=== PATIENT | female | born 1970 | race African-American/Black ===

== ENCOUNTER → 2017-06-01 08:21 | Outpatient (CLI) | payer MEDICARE, MEDICAID, SELFPAY ==
[2017-06-01 09:46] LABS: Absolute Lymphocyte Count 1.65 X10^3/ul (0.83-4.51); Absolute Neutrophil Count 3.5 X10^3/uL (2.0-7.7); Basophil# 0.02 X10^3/uL; Basophil% 0.3 % (0-1); Eosinophil# 0.15 X10^3/uL; Eosinophils% 2.5 % (0-5); Hematocrit 36.4 % (37-47); Lymphocyte # 1.65 X10^3/ul (4.0); Lymphocyte % 27.7 % (19-41); Mean Corpuscular Hgb 31.6 pg (27.0-32.0); Mean Corpuscular Volume 95.8 fL (81-99); Mean Platelet Vol. 9.7 fl (6.2-12.0); Monocyte# 0.61 X10^3/uL; Monocyte% 10.3 % (0-10); Neutrophil # 3.49 X10^3/uL (2.7-7.7); Neutrophil % 58.7 % (47-70); Platelet Count 315 K/mm3 (150-450); RBC Distribution Width CV 14.8 % (11.6-14.6); RBC Distribution Width SD 49.5 fl (35.1-43.9)
[2017-06-01 09:47] LABS: POSITIVE COUNT NO; POSITIVE DIFFERENTIAL NO; POSITIVE MORPHOLOGY NO
== END ==
PROVIDERS: Family Provider Family Medicine Geriatric Medicine; PCP Family Medicine Geriatric Medicine; Visit Provider Psychiatry & Neurology Psychiatry
DX: Z79.899 Other long term (current) drug therapy (principal)
CPT/HCPCS: 36415; 85025

== ENCOUNTER → 2017-07-01 08:33 | Outpatient (CLI) | payer MEDICARE, MEDICAID, SELFPAY ==
[2017-07-01 09:15] LABS: Absolute Lymphocyte Count 2.05 X10^3/ul (0.83-4.51); Absolute Neutrophil Count 3.2 X10^3/uL (2.0-7.7); Basophil# 0.01 X10^3/uL; Basophil% 0.2 % (0-1); Eosinophils% 3.2 % (0-5); Hematocrit 36.2 % (37-47); Lymphocyte # 2.05 X10^3/ul (4.0); Mean Corp Hgb Conc 33.1 g/gl (32-36); Mean Corpuscular Hgb 31.4 pg (27.0-32.0); Mean Corpuscular Volume 94.8 fL (81-99); Mean Platelet Vol. 9.5 fl (6.2-12.0); Monocyte# 0.73 X10^3/uL; Monocyte% 11.8 % (0-10); Neutrophil # 3.21 X10^3/uL (2.7-7.7); Neutrophil % 51.6 % (47-70); Platelet Count 294 K/mm3 (150-450); RBC Distribution Width CV 14.1 % (11.6-14.6); RBC Distribution Width SD 46.9 fl (35.1-43.9); Red Blood Count 3.82 M/mm3 (4.2-5.4); White Blood Count 6.2 K/mm3 (4.4-11.0)
[2017-07-01 09:20] LABS: POSITIVE COUNT NO; POSITIVE DIFFERENTIAL NO; POSITIVE MORPHOLOGY NO
== END ==
PROVIDERS: Family Provider Family Medicine Geriatric Medicine; PCP Family Medicine Geriatric Medicine; Visit Provider Psychiatry & Neurology Psychiatry
DX: Z79.899 Other long term (current) drug therapy (principal)
CPT/HCPCS: 36415; 85025

== ENCOUNTER → 2017-07-01 10:39 | Outpatient (CLI) | payer MEDICARE, MEDICAID, SELFPAY ==
[2017-07-01 13:10] LABS: Absolute Lymphocyte Count 1.94 X10^3/ul (0.83-4.51); Absolute Neutrophil Count 3.8 X10^3/uL (2.0-7.7); Basophil# 0.01 X10^3/uL; Basophil% 0.1 % (0-1); Eosinophil# 0.26 X10^3/uL; Eosinophils% 3.8 % (0-5); Lymphocyte # 1.94 X10^3/ul (4.0); Lymphocyte % 28.6 % (19-41); Mean Corp Hgb Conc 33.3 g/gl (32-36); Mean Corpuscular Hgb 31.8 pg (27.0-32.0); Mean Corpuscular Volume 95.5 fL (81-99); Mean Platelet Vol. 9.9 fl (6.2-12.0); Monocyte% 11.8 % (0-10); Neutrophil # 3.77 X10^3/uL (2.7-7.7); Neutrophil % 55.6 % (47-70); Platelet Count 294 K/mm3 (150-450); RBC Distribution Width CV 14.3 % (11.6-14.6); RBC Distribution Width SD 48.3 fl (35.1-43.9); Red Blood Count 3.77 M/mm3 (4.2-5.4); White Blood Count 6.8 K/mm3 (4.4-11.0)
[2017-07-01 13:11] LABS: POSITIVE COUNT NO; POSITIVE DIFFERENTIAL NO; POSITIVE MORPHOLOGY NO
[2017-07-01 13:47] LABS: ALB/GLOB Ratio 0.7 RATIO (0.9-2.4); AST(SGOT) 15 U/L (15-37); Alanine Aminotransfer ALT/SGPT 26 U/L (13-56); Albumin, Serum 3.2 g/dL (3.2-5.0); Alkaline Phosphatase 72 U/L (45-117); Anion Gap 8 (5-15); BUN 15 mg/dL (7-18); BUN/Creat Ratio 12.3 RATIO (10-20); Calcium,Total 8.8 mg/dL (8.5-10.1); Chloride 100 mmol/L (98-107); Creatinine, Serum 1.22 mg/dL (0.55-1.02); EST Glomerular Filtration Rate 50 mL/min (>60); Est Glom Filt Rate - Afr Amer 60 mL/min (>60); Globulin 4.5 g/dL (2.2-4.2); Glucose 66 mg/dL (74-106); Potassium 4.4 mmol/L (3.5-5.1); Protein, Total 7.7 g/dL (6.4-8.2); Sodium Level 133 mmol/L (136-145); Thyroid Stim Hormone (TSH) 0.34 uIU/mL (0.358-3.74)
== END ==
PROVIDERS: Family Provider Family Medicine Geriatric Medicine; PCP Family Medicine Geriatric Medicine; Visit Provider Family Medicine Geriatric Medicine
DX: E11.9 Type 2 diabetes mellitus without complications (principal); I10 Essential (primary) hypertension; Z79.899 Other long term (current) drug therapy
CPT/HCPCS: 36415; 80053; 84443; 85025

== ENCOUNTER 2017-07-29 10:46 | Outpatient (RCR) | payer MEDICARE, MEDICAID, SELFPAY ==
[2017-07-29 11:47] LABS: Absolute Lymphocyte Count 3.11 X10^3/ul (0.83-4.51); Absolute Neutrophil Count 3.7 X10^3/uL (2.0-7.7); Basophil# 0.01 X10^3/uL; Basophil% 0.1 % (0-1); Eosinophil# 0.19 X10^3/uL; Eosinophils% 2.5 % (0-5); Hematocrit 35.5 % (37-47); Hemoglobin 11.5 g/dl (12.0-15.0); Lymphocyte # 3.11 X10^3/ul (4.0); Lymphocyte % 40.5 % (19-41); Mean Corp Hgb Conc 32.4 g/gl (32-36); Mean Corpuscular Hgb 30.7 pg (27.0-32.0); Mean Corpuscular Volume 94.7 fL (81-99); Mean Platelet Vol. 9.3 fl (6.2-12.0); Monocyte# 0.67 X10^3/uL; Monocyte% 8.7 % (0-10); Neutrophil # 3.69 X10^3/uL (2.7-7.7); Neutrophil % 48.1 % (47-70); Platelet Count 256 K/mm3 (150-450); RBC Distribution Width CV 14.4 % (11.6-14.6); RBC Distribution Width SD 49.6 fl (35.1-43.9); Red Blood Count 3.75 M/mm3 (4.2-5.4); White Blood Count 7.7 K/mm3 (4.4-11.0)
[2017-07-29 11:50] LABS: POSITIVE COUNT NO; POSITIVE DIFFERENTIAL NO; POSITIVE MORPHOLOGY NO
[2017-07-29 12:15] LABS: Thyroid Stim Hormone (TSH) 0.42 uIU/mL (0.358-3.74)
== END 2017-07-29 11:00 | disposition home or self-care (01) ==
LOC: LAB 10:46
PROVIDERS: Family Provider Family Medicine Geriatric Medicine; PCP Family Medicine Geriatric Medicine; Visit Provider Psychiatry & Neurology Psychiatry
DX: E03.9 Hypothyroidism, unspecified (principal); Z79.899 Other long term (current) drug therapy
CPT/HCPCS: 36415; 84443; 85025

== ENCOUNTER → 2017-08-20 09:50 | Outpatient (CLI) | payer MEDICARE, MEDICAID, SELFPAY ==
[2017-08-20 12:51] LABS: Thyroid Stim Hormone (TSH) 0.91 uIU/mL (0.358-3.74)
== END ==
PROVIDERS: Family Provider Family Medicine Geriatric Medicine; PCP Family Medicine Geriatric Medicine; Visit Provider Family Medicine Geriatric Medicine
DX: E03.9 Hypothyroidism, unspecified (principal)
CPT/HCPCS: 36415; 84443

== ENCOUNTER → 2017-08-26 08:28 | Outpatient (CLI) | payer MEDICARE, MEDICAID, SELFPAY ==
[2017-08-26 09:26] LABS: Absolute Neutrophil Count 3.4 X10^3/uL (2.0-7.7); Basophil# 0.01 X10^3/uL; Basophil% 0.2 % (0-1); Eosinophil# 0.25 X10^3/uL; Hematocrit 33.3 % (37-47); Hemoglobin 11.2 g/dl (12.0-15.0); Lymphocyte % 29.1 % (19-41); Mean Corp Hgb Conc 33.6 g/gl (32-36); Mean Corpuscular Hgb 31.7 pg (27.0-32.0); Mean Corpuscular Volume 94.3 fL (81-99); Mean Platelet Vol. 9.9 fl (6.2-12.0); Monocyte# 0.67 X10^3/uL; Monocyte% 10.8 % (0-10); Neutrophil # 3.43 X10^3/uL (2.7-7.7); Neutrophil % 55.6 % (47-70); Platelet Count 267 K/mm3 (150-450); RBC Distribution Width CV 14.7 % (11.6-14.6); Red Blood Count 3.53 M/mm3 (4.2-5.4); White Blood Count 6.2 K/mm3 (4.4-11.0)
[2017-08-26 09:28] LABS: POSITIVE COUNT NO; POSITIVE DIFFERENTIAL NO; POSITIVE MORPHOLOGY NO
[2017-08-26 10:00] LABS: AST(SGOT) 16 U/L (15-37); Alanine Aminotransfer ALT/SGPT 20 U/L (13-56)
[2017-08-26 10:05] LABS: Valproic Acid (Depakene) Level 55 ug/mL (50-100)
== END ==
PROVIDERS: Family Provider Family Medicine Geriatric Medicine; PCP Family Medicine Geriatric Medicine; Visit Provider Psychiatry & Neurology Psychiatry
DX: R53.83 Other fatigue (principal); Z79.899 Other long term (current) drug therapy; F19.10 Other psychoactive substance abuse, uncomplicated
CPT/HCPCS: 36415; 80164; 84450; 84460; 85025

== ENCOUNTER → 2017-09-21 14:10 | Outpatient (CLI) | payer MEDICARE, MEDICAID, SELFPAY ==
--- NOTE | 2017-09-21 14:10 | DT_ITS ---
This patient was seen during an EMR downtime September 20, 2017 - September 27, 2017. This patient may have a combination of paper and electronic documentation or all paper documentation. All documentation is viewable within the e-chart portion of [facility] for each patient visit.
[2017-09-27 16:01] LABS: Hemoglobin 10.6 g/dl (12.0-15.0); Mean Corp Hgb Conc 33.1 g/gl (32-36); Mean Corpuscular Hgb 30.5 pg (27.0-32.0); Mean Corpuscular Volume 92.2 fL (81-99); Mean Platelet Vol. 9.2 fl (6.2-12.0); POSITIVE COUNT NO; POSITIVE DIFFERENTIAL NO; POSITIVE MORPHOLOGY NO; Platelet Count 335 K/mm3 (150-450); RBC Distribution Width CV 14.4 % (11.6-14.6); RBC Distribution Width SD 48.3 fl (35.1-43.9); Red Blood Count 3.47 M/mm3 (4.2-5.4); White Blood Count 7.2 K/mm3 (4.4-11.0)
[2017-09-27 16:02] LABS: Absolute Lymphocyte Count 2.05 X10^3/ul (0.83-4.51); Absolute Neutrophil Count 4.1 X10^3/uL (2.0-7.7); Basophil# 0.01 X10^3/uL; Basophil% 0.1 % (0-1); Eosinophil# 0.23 X10^3/uL; Eosinophils% 3.2 % (0-5); Lymphocyte # 2.05 X10^3/ul (4.0); Lymphocyte % 28.4 % (19-41); Monocyte# 0.86 X10^3/uL; Monocyte% 11.9 % (0-10); Neutrophil # 4.06 X10^3/uL (2.7-7.7); Neutrophil % 56.3 % (47-70)
== END ==
PROVIDERS: Family Provider Family Medicine Geriatric Medicine; PCP Family Medicine Geriatric Medicine; Visit Provider Psychiatry & Neurology Psychiatry
DX: Z79.899 Other long term (current) drug therapy (principal)
CPT/HCPCS: 36415; 85025

== ENCOUNTER → 2017-10-19 09:06 | Outpatient (CLI) | payer MEDICARE, MEDICAID, SELFPAY ==
[2017-10-19 09:52] LABS: Absolute Neutrophil Count 3.1 X10^3/uL (2.0-7.7); Basophil# 0.01 X10^3/uL; Basophil% 0.2 % (0-1); Eosinophil# 0.23 X10^3/uL; Eosinophils% 3.6 % (0-5); Hematocrit 35.1 % (37-47); Hemoglobin 11.8 g/dl (12.0-15.0); Lymphocyte % 34.8 % (19-41); Mean Corp Hgb Conc 33.6 g/gl (32-36); Mean Corpuscular Hgb 31.1 pg (27.0-32.0); Mean Corpuscular Volume 92.6 fL (81-99); Mean Platelet Vol. 9.6 fl (6.2-12.0); Monocyte# 0.69 X10^3/uL; Monocyte% 10.9 % (0-10); Neutrophil # 3.14 X10^3/uL (2.7-7.7); Neutrophil % 49.7 % (47-70); Platelet Count 338 K/mm3 (150-450); RBC Distribution Width CV 14.3 % (11.6-14.6); RBC Distribution Width SD 46.8 fl (35.1-43.9); Red Blood Count 3.79 M/mm3 (4.2-5.4); White Blood Count 6.3 K/mm3 (4.4-11.0)
[2017-10-19 09:55] LABS: POSITIVE COUNT NO; POSITIVE DIFFERENTIAL NO; POSITIVE MORPHOLOGY NO
== END ==
PROVIDERS: Family Provider Family Medicine Geriatric Medicine; PCP Family Medicine Geriatric Medicine; Visit Provider Psychiatry & Neurology Psychiatry
DX: Z79.899 Other long term (current) drug therapy (principal)
CPT/HCPCS: 36415; 85025

== ENCOUNTER → 2017-11-16 09:18 | Outpatient (CLI) | payer MEDICARE, MEDICAID, SELFPAY ==
[2017-11-16 10:10] LABS: Absolute Lymphocyte Count 2.44 X10^3/ul (0.83-4.51); Absolute Neutrophil Count 3.4 X10^3/uL (2.0-7.7); Basophil# 0.02 X10^3/uL; Basophil% 0.3 % (0-1); Eosinophil# 0.26 X10^3/uL; Eosinophils% 3.8 % (0-5); Hematocrit 36.6 % (37-47); Hemoglobin 11.9 g/dl (12.0-15.0); Lymphocyte # 2.44 X10^3/ul (4.0); Lymphocyte % 35.9 % (19-41); Mean Corp Hgb Conc 32.5 g/gl (32-36); Mean Corpuscular Hgb 30.9 pg (27.0-32.0); Mean Corpuscular Volume 95.1 fL (81-99); Mean Platelet Vol. 9.4 fl (6.2-12.0); Monocyte% 10.3 % (0-10); Neutrophil # 3.36 X10^3/uL (2.7-7.7); Neutrophil % 49.6 % (47-70); Platelet Count 294 K/mm3 (150-450); RBC Distribution Width CV 14.4 % (11.6-14.6); RBC Distribution Width SD 49.9 fl (35.1-43.9); Red Blood Count 3.85 M/mm3 (4.2-5.4); White Blood Count 6.8 K/mm3 (4.4-11.0)
[2017-11-16 10:16] LABS: POSITIVE COUNT NO; POSITIVE DIFFERENTIAL NO; POSITIVE MORPHOLOGY NO
== END ==
PROVIDERS: Family Provider Family Medicine Geriatric Medicine; PCP Family Medicine Geriatric Medicine; Visit Provider Psychiatry & Neurology Psychiatry
DX: Z79.899 Other long term (current) drug therapy (principal)
CPT/HCPCS: 36415; 85025

== ENCOUNTER → 2017-12-14 09:25 | Outpatient (CLI) | payer MEDICARE, MEDICAID, SELFPAY ==
[2017-12-14 10:31] LABS: Absolute Neutrophil Count 3.3 X10^3/uL (2.0-7.7); Basophil# 0.01 X10^3/uL; Basophil% 0.2 % (0-1); Eosinophil# 0.23 X10^3/uL; Eosinophils% 3.5 % (0-5); Hematocrit 35.3 % (37-47); Hemoglobin 11.4 g/dl (12.0-15.0); Lymphocyte % 34.9 % (19-41); Mean Corp Hgb Conc 32.3 g/gl (32-36); Mean Corpuscular Volume 95.9 fL (81-99); Mean Platelet Vol. 9.8 fl (6.2-12.0); Monocyte# 0.77 X10^3/uL; Monocyte% 11.7 % (0-10); Neutrophil # 3.26 X10^3/uL (2.7-7.7); Neutrophil % 49.4 % (47-70); POSITIVE COUNT NO; POSITIVE DIFFERENTIAL NO; POSITIVE MORPHOLOGY NO; Platelet Count 282 K/mm3 (150-450); RBC Distribution Width CV 14.5 % (11.6-14.6); RBC Distribution Width SD 50.8 fl (35.1-43.9); Red Blood Count 3.68 M/mm3 (4.2-5.4); White Blood Count 6.6 K/mm3 (4.4-11.0)
== END ==
PROVIDERS: Family Provider Family Medicine Geriatric Medicine; PCP Family Medicine Geriatric Medicine; Visit Provider Psychiatry & Neurology Psychiatry
DX: Z79.899 Other long term (current) drug therapy (principal)
CPT/HCPCS: 36415; 85025

== ENCOUNTER → 2017-12-30 11:37 | Outpatient (CLI) | payer MEDICARE, MEDICAID, SELFPAY ==
[2017-12-30 12:41] LABS: Absolute Lymphocyte Count 2.24 X10^3/ul (0.83-4.51); Basophil# 0.01 X10^3/uL; Basophil% 0.2 % (0-1); Eosinophil# 0.25 X10^3/uL; Hematocrit 34.9 % (37-47); Hemoglobin 11.4 g/dl (12.0-15.0); Lymphocyte # 2.24 X10^3/ul (4.0); Lymphocyte % 35.7 % (19-41); Mean Corp Hgb Conc 32.7 g/gl (32-36); Mean Corpuscular Hgb 30.6 pg (27.0-32.0); Mean Corpuscular Volume 93.6 fL (81-99); Mean Platelet Vol. 9.8 fl (6.2-12.0); Monocyte# 0.77 X10^3/uL; Monocyte% 12.3 % (0-10); Neutrophil # 2.99 X10^3/uL (2.7-7.7); Neutrophil % 47.5 % (47-70); Platelet Count 294 K/mm3 (150-450); RBC Distribution Width CV 14.4 % (11.6-14.6); RBC Distribution Width SD 49.1 fl (35.1-43.9); Red Blood Count 3.73 M/mm3 (4.2-5.4); White Blood Count 6.3 K/mm3 (4.4-11.0)
[2017-12-30 12:48] LABS: POSITIVE COUNT NO; POSITIVE DIFFERENTIAL NO; POSITIVE MORPHOLOGY NO
[2017-12-30 13:12] LABS: ALB/GLOB Ratio 0.7 RATIO (0.9-2.4); AST(SGOT) 20 U/L (15-37); Alanine Aminotransfer ALT/SGPT 32 U/L (13-56); Albumin, Serum 3.1 g/dL (3.2-5.0); Alkaline Phosphatase 71 U/L (45-117); Anion Gap 11 (5-15); BUN 25 mg/dL (7-18); BUN/Creat Ratio 19.4 RATIO (10-20); Chloride 103 mmol/L (98-107); Creatinine, Serum 1.29 mg/dL (0.55-1.02); EST Glomerular Filtration Rate 47 mL/min (>60); Est Glom Filt Rate - Afr Amer 56 mL/min (>60); Globulin 4.6 g/dL (2.2-4.2); Glucose 63 mg/dL (74-106); Potassium 4.5 mmol/L (3.5-5.1); Protein, Total 7.7 g/dL (6.4-8.2); Sodium Level 137 mmol/L (136-145); Thyroid Stim Hormone (TSH) 0.97 uIU/mL (0.358-3.74)
== END ==
PROVIDERS: Family Provider Family Medicine Geriatric Medicine; PCP Family Medicine Geriatric Medicine; Visit Provider Family Medicine Geriatric Medicine
DX: I10 Essential (primary) hypertension (principal)
CPT/HCPCS: 36415; 80053; 84443; 85025

== ENCOUNTER 2018-01-11 09:30 | Outpatient (RCR) | payer MEDICARE, MEDICAID, SELFPAY ==
[2018-01-11 11:01] LABS: Absolute Lymphocyte Count 2.27 X10^3/ul (0.83-4.51); Absolute Neutrophil Count 3.2 X10^3/uL (2.0-7.7); Basophil# 0.02 X10^3/uL; Basophil% 0.3 % (0-1); Eosinophils% 4.6 % (0-5); Hematocrit 35.3 % (37-47); Hemoglobin 11.8 g/dl (12.0-15.0); Lymphocyte # 2.27 X10^3/ul (4.0); Lymphocyte % 35.1 % (19-41); Mean Corp Hgb Conc 33.4 g/gl (32-36); Mean Corpuscular Hgb 31.4 pg (27.0-32.0); Mean Corpuscular Volume 93.9 fL (81-99); Mean Platelet Vol. 9.7 fl (6.2-12.0); Monocyte# 0.65 X10^3/uL; Monocyte% 10.1 % (0-10); Neutrophil # 3.21 X10^3/uL (2.7-7.7); Neutrophil % 49.7 % (47-70); Platelet Count 290 K/mm3 (150-450); RBC Distribution Width CV 14.2 % (11.6-14.6); Red Blood Count 3.76 M/mm3 (4.2-5.4); White Blood Count 6.5 K/mm3 (4.4-11.0)
[2018-01-11 11:11] LABS: POSITIVE COUNT NO; POSITIVE DIFFERENTIAL NO; POSITIVE MORPHOLOGY NO
== END 2018-01-11 11:00 | disposition home or self-care (01) ==
LOC: LAB 09:30
PROVIDERS: Family Provider Family Medicine Geriatric Medicine; PCP Family Medicine Geriatric Medicine; Visit Provider Psychiatry & Neurology Psychiatry
DX: Z79.899 Other long term (current) drug therapy (principal)
CPT/HCPCS: 36415; 85025

== ENCOUNTER → 2018-01-13 14:20 | Outpatient (CLI) | payer MEDICARE, MEDICAID, SELFPAY ==
--- NOTE | 2018-01-13 14:24 | BI_ITS ---
MAMMOGRAPHY - BILATERAL SCREENING REASON FOR EXAM: Female, 47 years old. Routine annual screening examination. PERTINENT HISTORY: Non-contributory. TECHNIQUE: Digital bilateral breast poonam (3D mammographic acquisition) in the CC and MLO projections. 2-D mediolateral oblique (MLO) and craniocaudad (CC) views of both breasts were obtained. CAD: Full Field Digital Mammography with Computer Added Detection was performed. COMPARISON: Comparison is made with prior examination dated December 11, 2016 and May 13, 2011. FINDINGS: Breast Composition: There are scattered areas of fibroglandular density. There are no dominant masses or suspicious calcifications. No other significant abnormalities are identified. There has been no significant change since the prior study. BI/SCREENING MAMM (CAD), BILAT IMPRESSION: Stable bilateral screening mammogram. Yearly follow-up mammogram recommended. (A) ASSESSMENT CATEGORY: BIRADS Category 1: Negative. A letter regarding these results will be sent to the patient by the facility within 30 days. Approximately 10% of breast cancers are not detected by mammography. A normal mammogram should not delay biopsy of a clinically suspicious abnormality. [id number] Electronically Signed: Michele Rhodes MD at 15:11 EDT Tel [phone], Service support ,
== END ==
PROVIDERS: Family Provider Family Medicine Geriatric Medicine; PCP Family Medicine Geriatric Medicine; Visit Provider Obstetrics & Gynecology
DX: Z12.31 Encounter for screening mammogram for malignant neoplasm of breast (principal)
CPT/HCPCS: 77063; 77067

== ENCOUNTER 2018-02-08 09:22 | Outpatient (RCR) | payer MEDICARE, MEDICAID, SELFPAY ==
[2018-02-08 10:03] LABS: Absolute Lymphocyte Count 1.92 X10^3/ul (0.83-4.51); Absolute Neutrophil Count 3.5 X10^3/uL (2.0-7.7); Basophil# 0.02 X10^3/uL; Basophil% 0.3 % (0-1); Eosinophil# 0.23 X10^3/uL; Eosinophils% 3.5 % (0-5); Hematocrit 34.5 % (37-47); Hemoglobin 11.5 g/dl (12.0-15.0); Lymphocyte # 1.92 X10^3/ul (4.0); Lymphocyte % 29.4 % (19-41); Mean Corp Hgb Conc 33.3 g/gl (32-36); Mean Corpuscular Hgb 31.2 pg (27.0-32.0); Mean Corpuscular Volume 93.5 fL (81-99); Mean Platelet Vol. 8.9 fl (6.2-12.0); Monocyte# 0.78 X10^3/uL; Monocyte% 11.9 % (0-10); Neutrophil # 3.51 X10^3/uL (2.7-7.7); Neutrophil % 53.7 % (47-70); POSITIVE COUNT NO; POSITIVE DIFFERENTIAL NO; POSITIVE MORPHOLOGY NO; Platelet Count 335 K/mm3 (150-450); RBC Distribution Width CV 14.1 % (11.6-14.6); RBC Distribution Width SD 46.4 fl (35.1-43.9); Red Blood Count 3.69 M/mm3 (4.2-5.4); White Blood Count 6.5 K/mm3 (4.4-11.0)
[2018-02-08 10:28] LABS: AST(SGOT) 16 U/L (15-37); Alanine Aminotransfer ALT/SGPT 19 U/L (13-56)
[2018-02-08 10:37] LABS: Valproic Acid (Depakene) Level 54 ug/mL (50-100)
== END 2018-02-08 11:00 | disposition home or self-care (01) ==
LOC: LAB 09:22
PROVIDERS: Family Provider Family Medicine Geriatric Medicine; PCP Family Medicine Geriatric Medicine; Referring Provider Psychiatry & Neurology Psychiatry; Visit Provider Psychiatry & Neurology Psychiatry
DX: Z79.899 Other long term (current) drug therapy (principal)
CPT/HCPCS: 36415; 80164; 82140; 84450; 84460; 85025

== ENCOUNTER → 2018-03-08 09:15 | Outpatient (CLI) | payer MEDICARE, MEDICAID, SELFPAY ==
[2018-02-08 12:17] VITALS: BMI 41.9
[2018-03-08 10:30] LABS: Absolute Lymphocyte Count 2.26 X10^3/ul (0.83-4.51); Absolute Neutrophil Count 2.7 X10^3/uL (2.0-7.7); Basophil# 0.01 X10^3/uL; Basophil% 0.2 % (0-1); Eosinophil# 0.23 X10^3/uL; Eosinophils% 3.9 % (0-5); Hematocrit 35.7 % (37-47); Hemoglobin 11.9 g/dl (12.0-15.0); Lymphocyte # 2.26 X10^3/ul (4.0); Lymphocyte % 37.9 % (19-41); Mean Corp Hgb Conc 33.3 g/gl (32-36); Mean Corpuscular Hgb 31.3 pg (27.0-32.0); Mean Corpuscular Volume 93.9 fL (81-99); Mean Platelet Vol. 9.9 fl (6.2-12.0); Monocyte# 0.72 X10^3/uL; Monocyte% 12.1 % (0-10); Neutrophil # 2.74 X10^3/uL (2.7-7.7); Neutrophil % 45.7 % (47-70); Platelet Count 296 K/mm3 (150-450); RBC Distribution Width CV 14.5 % (11.6-14.6); RBC Distribution Width SD 47.8 fl (35.1-43.9)
[2018-03-08 10:36] LABS: POSITIVE COUNT NO; POSITIVE DIFFERENTIAL NO; POSITIVE MORPHOLOGY NO
== END ==
PROVIDERS: Family Provider Family Medicine Geriatric Medicine; PCP Family Medicine Geriatric Medicine; Referring Provider Psychiatry & Neurology Psychiatry; Visit Provider Psychiatry & Neurology Psychiatry
DX: Z79.899 Other long term (current) drug therapy (principal)
CPT/HCPCS: 36415; 85025

== ENCOUNTER 2018-03-18 09:09 | Outpatient (RCR) | payer MEDICARE, MEDICAID, SELFPAY ==
[2018-02-08 12:17] VITALS: BMI 41.9
[2018-03-18 10:53] LABS: Absolute Neutrophil Count 3.4 X10^3/uL (2.0-7.7); Basophil# 0.02 X10^3/uL; Basophil% 0.3 % (0-1); Eosinophil# 0.25 X10^3/uL; Eosinophils% 3.7 % (0-5); Hematocrit 35.4 % (37-47); Lymphocyte % 35.5 % (19-41); Mean Corp Hgb Conc 33.9 g/gl (32-36); Mean Corpuscular Hgb 31.5 pg (27.0-32.0); Mean Corpuscular Volume 92.9 fL (81-99); Monocyte# 0.64 X10^3/uL; Monocyte% 9.5 % (0-10); Neutrophil # 3.42 X10^3/uL (2.7-7.7); Neutrophil % 50.6 % (47-70); Platelet Count 332 K/mm3 (150-450); RBC Distribution Width CV 14.8 % (11.6-14.6); RBC Distribution Width SD 48.3 fl (35.1-43.9); Red Blood Count 3.81 M/mm3 (4.2-5.4); White Blood Count 6.8 K/mm3 (4.4-11.0)
[2018-03-18 10:54] LABS: POSITIVE COUNT NO; POSITIVE DIFFERENTIAL NO; POSITIVE MORPHOLOGY NO
--- OUTSIDE RECORDS SUMMARY | 2018-05-13 03:54 | XMS RPT_ITS ---
:1970 Author Organization OHIP Support Name Relationship Address Phone D Unavailable Unavailable Unavailable MARLIN MARTINEZ Unavailable [address] + [place] [address] PIMENTEL TAMIKO Unavailable [address] + [place] [address] D Unavailable Unavailable Unavailable MARLIN MARTINEZ Unavailable [address] + [place] [address] PIMENTEL, TAMIKO Unavailable [address] + [place] [address] D Unavailable Unavailable Unavailable MARLIN MARTINEZ Unavailable [address] + [place] [address] PIMENTEL, TAMIKO Unavailable [address] + [place] [address] D Unavailable Unavailable Unavailable MARLIN MARTINEZ Unavailable Unavailable + [place] [address] PIMENTEL, TAMIKO Unavailable Unavailable + [place] [address] D Unavailable Unavailable Unavailable MARLIN MARTINEZ Unavailable . + [place] [address] PIMENTEL, TAMIKO Unavailable . + [place] [address] D Unavailable Unavailable Unavailable STEF MARTINEZE Unavailable Unavailable + P[place] TAMIKO Unavailable Unavailable + D Unavailable Unavailable Unavailable MARLIN MARTINEZ Unavailable Unavailable + [place] [address] PIMENTEL, TAMIKO Unavailable Unavailable + [place] [address] D Unavailable Unavailable Unavailable MARLIN MARTINEZ Unavailable Unavailable + [place] [address] PIMENTEL, TAMIKO Unavailable Unavailable + [place] [address] D Unavailable Unavailable Unavailable SUBRANNI, MARLIN Unavailable Unavailable + [place] [address] PIMENTEL, TAMIKO Unavailable Unavailable + [place] [address] D Unavailable Unavailable Unavailable SUBRANNI, MARLIN Unavailable Unavailable + [place] [address] PIMENTEL, TAMIKO Unavailable Unavailable + [place] [address] D Unavailable Unavailable Unavailable SUBRANNI, MARLIN Unavailable Unavailable + [place] [address] PIMENTEL, TAMIKO Unavailable Unavailable + [place] [address] D Unavailable Unavailable Unavailable SUBRANNI, MARLIN Unavailable . + [place] [address] PIMENTEL, TAMIKO Unavailable . + [place] [address] D Unavailable Unavailable Unavailable SUBRANNI, MARLIN Unavailable . + [place] [address] PIMENTEL, TAMIKO Unavailable . + [place] [address] D Unavailable Unavailable Unavailable SUBRANNI, MARLIN Unavailable . + [place] [address] PIMENTEL, TAMIKO Unavailable . + [place] [address] D Unavailable Unavailable Unavailable SUBRANNI, MARLIN Unavailable Unavailable + [place] [address] D Unavailable Unavailable Unavailable SUBRANNI, MARLIN Unavailable Unavailable + [place] [address] D Unavailable Unavailable Unavailable SUBRANNI, MARLIN Unavailable Unavailable + [place] [address] D Unavailable Unavailable Unavailable SUBRANNI, MARLIN Unavailable Unavailable + [place] [address] D Unavailable Unavailable Unavailable SUBRANNI, MARLIN Unavailable Unavailable + [place] [address] D Unavailable Unavailable Unavailable SUBRANNI, MARLIN Unavailable Unavailable + [place] [address] D Unavailable Unavailable Unavailable SUBRANNI, MARLIN Unavailable . + [place] [address] D Unavailable Unavailable Unavailable SUBRANNI, MARLIN Unavailable . + [place] [address] Care Team Providers Name Role Phone Astreika, Vera Attending Unavailable Astreika, Vera Referring Unavailable Jim, Marc Chi Primary Care Unavailable Jim, Marc Chi Attending Unavailable Jim, Marc Chi Primary Care Unavailable Astreika, Vera Attending Unavailable Astreika, Vera Referring Unavailable Jim, Marc Chi Primary Care Unavailable Astreika, Vera Attending Unavailable Astreika, Vera Referring Unavailable Jim, Marc Chi Primary Care Unavailable Astreika, Vera Attending Unavailable Astreika, Vera Referring Unavailable Jim, Marc Chi Primary Care Unavailable Astreika, Vera Attending Unavailable Astreika, Vera Referring Unavailable Jim, Marc Chi Primary Care Unavailable Rolo Sun Attending Unavailable Jim, Marc Chi Referring Unavailable Araceli Prince Attending Unavailable Jim, Marc Chi Referring Unavailable Astreika, Vera Attending Unavailable Astreika, Vera Referring Unavailable Jim, Marc Chi Primary Care Unavailable Astreika, Vera Attending Unavailable Astreika, Vera Referring Unavailable Jim, Marc Chi Primary Care Unavailable Jim, Marc Chi Attending Unavailable Jim, Marc Chi Primary Care Unavailable Astreika, Vera Attending Unavailable Jim, Marc Chi Primary Care Unavailable Araceli Prince Attending Unavailable Jim, Marc Chi Primary Care Unavailable Astreika, Vera Attending Unavailable Jim, Marc Chi Primary Care Unavailable Astreika, Vera Referring Unavailable Araceli Prince Attending Unavailable Jim, Marc Chi Referring Unavailable Astreika, Vera Attending Unavailable Astreika, Vera Referring Unavailable Jim, Marc Chi Primary Care Unavailable Astreika, Vera Attending Unavailable Astreika, Vera Referring Unavailable Jim, Marc Chi Primary Care Unavailable Astreika, Vera Attending Unavailable Astreika, Vera Referring Unavailable Jim, Marc Chi Primary Care Unavailable Astreika, Vera Attending Unavailable Astreika, Vera Referring Unavailable Jim, Marc Chi Primary Care Unavailable Astreika, Vera Attending Unavailable Astreika, Vera Referring Unavailable Jim, Marc Chi Primary Care Unavailable Lavern Saldana Attending Unavailable Jim, Marc Chi Primary Care Unavailable Jim, Marc Chi Attending Unavailable Jim, Marc Chi Primary Care Unavailable PROBLEMS PROBLEMS DATE TYPE CONDITION / CODE ATTENDING STATUS SOURCE 03/21/2018 Unknown Z79.899 - Other Astreika, 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 / Repository Z79.899(ICD-10) 01/13/2018 Unknown Z12.31 - Shana, Active [place] Encounter for [facility] mammogram for Repository malignant neoplasm of breast / Z12.31(ICD-10) 08/20/2017 Unknown E03.9 - Marc Dominguez Chi Active [place] Hypothyroidism, Community unspecified / Hospital E03.9(ICD-10) Repository 04/21/2017 Unknown R05 - Cough / Prince, Active [place] R05(ICD-10) [facility] Repository PROCEDURES PROCEDURES No Procedure Records FoundRESULTS RESULTS PULMONARY VISIT REPORT Observed: 03/21/2018 Status: F Source: [place] 1:23 PM [facility] REPOSITORY [facility] [address] [place] [address] OFFICE VISIT Date of Service: 03/21/18 MR#: [id number] Acct: [id number] Name: HOA PIMENTEL Rep #: [id number] : 1970 Provider: Rolo Sun MD Age/Sex: 47/F Location: [facility] Status: Signed Assessment AND Plan Problems 1. Moderate persistent asthma without complication J45.40 2. Schizophrenia, unspecified type F20.9 3. Paranoid disorder F22 Plan Patient appears to be doing well on current regimen. No exacerbations have been reported. Patient is not having any complications with therapy. No indication for repeat pulmonary function test at this time. Signs and symptoms of exacerbation and sick policy were reviewed in detail. 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 Continue current regimen. Patient Instructions No changes. Plan Detail Follow Up 6 Months ([facility]) HPI 6 M FU: Chief Complaint: Routine follow-up Details: Patient is a 47-year-old black female, currently in the care of Dr. Dominguez, who presents for evaluation secondary to routine follow-up for asthma. Since last visit, patient denies any ER visits, hospitalizations or prednisone burst. Patient overall feels subjectively unchanged compared to previous. Patient has been doing well on Arnuity. Patient denies any current complications with therapy including thrush, hoarseness or sore throat. Patient feels that this works well for her. No PRN albuterol has been reported. Patient denies any nocturnal cough. Patient denies any worsening dyspnea on exertion. Patient continues to live in a half-way and states that multiple members have been sick but I have been able to stay away from it. Patient has not had any change in her cough or exacerbation of symptoms related to decrease in temperature. Patient is using Flonase for seasonal allergies. Patient denies any complications such as epistaxis and feels the medication is working well. HPI Comments Details: Intake Vital Signs03/21/18 Height 5 ft 6 in 03/21/18 Weight: 119.748 kg Intake Visit Reasons: 6 M Draw Frame Runner Required: No Is patient in pain?: No Allergies No Known Allergies Allergy (Verified 03/21/18 12:54) Medications Aspirin [Aspirin, Baby] 81 mg PO DAILY@0800 06/24/15 [History Confirmed 03/21/18] Clozapine 150 mg PO BID 06/24/15 [History Confirmed 03/21/18] Glimepiride [Amaryl] 4 mg PO DAILY 06/24/15 [History Confirmed 03/21/18] Levothyroxine [Synthroid] 150 mcg PO DAILY 06/24/15 [History Confirmed 03/21/18] Multivitamins,Therapeutic [Multivitamin] 1 tab PO DAILY 06/24/15 [History Confirmed 03/21/18] Divalproex Sodium [Depakote] 500 mg PO 4X/DAY 06/25/15 [History Confirmed 03/21/18] Metformin HCl [Glucophage] 1,000 mg PO BIDCM 10/08/15 [History Confirmed 03/21/18] Albuterol IH (ProAir) [Proair Hfa (SP)Vent Pts] 2 puff INHALATION 4X/DAY #1 inhaler 10/10/15 [Rx Confirmed 03/21/18] amlodipine 5 mg tablet 5 mg PO QDAY 04/05/17 [History Confirmed 03/21/18] atorvastatin 40 mg tablet 40 mg PO QDAY 04/05/17 [History Confirmed 03/21/18] divalproex ER 500 mg tablet,extended release 24 hr 500 mg PO .qid tab 04/05/17 [History Confirmed 03/21/18] hydrochlorothiazide 12.5 mg capsule 12.5 mg PO QDAY 04/05/17 [History Confirmed 03/21/18] valsartan 320 mg tablet 320 mg PO QDAY 04/05/17 [History Confirmed 03/21/18] fluticasone furoate 100 mcg/actuation blister powder for inhalation 1 inh INHALATION Q24H #30 ea 07/09/17 [Rx Confirmed 03/21/18] fluticasone 50 mcg/actuation nasal spray,suspension 2 spray INTRANASAL DAILY #16 g 02/08/18 [Rx Confirmed 03/21/18] norethindrone (contraceptive) 0.35 mg tablet 0.35 mg PO DAILY #28 tab 02/23/18 [Rx Confirmed 03/21/18] FOR[facility]LY [facility] Medical History Hyponatremia (Acute) Hypertension (Chronic) Schizophrenia (Chronic) Paranoid disorder (Chronic) Type II diabetes mellitus (Chronic) Hyperlipidemia (Chronic) Cough (Acute) Expiratory wheezing (Acute) Wheeze (Acute) Hypoxemia (Chronic) Moderate persistent asthma, uncomplicated (Chronic) Pulmonary hypertension (Chronic) Family History Brother Diabetes Social History Smoking Status: Never smoker second hand exposure: No alcohol intake: never substance use type: does not use Review of Systems Const CONSTITUTIONAL: Negative anorexia, body ache, chills, daytime sleepiness, fever(s), night sweats, oral thrush, stops breathing during sleep, weight loss, sleeping in chair, fatigue, weight loss, weight gain, frequent colds, seasonal allergies, other, headache(s) or orthopnea EETM Ear Nose Throat Mouth: Positive hearing normal; negative hard of hearing, hoarseness, dry mouth in morning, change in vision, itchy eyes, eye pain, swallowing Difficulty, ear pain, nose bleed, headache(s), mouth pain, nasal congestion, nasal discharge, post nasal drip, sinus pain, sinus pressure, sore throat or other Cardio Cardiovascular: Negative chest pain, chest pain at rest, chest pain with activity, irregular heart rhythm, edema, shortness of breath when lying down, palpitations, murmur or other Resp Respiratory: Positive as per HPI and inhalers; negative shortness of breath, pain with cough, wheezing, chest congestion, cough, chest tightness, pain on inspiration, increase use of rescue inhalers, snoring, apnea or other Gastro Gastrointestional: Negative bloody stools, change in appetite, difficulty swallowing, reflux, hematemesis, melena stool, loose stool, constipation or other Genitourinary: Negative blood in urine, nocturia, pain with urination or other Musc Musculoskeletal: Negative body pain, back pain, neck pain or other Skin/Breast Skin/Breast: Negative dry skin, itching, rash, unusual bruising, breast lump or other Neuro Neurological: Negative restless legs, confusion, weakness or other Psych Psychocological: Negative abnormal sleep pattern, anxiety, thoughts of hurting self/others, hopelessness or other Lymph Lymphatic: Negative easy bleeding, easy bruising, swollen lymph nodes or other Exam Const Constitutional: Positive conversant, cooperative, in no acute respiratory distress, healthy appearing, well developed, well nourished, good hygiene, obese and appears older than stated age; negative wearing supplemental oxygen or smells of smoke Head Head: Positive normocephalic and atraumatic; negative cyanosis of lips/distal nose, frontal sinus tenderness or maxillary sinus tenderness Eyes Eye: Positive clear conjunctiva; negative nystagmus, scleral abnormality or cataract present Ears Ear: Positive hearing normal and external ears normal; negative hard of hearing Nose Nose: Positive external nose normal and septum normal; negative epistaxis, nasal polyp or no nasal discharge Mouth Mouth: Positive oral mucosae normal, no lesions, edentulous and crowded posterior oropharynx; negative post nasal drip, malodorous breath or oral thrush present Mallampati Score: IV: Mallampati Score Neck Neck: Positive normal visual inspection, full ROM, trachea midline, thick neck and female neck greater than 37 cm (15 in); negative lymphadenopathy or JVD Chest Wall Chest: Positive normal inspection of the chest and symmetric chest movement; negative crepitus or tenderness Resp lung sounds: Positive clear to auscultation, good air exchange, normal expiratory time and normal respiratory effort; negative wheezes, rhonchi, rales, use of accessory muscles, wheeze present on forced exhalation or dullness to percussion Cardio Cardiac: Positive regular rate, regular rhythm, S1 normal and S2 normal; negative murmur, rub or gallop GI GI: Positive normal to inspection, normal bowel sounds and obese; negative distended, ascites or epigastric tenderness Genitourinary: Positive deferred Musc Musculoskeletal: Positive steady gait; negative using an assistive device for ambulation, kyphosis or scoliosis Skin Pulmonary Skin Exam: Positive intact; negative rash, lesion, ulcers, erythema or dermal atrophy Pulses Pulse: Yes radial pulses present Extremities Extremities: Yes capillary refill normal, No clubbing, No cyanosis, No edema, No stasis dermatitis Neuro Neurologic: Yes conversant, Yes no focal neuro deficits, Yes cooperative, Yes normal coordination Lymph Lymphatic: No lymphadenopathy Psych Appearance: Positive grossly normal Mental Status: Positive mental status grossly normal Mood: Positive congruent mood Affect: Positive normal affect Coding Level of Care Code Off vis,est,level 3 Diagnoses Moderate persistent asthma without complication J45.40 Asthma severity: moderate Asthma persistence: persistent Asthma complication type: uncomplicated Schizophrenia, unspecified type F20.9 Schizophrenia type: unspecified Paranoid disorder F22 03/21/18 1323 <Electronically signed by Rolo Sun MD> Date Rolo Sun MD Cosigner Signature: Date (if applicable) CC: Marc Dominguez MD CBC W/DIFF, AUTOMATED Collected: 03/18/2018 Status: F Source: [place] 9:18 AM [facility] REPOSITORY TYPE CODE TESTS RESULT OUT OF RANGE REFERENCE UNITS LAB L100.1000 4.4-11.0 K/mm3 Normal WBC 6.8 LAB L100.1200 4.2-5.4 M/mm3 Low RBC 3.81 LAB L100.1300 12.0-15.0 g/dl Normal HGB 12.0 LAB L100.1400 37-47 % Low HCT 35.4 LAB L100.1500 81-99 fL Normal MCV 92.9 LAB L100.1600 27.0-32.0 pg Normal MCH 31.5 LAB L100.1700 32-36 g/gl Normal MCHC 33.9 LAB L100.1810 11.6-14.6 % High RDW CV 14.8 LAB L100.1820 35.1-43.9 fl High RDW SD 48.3 LAB L100.1900 150-450 K/mm3 Normal PLT 332 LAB L100.2000 6.2-12.0 fl Normal MPV 10.0 LAB L100.2100 47-70 % Normal NEUT% 50.6 LAB L100.2200 19-41 % Normal LY% 35.5 LAB L100.2300 0-10 % Normal MONO% 9.5 LAB L100.2400 0-5 % Normal EO% 3.7 LAB L100.2500 0-1 % Normal BASO% 0.3 LAB L100.2550 0.0-0.9 % Normal IM GRAN % 0.400 Result Comment: IG% - Immature Granulocytes (promyelocytes, myelocytes and metamyelocytes) > 1% indicates that a LEFT SHIFT is Present. LAB L100.2620 2.0-7.7 X10 3/uL Normal Absolute Neut 3.4 LAB L100.2720 0.83-4.51 X10 3/ul Normal Absolute Lymph 2.40 Performed By: #### L100.0100 #### [facility] [address] [facility] [address] [facility]. [place], [place], [address] CBC W/DIFF, AUTOMATED Collected: 03/08/2018 Status: F Source: [place] 9:21 AM [facility] REPOSITORY TYPE CODE TESTS RESULT OUT OF RANGE REFERENCE UNITS LAB L100.1000 4.4-11.0 K/mm3 Normal WBC 6.0 LAB L100.1200 4.2-5.4 M/mm3 Low RBC 3.80 LAB L100.1300 12.0-15.0 g/dl Low HGB 11.9 LAB L100.1400 37-47 % Low HCT 35.7 LAB L100.1500 81-99 fL Normal MCV 93.9 LAB L100.1600 27.0-32.0 pg Normal MCH 31.3 LAB L100.1700 32-36 g/gl Normal MCHC 33.3 LAB L100.1810 11.6-14.6 % Normal RDW CV 14.5 LAB L100.1820 35.1-43.9 fl High RDW SD 47.8 LAB L100.1900 150-450 K/mm3 Normal PLT 296 LAB L100.2000 6.2-12.0 fl Normal MPV 9.9 LAB L100.2100 47-70 % Low NEUT% 45.7 LAB L100.2200 19-41 % Normal LY% 37.9 LAB L100.2300 0-10 % High MONO% 12.1 LAB L100.2400 0-5 % Normal EO% 3.9 LAB L100.2500 0-1 % Normal BASO% 0.2 LAB L100.2550 0.0-0.9 % Normal IM GRAN % 0.200 Result Comment: IG% - Immature Granulocytes (promyelocytes, myelocytes and metamyelocytes) > 1% indicates that a LEFT SHIFT is Present. LAB L100.2620 2.0-7.7 X10 3/uL Normal Absolute Neut 2.7 LAB L100.2720 0.83-4.51 X10 3/ul Normal Absolute Lymph 2.26 Performed By: #### L100.0100 #### [facility] [address] [place], [place], [address] MISCELLANEOUS LAB Collected: 03/08/2018 Status: F Source: [place] PROCEDURE 9:21 AM [facility] REPOSITORY Order Comment: Comments: CLOZAPINE [id number] SER/RT Test(s) Ordered: CLOZAPINE [id number] SER/RT TYPE CODE TESTS RESULT OUT OF RANGE REFERENCE UNITS LAB L801.1541 Normal [facility] LAB TEST Result Comment: TEST RESULT UNITS REF INTERVAL Clozapine (Clozaril), Serum Clozapine, Serum 472 ng/mL 350 - 650 Please note reference interval change Norclozapine, Serum 98 ng/mL Not Estab. Total(Cloz+Norcloz) 570 ng/mL Patients dosed with 400 mg clozapine daily for 4 weeks were most likely to exhibit a therapeutic effect when the sum of clozapine and norclozapine concentrations were at least 450 ng/mL. Anju C, Manasa P, Stephanie N, et al. AGNP Consensus Guidelines for Therapeutic Drug Monitoring in Psychiatry: Update 2011, Pharmacopsychiatry Dec 2010; 44(6):195-235. Detection Limit = 20 TESTING PERFORMED AT [facility]. ORIGINAL REPORT ON FILE IN LAB CONTAINS ADDITIONAL TEST SITE INFORMATION. Performed By: #### L801.1541 #### [facility] [address] [place], [address] PULMONARY VISIT REPORT Observed: 02/09/2018 Status: F Source: [place] 8:10 AM [facility] REPOSITORY [facility] [address] [place] [address] OFFICE VISIT Date of Service: 02/08/18 MR#: [id number] Acct: [id number] Name: HOA PIMENTEL Rep #: [id number] : 1970 Provider: Araceli Prince Age/Sex: 47/F Location: [facility] Status: Signed Assessment AND Plan 1. Moderate persistent asthma without complication J45.40 Plan Stable, does not appear to be in exacerbation of her asthma today. Continue Arnuity. Keep previously scheduled routine follow-up with Dr. Sun. No additional testing today. 2. Schizophrenia, unspecified type F20.9 Plan Complicates exam, plan, care and prognosis. 3. Cough R05 Plan Deteriorated, likely as a result of postnasal drainage. Placing on Flonase. Encouraged to contact the office to give us an update on how she is responded to this new medication. Plan Detail Other Medications New: HPI congested AND coughing: Chief Complaint: nasal drainage HPI Comments Details: This patient presents the office today for an acute visit regarding increase in nasal drainage. She also has a nonproductive cough. She denies any wheezing or chest tightness, however she has been using her rescue inhaler more frequently. She has schizophrenia, and at times can be difficult to interview for symptoms. She often denies all symptoms but caregivers that accompany her report that she is exhibiting symptoms of more shortness of breath, wheezing and cough. They deny any fevers, chills or body aches. They report that recently she was exposed to increasing amounts of dust as they were doing some deep cleaning at the half-way which she resides. She denies any sinus tenderness, or ear pain. She denies any chest pain or palpitations. She denies any lower extremity edema. She denies any sputum production or hemoptysis. They have not added any [id number]-[id number] medications but note that she has been using her rescue inhaler which is uncommon for her. The rescue inhaler does provide her with some temporary relief of her cough. She has been compliant with Arnuity. She reports rinsing her mouth out after each use. She denies any medication side effects such as sore throat or thrush. Intake Vital Signs02/08/18 Height 5 ft 6 in 02/08/18 Weight: 260 lb Intake Visit Reasons: congested AND coughing Accompanied by: Family / Other Allergies No Known Allergies Allergy (Verified 02/08/18 12:17) Medications Aspirin [Aspirin, Baby] 81 mg PO DAILY@0800 06/24/15 [History Confirmed 02/08/18] Clozapine 150 mg PO BID 06/24/15 [History Confirmed 02/08/18] Glimepiride [Amaryl] 4 mg PO DAILY 06/24/15 [History Confirmed 02/08/18] Levothyroxine [Synthroid] 150 mcg PO DAILY 06/24/15 [History Confirmed 02/08/18] Multivitamins,Therapeutic [Multivitamin] 1 tab PO DAILY 06/24/15 [History Confirmed 02/08/18] Divalproex Sodium [Depakote] 500 mg PO 4X/DAY 06/25/15 [History Confirmed 02/08/18] Metformin HCl [Glucophage] 1,000 mg PO BIDCM 10/08/15 [History Confirmed 02/08/18] Albuterol IH (ProAir) [Proair Hfa (SP)Vent Pts] 2 puff INHALATION 4X/DAY #1 inhaler 10/10/15 [Rx Confirmed 02/08/18] amlodipine 5 mg tablet 5 mg PO QDAY 04/05/17 [History Confirmed 02/08/18] atorvastatin 40 mg tablet 40 mg PO QDAY 04/05/17 [History Confirmed 02/08/18] divalproex ER 500 mg tablet,extended release 24 hr 500 mg PO .qid tab 04/05/17 [History Confirmed 02/08/18] hydrochlorothiazide 12.5 mg capsule 12.5 mg PO QDAY 04/05/17 [History Confirmed 02/08/18] valsartan 320 mg tablet 320 mg PO QDAY 04/05/17 [History Confirmed 02/08/18] fluticasone furoate 100 mcg/actuation blister powder for inhalation 1 inh INHALATION Q24H #30 ea 07/09/17 [Rx Confirmed 02/08/18] fluticasone 50 mcg/actuation nasal spray,suspension 2 spray INTRANASAL DAILY #16 g 02/08/18 [Rx Confirmed 02/08/18] FOR[facility]LY [facility] Medical History Hyponatremia (Acute) Hypertension (Chronic) Schizophrenia (Chronic) Paranoid disorder (Chronic) Type II diabetes mellitus (Chronic) Hyperlipidemia (Chronic) Cough (Acute) Expiratory wheezing (Acute) Wheeze (Acute) Hypoxemia (Chronic) Moderate persistent asthma, uncomplicated (Chronic) Pulmonary hypertension (Chronic) Family History Brother Diabetes Social History Smoking Status: Never smoker second hand exposure: No alcohol intake: never substance use type: does not use Review of Systems Const CONSTITUTIONAL: Negative anorexia, body ache, chills, daytime sleepiness, fever(s), night sweats, oral thrush, stops breathing during sleep, weight loss, sleeping in chair, fatigue, weight loss, weight gain, frequent colds, seasonal allergies, other, headache(s) or orthopnea EETM Ear Nose Throat Mouth: Positive hearing normal, nasal congestion, nasal discharge and post nasal drip; negative hard of hearing, hoarseness, dry mouth in morning, change in vision, itchy eyes, eye pain, swallowing Difficulty, ear pain, nose bleed, headache(s), mouth pain, sinus pain, sinus pressure, sore throat or other Cardio Cardiovascular: Negative chest pain, chest pain at rest, chest pain with activity, irregular heart rhythm, edema, shortness of breath when lying down, palpitations, murmur or other Resp Respiratory: Positive as per HPI, shortness of breath shortness of breath: Positive with activity, cough cough: Positive non-productive (moist) and inhalers; negative pain with cough, wheezing, chest congestion, chest tightness, pain on inspiration, increase use of rescue inhalers, snoring, apnea or other Gastro Gastrointestional: Negative bloody stools, change in appetite, difficulty swallowing, reflux, hematemesis, melena stool, loose stool, constipation or other Genitourinary: Negative blood in urine, nocturia, pain with urination or other Musc Musculoskeletal: Negative body pain, back pain, neck pain or other Skin/Breast Skin/Breast: Negative dry skin, itching, rash, unusual bruising, breast lump or other Neuro Neurological: Negative restless legs, confusion, weakness or other Psych Psychocological: Negative abnormal sleep pattern, anxiety, thoughts of hurting self/others, hopelessness or other Lymph Lymphatic: Negative easy bleeding, easy bruising, swollen lymph nodes or other Exam Const Constitutional: Positive conversant, cooperative, in no acute respiratory distress, healthy appearing, well developed, well nourished, good hygiene and obese Head Head: Positive normocephalic and atraumatic; negative cyanosis of lips/distal nose, frontal sinus tenderness or maxillary sinus tenderness Eyes Eye: Positive clear conjunctiva; negative nystagmus or scleral abnormality Ears Ear: Positive hearing normal and external ears normal; negative hard of hearing Nose Nose: Positive external nose normal and no nasal discharge; negative epistaxis Mouth Mouth: Positive post nasal drip, oral mucosae normal, no lesions, good dentition and crowded posterior oropharynx; negative malodorous breath or oral thrush present Mallampati Score: III: Mallampati Score Neck Neck: Positive normal visual inspection, full ROM and trachea midline; negative lymphadenopathy, JVD or tender Chest Wall Chest: Positive normal inspection of the chest and symmetric chest movement; negative increased A/P diameter Resp lung sounds: Positive clear to auscultation, good air exchange, normal expiratory time and normal respiratory effort; negative diminished, wheezes, rhonchi, rales, dullness to percussion or wheeze present on forced exhalation Cardio Cardiac: Positive regular rate, regular rhythm, S1 normal and S2 normal; negative murmur GI GI: Positive normal to inspection, normal bowel sounds and obese; negative distended Genitourinary: Positive deferred Musc Musculoskeletal: Positive steady gait and ROM normal; negative kyphosis or scoliosis Skin Pulmonary Skin Exam: Positive intact; negative rash Pulses Pulse: Yes pulses normal x4 extremities Extremities Extremities: Yes capillary refill normal, No clubbing, No cyanosis, No edema Neuro Neurologic: Yes conversant, Yes no focal neuro deficits, Yes understands questions, Yes normal concentration, Yes cooperative, Yes normal cognition, Yes normal coordination, No tremor Lymph Lymphatic: No lymphadenopathy, No tenderness, No cervical adenopathy Psych Appearance: Positive grossly normal, eye contact and well kempt Mental Status: Positive mental status grossly normal Mood: Positive congruent mood Affect: Positive normal affect Coding Level of Care Code Off vis,est,level 4 Diagnoses Moderate persistent asthma without complication J45.40 Asthma severity: moderate Asthma persistence: persistent Asthma complication type: uncomplicated Schizophrenia, unspecified type F20.9 Schizophrenia type: unspecified Cough R05 02/09/18 0810 <Electronically signed by Araceli Prince NP-C> Date Araceli Prince NP-C Cosigner Signature: Date (if applicable) CC: Marc Dominguez MD CBC W/DIFF, AUTOMATED Collected: 02/08/2018 Status: F Source: [place] 9:42 AM [facility] REPOSITORY TYPE CODE TESTS RESULT OUT OF RANGE REFERENCE UNITS LAB L100.1000 4.4-11.0 K/mm3 Normal WBC 6.5 LAB L100.1200 4.2-5.4 M/mm3 Low RBC 3.69 LAB L100.1300 12.0-15.0 g/dl Low HGB 11.5 LAB L100.1400 37-47 % Low HCT 34.5 LAB L100.1500 81-99 fL Normal MCV 93.5 LAB L100.1600 27.0-32.0 pg Normal MCH 31.2 LAB L100.1700 32-36 g/gl Normal MCHC 33.3 LAB L100.1810 11.6-14.6 % Normal RDW CV 14.1 LAB L100.1820 35.1-43.9 fl High RDW SD 46.4 LAB L100.1900 150-450 K/mm3 Normal PLT 335 LAB L100.2000 6.2-12.0 fl Normal MPV 8.9 LAB L100.2100 47-70 % Normal NEUT% 53.7 LAB L100.2200 19-41 % Normal LY% 29.4 LAB L100.2300 0-10 % High MONO% 11.9 LAB L100.2400 0-5 % Normal EO% 3.5 LAB L100.2500 0-1 % Normal BASO% 0.3 LAB L100.2550 0.0-0.9 % High IM GRAN % 1.200 Result Comment: IG% - Immature Granulocytes (promyelocytes, myelocytes and metamyelocytes) > 1% indicates that a LEFT SHIFT is Present. LAB L100.2620 2.0-7.7 X10 3/uL Normal Absolute Neut 3.5 LAB L100.2720 0.83-4.51 X10 3/ul Normal Absolute Lymph 1.92 Performed By: #### L100.0100 #### [facility] [address] [place], [address] AMMONIA Collected: 02/08/2018 Status: F Source: [place] 9:42 AM [facility] REPOSITORY TYPE CODE TESTS RESULT OUT OF REFERENCE UNITS RANGE LAB L503.5510 11-32 umol/L High AMMONIA 35.0 Performed By: #### L503.5510 #### [facility] [address] [place], [address] AST(SGOT) Collected: 02/08/2018 Status: F Source: [place] 9:42 AM [facility] REPOSITORY TYPE CODE TESTS RESULT OUT OF RANGE REFERENCE UNITS LAB L501.4100 15-37 U/L Normal AST 16 Performed By: #### L501.4100, L501.4405 #### [facility] [address] [place], [address] ALANINE AMINOTRANSFERAS Collected: 02/08/2018 Status: F Source: [place] (SGPT) 9:42 AM [facility] REPOSITORY TYPE CODE TESTS RESULT OUT OF RANGE REFERENCE UNITS LAB L501.4405 13-56 U/L Normal ALT 19 Performed By: #### L501.4100, L501.4405 #### [facility] [address] [facility] [address] VALPROIC ACID Collected: 02/08/2018 Status: F Source: [place] (DEPAKENE) LEVEL 9:42 AM [facility] REPOSITORY TYPE CODE TESTS RESULT OUT OF RANGE REFERENCE UNITS LAB L501.8100 50-100 ug/mL Normal VALPROIC ACID 54 Performed By: #### L501.8100 #### [place] [address], [address] MISCELLANEOUS LAB Collected: 02/08/2018 Status: F Source: [place] PROCEDURE 9:42 AM [facility] REPOSITORY Order Comment: Test(s) Ordered: [id number] CLOZAPINE SER RT TYPE CODE TESTS RESULT OUT OF RANGE REFERENCE UNITS LAB L801.1541 Normal [facility] LAB TEST Result Comment: TEST RESULT LIMITS Clozapine (Clozaril), Serum Clozapine, Serum 676 High ng/mL 350 - 650 Please note reference interval change Norclozapine, Serum 126 ng/mL Not Estab. Total(Cloz+Norcloz) 802 ng/mL Patients dosed with 400 mg clozapine daily for 4 weeks were most likely to exhibit a therapeutic effect when the sum of clozapine and norclozapine concentrations were at least 450 ng/mL. Anju C, Manasa P, Stephanie N, et al. [facility] Consensus Guidelines for Therapeutic Drug Monitoring in Psychiatry: Update 2011, Pharmacopsychiatry Dec 2010; 44(6):195-235. Detection Limit = 20 [facility] ORIGINAL REPORT ON FILE IN LAB CONTAINS ADDITIONAL TEST SITE INFORMATION. TESTING PERFORMED AT [facility]. ORIGINAL REPORT ON FILE IN LAB CONTAINS ADDITIONAL TEST SITE INFORMATION. Performed By: #### L801.1541 #### [facility] [address] [place], [address] SCREENING MAMM (CAD), Observed: 01/13/2018 Status: F Source: [place] BILAT 2:25 PM [facility] REPOSITORY [facility] Imaging Services [address] [place] [address] SCREENING MAMM (CAD), BILAT MR#: [id number] Acct: [id number] Name: HOA PIMENTEL Rep #: [id number] : 1970 F 47 From: Michele Rhodes MD PCP: Jim TRIPLETT,[facility] Status: REG CLI Study: SCREENING MAMM (CAD), BILAT Date of Exam: 01/13/18 Exam# [id number] Ordering Dr: Lavern Saldana MD MAMMOGRAPHY - BILATERAL SCREENING REASON FOR EXAM: Female, 47 years old. Routine annual screening examination. PERTINENT HISTORY: Non-contributory. TECHNIQUE: Digital bilateral breast poonam (3D mammographic acquisition) in the CC and MLO projections. 2-D mediolateral oblique (MLO) and craniocaudad (CC) views of both breasts were obtained. CAD: Full Field Digital Mammography with Computer Added Detection was performed. COMPARISON: Comparison is made with prior examination dated December 11, 2016 and May 13, 2011. FINDINGS: Breast Composition: There are scattered areas of fibroglandular density. There are no dominant masses or suspicious calcifications. No other significant abnormalities are identified. There has been no significant change since the prior study. BI/SCREENING MAMM (CAD), BILAT IMPRESSION: Stable bilateral screening mammogram. Yearly follow-up mammogram recommended. (A) ASSESSMENT CATEGORY: BIRADS Category 1: Negative. A letter regarding these results will be sent to the patient by the facility within 30 days. Approximately 10% of breast cancers are not detected by mammography. A normal mammogram should not delay biopsy of a clinically suspicious abnormality. [id number] Electronically Signed: Michele Rhodes MD at 15:11 EDT Tel [phone], Service support , CC: Lavern Saldana MD; Marc Dominguez MD [employer] Up Helper: Signed CBC W/DIFF, AUTOMATED Collected: 01/11/2018 Status: F Source: [place] 9:44 AM [facility] REPOSITORY TYPE CODE TESTS RESULT OUT OF RANGE REFERENCE UNITS LAB L100.1000 4.4-11.0 K/mm3 Normal WBC 6.5 LAB L100.1200 4.2-5.4 M/mm3 Low RBC 3.76 LAB L100.1300 12.0-15.0 g/dl Low HGB 11.8 LAB L100.1400 37-47 % Low HCT 35.3 LAB L100.1500 81-99 fL Normal MCV 93.9 LAB L100.1600 27.0-32.0 pg Normal MCH 31.4 LAB L100.1700 32-36 g/gl Normal MCHC 33.4 LAB L100.1810 11.6-14.6 % Normal RDW CV 14.2 LAB L100.1820 35.1-43.9 fl High RDW SD 47.0 LAB L100.1900 150-450 K/mm3 Normal PLT 290 LAB L100.2000 6.2-12.0 fl Normal MPV 9.7 LAB L100.2100 47-70 % Normal NEUT% 49.7 LAB L100.2200 19-41 % Normal LY% 35.1 LAB L100.2300 0-10 % High MONO% 10.1 LAB L100.2400 0-5 % Normal EO% 4.6 LAB L100.2500 0-1 % Normal BASO% 0.3 LAB L100.2550 0.0-0.9 % Normal IM GRAN % 0.200 Result Comment: IG% - Immature Granulocytes (promyelocytes, myelocytes and metamyelocytes) > 1% indicates that a LEFT SHIFT is Present. LAB L100.2620 2.0-7.7 X10 3/uL Normal Absolute Neut 3.2 LAB L100.2720 0.83-4.51 X10 3/ul Normal Absolute Lymph 2.27 Performed By: #### L100.0100 #### [facility] [place], [address] CBC W/DIFF, AUTOMATED Collected: 12/30/2017 Status: F Source: [place] 11:44 AM [facility] REPOSITORY TYPE CODE TESTS RESULT OUT OF RANGE REFERENCE UNITS LAB L100.1000 4.4-11.0 K/mm3 Normal WBC 6.3 LAB L100.1200 4.2-5.4 M/mm3 Low RBC 3.73 LAB L100.1300 12.0-15.0 g/dl Low HGB 11.4 LAB L100.1400 37-47 % Low HCT 34.9 LAB L100.1500 81-99 fL Normal MCV 93.6 LAB L100.1600 27.0-32.0 pg Normal MCH 30.6 LAB L100.1700 32-36 g/gl Normal MCHC 32.7 LAB L100.1810 11.6-14.6 % Normal RDW CV 14.4 LAB L100.1820 35.1-43.9 fl High RDW SD 49.1 LAB L100.1900 150-450 K/mm3 Normal PLT 294 LAB L100.2000 6.2-12.0 fl Normal MPV 9.8 LAB L100.2100 47-70 % Normal NEUT% 47.5 LAB L100.2200 19-41 % Normal LY% 35.7 LAB L100.2300 0-10 % High MONO% 12.3 LAB L100.2400 0-5 % Normal EO% 4.0 LAB L100.2500 0-1 % Normal BASO% 0.2 LAB L100.2550 0.0-0.9 % Normal IM GRAN % 0.300 Result Comment: IG% - Immature Granulocytes (promyelocytes, myelocytes and metamyelocytes) > 1% indicates that a LEFT SHIFT is Present. LAB L100.2620 2.0-7.7 X10 3/uL Normal Absolute Neut 3.0 LAB L100.2720 0.83-4.51 X10 3/ul Normal Absolute Lymph 2.24 Performed By: #### L100.0100 #### [facility] [place], [address] COMPREHENSIVE METABOLIC Collected: 12/30/2017 Status: F Source: [facility] 11:44 AM [facility] REPOSITORY TYPE CODE TESTS RESULT OUT OF RANGE REFERENCE UNITS LAB L501.0100 74-106 mg/dL Low GLU 63 Result Comment: Please note revised GLUCOSE reference range effective 2017. LAB L501.1000 7-18 mg/dL High BUN 25 LAB L501.1100 0.55-1.02 mg/dL High CREAT,SERUM 1.29 Result Comment: The validity of the calculated GFR AND GFRAA in patients over 70 years has not been determined. Clinical correlation is essential. LAB L501.1110 >60 mL/min Low EST GFR 47 Result Comment: Non- GFR Calc LAB L501.1115 >60 mL/min Low EST GFR - AA 56 Result Comment: GFR Calc LAB L501.1300 10-20 RATIO Normal BUN/CRE 19.4 LAB L501.1500 6.4-8.2 g/dL T Normal PROT 7.7 LAB L501.1800 3.2-5.0 g/dL Low ALB 3.1 LAB L501.1950 2.2-4.2 g/dL High GLOB 4.6 LAB L501.2000 0.9-2.4 RATIO Low A/G 0.7 LAB L501.2200 8.5-10.1 mg/dL CA Normal 9.0 LAB L501.4100 15-37 U/L Normal AST 20 LAB L501.4305 45-117 U/L Normal ALK P 71 LAB L501.4405 13-56 U/L Normal ALT 32 LAB L501.4600 0.20-1.00 mg/dL T Normal BILI 0.20 LAB L501.5300 136-145 mmol/L NA Normal 137 LAB L501.5600 3.5-5.1 mmol/L K Normal 4.5 LAB L501.5900 98-107 mmol/L CL Normal 103 LAB L501.6100 21.0-32.0 mmol/L Normal CO2 23.0 LAB L501.6200 5-15 Normal GAP 11 Performed By: #### L500.4050, L501.9520 #### [facility] [address] [place], [place], [address] THYROID STIM HORMONE Collected: 12/30/2017 Status: F Source: [place] (TSH) 11:44 AM [facility] REPOSITORY TYPE CODE TESTS RESULT OUT OF RANGE REFERENCE UNITS LAB L501.9520 0.358-3.74 uIU/mL Normal TSH 0.97 Performed By: #### L500.4050, L501.9520 #### [facility] [address] [place], [address] CBC W/DIFF, AUTOMATED Collected: 12/14/2017 Status: F Source: [place] 9:31 AM [facility] REPOSITORY TYPE CODE TESTS RESULT OUT OF RANGE REFERENCE UNITS LAB L100.1000 4.4-11.0 K/mm3 Normal WBC 6.6 LAB L100.1200 4.2-5.4 M/mm3 Low RBC 3.68 LAB L100.1300 12.0-15.0 g/dl Low HGB 11.4 LAB L100.1400 37-47 % Low HCT 35.3 LAB L100.1500 81-99 fL Normal MCV 95.9 LAB L100.1600 27.0-32.0 pg Normal MCH 31.0 LAB L100.1700 32-36 g/gl Normal MCHC 32.3 LAB L100.1810 11.6-14.6 % Normal RDW CV 14.5 LAB L100.1820 35.1-43.9 fl High RDW SD 50.8 LAB L100.1900 150-450 K/mm3 Normal PLT 282 LAB L100.2000 6.2-12.0 fl Normal MPV 9.8 LAB L100.2100 47-70 % Normal NEUT% 49.4 LAB L100.2200 19-41 % Normal LY% 34.9 LAB L100.2300 0-10 % High MONO% 11.7 LAB L100.2400 0-5 % Normal EO% 3.5 LAB L100.2500 0-1 % Normal BASO% 0.2 LAB L100.2550 0.0-0.9 % Normal IM GRAN % 0.300 Result Comment: IG% - Immature Granulocytes (promyelocytes, myelocytes and metamyelocytes) > 1% indicates that a LEFT SHIFT is Present. LAB L100.2620 2.0-7.7 X10 3/uL Normal Absolute Neut 3.3 LAB L100.2720 0.83-4.51 X10 3/ul Normal Absolute Lymph 2.30 Performed By: #### L100.0100 #### [facility] [address] [place], [place], [address] CBC W/DIFF, AUTOMATED Collected: 11/16/2017 Status: F Source: [place] 9:25 AM [facility] REPOSITORY TYPE CODE TESTS RESULT OUT OF RANGE REFERENCE UNITS LAB L100.1000 4.4-11.0 K/mm3 Normal WBC 6.8 LAB L100.1200 4.2-5.4 M/mm3 Low RBC 3.85 LAB L100.1300 12.0-15.0 g/dl Low HGB 11.9 LAB L100.1400 37-47 % Low HCT 36.6 LAB L100.1500 81-99 fL Normal MCV 95.1 LAB L100.1600 27.0-32.0 pg Normal MCH 30.9 LAB L100.1700 32-36 g/gl Normal MCHC 32.5 LAB L100.1810 11.6-14.6 % Normal RDW CV 14.4 LAB L100.1820 35.1-43.9 fl High RDW SD 49.9 LAB L100.1900 150-450 K/mm3 Normal PLT 294 LAB L100.2000 6.2-12.0 fl Normal MPV 9.4 LAB L100.2100 47-70 % Normal NEUT% 49.6 LAB L100.2200 19-41 % Normal LY% 35.9 LAB L100.2300 0-10 % High MONO% 10.3 LAB L100.2400 0-5 % Normal EO% 3.8 LAB L100.2500 0-1 % Normal BASO% 0.3 LAB L100.2550 0.0-0.9 % Normal IM GRAN % 0.100 Result Comment: IG% - Immature Granulocytes (promyelocytes, myelocytes and metamyelocytes) > 1% indicates that a LEFT SHIFT is Present. LAB L100.2620 2.0-7.7 X10 3/uL Normal Absolute Neut 3.4 LAB L100.2720 0.83-4.51 X10 3/ul Normal Absolute Lymph 2.44 Performed By: #### L100.0100 #### [facility] [place], [address] CBC W/DIFF, AUTOMATED Collected: 10/19/2017 Status: F Source: [place] 9:14 AM [facility] REPOSITORY TYPE CODE TESTS RESULT OUT OF RANGE REFERENCE UNITS LAB L100.1000 4.4-11.0 K/mm3 Normal WBC 6.3 LAB L100.1200 4.2-5.4 M/mm3 Low RBC 3.79 LAB L100.1300 12.0-15.0 g/dl Low HGB 11.8 LAB L100.1400 37-47 % Low HCT 35.1 LAB L100.1500 81-99 fL Normal MCV 92.6 LAB L100.1600 27.0-32.0 pg Normal MCH 31.1 LAB L100.1700 32-36 g/gl Normal MCHC 33.6 LAB L100.1810 11.6-14.6 % Normal RDW CV 14.3 LAB L100.1820 35.1-43.9 fl High RDW SD 46.8 LAB L100.1900 150-450 K/mm3 Normal PLT 338 LAB L100.2000 6.2-12.0 fl Normal MPV 9.6 LAB L100.2100 47-70 % Normal NEUT% 49.7 LAB L100.2200 19-41 % Normal LY% 34.8 LAB L100.2300 0-10 % High MONO% 10.9 LAB L100.2400 0-5 % Normal EO% 3.6 LAB L100.2500 0-1 % Normal BASO% 0.2 LAB L100.2550 0.0-0.9 % Normal IM GRAN % 0.800 Result Comment: IG% - Immature Granulocytes (promyelocytes, myelocytes and metamyelocytes) > 1% indicates that a LEFT SHIFT is Present. LAB L100.2620 2.0-7.7 X10 3/uL Normal Absolute Neut 3.1 LAB L100.2720 0.83-4.51 X10 3/ul Normal Absolute Lymph 2.20 Performed By: #### L100.0100 #### [facility] [address] [place], [address] DOWNTIME REPORT Observed: 10/07/2017 Status: F Source: [place] 12:35 PM [facility] REPOSITORY [facility] Medical Records Department [address] [address] Downtime Report MR#: [id number] Acct: [id number] Name: HOA PIMENTEL Rep #: [id number] : 1970 47 From: George Meyer PCP: Jim TRIPLETT,Marc Mancia Status: REG CLI This patient was seen during an EMR downtime September 20, 2017 - September 27, 2017. This patient may have a combination of paper and electronic documentation or all paper documentation. All documentation is viewable within the e-chart portion of [employer] for each patient visit. PULMONARY VISIT REPORT Observed: 10/05/2017 Status: F Source: [place] 4:10 PM [facility] REPOSITORY [facility] [address] [place] [address] OFFICE VISIT Date of Service: 10/04/17 MR#: [id number] Acct: [id number] Name: HOA PIMENTEL Rep #: [id number] : 1970 Provider: Araceli Prince Age/Sex: 47/F Location: [facility] Status: Signed Assessment AND Plan 1. Moderate persistent asthma without complication J45.40 Status Chronic Plan Stable. No indication to step up therapy. Continue Arnuity daily, as well as rescue inhaler as needed. Follow-up with Dr. Sun in 6 months. She has been encouraged to contact the office with any new or worsening symptoms in the meantime. 2. Schizophrenia, unspecified type F20.9 Status Chronic Plan Complicates exam, plan, care and prognosis. Plan Detail Follow Up 6 Months ([facility]) HPI 6 M FU: Chief Complaint: None HPI Comments Details: This patient presents to the office today to follow-up on her asthma. She is ambulatory and currently on room air. She has not been seen in the ED or urgent care for any breathing problems since her last office visit, she has not required any antibiotics or prednisone for breathing problems. She is compliant with Arnuity once daily. She does report rinsing her mouth out after each use. She is not currently needing her rescue inhaler at any time. She denies any shortness of breath with conversation, at rest or even on exertion. She denies any wheezing, chest tightness, chest pain, or palpitations. She denies any fever, chills or body aches. The patient generally has no complaints, the continuous crusher operator who is also present with the patient also confirms that the patient has been doing quite well and has not been making any complaints or signs of shortness of breath in the half-way. See complete review of systems. She did have all of her teeth removed approximately 6 weeks ago and planned dentures are In the near future. Intake Vital Signs10/04/17 Height 5 ft 6 in 10/04/17 Weight: 262 lb Intake Visit Reasons: 6 M FU Allergies No Known Allergies Allergy (Verified 04/05/17 13:08) Medications Aspirin [Aspirin, Baby] 81 mg PO DAILY@0800 06/24/15 [History Confirmed 04/05/17] Clozapine 150 mg PO BID 06/24/15 [History Confirmed 04/05/17] Glimepiride [Amaryl] 4 mg PO DAILY 06/24/15 [History Confirmed 04/05/17] Levothyroxine [Synthroid] 150 mcg PO DAILY 06/24/15 [History Confirmed 04/05/17] Multivitamins,Therapeutic [Multivitamin] 1 tab PO DAILY 06/24/15 [History Confirmed 04/05/17] Divalproex Sodium [Depakote] 500 mg PO 4X/DAY 06/25/15 [History Confirmed 04/05/17] Metformin HCl [Glucophage] 1,000 mg PO BIDCM 10/08/15 [History Confirmed 04/05/17] Albuterol IH (ProAir) [Proair Hfa (SP)Vent Pts] 2 puff INHALATION 4X/DAY #1 inhaler 10/10/15 [Rx Confirmed 04/05/17] beclomethasone dipropionate 80 mcg/actuation aerosol inhaler 2 puff INHALATION Q12H 04/01/17 [History Confirmed 04/05/17] amlodipine 5 mg tablet 5 mg PO QDAY 04/05/17 [History Confirmed 04/05/17] atorvastatin 40 mg tablet 40 mg PO QDAY 04/05/17 [History Confirmed 04/05/17] divalproex ER 500 mg tablet,extended release 24 hr 500 mg PO .qid tab 04/05/17 [History Confirmed 04/05/17] hydrochlorothiazide 12.5 mg capsule 12.5 mg PO QDAY 04/05/17 [History Confirmed 04/05/17] valsartan 320 mg tablet 320 mg PO QDAY 04/05/17 [History Confirmed 04/05/17] azithromycin 250 mg tablet 250 mg PO QDAY #6 tab 04/21/17 [Rx] fluticasone furoate 100 mcg/actuation blister powder for inhalation 1 inh INHALATION Q24H #30 ea 07/09/17 [Rx] PFSH Medical History Hyponatremia (Acute) Hypertension (Chronic) Schizophrenia (Chronic) Paranoid disorder (Chronic) Type II diabetes mellitus (Chronic) Hyperlipidemia (Chronic) Cough (Acute) Expiratory wheezing (Acute) Wheeze (Acute) Hypoxemia (Chronic) Moderate persistent asthma, uncomplicated (Chronic) Pulmonary hypertension (Chronic) Family History Brother Diabetes Social History Smoking Status: Never smoker second hand exposure: No alcohol intake: never substance use type: does not use Review of Systems Const CONSTITUTIONAL: Negative anorexia, body ache, chills, daytime sleepiness, fever(s), night sweats, oral thrush, stops breathing during sleep, weight loss, sleeping in chair, fatigue, weight loss, weight gain, frequent colds, seasonal allergies, other, headache(s) or orthopnea EETM Ear Nose Throat Mouth: Positive hearing normal; negative hard of hearing, hoarseness, dry mouth in morning, change in vision, itchy eyes, eye pain, swallowing Difficulty, ear pain, nose bleed, headache(s), mouth pain, nasal congestion, nasal discharge, post nasal drip, sinus pain, sinus pressure, sore throat or other Cardio Cardiovascular: Negative chest pain, chest pain at rest, chest pain with activity, irregular heart rhythm, edema, shortness of breath when lying down, palpitations, murmur or other Resp Respiratory: Positive as per HPI; negative shortness of breath, pain with cough, wheezing, chest congestion, cough, chest tightness, pain on inspiration, inhalers, increase use of rescue inhalers, snoring, apnea or other Gastro Gastrointestional: Negative bloody stools, change in appetite, difficulty swallowing, reflux, hematemesis, melena stool, loose stool, constipation or other Genitourinary: Negative blood in urine, nocturia, pain with urination or other Musc Musculoskeletal: Negative body pain, back pain, neck pain or other Skin/Breast Skin/Breast: Negative dry skin, itching, rash, unusual bruising, breast lump or other Neuro Neurological: Negative restless legs, confusion, weakness or other Psych Psychocological: Negative abnormal sleep pattern, anxiety, thoughts of hurting self/others, hopelessness or other Lymph Lymphatic: Negative easy bleeding, easy bruising, swollen lymph nodes or other Exam Const Constitutional: Positive conversant, cooperative, in no acute respiratory distress, healthy appearing, well developed, well nourished, good hygiene and obese Head Head: Positive normocephalic and atraumatic; negative cyanosis of lips/distal nose Eyes Eye: Positive clear conjunctiva and nystagmus; negative scleral abnormality Ears Ear: Positive hearing normal and external ears normal; negative hard of hearing Nose Nose: Positive external nose normal and no nasal discharge; negative epistaxis Mouth Mouth: Positive oral mucosae normal, edentulous, no lesions and crowded posterior oropharynx; negative post nasal drip, malodorous breath or oral thrush present Mallampati Score: III: Mallampati Score Neck Neck: Positive normal visual inspection, full ROM, trachea midline, thick neck and female neck greater than 37 cm (15 in); negative lymphadenopathy, JVD or tender Chest Wall Chest: Positive normal inspection of the chest and symmetric chest movement; negative increased A/P diameter Resp lung sounds: Positive clear to auscultation, good air exchange, normal expiratory time and normal respiratory effort; negative diminished, wheezes, rhonchi, rales, dullness to percussion or wheeze present on forced exhalation Cardio Cardiac: Positive regular rate, regular rhythm, S1 normal and S2 normal; negative murmur GI GI: Positive normal to inspection, normal bowel sounds and obese; negative distended Genitourinary: Positive deferred Musc Musculoskeletal: Positive steady gait and ROM normal; negative kyphosis or scoliosis Skin Pulmonary Skin Exam: Positive intact; negative rash, lesion, ulcers, erythema, scaly or dermal atrophy Pulses Pulse: Yes pulses normal x4 extremities Extremities Extremities: Yes capillary refill normal, No clubbing, No cyanosis, No edema, No stasis dermatitis Neuro Neurologic: Yes conversant, Yes no focal neuro deficits, Yes understands questions, Yes cooperative, Yes normal cognition, Yes normal coordination, No normal concentration, No tremor Lymph Lymphatic: No lymphadenopathy, No tenderness, No cervical adenopathy, No axillary adenopathy Psych Appearance: Positive grossly normal and well kempt Mental Status: Negative mental status grossly normal Mood: Positive anxious mood Affect: Positive labile affect Coding Level of Care Code Off vis,est,level 3 Diagnoses Moderate persistent asthma without complication J45.40 Asthma complication type: uncomplicated Asthma persistence: persistent Asthma severity: moderate Schizophrenia, unspecified type F20.9 Schizophrenia type: unspecified 10/05/17 1610 <Electronically signed by Araceli BABB> Date Araceli BABB Cosigner Signature: Date (if applicable) CC: Marc Dominguez MD CBC W/DIFF, AUTOMATED Collected: 09/21/2017 Status: F Source: [place] 12:00 AM [facility] REPOSITORY TYPE CODE TESTS RESULT OUT OF RANGE REFERENCE UNITS LAB L100.1000 4.4-11.0 K/mm3 Normal WBC 7.2 LAB L100.1200 4.2-5.4 M/mm3 Low RBC 3.47 LAB L100.1300 12.0-15.0 g/dl Low HGB 10.6 LAB L100.1400 37-47 % Low HCT 32.0 LAB L100.1500 81-99 fL Normal MCV 92.2 LAB L100.1600 27.0-32.0 pg Normal MCH 30.5 LAB L100.1700 32-36 g/gl Normal MCHC 33.1 LAB L100.1810 11.6-14.6 % Normal RDW CV 14.4 LAB L100.1820 35.1-43.9 fl High RDW SD 48.3 LAB L100.1900 150-450 K/mm3 Normal PLT 335 LAB L100.2000 6.2-12.0 fl Normal MPV 9.2 LAB L100.2100 47-70 % Normal NEUT% 56.3 LAB L100.2200 19-41 % Normal LY% 28.4 LAB L100.2300 0-10 % High MONO% 11.9 LAB L100.2400 0-5 % Normal EO% 3.2 LAB L100.2500 0-1 % Normal BASO% 0.1 LAB L100.2550 0.0-0.9 % Normal IM GRAN % 0.100 Result Comment: IG% - Immature Granulocytes (promyelocytes, myelocytes and metamyelocytes) > 1% indicates that a LEFT SHIFT is Present. LAB L100.2620 2.0-7.7 X10 3/uL Normal Absolute Neut 4.1 LAB L100.2720 0.83-4.51 X10 3/ul Normal Absolute Lymph 2.05 Performed By: #### L100.0100 #### [facility] [address] [place], [place], [address] CBC W/DIFF, AUTOMATED Collected: 08/26/2017 Status: F Source: [place] 8:34 AM [facility] REPOSITORY TYPE CODE TESTS RESULT OUT OF RANGE REFERENCE UNITS LAB L100.1000 4.4-11.0 K/mm3 Normal WBC 6.2 LAB L100.1200 4.2-5.4 M/mm3 Low RBC 3.53 LAB L100.1300 12.0-15.0 g/dl Low HGB 11.2 LAB L100.1400 37-47 % Low HCT 33.3 LAB L100.1500 81-99 fL Normal MCV 94.3 LAB L100.1600 27.0-32.0 pg Normal MCH 31.7 LAB L100.1700 32-36 g/gl Normal MCHC 33.6 LAB L100.1810 11.6-14.6 % High RDW CV 14.7 LAB L100.1820 35.1-43.9 fl High RDW SD 48.0 LAB L100.1900 150-450 K/mm3 Normal PLT 267 LAB L100.2000 6.2-12.0 fl Normal MPV 9.9 LAB L100.2100 47-70 % Normal NEUT% 55.6 LAB L100.2200 19-41 % Normal LY% 29.1 LAB L100.2300 0-10 % High MONO% 10.8 LAB L100.2400 0-5 % Normal EO% 4.0 LAB L100.2500 0-1 % Normal BASO% 0.2 LAB L100.2550 0.0-0.9 % Normal IM GRAN % 0.300 Result Comment: IG% - Immature Granulocytes (promyelocytes, myelocytes and metamyelocytes) > 1% indicates that a LEFT SHIFT is Present. LAB L100.2620 2.0-7.7 X10 3/uL Normal Absolute Neut 3.4 LAB L100.2720 0.83-4.51 X10 3/ul Normal Absolute Lymph 1.80 Performed By: #### L100.0100 #### [facility] [address] [place], [address] AST(SGOT) Collected: 08/26/2017 Status: F Source: [place] 8:34 AM [facility] REPOSITORY TYPE CODE TESTS RESULT OUT OF RANGE REFERENCE UNITS LAB L501.4100 15-37 U/L Normal AST 16 Performed By: #### L501.4100, L501.4405 #### [facility] [address] [place], [address] ALANINE AMINOTRANSFERAS Collected: 08/26/2017 Status: F Source: [place] (SGPT) 8:34 AM [facility] REPOSITORY TYPE CODE TESTS RESULT OUT OF RANGE REFERENCE UNITS LAB L501.4405 13-56 U/L Normal ALT 20 Performed By: #### L501.4100, L501.4405 #### [facility] [address] [place], [address] VALPROIC ACID Collected: 08/26/2017 Status: F Source: [place] (DEPAKENE) LEVEL 8:34 AM [facility] REPOSITORY TYPE CODE TESTS RESULT OUT OF RANGE REFERENCE UNITS LAB L501.8100 50-100 ug/mL Normal VALPROIC ACID 55 Performed By: #### L501.8100 #### [facility] [address] [place], [address] THYROID STIM HORMONE Collected: 08/20/2017 Status: F Source: [place] (TSH) 9:52 AM [facility] REPOSITORY TYPE CODE TESTS RESULT OUT OF RANGE REFERENCE UNITS LAB L501.9520 0.358-3.74 uIU/mL Normal TSH 0.91 Performed By: #### L501.9520 #### [facility] [address] [place], [address] CBC W/DIFF, AUTOMATED Collected: 07/29/2017 Status: F Source: [place] 11:10 AM [facility] REPOSITORY TYPE CODE TESTS RESULT OUT OF RANGE REFERENCE UNITS LAB L100.1000 4.4-11.0 K/mm3 Normal WBC 7.7 LAB L100.1200 4.2-5.4 M/mm3 Low RBC 3.75 LAB L100.1300 12.0-15.0 g/dl Low HGB 11.5 LAB L100.1400 37-47 % Low HCT 35.5 LAB L100.1500 81-99 fL Normal MCV 94.7 LAB L100.1600 27.0-32.0 pg Normal MCH 30.7 LAB L100.1700 32-36 g/gl Normal MCHC 32.4 LAB L100.1810 11.6-14.6 % Normal RDW CV 14.4 LAB L100.1820 35.1-43.9 fl High RDW SD 49.6 LAB L100.1900 150-450 K/mm3 Normal PLT 256 LAB L100.2000 6.2-12.0 fl Normal MPV 9.3 LAB L100.2100 47-70 % Normal NEUT% 48.1 LAB L100.2200 19-41 % Normal LY% 40.5 LAB L100.2300 0-10 % Normal MONO% 8.7 LAB L100.2400 0-5 % Normal EO% 2.5 LAB L100.2500 0-1 % Normal BASO% 0.1 LAB L100.2550 0.0-0.9 % Normal IM GRAN % 0.100 Result Comment: IG% - Immature Granulocytes (promyelocytes, myelocytes and metamyelocytes) > 1% indicates that a LEFT SHIFT is Present. LAB L100.2620 2.0-7.7 X10 3/uL Normal Absolute Neut 3.7 LAB L100.2720 0.83-4.51 X10 3/ul Normal Absolute Lymph 3.11 Performed By: #### L100.0100 #### [facility] [address] [facility] [place], [address] THYROID STIM HORMONE Collected: 07/29/2017 Status: F Source: [place] (TSH) 11:10 AM [facility] REPOSITORY Order Comment: DR. DOMINGUEZ ORDERED TSH DR. HIGHTOWER ORDERED CBCD AND ANC TYPE CODE TESTS RESULT OUT OF RANGE REFERENCE UNITS LAB L501.9520 0.358-3.74 uIU/mL Normal TSH 0.42 Performed By: #### L501.9520 #### [facility] [address] [place], [address] CBC W/DIFF, AUTOMATED Collected: 07/01/2017 Status: F Source: [place] 10:40 AM [facility] REPOSITORY TYPE CODE TESTS RESULT OUT OF RANGE REFERENCE UNITS LAB L100.1000 4.4-11.0 K/mm3 Normal WBC 6.8 LAB L100.1200 4.2-5.4 M/mm3 Low RBC 3.77 LAB L100.1300 12.0-15.0 g/dl Normal HGB 12.0 LAB L100.1400 37-47 % Low HCT 36.0 LAB L100.1500 81-99 fL Normal MCV 95.5 LAB L100.1600 27.0-32.0 pg Normal MCH 31.8 LAB L100.1700 32-36 g/gl Normal MCHC 33.3 LAB L100.1810 11.6-14.6 % Normal RDW CV 14.3 LAB L100.1820 35.1-43.9 fl High RDW SD 48.3 LAB L100.1900 150-450 K/mm3 Normal PLT 294 LAB L100.2000 6.2-12.0 fl Normal MPV 9.9 LAB L100.2100 47-70 % Normal NEUT% 55.6 LAB L100.2200 19-41 % Normal LY% 28.6 LAB L100.2300 0-10 % High MONO% 11.8 LAB L100.2400 0-5 % Normal EO% 3.8 LAB L100.2500 0-1 % Normal BASO% 0.1 LAB L100.2550 0.0-0.9 % Normal IM GRAN % 0.100 Result Comment: IG% - Immature Granulocytes (promyelocytes, myelocytes and metamyelocytes) > 1% indicates that a LEFT SHIFT is Present. LAB L100.2620 2.0-7.7 X10 3/uL Normal Absolute Neut 3.8 LAB L100.2720 0.83-4.51 X10 3/ul Normal Absolute Lymph 1.94 Performed By: #### L100.0100 #### [facility] [address] [place], [address] COMPREHENSIVE METABOLIC Collected: 07/01/2017 Status: F Source: [facility] 10:40 AM [facility] REPOSITORY TYPE CODE TESTS RESULT OUT OF RANGE REFERENCE UNITS LAB L501.0100 74-106 mg/dL Low GLU 66 Result Comment: Please note revised GLUCOSE reference range effective 2017. LAB L501.1000 7-18 mg/dL Normal BUN 15 LAB L501.1100 0.55-1.02 mg/dL High CREAT,SERUM 1.22 Result Comment: The validity of the calculated GFR AND GFRAA in patients over 70 years has not been determined. Clinical correlation is essential. LAB L501.1110 >60 mL/min Low EST GFR 50 Result Comment: Non- GFR Calc LAB L501.1115 >60 mL/min Normal EST GFR - AA 60 Result Comment: GFR Calc LAB L501.1300 10-20 RATIO Normal BUN/CRE 12.3 LAB L501.1500 6.4-8.2 g/dL T Normal PROT 7.7 LAB L501.1800 3.2-5.0 g/dL Normal ALB 3.2 LAB L501.1950 2.2-4.2 g/dL High GLOB 4.5 LAB L501.2000 0.9-2.4 RATIO Low A/G 0.7 LAB L501.2200 8.5-10.1 mg/dL CA Normal 8.8 LAB L501.4100 15-37 U/L Normal AST 15 LAB L501.4305 45-117 U/L Normal ALK P 72 LAB L501.4405 13-56 U/L Normal ALT 26 Result Comment: Please note revised ALT reference range effective 2017. LAB L501.4600 0.20-1.00 mg/dL Normal T BILI 0.20 LAB L501.5300 136-145 mmol/L Low NA 133 LAB L501.5600 3.5-5.1 mmol/L Normal K 4.4 LAB L501.5900 98-107 mmol/L Normal CL 100 LAB L501.6100 21.0-32.0 mmol/L Normal CO2 25.0 LAB L501.6200 5-15 Normal GAP 8 Performed By: #### L500.4050, L501.9520 #### [facility] [address], [place], [address] THYROID STIM HORMONE Collected: 07/01/2017 Status: F Source: [place] (TSH) 10:40 AM [facility] REPOSITORY TYPE CODE TESTS RESULT OUT OF RANGE REFERENCE UNITS LAB L501.9520 0.358-3.74 uIU/mL Low TSH 0.34 Performed By: #### L500.4050, L501.9520 #### [facility] [address] [place], [address] CBC W/DIFF, AUTOMATED Collected: 07/01/2017 Status: F Source: [place] 8:44 AM [facility] REPOSITORY TYPE CODE TESTS RESULT OUT OF RANGE REFERENCE UNITS LAB L100.1000 4.4-11.0 K/mm3 Normal WBC 6.2 LAB L100.1200 4.2-5.4 M/mm3 Low RBC 3.82 LAB L100.1300 12.0-15.0 g/dl Normal HGB 12.0 LAB L100.1400 37-47 % Low HCT 36.2 LAB L100.1500 81-99 fL Normal MCV 94.8 LAB L100.1600 27.0-32.0 pg Normal MCH 31.4 LAB L100.1700 32-36 g/gl Normal MCHC 33.1 LAB L100.1810 11.6-14.6 % Normal RDW CV 14.1 LAB L100.1820 35.1-43.9 fl High RDW SD 46.9 LAB L100.1900 150-450 K/mm3 Normal PLT 294 LAB L100.2000 6.2-12.0 fl Normal MPV 9.5 LAB L100.2100 47-70 % Normal NEUT% 51.6 LAB L100.2200 19-41 % Normal LY% 33.0 LAB L100.2300 0-10 % High MONO% 11.8 LAB L100.2400 0-5 % Normal EO% 3.2 LAB L100.2500 0-1 % Normal BASO% 0.2 LAB L100.2550 0.0-0.9 % Normal IM GRAN % 0.200 Result Comment: IG% - Immature Granulocytes (promyelocytes, myelocytes and metamyelocytes) > 1% indicates that a LEFT SHIFT is Present. LAB L100.2620 2.0-7.7 X10 3/uL Normal Absolute Neut 3.2 LAB L100.2720 0.83-4.51 X10 3/ul Normal Absolute Lymph 2.05 Performed By: #### L100.0100 #### [facility] [employer]. [place], [place], [address] CBC W/DIFF, AUTOMATED Collected: 06/01/2017 Status: F Source: [place] 8:27 AM [facility] REPOSITORY TYPE CODE TESTS RESULT OUT OF RANGE REFERENCE UNITS LAB L100.1000 4.4-11.0 K/mm3 Normal WBC 6.0 LAB L100.1200 4.2-5.4 M/mm3 Low RBC 3.80 LAB L100.1300 12.0-15.0 g/dl Normal HGB 12.0 LAB L100.1400 37-47 % Low HCT 36.4 LAB L100.1500 81-99 fL Normal MCV 95.8 LAB L100.1600 27.0-32.0 pg Normal MCH 31.6 LAB L100.1700 32-36 g/gl Normal MCHC 33.0 LAB L100.1810 11.6-14.6 % High RDW CV 14.8 LAB L100.1820 35.1-43.9 fl High RDW SD 49.5 LAB L100.1900 150-450 K/mm3 Normal PLT 315 LAB L100.2000 6.2-12.0 fl Normal MPV 9.7 LAB L100.2100 47-70 % Normal NEUT% 58.7 LAB L100.2200 19-41 % Normal LY% 27.7 LAB L100.2300 0-10 % High MONO% 10.3 LAB L100.2400 0-5 % Normal EO% 2.5 LAB L100.2500 0-1 % Normal BASO% 0.3 LAB L100.2550 0.0-0.9 % Normal IM GRAN % 0.500 Result Comment: IG% - Immature Granulocytes (promyelocytes, myelocytes and metamyelocytes) > 1% indicates that a LEFT SHIFT is Present. LAB L100.2620 2.0-7.7 X10 3/uL Normal Absolute Neut 3.5 LAB L100.2720 0.83-4.51 X10 3/ul Normal Absolute Lymph 1.65 Performed By: #### L100.0100 #### [facility] [address] [place], [place], [address] MISCELLANEOUS LAB Collected: 06/01/2017 Status: F Source: [place] PROCEDURE 8:27 AM [facility] REPOSITORY Order Comment: Comments: [id number] CLOZARIL RED RT Test(s) Ordered: [id number] CLOZARIL RED RT TYPE CODE TESTS RESULT OUT OF RANGE REFERENCE UNITS LAB L801.1541 Normal [facility] LAB TEST Result Comment: TEST RESULT LIMITS Clozapine (Clozaril), Serum Clozapine, Serum 260 Low ng/mL 350 - 650 Please note reference interval change Norclozapine, Serum 76 ng/mL Not Estab. Total(Cloz+Norcloz) 336 ng/mL Patients dosed with 400 mg clozapine daily for 4 weeks were most likely to exhibit a therapeutic effect when the sum of clozapine and norclozapine concentrations were at least 450 ng/mL. Anju C, Manasa P, Stephanie N, et al. AGNP Consensus Guidelines for Therapeutic Drug Monitoring in Psychiatry: Update 2011, Pharmacopsychiatry Dec 2010; 44(6):195-235. Detection Limit = 20 TESTING PERFORMED AT [facility]. ORIGINAL REPORT ON FILE IN LAB CONTAINS ADDITIONAL TEST SITE INFORMATION. Performed By: #### L801.1541 #### [facility] [address] [place], [address] CBC-COMPLETE BLOOD CNT Collected: 05/04/2017 Status: F Source: [place] NO DIFF 12:27 PM [facility] REPOSITORY TYPE CODE TESTS RESULT OUT OF RANGE REFERENCE UNITS LAB L100.1000 4.4-11.0 K/mm3 Normal WBC 9.5 LAB L100.1200 4.2-5.4 M/mm3 Low RBC 3.46 LAB L100.1300 12.0-15.0 g/dl Low HGB 10.9 LAB L100.1400 37-47 % Low HCT 33.2 LAB L100.1500 81-99 fL Normal MCV 96.0 LAB L100.1600 27.0-32.0 pg Normal MCH 31.5 LAB L100.1700 32-36 g/gl Normal MCHC 32.8 LAB L100.1810 11.6-14.6 % High RDW CV 14.8 LAB L100.1820 35.1-43.9 fl High RDW SD 49.3 LAB L100.1900 150-450 K/mm3 Normal PLT 380 LAB L100.2000 6.2-12.0 fl Normal MPV 9.8 Performed By: #### L100.0500 #### [facility] [address] [place], [address] Observed: 04/21/2017 Status: F Source: [place] CULTURE, SPUTUM 2:10 PM [facility] REPOSITORY Gram Stain Acceptable Specimen? Yes (<25 Epithelial cells per/lpf) Gram Stain No Epithelial cells 2+ Gram negative rods 2+ Gram positive cocci 1+ White Blood Cells Resp. Culture Mixed normal respiratory yadi. No Haemophilus, Streptococcus pneumoniae, beta-hemolytic Streptococcus or Staphylococcus aureus isolated. Performed By: #### M100.0800 #### [facility] [address] [place], [address] PROGRESS Observed: 04/20/2017 Status: COMPLETED Source: [place] 9:00 PM [facility] REPOSITORY HNO ID: [id number] Author: Felton Cazares Service: (none) Author Type: Nurse Practitioner Type: Progress Notes Filed: 04/20/2017 9:01 PM Note Text: HPI Patient is a 46 year old female here today for a 4 day history of nasal congestion, cough and sore throat. Patient states cough is worse in the morning and at night. States throat pain is worse in the morning and at night. Denies know fever. Has tried OTC medications with little relief. No other concerns at this time. Review of Systems Constitutional: Positive for chills and malaise/fatigue. Negative for fever. HENT: Positive for congestion, ear pain and sore throat. Respiratory: Positive for cough. Negative for sputum production, shortness of breath and wheezing. Cardiovascular: Negative. Gastrointestinal: Negative for nausea and vomiting. Musculoskeletal: Negative for myalgias. Neurological: Positive for headaches (sinus pressure). Endo/Heme/Allergies: Negative for environmental allergies. All other systems reviewed and are negative. PAST MEDICAL HISTORY Diagnosis Date - DM w/o complication type II 07/17/2011 - Schizophrenia (HCC) PAST SURGICAL HISTORY Procedure Laterality Date - NONE ALLERGIES Review of patient's allergies indicates no known allergies. MEDICATIONS Hydrochlorothiazide 12.5 mg capsule Take 12.5 mg by mouth once daily. valsartan (DIOVAN) 320 mg tablet Take 320 mg by mouth once daily. amLODIPine (NORVASC) 5 mg tablet Take 5 mg by mouth once daily. aspirin, enteric coated (ASPIRIN, ENTERIC COATED) 81 mg EC tablet Take 81 mg by mouth once daily. atorvastatin (LIPITOR) 40 mg tablet Take 40 mg by mouth once daily. Clozapine 150 mg ORAL TbDL Take by mouth. metFORMIN (GLUCOPHAGE) 500 mg ORAL tablet Take 1 tablet by mouth twice daily. glimepiride (AMARYL) 4 mg ORAL tablet Take 1 tablet by mouth once daily. Levothyroxine 150 mcg ORAL Cap Take by mouth. Ascorbic Acid (VITAMIN C) 1,000 mg ORAL tablet Take 1 tablet by mouth once daily. guaiFENesin (MUCINEX) 600 mg 12 hr tablet Take 2 tablets by mouth twice daily. predniSONE (DELTASONE) 20 mg tablet Take 1 tablet by mouth twice daily for 5 days. Norethindrone, Contraceptive, 0.35 mg tablet TAKE 1 TABLET DAILY LORazepam (ATIVAN) 0.5 mg ORAL Tab Take 1 tablet by mouth twice daily. divalproex ER (DEPAKOTE ER) 500 mg ORAL 24 hr tablet Take 1 tablet by mouth once daily. oxcarbazepine (TRILEPTAL) 300 mg ORAL tablet Take 1 tablet by mouth twice daily. simvastatin (ZOCOR) 20 mg ORAL tablet Take 1 tablet by mouth daily at bedtime. lisinopril (PRINIVIL) 10 mg ORAL tablet Take 1 tablet by mouth once daily. FAMILY HISTORY Problem Relation Age of Onset - Cancer Mother Social History Substance Use Topics - Smoking status: Never Smoker - Smokeless tobacco: Never Used - Alcohol use No BP 124/72 Pulse 90 Temp 36.4 ?C (97.5 ?F) (Tympanic) Resp 18 Wt 119.7 kg (264 lb) SpO2 98% BMI 46.03 kg/m2 Physical Exam Constitutional: She is well-developed, well-nourished, and in no distress. Vital signs are normal. Mildly ill. HENT: Head: Normocephalic and atraumatic. Right Ear: Tympanic membrane, external ear and ear canal normal. Left Ear: Tympanic membrane, external ear and ear canal normal. Nose: Mucosal edema and rhinorrhea present. Right sinus exhibits no maxillary sinus tenderness and no frontal sinus tenderness. Left sinus exhibits no maxillary sinus tenderness and no frontal sinus tenderness. Mouth/Throat: Uvula is midline, oropharynx is clear and moist and mucous membranes are normal. No oropharyngeal exudate, posterior oropharyngeal edema or posterior oropharyngeal erythema. Neck: Neck supple. Cardiovascular: Normal rate, regular rhythm and normal heart sounds. Pulmonary/Chest: Effort normal and breath sounds normal. She has no wheezes. She has no rales. Lymphadenopathy: Head (right side): No submental, no submandibular and no tonsillar adenopathy present. Head (left side): No submental, no submandibular and no tonsillar adenopathy present. She has no cervical adenopathy. Submandibular fullness. Neurological: She is alert. Skin: Skin is warm and dry. Nursing note and vitals reviewed. ASSESSMENT/PLAN: 1. Viral URI with cough - ICD9: 465.9, ICD10: J06.9, B97.89 - Discussed viral etiology and rationale for treatment. - Symptomatic treatment with prn analgesia - Supportive care with fluids and rest - The patient may also use warm salt water gargles, throat lozenges and/or OTC throat spray as needed. - Follow up in 3-5 days if symptoms persist or sooner if worsening of symptoms - GUAIFENESIN ER 600 MG TABLET, EXTENDED RELEASE 12 HR - PREDNISONE 20 MG TABLET Prescription instructions reviewed with patient as applicable. Patient advised if symptoms do not improve or if symptoms worsen sooner, to contact their primary care physician. Potential red flag symptoms discussed with the patient. Reviewed appropriate action plan to take if red flag symptoms occur. Patient agreeable to treatment plan. Felton Cazares CNP CNOV Observed: 04/20/2017 Status: COMPLETED Source: [place] 8:15 PM [facility] REPOSITORY Office Visit ([facility]) HOA PIMENTEL ([id number]) 1970 F Date Time Provider Department 04/20/17 8:15 PM FELTON CAZARES) [facility] During your visit today, we recorded the following information about you: Temperature Pulse Respiration Blood pressure 97.5 degrees 90/minute 18/minute 124/72 Weight 119.7 kg Felton Cazares CNP 04/20/2017 9:01 PM Signed HPI Patient is a 46 year old female here today for a 4 day history of nasal congestion, cough and sore throat. Patient states cough is worse in the morning and at night. States throat pain is worse in the morning and at night. Denies know fever. Has tried OTC medications with little relief. No other concerns at this time. Review of Systems Constitutional: Positive for chills and malaise/fatigue. Negative for fever. HENT: Positive for congestion, ear pain and sore throat. Respiratory: Positive for cough. Negative for sputum production, shortness of breath and wheezing. Cardiovascular: Negative. Gastrointestinal: Negative for nausea and vomiting. Musculoskeletal: Negative for myalgias. Neurological: Positive for headaches (sinus pressure). Endo/Heme/Allergies: Negative for environmental allergies. All other systems reviewed and are negative. PAST MEDICAL HISTORY Diagnosis Date - DM w/o complication type II 07/17/2011 - Schizophrenia (HCC) PAST SURGICAL HISTORY Procedure Laterality Date - NONE ALLERGIES Review of patient's allergies indicates no known allergies. MEDICATIONS Hydrochlorothiazide 12.5 mg capsule Take 12.5 mg by mouth once daily. valsartan (DIOVAN) 320 mg tablet Take 320 mg by mouth once daily. amLODIPine (NORVASC) 5 mg tablet Take 5 mg by mouth once daily. aspirin, enteric coated (ASPIRIN, ENTERIC COATED) 81 mg EC tablet Take 81 mg by mouth once daily. atorvastatin (LIPITOR) 40 mg tablet Take 40 mg by mouth once daily. Clozapine 150 mg ORAL TbDL Take by mouth. metFORMIN (GLUCOPHAGE) 500 mg ORAL tablet Take 1 tablet by mouth twice daily. glimepiride (AMARYL) 4 mg ORAL tablet Take 1 tablet by mouth once daily. Levothyroxine 150 mcg ORAL Cap Take by mouth. Ascorbic Acid (VITAMIN C) 1,000 mg ORAL tablet Take 1 tablet by mouth once daily. guaiFENesin (MUCINEX) 600 mg 12 hr tablet Take 2 tablets by mouth twice daily. predniSONE (DELTASONE) 20 mg tablet Take 1 tablet by mouth twice daily for 5 days. Norethindrone, Contraceptive, 0.35 mg tablet TAKE 1 TABLET DAILY LORazepam (ATIVAN) 0.5 mg ORAL Tab Take 1 tablet by mouth twice daily. divalproex ER (DEPAKOTE ER) 500 mg ORAL 24 hr tablet Take 1 tablet by mouth once daily. oxcarbazepine (TRILEPTAL) 300 mg ORAL tablet Take 1 tablet by mouth twice daily. simvastatin (ZOCOR) 20 mg ORAL tablet Take 1 tablet by mouth daily at bedtime. lisinopril (PRINIVIL) 10 mg ORAL tablet Take 1 tablet by mouth once daily. FAMILY HISTORY Problem Relation Age of Onset - Cancer Mother Social History Substance Use Topics - Smoking status: Never Smoker - Smokeless tobacco: Never Used - Alcohol use No BP 124/72 Pulse 90 Temp 36.4 ?C (97.5 ?F) (Tympanic) Resp 18 Wt 119.7 kg (264 lb) SpO2 98% BMI 46.03 kg/m2 Physical Exam Constitutional: She is well-developed, well-nourished, and in no distress. Vital signs are normal. Mildly ill. HENT: Head: Normocephalic and atraumatic. Right Ear: Tympanic membrane, external ear and ear canal normal. Left Ear: Tympanic membrane, external ear and ear canal normal. Nose: Mucosal edema and rhinorrhea present. Right sinus exhibits no maxillary sinus tenderness and no frontal sinus tenderness. Left sinus exhibits no maxillary sinus tenderness and no frontal sinus tenderness. Mouth/Throat: Uvula is midline, oropharynx is clear and moist and mucous membranes are normal. No oropharyngeal exudate, posterior oropharyngeal edema or posterior oropharyngeal erythema. Neck: Neck supple. Cardiovascular: Normal rate, regular rhythm and normal heart sounds. Pulmonary/Chest: Effort normal and breath sounds normal. She has no wheezes. She has no rales. Lymphadenopathy: Head (right side): No submental, no submandibular and no tonsillar adenopathy present. Head (left side): No submental, no submandibular and no tonsillar adenopathy present. She has no cervical adenopathy. Submandibular fullness. Neurological: She is alert. Skin: Skin is warm and dry. Nursing note and vitals reviewed. ASSESSMENT/PLAN: 1. Viral URI with cough - ICD9: 465.9, ICD10: J06.9, B97.89 - Discussed viral etiology and rationale for treatment. - Symptomatic treatment with prn analgesia - Supportive care with fluids and rest - The patient may also use warm salt water gargles, throat lozenges and/or OTC throat spray as needed. - Follow up in 3-5 days if symptoms persist or sooner if worsening of symptoms - GUAIFENESIN ER 600 MG TABLET, EXTENDED RELEASE 12 HR - PREDNISONE 20 MG TABLET Prescription instructions reviewed with patient as applicable. Patient advised if symptoms do not improve or if symptoms worsen sooner, to contact their primary care physician. Potential red flag symptoms discussed with the patient. Reviewed appropriate action plan to take if red flag symptoms occur. Patient agreeable to treatment plan. Felton Cazares CNP Referring Provider: SELF [200] Allergies As of Date: 04/20/2017 (No Known Allergies) Date Reviewed: 04/20/2017 Reviewed by: Hoa Pedersen Ma - Fully Assessed Reason for Visit: Cough [28] Cmt: sneezing x 4 days Primary Visit Diagnosis:Viral URI with cough [J06.9, B97.89] Order(s):guaiFENesin (MUCINEX) 600 mg 12 hr tabletTake 2 tablets by mouth twice daily.Disp: 30 tabletRfl: 0 predniSONE (DELTASONE) 20 mg tabletTake 1 tablet by mouth twice daily for 5 days.Disp: 10 tabletRfl: 0 Prescriptions as of 04/20/2017 Sig: HYDROCHLOROTHIAZIDE 12.5 MG C* Take 12.5 mg by mouth once da* VALSARTAN 320 MG TABLET Take 320 mg by mouth once minh* AMLODIPINE 5 MG TABLET Take 5 mg by mouth once daily. ASPIRIN 81 MG TABLET,DELAYED * Take 81 mg by mouth once betty* ATORVASTATIN 40 MG TABLET Take 40 mg by mouth once betty* * CLOZAPINE 150 MG DISINTEGRATI* Take by mouth. * METFORMIN 500 MG TABLET Take 1 tablet by mouth twice * * GLIMEPIRIDE 4 MG TABLET Take 1 tablet by mouth once d* * LEVOTHYROXINE 150 MCG CAPSULE Take by mouth. * ASCORBIC ACID (VITAMIN C) 1,0* Take 1 tablet by mouth once d* GUAIFENESIN ER 600 MG TABLET,* Take 2 tablets by mouth twice* PREDNISONE 20 MG TABLET Take 1 tablet by mouth twice * NORETHINDRONE (CONTRACEPTIVE)* TAKE 1 TABLET DAILY * LORAZEPAM 0.5 MG TABLET Take 1 tablet by mouth twice * * DIVALPROEX ER 500 MG TABLET,E* Take 1 tablet by mouth once d* * OXCARBAZEPINE 300 MG TABLET Take 1 tablet by mouth twice * * SIMVASTATIN 20 MG TABLET Take 1 tablet by mouth daily * * LISINOPRIL 10 MG TABLET Take 1 tablet by mouth once d* Medication notes this encounter NORETHINDRONE (CONTRACEPTIVE) 0.35 MG TABLET >> Hoa Pedersen Ma 04/20/2017 8:18 PM >> HOA PEDERSEN MA Apr 20, 2017 8:18 PM not taking LORAZEPAM 0.5 MG TABLET >> Hoa Pedersen Ma 04/20/2017 8:19 PM >> HOA PEDERSEN MA Apr 20, 2017 8:19 PM not taking DIVALPROEX ER 500 MG TABLET,EXTENDED RELEASE 24 HR >> Hoa Pedersen Ma 04/20/2017 8:19 PM >> HOA PEDERSEN MA Apr 20, 2017 8:19 PM not taking OXCARBAZEPINE 300 MG TABLET >> Hoa Pedersen Ma 04/20/2017 8:18 PM >> HOA PEDERSEN MA Apr 20, 2017 8:18 PM not taking SIMVASTATIN 20 MG TABLET >> Hoa Pedersen Ma 04/20/2017 8:18 PM >> HOA PEDERSEN MA Apr 20, 2017 8:18 PM not taking LISINOPRIL 10 MG TABLET >> Hoa Pedersen Ma 04/20/2017 8:19 PM >> HOA PEDERSEN MA Apr 20, 2017 8:19 PM not taking Problem List As Of Date 04/20/2017 Noted Resolved 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 PREDNISONE 20 MG TABLET 10 t* 0 04/20/2017 04/25/2017 Route: ORAL Sig: Take 1 tablet by mouth twice daily for 5 days. Encounter Status:Closed by FELTON CAZARES CNP on 04/20/17 ALLERGIES ALLERGIES DATE TYPE / CODE NAME / CODE REACTION SEVERITY SOURCE 03/21/2018 Drug No Known Unknown [facility] Allergy/416 Allergies/G32459 Hospital 512978(SNOM 0388(RXNORM) Repository ED CT) Drug NO KNOWN [facility] Class/89926 ALLERGIES [facility] 1003(SNOMED Repository CT) ENCOUNTERS ENCOUNTERS ADMIT/DISCHARGE ACCOUNT ADMITTING ENCOUNTER LOCATION SOURCE NUMBER CLASS 03/31/2018 [id number] [facility] 03/21/2018/03/21/20 [id number] Ambulatory BMSBuilding:B Olmitz 18 MS.PMW [facility] Repository 03/18/2018/03/18/20 [id number] Ambulatory Olmitz Yamila 18 [facility] ing:LAB Repository 03/08/2018 [id number] [facility] Repository 02/08/2018/02/09/20 [id number] Ambulatory BMSBuilding:B Olmitz 18 MS.W [facility] Hospital Repository 02/08/2018/02/09/20 [id number] Ambulatory Yamila Olmitz [address] [place] [address] HospitalBuild Hospital ing:LAB Repository 01/13/2018 [id number] [facility] [facility] ing:OPBI Repository 01/11/2018/01/12/20 [id number] Ambulatory Yamila Yamila [address] [place] [address] HospitalBuild Hospital ing:LAB Repository 12/30/2017 [id number] [facility] ing:POLAB3 Repository 12/14/2017 [id number] [facility]LAB Repository 11/16/2017 [id number] [facility]LAB Repository 10/19/2017 [id number] [facility] ing[facility]LAB Repository 10/04/2017/10/05/19 [id number] Ambulatory BMSBuilding:B Yamila 18 MS.Critical access hospital Hospital Repository 09/21/2017 [id number] [facility] ing:LAB Repository 08/26/2017 [id number] [facility] ing[facility]LAB Repository 08/20/2017 [id number] [facility] ing:POLAB3 Repository 07/29/2017/07/30/19 [id number] Ambulatory Olmitz Yamila [address] [place] [address] HospitalBuild Hospital ing:LAB Repository 07/01/2017 [id number] [facility] ing:POLAB3 Repository 07/01/2017 [id number] [facility] ing[facility]LAB Repository 06/01/2017 [id number] [facility] [facility] ing[facility]LAB Repository 05/04/2017 [id number] [facility] [facility] ing:LAB Repository 04/21/2017 [id number] Ambulatory Olmitz Olmitz [facility] ing:LABSPEC Repository 04/20/2017/04/21/19 [id number] Ambulatory [address] Repository PAYERS PAYERS ENCOUNTER GUARANTOR PAYER SUBSCRIBER SOURCE 03/31/2018 HOA A Primary HOA A Olmitz [id number] E Insurance:MEDICARE TURNERDOB: [facility], PART A [id number] [address]Lmb: Number: Repository [id number] (HP) Date:1990-06-17 03/31/2018 Secondary HOA A Yamila Insurance:MEDICAIDPol TURNERDOB: [facility] ic Number: [id number] Hospital [id number] Repository Date:2017-02-02 03/31/2018 Tertiary NOT GIVENUNK Olmitz Insurance:SELF PAY [facility] Number: Effective Repository Date:2018-03-21 03/21/2018 HOA A Primary HOA A Olmitz [id number] E Insurance:MEDICARE TURNERDOB: [facility], PART A [facility] [id number] [facility] [address]Xaq: Number: Repository [id number] (HP) Date:2017-10-04 03/21/2018 Secondary HOA A Olmitz Insurance:MEDICAIDPol TURNERDOB: [facility] ic Number: [id number] Hospital [id number] Repository Date:2017-10-04 03/21/2018 Tertiary NOT GIVENUNK Olmitz Insurance:SELF PAY [facility] Number: Effective Repository Date:2018-03-15 03/18/2018 HOA A Primary HOA A Yamila [id number] E Insurance:MEDICARE TURNERDOB: [facility] PART A [facility] [id number] [place] [address]Gxj: Number: Repository [id number] (HP) Date:1990-06-17 03/18/2018 Secondary HOA A Yamila Insurance:MEDICAIDPol TURNERDOB: [facility] icy Number: [id number] Hospital [id number] Repository Date:2017-02-02 03/18/2018 Tertiary NOT GIVENUNK Yamila Insurance:SELF PAY [facility] Number: Effective Repository Date:2018-02-17 03/08/2018 HOA A Primary HOA A Olmitz [id number] E Insurance:MEDICARE TURNERDOB: [facility], PART A [facility] [id number] [facility] [address]Hwz: Number: Repository [id number] () Date:2018-03-08 03/08/2018 Secondary HOA A Yamila Insurance:MEDICAIDPol TURNERDOB: [facility] ic Number: [id number] Hospital [id number] Repository Date:2018-03-08 03/08/2018 Tertiary NOT GIVENUNK Olmitz Insurance:SELF PAY [facility] Number: Effective Repository Date:2018-03-08 02/08/2018 HOA A Primary HOA A Olmitz [id number] E Insurance:MEDICARE TURNERDOB: [facility] PART A [facility] [id number] Comprehensive [facility] [address]Ffc: Number: Repository [id number] () Date:2018-02-07 02/08/2018 Secondary HOA A Yamila Insurance:MEDICAIDPol TURNERDOB: [facility] icy Number: [id number] Hospital [id number] Repository Date:2018-02-07 02/08/2018 Tertiary NOT GIVENUNK Yamila Insurance:SELF PAY [facility] Number: Effective Repository Date:2018-02-07 02/08/2018 HOA A Primary HOA A Yamila [id number] E Insurance:MEDICARE TURNERDOB: [facility] PART A [facility] [id number] [facility] [address]Vst: Number: Repository [id number] () Date:1990-06-17 02/08/2018 Secondary HOA A Yamila Insurance:MEDICAIDPol TURNERDOB: [facility] icy Number: [id number] Hospital [id number] Repository Date:2017-02-02 02/08/2018 Tertiary NOT GIVENUNK Yamila Insurance:SELF PAY [facility] Number: Effective Repository Date:2018-01-19 01/13/2018 HOA A Primary HOA A Yamila [id number] E Insurance:MEDICARE TURNERDOB: [facility] PART A [facility] [id number] Comprehensive Health Care Facility [address]Sym: Number: Repository [id number] () Date:2017-12-22 01/13/2018 Secondary HOA A Olmitz Insurance:MEDICAIDPol TURNERDOB: [facility] icy Number: [id number] Hospital [id number] Repository Date:2017-12-22 01/13/2018 Tertiary NOT GIVENUNK Olmitz Insurance:SELF PAY [facility] Number: Effective Repository Date:2017-12-22 01/11/2018 HOA A Primary HOA A Olmitz [id number] E Insurance:MEDICARE TURNERDOB: [facility], PART A [facility] [id number] Comprehensive Health Care Facility [address]Wab: Number: Repository [id number] () Date:1990-06-17 01/11/2018 Secondary HOA A Olmitz Insurance:MEDICAIDPol TURNERDOB: [facility] Number: [id number] Hospital [id number] Repository Date:2017-02-02 01/11/2018 Tertiary NOT GIVENUNK Olmitz Insurance:SELF PAY [facility] Number: Effective Repository Date:2017-08-17 12/30/2017 HOA A Primary HOA A Yamila [id number] E Insurance:MEDICARE TURNERDOB: [facility], PART A [facility] [id number] Comprehensive Health Care Facility [address]Aba: Number: Repository [id number] () Date:2017-12-30 12/30/2017 Secondary HOA A Yamila Insurance:MEDICAIDPol TURNERDOB: [facility] ic Number: [id number] Hospital [id number] Repository Date:2017-12-30 12/30/2017 Tertiary NOT GIVENUNK Olmitz Insurance:SELF PAY [facility] Number: Effective Repository Date:2017-12-30 12/14/2017 HOA A Primary HOA A Yamila [id number] E Insurance:MEDICARE TURNERDOB: [facility], PART A [facility] [id number] Comprehensive Health Care Facility [address]Uty: Number: Repository [id number] () Date:2017-12-14 12/14/2017 Secondary HOA A Yamila Insurance:MEDICAIDPol TURNERDOB: [facility] ic Number: [id number] [id number] Repository Date:2017-12-14 12/14/2017 Tertiary NOT GIVENUNK Olmitz Insurance:SELF PAY [facility] Number: Effective Repository Date:2017-12-14 11/16/2017 HOA A Primary HOA A Yamila [id number] E Insurance:MEDICARE TURNERDOB: [facility] PART A [facility] [id number] Comprehensive Health Care Facility [address]Ipp: Number: Repository [id number] () Date:2017-11-16 11/16/2017 Secondary HOA A Yamila Insurance:MEDICAIDPol TURNERDOB: [facility] Number: [id number] Hospital [id number] Repository Date:2017-11-16 11/16/2017 Tertiary NOT GIVENUNK Olmitz Insurance:SELF PAY [facility] Number: Effective Repository Date:2017-11-16 10/19/2017 HOA A Primary HOA A Olmitz [id number] E Insurance:MEDICARE TURNERDOB: [facility] PART A [facility] [id number] Comprehensive Health Care Facility [address]Atj: Number: Repository [id number] () Date:2017-10-19 10/19/2017 Secondary HOA A Yamila Insurance:MEDICAIDPol TURNERDOB: [facility] Number: [id number] Hospital [id number] Repository Date:2017-10-19 10/19/2017 Tertiary NOT GIVENUNK Olmitz Insurance:SELF PAY [facility] Number: Effective Repository Date:2017-10-19 10/04/2017 HOA A Primary HOA A Olmitz [id number] E Insurance:MEDICARE TURNERDOB: [facility] PART A [facility] [id number] Comprehensive Health Care Facility [address]Hex: Number: Repository [id number] (HP) Date:2017-04-05 10/04/2017 Secondary HOA A Olmitz Insurance:MEDICAIDPol TURNERDOB: [facility] ic Number: [id number] Hospital [id number] Repository Date:2017-04-05 10/04/2017 Tertiary NOT GIVENUNK Yamila Insurance:SELF PAY [facility] Number: Effective Repository Date:2017-09-30 09/21/2017 HOA A Primary HOA A Olmitz [id number] E Insurance:MEDICARE TURNERDOB: [facility] PART A [facility] [id number] Comprehensive Health Care Facility [address]Ytb: Number: Repository [id number] (HP) Date:2017-09-21 09/21/2017 Secondary HOA A Olmitz Insurance:MEDICAIDPol TURNERDOB: [facility] Number: [id number] Hospital [id number] Repository Date:2017-09-21 09/21/2017 Tertiary NOT GIVENUNK Olmitz Insurance:SELF PAY [facility] Number: Effective Repository Date:2017-09-21 08/26/2017 HOA A Primary HOA A Yamila [id number] E Insurance:MEDICARE TURNERDOB: [facility] PART A [facility] [id number] Comprehensive Health Care Facility [address]Yip: Number: Repository [id number] (HP) Date:2017-08-26 08/26/2017 Secondary HOA A Yamila Insurance:MEDICAIDPol TURNERDOB: [facility] Number: [id number] Hospital [id number] Repository Date:2017-08-26 08/26/2017 Tertiary NOT GIVENUNK Olmitz Insurance:SELF PAY [facility] Number: Effective Repository Date:2017-08-26 08/20/2017 HOA A Primary HOA A Yamila [id number] E Insurance:MEDICARE TURNERDOB: [facility], PART A [facility] [id number] Comprehensive [facility] [address]Jqg: Number: Repository [id number] (HP) Date:2017-07-14 08/20/2017 Secondary HOA A Olmitz Insurance:MEDICAIDPol TURNERDOB: [facility] icy Number: [id number] Hospital [id number] Repository Date:2017-07-14 08/20/2017 Tertiary NOT GIVENUNK Olmitz Insurance:SELF PAY [facility] Number: Effective Repository Date:2017-07-14 07/29/2017 HOA A Primary HOA A Yamila [id number] E Insurance:MEDICARE TURNERDOB: [facility] PART A [facility] [id number] Comprehensive Health Care Facility [address]Fjm: Number: Repository [id number] () Date:1990-06-17 07/29/2017 Secondary HOA A Olmitz Insurance:MEDICAIDPol TURNERDOB: [facility] Number: [id number] Hospital [id number] Repository Date:2017-02-02 07/29/2017 Tertiary NOT GIVENUNK Yamila Insurance:SELF PAY [facility] Number: Effective Repository Date:2017-03-21 07/01/2017 HOA A Primary HOA A Yamila [id number] E Insurance:MEDICARE TURNERDOB: [facility] PART A [facility] [id number] Comprehensive Health [facility] [address]Qth: Number: Repository [id number] () Date:2017-07-01 07/01/2017 Secondary HOA A Yamila Insurance:MEDICAIDPol TURNERDOB: [facility] Number: [id number] Hospital [id number] Repository Date:2017-07-01 07/01/2017 Tertiary NOT GIVENUNK Yamila Insurance:SELF PAY [facility] Number: Effective Repository Date:2017-07-01 07/01/2017 HOA A Primary HOA A Olmitz [id number] E Insurance:MEDICARE TURNERDOB: [facility] PART A [facility] [id number] Comprehensive Health [facility] [address]Rdk: Number: Repository [id number] () Date:2017-07-01 07/01/2017 Secondary HOA A Olmitz Insurance:MEDICAIDPol TURNERDOB: [facility] ic Number: [id number] Hospital [id number] Repository Date:2017-07-01 07/01/2017 Tertiary NOT GIVENUNK Olmitz Insurance:SELF PAY [facility] Number: Effective Repository Date:2017-07-01 06/01/2017 HOA A Primary HOA A Olmitz [id number] E Insurance:MEDICARE TURNERDOB: [facility], PART A [facility] [id number] Comprehensive Health Care Facility [address]Otc: Number: Repository [id number] () Date:2017-06-01 06/01/2017 Secondary HOA A Olmitz Insurance:MEDICAIDPol TURNERDOB: [facility] icy Number: [id number] Hospital [id number] Repository Date:2017-06-01 06/01/2017 Tertiary NOT GIVENUNK Yamila Insurance:SELF PAY [facility] Number: Effective Repository Date:2017-06-01 05/04/2017 HOA A Primary HOA A Yamila [id number] E Insurance:MEDICARE TURNERDOB: [facility] PART A [facility] [id number] Comprehensive Health Care Facility 94[address]Tdl: Number: Repository [id number] () Date:2017-05-04 05/04/2017 Secondary HOA A Yamila Insurance:MEDICAIDPol TURNERDOB: [facility] icy Number: [id number] Hospital [id number] Repository Date:2017-05-04 05/04/2017 Tertiary NOT GIVENUNK Olmitz Insurance:SELF PAY [facility] Number: Effective Repository Date:2017-05-04 04/21/2017 HOA A Primary HOA A Yamila [id number] E Insurance:MEDICARE TURNERDOB: [facility] PART A [facility] [id number] Comprehensive [facility] [address]Hfq: Number: Repository [id number] () Date:2017-04-21 04/21/2017 Secondary HOA A Olmitz Insurance:MEDICAIDPol TURNERDOB: [facility] icy Number: [id number] Hospital [id number] Repository Date:2017-04-21 04/21/2017 Tertiary NOT GIVENUNK Olmitz Insurance:SELF PAY [facility] Number: Effective Repository Date:2017-04-21
== END 2018-03-18 12:24 | disposition home or self-care (01) ==
LOC: LAB 09:09
PROVIDERS: Family Provider Family Medicine Geriatric Medicine; PCP Family Medicine Geriatric Medicine; Referring Provider Psychiatry & Neurology Psychiatry; Visit Provider Psychiatry & Neurology Psychiatry
DX: Z79.899 Other long term (current) drug therapy (principal)
CPT/HCPCS: 36415; 85025

== ENCOUNTER 2018-04-07 09:06 | Outpatient (RCR) | payer MEDICARE, MEDICAID, SELFPAY ==
[2018-02-08 12:17] VITALS: BMI 41.9
[2018-03-21 12:55] VITALS: BMI 42.6
[2018-04-07 09:46] LABS: Absolute Neutrophil Count 3.1 X10^3/uL (2.0-7.7); Basophil# 0.02 X10^3/uL; Basophil% 0.3 % (0-1); Eosinophil# 0.21 X10^3/uL; Eosinophils% 3.4 % (0-5); Hematocrit 36.6 % (37-47); Hemoglobin 11.9 g/dl (12.0-15.0); Lymphocyte % 35.4 % (19-41); Mean Corp Hgb Conc 32.5 g/gl (32-36); Mean Corpuscular Hgb 31.2 pg (27.0-32.0); Mean Corpuscular Volume 95.8 fL (81-99); Mean Platelet Vol. 9.6 fl (6.2-12.0); Monocyte# 0.64 X10^3/uL; Monocyte% 10.3 % (0-10); Neutrophil # 3.12 X10^3/uL (2.7-7.7); Neutrophil % 50.3 % (47-70); Platelet Count 289 K/mm3 (150-450); RBC Distribution Width CV 15.1 % (11.6-14.6); RBC Distribution Width SD 51.1 fl (35.1-43.9); Red Blood Count 3.82 M/mm3 (4.2-5.4); White Blood Count 6.2 K/mm3 (4.4-11.0)
[2018-04-07 09:56] LABS: POSITIVE COUNT NO; POSITIVE DIFFERENTIAL NO; POSITIVE MORPHOLOGY NO
== END 2018-04-07 10:00 | disposition home or self-care (01) ==
LOC: LAB 09:06
PROVIDERS: Family Provider Family Medicine Geriatric Medicine; PCP Family Medicine Geriatric Medicine; Referring Provider Psychiatry & Neurology Psychiatry; Visit Provider Psychiatry & Neurology Psychiatry
DX: Z79.899 Other long term (current) drug therapy (principal)
CPT/HCPCS: 36415; 85025

== ENCOUNTER 2018-05-05 09:09 | Outpatient (RCR) | payer MEDICARE, SELFPAY ==
[2018-03-21 12:55] VITALS: BMI 42.6
[2018-05-05 10:36] LABS: Absolute Lymphocyte Count 2.17 X10^3/ul (0.83-4.51); Absolute Neutrophil Count 3.4 X10^3/uL (2.0-7.7); Basophil# 0.02 X10^3/uL; Basophil% 0.3 % (0-1); Eosinophil# 0.23 X10^3/uL; Eosinophils% 3.4 % (0-5); Hematocrit 36.7 % (37-47); Lymphocyte # 2.17 X10^3/ul (4.0); Lymphocyte % 32.3 % (19-41); Mean Corp Hgb Conc 32.7 g/gl (32-36); Mean Corpuscular Hgb 31.2 pg (27.0-32.0); Mean Corpuscular Volume 95.3 fL (81-99); Mean Platelet Vol. 9.7 fl (6.2-12.0); Monocyte# 0.82 X10^3/uL; Monocyte% 12.2 % (0-10); Neutrophil # 3.44 X10^3/uL (2.7-7.7); Neutrophil % 51.2 % (47-70); Platelet Count 304 K/mm3 (150-450); RBC Distribution Width CV 14.6 % (11.6-14.6); RBC Distribution Width SD 49.2 fl (35.1-43.9); Red Blood Count 3.85 M/mm3 (4.2-5.4); White Blood Count 6.7 K/mm3 (4.4-11.0)
[2018-05-05 10:57] LABS: POSITIVE COUNT NO; POSITIVE DIFFERENTIAL NO; POSITIVE MORPHOLOGY NO
--- OUTSIDE RECORDS SUMMARY | 2018-07-09 22:49 | XMS RPT_ITS ---
:1970 Author Organization OHIP Support Name Relationship Address Phone D Unavailable Unavailable Unavailable MARLIN MARTINEZ Unavailable [address] + [place] [address] PIMENTEL TAMIKO Unavailable [address] + [place] [address] D Unavailable Unavailable Unavailable MARLIN MARTINEZ Unavailable [address] + [place] [address] PIMENTEL, TAMIKO Unavailable [address] + [place] [address] D Unavailable Unavailable Unavailable STEF MARTINEZE Unavailable [address] + [place] [address] PIMENTEL, TAMIKO Unavailable [address] + [place] [address] D Unavailable Unavailable Unavailable MARLIN MARTINEZ Unavailable [address] + [place] [address] PIMENTEL, TAMIKO Unavailable [address] + [place] [address] D Unavailable Unavailable Unavailable STEF MARTINEZE Unavailable Unavailable + [place] [address] PIMENTEL, TAMIKO Unavailable Unavailable + [place] [address] D Unavailable Unavailable Unavailable STEF MARTINEZE Unavailable . + [place] [address] PIMENTEL TAMIKO Unavailable . + [place] [address] D Unavailable Unavailable Unavailable STEF MARTINEZE Unavailable Unavailable + PIMENTEL [place]AMIKO Unavailable Unavailable + D Unavailable Unavailable Unavailable STEF MARTINEZE Unavailable Unavailable + [place] [address] PIMENTEL TAMIKO Unavailable Unavailable + [place] [address] D Unavailable Unavailable Unavailable SUBRANNI, MARLIN Unavailable Unavailable + [place] [address] PIMENTEL, TAMIKO Unavailable Unavailable + [place] [address] D Unavailable Unavailable Unavailable SUBRANNI, MARLIN Unavailable Unavailable + [place] [address] PIMENTEL, TAMIKO Unavailable Unavailable + [place] [address] D Unavailable Unavailable Unavailable SUBRANNI, MARLIN Unavailable Unavailable + [place] [address] PIMENTEL, TAMIKO Unavailable Unavailable + [place] [address] D Unavailable Unavailable Unavailable SUBRANNI, MARLIN Unavailable Unavailable + [place] [address] PIMENTEL, TAMIKO Unavailable Unavailable + [place] [address] D Unavailable Unavailable Unavailable SUBRANNI, MARLIN Unavailable . + [place] [address] PIMENTEL, TAMIKO Unavailable . + [place] [address] D Unavailable Unavailable Unavailable SUBRANNI, MARLIN Unavailable . + [place] [address] PIMENTEL, TAMIKO Unavailable . + [place] [address] D Unavailable Unavailable Unavailable SUBRANNI, MARLIN Unavailable . + [place] [address] PIMENETL, TAMIKO Unavailable . + [place] [address] D Unavailable Unavailable Unavailable SUBRANNI, MARLIN Unavailable Unavailable + [place] [address] D Unavailable Unavailable Unavailable SUBRANNI, MARLIN Unavailable Unavailable + [place] [address] D Unavailable Unavailable Unavailable SUBRANNI, MARLIN Unavailable Unavailable + [place] [address] D Unavailable Unavailable Unavailable SUBRANNI, MARLIN Unavailable Unavailable + [place] [address] D Unavailable Unavailable Unavailable SUBRANNI, MARLIN Unavailable Unavailable + [place] [address] D Unavailable Unavailable Unavailable SUBRANNI, MARLIN Unavailable Unavailable + [place] [address] Care Team Providers Name Role Phone Astreika, Vera Attending Unavailable Astreika, Vera Referring Unavailable Jim, Marc Chi Primary Care Unavailable Astreika, Vera Attending Unavailable Jim, Marc Chi Primary Care Unavailable Astreika, Vera Referring Unavailable Astreika, Vera Attending Unavailable Astreika, [...] Attending Unavailable Jim, Marc Chi Referring Unavailable PROBLEMS PROBLEMS DATE TYPE CONDITION / CODE ATTENDING STATUS SOURCE 04/18/2018 Unknown Z79.899 - Other Astreika, Vera Active [facility] (current[facility] drug Hospital therapy / Repository Z79.899(ICD-10) 01/13/2018 Unknown Z12.31 - Shana, Active [place] Encounter for [facility] mammogram for Repository malignant neoplasm of breast / Z12.31(ICD-10) 08/20/2017 Unknown E03.9 - Marc Dominguez Chi Active [place] Hypothyroidism, Community unspecified / Hospital E03.9(ICD-10) Repository PROCEDURES PROCEDURES No Procedure Records FoundRESULTS RESULTS CBC W/DIFF, AUTOMATED Collected: 05/05/2018 Status: F Source: [place] 9:15 AM [facility] REPOSITORY TYPE CODE TESTS RESULT OUT OF RANGE REFERENCE UNITS LAB L100.1000 4.4-11.0 K/mm3 Normal WBC 6.7 LAB L100.1200 4.2-5.4 M/mm3 Low RBC 3.85 LAB L100.1300 12.0-15.0 g/dl Normal HGB 12.0 LAB L100.1400 37-47 % Low HCT 36.7 LAB L100.1500 81-99 fL Normal MCV 95.3 LAB L100.1600 27.0-32.0 pg Normal MCH 31.2 LAB L100.1700 32-36 g/gl Normal MCHC 32.7 LAB L100.1810 11.6-14.6 % Normal RDW CV 14.6 LAB L100.1820 35.1-43.9 fl High RDW SD 49.2 LAB L100.1900 150-450 K/mm3 Normal PLT 304 LAB L100.2000 6.2-12.0 fl Normal MPV 9.7 LAB L100.2100 47-70 % Normal NEUT% 51.2 LAB L100.2200 19-41 % Normal LY% 32.3 LAB L100.2300 0-10 % High MONO% 12.2 LAB L100.2400 0-5 % Normal EO% 3.4 LAB L100.2500 0-1 % Normal BASO% 0.3 LAB L100.2550 0.0-0.9 % Normal IM GRAN % 0.600 Result Comment: IG% - Immature Granulocytes (promyelocytes, myelocytes and metamyelocytes) > 1% indicates that a LEFT SHIFT is Present. LAB L100.2620 2.0-7.7 X10 3/uL Normal Absolute Neut 3.4 LAB L100.2720 0.83-4.51 X10 3/ul Normal Absolute Lymph 2.17 Performed By: #### L100.0100 #### [facility] [address] [place], [place], [address] CBC W/DIFF, AUTOMATED Collected: 04/07/2018 Status: F Source: [place] 9:08 AM [facility] REPOSITORY TYPE CODE TESTS RESULT OUT OF RANGE REFERENCE UNITS LAB L100.1000 4.4-11.0 K/mm3 Normal WBC 6.2 LAB L100.1200 4.2-5.4 M/mm3 Low RBC 3.82 LAB L100.1300 12.0-15.0 g/dl Low HGB 11.9 LAB L100.1400 37-47 % Low HCT 36.6 LAB L100.1500 81-99 fL Normal MCV 95.8 LAB L100.1600 27.0-32.0 pg Normal MCH 31.2 LAB L100.1700 32-36 g/gl Normal MCHC 32.5 LAB L100.1810 11.6-14.6 % High RDW CV 15.1 LAB L100.1820 35.1-43.9 fl High RDW SD 51.1 LAB L100.1900 150-450 K/mm3 Normal PLT 289 LAB L100.2000 6.2-12.0 fl Normal MPV 9.6 LAB L100.2100 47-70 % Normal NEUT% 50.3 LAB L100.2200 19-41 % Normal LY% 35.4 LAB L100.2300 0-10 % High MONO% 10.3 LAB L100.2400 0-5 % Normal EO% 3.4 LAB L100.2500 0-1 % Normal BASO% 0.3 LAB L100.2550 0.0-0.9 % Normal IM GRAN % 0.300 Result Comment: IG% - Immature Granulocytes (promyelocytes, myelocytes and metamyelocytes) > 1% indicates that a LEFT SHIFT is Present. LAB L100.2620 2.0-7.7 X10 3/uL Normal Absolute Neut 3.1 LAB L100.2720 0.83-4.51 X10 3/ul Normal Absolute Lymph 2.20 Performed By: #### L100.0100 #### [facility] [address] [place], [place], [address] PULMONARY VISIT REPORT Observed: 03/21/2018 Status: F Source: [place] 1:23 PM [facility] REPOSITORY [facility] [address] [place] [address] OFFICE VISIT Date of Service: 03/21/18 MR#: [id number] Acct: [id number] Name: HOA PIMENTEL Rep #: [id number] : 1970 Provider: Rolo Sun MD Age/Sex: 47/F Location: [facility] Status: Signed Assessment AND Plan Problems 1. [...] policy were reviewed in detail. Patient and spring encasersap project manager understanding. Continue current regimen. Patient Instructions No changes. Plan Detail Follow Up 6 Months ([facility]) HPI 6 M FU: Chief Complaint: Routine [...] exertion. Patient continues to live in a detention and states that multiple members have been [...] 119.748 kg Intake Visit Reasons: 6 M FU Driver License Agent Required: No Is patient in pain?: No [...] DAILY #28 tab 02/23/18 [Rx Confirmed 03/21/18] PFSH Medical History Hyponatremia (Acute) Hypertension (Chronic) [...] W/DIFF, AUTOMATED Collected: 03/18/2018 Status: F Source: [place] 9:18 AM [facility] REPOSITORY TYPE CODE TESTS RESULT OUT OF [...] Lymph 2.40 Performed By: #### L100.0100 #### [facility] [place], [address] CBC W/DIFF, AUTOMATED Collected: 03/08/2018 Status: F Source: [place] 9:21 AM [facility] REPOSITORY TYPE CODE TESTS RESULT OUT OF [...] Lymph 2.26 Performed By: #### L100.0100 #### [facility] [address] [place], [address] MISCELLANEOUS LAB Collected: 03/08/2018 Status: F Source: [place] PROCEDURE 9:21 AM [facility] REPOSITORY Order Comment: Comments: CLOZAPINE [id number] SER/RT Test(s) Ordered: CLOZAPINE [id number] SER/RT TYPE CODE TESTS RESULT OUT OF RANGE REFERENCE UNITS LAB L801.1541 Normal [facility] LAB TEST Result Comment: TEST RESULT UNITS [...] C, Manasa P, Stephanie N, et al. [facility] Consensus Guidelines for Therapeutic Drug Monitoring in Psychiatry: Update 2011, Pharmacopsychiatry Dec 2010; 44(6):195-235. Detection Limit = 20 TESTING PERFORMED AT [facility]. ORIGINAL REPORT ON FILE IN LAB CONTAINS ADDITIONAL TEST SITE INFORMATION. Performed By: #### L801.1541 #### [place] [facility] [address] [place], [address] PULMONARY VISIT REPORT Observed: 02/09/2018 Status: F Source: [place] 8:10 AM [facility] REPOSITORY [facility] [place] [address] [place] [address] OFFICE VISIT Date of Service: 02/08/18 MR#: [id number] Acct: [id number] Name: HOA PIMENTEL Rep #: [id number] : 1970 Provider: Araceli Prince Age/Sex: 47/F Location: [facility] Status: Signed Assessment AND Plan 1. Moderate [...] were doing some deep cleaning at the detention which she resides. She denies any sinus tenderness, or ear pain. She denies any chest pain or palpitations. She denies any lower extremity edema. She denies any sputum production or hemoptysis. They have not added any xgup-tap-oqxdjex medications but note that she has been [...] Vital Signs02/08/18 Height 5 ft 6 in 10/23/18 Weight: 260 lb Intake Visit Reasons: congested [...] DAILY #16 g 02/08/18 [Rx Confirmed 02/08/18] PFSH Medical History Hyponatremia (Acute) Hypertension (Chronic) [...] 02/09/18 0810 <Electronically signed by Araceli Prince VEHICLE BODY BUILDER-C> Date Araceli Prince VEHICLE BODY BUILDER-C Cosigner Signature: Date (if applicable) CC: Marc Dominguez MD CBC W/DIFF, AUTOMATED Collected: 02/08/2018 Status: F Source: [place] 9:42 AM [facility] REPOSITORY TYPE CODE TESTS RESULT OUT OF [...] Lymph 1.92 Performed By: #### L100.0100 #### [facility] [address] [place], [address] AMMONIA Collected: 02/08/2018 Status: F Source: [place] 9:42 AM [facility] REPOSITORY TYPE CODE TESTS RESULT OUT OF REFERENCE UNITS RANGE LAB L503.5510 11-32 umol/L High AMMONIA 35.0 Performed By: #### L503.5510 #### [facility] [address] [place], [address] AST(SGOT) Collected: 02/08/2018 Status: F Source: [place] 9:42 AM [facility] REPOSITORY TYPE CODE TESTS RESULT OUT OF RANGE REFERENCE UNITS LAB L501.4100 15-37 U/L Normal AST 16 Performed By: #### L501.4100, L501.4405 #### [facility] [address] [place], [address] ALANINE AMINOTRANSFERAS Collected: 02/08/2018 Status: F Source: [place] (SGPT) 9:42 AM [facility] REPOSITORY TYPE CODE TESTS RESULT OUT OF RANGE REFERENCE UNITS LAB L501.4405 13-56 U/L Normal ALT 19 Performed By: #### L501.4100, L501.4405 #### [facility] [address] [place], [address] VALPROIC ACID Collected: 02/08/2018 Status: F Source: [place] (DEPAKENE) LEVEL 9:42 AM [facility] REPOSITORY TYPE CODE TESTS RESULT OUT OF RANGE REFERENCE UNITS LAB L501.8100 50-100 ug/mL Normal VALPROIC ACID 54 Performed By: #### L501.8100 #### [facility] [address] [place], [address] MISCELLANEOUS LAB Collected: 02/08/2018 Status: F Source: [place] PROCEDURE 9:42 AM [facility] REPOSITORY Order Comment: Test(s) Ordered: [id number] CLOZAPINE SER RT TYPE CODE TESTS RESULT OUT OF RANGE REFERENCE UNITS LAB L801.1541 Normal [facility] LAB TEST Result Comment: TEST RESULT LIMITS [...] C, Manasa P, Stephanie N, et al. [facility] Consensus Guidelines for Therapeutic Drug Monitoring in Psychiatry: Update 2010, Pharmacopsychiatry Dec 2010; 44(6):195-235. Detection Limit = 20 [facility]. ORIGINAL REPORT ON FILE IN LAB CONTAINS ADDITIONAL TEST SITE INFORMATION. TESTING PERFORMED AT [facility]. ORIGINAL REPORT ON FILE IN LAB CONTAINS ADDITIONAL TEST SITE INFORMATION. Performed By: #### L801.1541 #### [place] [facility] [place], [address] SCREENING MAMM (CAD), Observed: 01/13/2018 Status: F Source: [place] BILAT 2:25 PM [facility] REPOSITORY [facility] Imaging Services [address] [place] [address] SCREENING MAMM (CAD), BILAT MR#: [id number] Acct: [id number] Name: HOA PIMENTEL Rep #: [id number] : 1970 F 47 From: Michele Rhodes MD PCP: Jim TRIPLETT,Marc Mancia Status: REG CLI Study: SCREENING MAMM (CAD), BILAT Date of Exam: 01/13/18 Exam# [id number] Ordering Dr: Lavern Saldana MD MAMMOGRAPHY - [...] delay biopsy of a clinically suspicious abnormality. [id number] Electronically Signed: Michele Rhodes MD at 15:11 EDT Tel [phone], Service support , CC: Lavern Saldana MD; Marc Dominguez MD Security Rover: Signed CBC W/DIFF, AUTOMATED Collected: 01/11/2018 Status: F Source: [place] 9:44 AM [facility] REPOSITORY TYPE CODE TESTS RESULT OUT OF [...] Lymph 2.27 Performed By: #### L100.0100 #### [facility] [address] [place], [address] CBC W/DIFF, AUTOMATED Collected: 12/30/2017 Status: F Source: [place] 11:44 AM [facility] REPOSITORY TYPE CODE TESTS RESULT OUT OF [...] Lymph 2.24 Performed By: #### L100.0100 #### [facility] [address] [place], [address] COMPREHENSIVE METABOLIC Collected: 12/30/2017 Status: F Source: [place] PROFIL 11:44 AM [facility] REPOSITORY TYPE CODE TESTS RESULT OUT OF [...] 11 Performed By: #### L500.4050, L501.9520 #### [facility] [address] [place], [address] THYROID STIM HORMONE Collected: 12/30/2017 Status: F Source: [place] (TSH) 11:44 AM [facility] REPOSITORY TYPE CODE TESTS RESULT OUT OF RANGE REFERENCE UNITS LAB L501.9520 0.358-3.74 uIU/mL Normal TSH 0.97 Performed By: #### L500.4050, L501.9520 #### [facility] [place], [address] CBC W/DIFF, AUTOMATED Collected: 12/14/2017 Status: F Source: [place] 9:31 AM [facility] REPOSITORY TYPE CODE TESTS RESULT OUT OF [...] Lymph 2.30 Performed By: #### L100.0100 #### [facility] [address] [place], [place], [address] CBC W/DIFF, AUTOMATED Collected: 11/16/2017 Status: F Source: [place] 9:25 AM [facility] REPOSITORY TYPE CODE TESTS RESULT OUT OF [...] Lymph 2.44 Performed By: #### L100.0100 #### [facility] [address] [place], [place], [address] CBC W/DIFF, AUTOMATED Collected: 10/19/2017 Status: F Source: [place] 9:14 AM [facility] REPOSITORY TYPE CODE TESTS RESULT OUT OF [...] Lymph 2.20 Performed By: #### L100.0100 #### [facility] [address] [facility] [place], [place], [address] DOWNTIME REPORT Observed: 10/07/2017 Status: F Source: [place] 12:35 PM [facility] REPOSITORY [facility] Medical Records Department [address] [address] Downtime Report MR#: [id number] Acct: [id number] Name: HOA PIMENTEL Rep #: [id number] : 1970 47 From: George Meyer PCP: Jim TRIPLETT,Marc Mancia Status: REG CLI This patient was seen during an EMR downtime September 20, 2017 - September 27, 2017. This patient may have a combination of paper and electronic documentation or all paper documentation. All documentation is viewable within the e-chart portion of [employer] for each patient visit. PULMONARY VISIT REPORT Observed: 10/05/2017 Status: F Source: [place] 4:10 PM [facility] REPOSITORY [facility] [address] [place] [address] OFFICE VISIT Date of Service: 10/04/17 MR#: [id number] Acct: [id number] Name: HOA PIMENTEL Rep #: [id number] : 1970 Provider: Araceli Prince Age/Sex: 47/F Location: [facility] Status: Signed Assessment AND Plan 1. Moderate [...] prognosis. Plan Detail Follow Up 6 Months ([facility]) HPI 6 M FU: Chief Complaint: None [...] The patient generally has no complaints, the low pressure firer who is also present with the patient also confirms that the patient has been doing quite well and has not been making any complaints or signs of shortness of breath in the detention. See complete review of systems. She did [...] and obese; negative distended Genitourinary: Positive deferred [facility] Musculoskeletal: Positive steady gait and ROM normal; [...] unspecified 10/05/17 1610 <Electronically signed by Araceli MOHRC> Date Araceli MOHRC Cosigner Signature: Date (if applicable) CC: Marc Dominguez MD CBC W/DIFF, AUTOMATED Collected: 09/21/2017 Status: F Source: [place] 12:00 AM [facility] REPOSITORY TYPE CODE TESTS RESULT OUT OF [...] Lymph 2.05 Performed By: #### L100.0100 #### [facility] [address] [place], [address] CBC W/DIFF, AUTOMATED Collected: 08/26/2017 Status: F Source: [place] 8:34 AM [facility] REPOSITORY TYPE CODE TESTS RESULT OUT OF [...] Lymph 1.80 Performed By: #### L100.0100 #### [facility] [address] [place], [address] AST(SGOT) Collected: 08/26/2017 Status: F Source: [place] 8:34 AM [facility] REPOSITORY TYPE CODE TESTS RESULT OUT OF RANGE REFERENCE UNITS LAB L501.4100 15-37 U/L Normal AST 16 Performed By: #### L501.4100, L501.4405 #### [facility] [place], [address] ALANINE AMINOTRANSFERAS Collected: 08/26/2017 Status: F Source: [place] (SGPT) 8:34 AM [facility] REPOSITORY TYPE CODE TESTS RESULT OUT OF RANGE REFERENCE UNITS LAB L501.4405 13-56 U/L Normal ALT 20 Performed By: #### L501.4100, L501.4405 #### [facility] [address] [place], [address] VALPROIC ACID Collected: 08/26/2017 Status: F Source: [place] (DEPAKENE) LEVEL 8:34 AM [facility] REPOSITORY TYPE CODE TESTS RESULT OUT OF RANGE REFERENCE UNITS LAB L501.8100 50-100 ug/mL Normal VALPROIC ACID 55 Performed By: #### L501.8100 #### [facility] [address] [facility] [place], [address] THYROID STIM HORMONE Collected: 08/20/2017 Status: F Source: [place] (TSH) 9:52 AM [facility] REPOSITORY TYPE CODE TESTS RESULT OUT OF RANGE REFERENCE UNITS LAB L501.9520 0.358-3.74 uIU/mL Normal TSH 0.91 Performed By: #### L501.9520 #### [facility] [address] [place], [place], [address] CBC W/DIFF, AUTOMATED Collected: 07/29/2017 Status: F Source: [place] 11:10 AM [facility] REPOSITORY TYPE CODE TESTS RESULT OUT OF [...] Lymph 3.11 Performed By: #### L100.0100 #### [facility] [address] [place], [address] THYROID STIM HORMONE Collected: 07/29/2017 Status: F Source: [place] (TSH) 11:10 AM [facility] REPOSITORY Order Comment: DR. DOMINGUEZ ORDERED TSH DR. HIGHTOWER ORDERED CBCD AND ANC TYPE CODE TESTS RESULT OUT OF RANGE REFERENCE UNITS LAB L501.9520 0.358-3.74 uIU/mL Normal TSH 0.42 Performed By: #### L501.9520 #### [facility] [address] [place], [place], [address] CBC W/DIFF, AUTOMATED Collected: 07/01/2017 Status: F Source: [place] 10:40 AM [facility] REPOSITORY TYPE CODE TESTS RESULT OUT OF [...] Lymph 1.94 Performed By: #### L100.0100 #### [facility] [address] [place], [address] COMPREHENSIVE METABOLIC Collected: 07/01/2017 Status: F Source: [place] [facility] 10:40 AM [facility] REPOSITORY TYPE CODE TESTS RESULT OUT OF [...] 8 Performed By: #### L500.4050, L501.9520 #### [facility] [address] [place], [address] THYROID STIM HORMONE Collected: 07/01/2017 Status: F Source: [place] (TSH) 10:40 AM [facility] REPOSITORY TYPE CODE TESTS RESULT OUT OF RANGE REFERENCE UNITS LAB L501.9520 0.358-3.74 uIU/mL Low TSH 0.34 Performed By: #### L500.4050, L501.9520 #### [facility] [address] [place], [address] CBC W/DIFF, AUTOMATED Collected: 07/01/2017 Status: F Source: [place] 8:44 AM [facility] REPOSITORY TYPE CODE TESTS RESULT OUT OF [...] Lymph 2.05 Performed By: #### L100.0100 #### [facility] [address] [place], [place], [address] CBC W/DIFF, AUTOMATED Collected: 06/01/2017 Status: F Source: [place] 8:27 AM [facility] REPOSITORY TYPE CODE TESTS RESULT OUT OF [...] Lymph 1.65 Performed By: #### L100.0100 #### [facility] [address] [place], [address] MISCELLANEOUS LAB Collected: 06/01/2017 Status: F Source: [place] PROCEDURE 8:27 AM [facility] REPOSITORY Order Comment: Comments: [id number] CLOZARIL RED RT Test(s) Ordered: [id number] CLOZARIL RED RT TYPE CODE TESTS RESULT OUT OF RANGE REFERENCE UNITS LAB L801.1541 Normal [facility] LAB TEST Result Comment: TEST RESULT LIMITS [...] C, Manasa P, Stephanie N, et al. [facility] Consensus Guidelines for Therapeutic Drug Monitoring in Psychiatry: Update 2011, Pharmacopsychiatry Dec 2010; 44(6):195-235. Detection Limit = 20 [facility]. ORIGINAL REPORT ON FILE IN LAB CONTAINS ADDITIONAL TEST SITE INFORMATION. Performed By: #### L801.1541 #### [facility] [address] [place], [address] ALLERGIES ALLERGIES DATE TYPE / CODE NAME / CODE REACTION SEVERITY SOURCE 03/21/2018 Drug No Known Unknown [place] [facility] Allergy/4160 Allergies/F00 [facility] [address](SNOMED [id number](RXNOR Repository CT) M) ENCOUNTERS ENCOUNTERS ADMIT/DISCHARGE ACCOUNT ADMITTING ENCOUNTER LOCATION SOURCE NUMBER CLASS 05/05/2018 [id number] Ambulatory [place] 0 [facility] ing:LAB Repository 04/07/2018/ [id number] Ambulatory [place] 8 7 [facility] ing:LAB Repository 03/21/2018/ [id number] Amb[facility] [place] [facility] 03/18/2018/ [id number] Ambulatory [place] 8 1 [facility] ing:LAB Repository 03/08/2018 [id number] Amb[place] 5 [facility] ing:LAB Repository 02/08/2018/ [id number] Ambulatory [facility] [place] [facility] Repository 02/08/2018/ [id number] [place] 8 2 [facility] ing:LAB Repository 01/13/2018 [id number] Ambulatory [place] 3 [facility] ing:OPBI Repository 01/11/2018/ [id number] [place] 8 5 [facility] ing:LAB Repository 12/30/2017 [id number] [place] 3 [facility] ing:POLAB3 Repository 12/14/2017 [id number] [place] [place] 2 [facility] ing:LAB Repository 11/16/2017 [id number] Ambulatory [place] 9 [facility] ing:LAB Repository 10/19/2017 [id number] Ambulatory [place] 5 [facility] ing:LAB Repository 10/04/2017/ [id number] Ambulatory BMSBuilding:B [place] [facility] Repository 09/21/2017 [id number] Ambulatory [place] 0 [facility] ing:LAB Repository 08/26/2017 [id number] Ambulatory [place] 6 [facility] ing:LAB Repository 08/20/2017 [id number] Ambulatory [place] 8 [facility] ing:POLAB3 Repository 07/29/2017/ [id number] Ambulatory [place] 8 6 [facility] ing:LAB Repository 07/01/2017 [id number] Ambulatory [place] 9 [facility] ing:POLAB3 Repository 07/01/2017 [id number] Ambulatory [place] 5 [facility] ing:LAB Repository 06/01/2017 [id number] Ambulatory [place] 5 [facility] ing:LAB Repository PAYERS PAYERS ENCOUNTER GUARANTOR PAYER SUBSCRIBER SOURCE 05/05/2018 HOA A Primary HOA A [place] [id number] E Insurance:[facility] TURNERDOB: [facility] [id number] General Hospital [address]Mqo: Number: Repository [id number] (HP) Date:9980-29-04OM [address] [address]HX: 05/05/2018 Secondary NOT GIVENUNK [place] Insurance:SELF PAY [facility] Number: Effective Repository Date:2018-04-18 04/07/2018 HOA A Primary HOA A [place] [id number] E Insurance:MEDICARE TURNERDOB: [facility], PART A BPolicy [id number] General Hospital [address]Ggp: Number: Repository [id number] (HP) Date:1990-06-17 04/07/2018 Secondary HOA A [place] Insurance:MEDICAIDPol TURNERDOB: [facility] Number: [id number] Hospital [id number] Repository Date:2017-02-02 04/07/2018 Tertiary NOT GIVENUNK [place] Insurance:SELF PAY [facility] Number: Effective Repository Date:2018-03-21 03/21/2018 HOA A Primary HOA A [place] [id number] E Insurance:MEDICARE TURNERDOB: [facility] PART A [facility] [id number] General Hospital [address]Nwl: Number: Repository [id number] () Date:2017-10-04 03/21/2018 Secondary HOA A [place] Insurance:MEDICAIDPol TURNERDOB: [facility] Number: [id number] Hospital [id number] Repository Date:2017-10-04 03/21/2018 Tertiary NOT GIVENUNK [place] Insurance:SELF PAY [facility] Number: Effective Repository Date:2018-03-15 03/18/2018 HOA A Primary HOA A [place] [id number] E Insurance:MEDICARE TURNERDOB: [facility] PART A [facility] [id number] General Hospital [address]Roe: Number: Repository [id number] () Date:1990-06-17 03/18/2018 Secondary HOA A [place] Insurance:MEDICAIDPol TURNERDOB: [facility] Number: [id number] Hospital [id number] Repository Date:2017-02-02 03/18/2018 Tertiary NOT GIVENUNK [place] Insurance:SELF PAY [facility] Number: Effective Repository Date:2018-02-17 03/08/2018 HOA A Primary HOA A [place] [id number] E Insurance:MEDICARE TURNERDOB: [facility] PART A [facility] [id number] General Hospital [address]Pvy: Number: Repository [id number] () Date:2018-03-08 03/08/2018 Secondary HOA A [place] Insurance:MEDICAIDPol TURNERDOB: [facility] Number: [id number] Hospital [id number] Repository Date:2018-03-08 03/08/2018 Tertiary NOT GIVENUNK [place] Insurance:SELF PAY [facility] Number: Effective Repository Date:2018-03-08 02/08/2018 HOA A Primary HOA A [place] [id number] E Insurance:MEDICARE TURNERDOB: [facility] PART A [facility] [id number] General Hospital [address]Com: Number: Repository [id number] () Date:2018-02-07 02/08/2018 Secondary HOA A [place] Insurance:MEDICAIDPol TURNERDOB: [facility] ic Number: [id number] Hospital [id number] Repository Date:2018-02-07 02/08/2018 Tertiary NOT GIVENUNK [place] Insurance:SELF PAY [facility] Number: Effective Repository Date:2018-02-07 02/08/2018 HOA A Primary HOA A [place] [id number] Insurance:MEDICARE TURNERDOB: [facility] PART A [facility] [id number] General Hospital [address]Hld: Number: Repository [id number] () Date:1990-06-17 02/08/2018 Secondary HOA A [place] Insurance:MEDICAIDPol TURNERDOB: [facility] Number: [id number] Hospital [id number] Repository Date:2017-02-02 02/08/2018 Tertiary NOT GIVENUNK [place] Insurance:SELF PAY [facility] Number: Effective Repository Date:2018-01-19 01/13/2018 HOA A Primary HOA A [place] [id number] Insurance:MEDICARE TURNERDOB: [facility] PART A [facility] [id number] General Hospital [address]Rwm: Number: Repository [id number] () Date:2017-12-22 01/13/2018 Secondary HOA A [place] Insurance:MEDICAIDPol TURNERDOB: [facility] Number: [id number] Hospital [id number] Repository Date:2017-12-22 01/13/2018 Tertiary NOT GIVENUNK [place] Insurance:SELF PAY [facility] Number: Effective Repository Date:2017-12-22 01/11/2018 HOA A Primary HOA A [place] [id number] E Insurance:MEDICARE TURNERDOB: [facility] PART A [facility] [id number] General Hospital [address]Afo: Number: Repository [id number] (HP) Date:1990-06-17 01/11/2018 Secondary HOA A [place] Insurance:MEDICAIDPol TURNERDOB: [facility] Number: [id number] Hospital [id number] Repository Date:2017-02-02 01/11/2018 Tertiary NOT GIVENUNK [place] Insurance:SELF PAY [facility] Number: Effective Repository Date:2017-08-17 12/30/2017 HOA A Primary HOA A [place] [id number] Insurance:MEDICARE TURNERDOB: [facility] PART A [facility] [id number] General Hospital [address]Lac: Number: Repository [id number] () Date:2017-12-30 12/30/2017 Secondary HOA A [place] Insurance:MEDICAIDPol TURNERDOB: [facility] Number: [id number] Hospital [id number] Repository Date:2017-12-30 12/30/2017 Tertiary NOT GIVENUNK [place] Insurance:SELF PAY [facility] Number: Effective Repository Date:2017-12-30 12/14/2017 HOA A Primary HOA A [place] [id number] E Insurance:MEDICARE TURNERDOB: [facility] PART A [facility] [id number] General Hospital [address]Ybj: Number: Repository [id number] () Date:2017-12-14 12/14/2017 Secondary HOA A [place] Insurance:MEDICAIDPol TURNERDOB: [facility] Number: [id number] Hospital [id number] Repository Date:2017-12-14 12/14/2017 Tertiary NOT GIVENUNK [place] Insurance:SELF PAY [facility] Number: Effective Repository Date:2017-12-14 11/16/2017 HOA A Primary HOA A [place] [id number] E Insurance:MEDICARE TURNERDOB: [facility] PART A [facility] [id number] Hospital [place] [address]Yhb: Number: Repository [id number] (HP) Date:2017-11-16 11/16/2017 Secondary HOA A [place] Insurance:MEDICAIDPol TURNERDOB: [facility] icy Number: [id number] Hospital [id number] Repository Date:2017-11-16 11/16/2017 Tertiary NOT GIVENUNK [place] Insurance:SELF PAY [facility] Number: Effective Repository Date:2017-11-16 10/19/2017 HOA A Primary HOA A [place] [id number] Insurance:MEDICARE TURNERDOB: [facility] PART A [facility] [id number] General Hospital [address]Ekb: Number: Repository [id number] (HP) Date:2017-10-19 10/19/2017 Secondary HOA A [place] Insurance:MEDICAIDPol TURNERDOB: [facility] ic Number: [id number] Hospital [id number] Repository Date:2017-10-19 10/19/2017 Tertiary NOT GIVENUNK [place] Insurance:SELF PAY [facility] Number: Effective Repository Date:2017-10-19 10/04/2017 HOA A Primary HOA A [place] [id number] E Insurance:MEDICARE TURNERDOB: [facility] PART A [facility] [id number] [place] [address]Sfo: Number: Repository [id number] () Date:2017-04-05 10/04/2017 Secondary HOA A [place] Insurance:MEDICAIDPol TURNERDOB: [facility] Number: [id number] Hospital [id number] Repository Date:2017-04-05 10/04/2017 Tertiary NOT GIVENUNK [place] Insurance:SELF PAY [facility] Number: Effective Repository Date:2017-09-30 09/21/2017 HOA A Primary HOA A [place] [id number] Insurance:MEDICARE TURNERDOB: [facility] PART A [facility] [id number] General Hospital [address]Ivl: Number: Repository [id number] () Date:2017-09-21 09/21/2017 Secondary HOA A [place] Insurance:MEDICAIDPol TURNERDOB: [facility] icy Number: [id number] Hospital [id number] Repository Date:2017-09-21 09/21/2017 Tertiary NOT GIVENUNK [place] Insurance:SELF PAY [facility] Number: Effective Repository Date:2017-09-21 08/26/2017 HOA A Primary HOA A [place] [id number] Insurance:MEDICARE TURNERDOB: [facility], PART A [facility] [id number] General Hospital [address]Stt: Number: Repository [id number] () Date:2017-08-26 08/26/2017 Secondary HOA A [place] Insurance:MEDICAIDPol TURNERDOB: [facility] Number: [id number] Hospital [id number] Repository Date:2017-08-26 08/26/2017 Tertiary NOT GIVENUNK [place] Insurance:SELF PAY [facility] Number: Effective Repository Date:2017-08-26 08/20/2017 HOA A Primary HOA A [place] [id number] Insurance:MEDICARE TURNERDOB: [facility] PART A [facility] [id number] General Hospital [address]Xrt: Number: Repository [id number] () Date:2017-07-14 08/20/2017 Secondary HOA A [place] Insurance:MEDICAIDPol TURNERDOB: [facility] ic Number: [id number] Hospital [id number] Repository Date:2017-07-14 08/20/2017 Tertiary NOT GIVENUNK [place] Insurance:SELF PAY [facility] Number: Effective Repository Date:2017-07-14 07/29/2017 HOA A Primary HOA A [place] [id number] E Insurance:MEDICARE TURNERDOB: [facility], PART A [facility] [id number] General Hospital [address]Dcx: Number: Repository [id number] () Date:1990-06-17 07/29/2017 Secondary HOA A [place] Insurance:MEDICAIDPol TURNERDOB: [facility] ic Number: [id number] Hospital [id number] Repository Date:2017-02-02 07/29/2017 Tertiary NOT GIVENUNK [place] Insurance:SELF PAY [facility] Number: Effective Repository Date:2017-03-21 07/01/2017 HOA A Primary HOA A [place] [id number] Insurance:MEDICARE TURNERDOB: [facility] PART A [facility] [id number] General Hospital [address]Ktf: Number: Repository [id number] (HP) Date:2017-07-01 07/01/2017 Secondary HOA A [place] Insurance:MEDICAIDPol TURNERDOB: [facility] icy Number: [id number] Hospital [id number] Repository Date:2017-07-01 07/01/2017 Tertiary NOT GIVENUNK [place] Insurance:SELF PAY [facility] Number: Effective Repository Date:2017-07-01 07/01/2017 HOA A Primary [place]A A [place] [id number] Insurance:MEDICARE TURNERDOB: [facility] PART A [facility] [id number] General Hospital [address]Ofq: Number: Repository [id number] (HP) Date:2017-07-01 07/01/2017 Secondary HOA A [place] Insurance:MEDICAIDPol TURNERDOB: [facility] ic Number: [id number] Hospital [id number] Repository Date:2017-07-01 07/01/2017 Tertiary NOT GIVENUNK [place] Insurance:SELF PAY [facility] Number: Effective Repository Date:2017-07-01 06/01/2017 HOA A Primary HOA A [place] [id number] E Insurance:MEDICARE TURNERDOB: [facility] PART A [facility] [id number] General Hospital [address]Eiv: Number: Repository [id number] (HP) Date:2017-06-01 06/01/2017 Secondary HOA A [place] Insurance:MEDICAIDPol TURNERDOB: [facility] icy Number: [id number] Hospital [id number] Repository Date:2017-06-01 06/01/2017 Tertiary NOT GIVENUNK [place] Insurance:SELF PAY [facility] Number: Effective Repository Date:2017-06-01
== END 2018-05-05 10:00 | disposition home or self-care (01) ==
LOC: LAB 09:09
PROVIDERS: Family Provider Family Medicine Geriatric Medicine; PCP Family Medicine Geriatric Medicine; Referring Provider Psychiatry & Neurology Psychiatry; Visit Provider Psychiatry & Neurology Psychiatry
DX: Z79.899 Other long term (current) drug therapy (principal)
CPT/HCPCS: 36415; 85025

== ENCOUNTER → 2018-05-24 17:54 | Outpatient (CLI) | payer MEDICARE, SELFPAY ==
[2018-03-21 12:55] VITALS: BMI 42.6
[2018-05-28 11:07] LABS: HPV APTIMA, High Risk Negative (Negative)
== END ==
PROVIDERS: Family Provider Family Medicine Geriatric Medicine; PCP Family Medicine Geriatric Medicine; Referring Provider Obstetrics & Gynecology; Visit Provider Obstetrics & Gynecology
DX: Z12.4 Encounter for screening for malignant neoplasm of cervix (principal)
CPT/HCPCS: 87624; 88175; G0145

== ENCOUNTER 2018-05-31 09:19 | Outpatient (RCR) | payer MEDICARE, SELFPAY ==
[2018-03-21 12:55] VITALS: BMI 42.6
[2018-05-25 00:05] VITALS: BMI 42.6
== END 2018-06-16 15:01 | disposition home or self-care (01) ==
LOC: LAB 09:19
PROVIDERS: Family Provider Family Medicine Geriatric Medicine; PCP Family Medicine Geriatric Medicine; Referring Provider Psychiatry & Neurology Psychiatry; Visit Provider Psychiatry & Neurology Psychiatry
DX: Z79.899 Other long term (current) drug therapy (principal)

== ENCOUNTER → 2018-05-31 | Outpatient (CLI) | payer MEDICARE, SELFPAY ==
[2018-05-25 00:05] VITALS: BMI 42.6
[2018-05-31 09:54] LABS: Absolute Lymphocyte Count 2.21 X10^3/ul (0.83-4.51); Absolute Neutrophil Count 3.3 X10^3/uL (2.0-7.7); Basophil# 0.01 X10^3/uL; Basophil% 0.2 % (0-1); Eosinophil# 0.22 X10^3/uL; Eosinophils% 3.4 % (0-5); Hematocrit 39.9 % (37-47); Lymphocyte # 2.21 X10^3/ul (4.0); Lymphocyte % 34.6 % (19-41); Mean Corp Hgb Conc 32.6 g/gl (32-36); Mean Corpuscular Hgb 30.7 pg (27.0-32.0); Mean Corpuscular Volume 94.3 fL (81-99); Mean Platelet Vol. 9.3 fl (6.2-12.0); Monocyte# 0.64 X10^3/uL; Neutrophil # 3.29 X10^3/uL (2.7-7.7); Neutrophil % 51.5 % (47-70); Platelet Count 300 K/mm3 (150-450); RBC Distribution Width CV 14.5 % (11.6-14.6); RBC Distribution Width SD 49.4 fl (35.1-43.9); Red Blood Count 4.23 M/mm3 (4.2-5.4); White Blood Count 6.4 K/mm3 (4.4-11.0)
[2018-05-31 09:59] LABS: POSITIVE COUNT NO; POSITIVE DIFFERENTIAL NO; POSITIVE MORPHOLOGY NO
--- OUTSIDE RECORDS SUMMARY | 2018-08-22 20:39 | XMS RPT_ITS | CCD ---
:1970 External Reference #:[id number] Author Organization [facility] Care Team Providers Name Role Phone Unavailable Unavailable Unavailable Medications Medication Name Sig Date Prescriber Location albuterol PROAIR HFA 108 (90 10-22-2015 Araceli Prince [facility]) MCG/ACT AERS 2 PHARMACEUTICAL DEVELOPMENT TECHNICIAN Surgery (11295) puffs q4h as needed ALBUTEROL SULFATE [id number] Araceli Prince PHARMACEUTICAL DEVELOPMENT TECHNICIAN PROAIR HFA 108 (90 Base) 10-22-2015 Aracelielle Prince PHARMACEUTICAL DEVELOPMENT TECHNICIAN [facility] MCG/ACT AERS 2 puffs q4h as (17656) needed ALBUTEROL SULFATE [id number] Araceli Prince PHARMACEUTICAL DEVELOPMENT TECHNICIAN PROAIR HFA 108 (90 Base) 10-22-2015 Araceli Prince PHARMACEUTICAL DEVELOPMENT TECHNICIAN [facility] MCG/ACT AERS 2 puffs q4h as (08165) needed ALBUTEROL SULFATE [id number] Araceli Prince PHARMACEUTICAL DEVELOPMENT TECHNICIAN PROAIR HFA 108 (90 Base) 10-22-2015 Araceli Prince PHARMACEUTICAL DEVELOPMENT TECHNICIAN [facility] MCG/ACT AERS 2 puffs q4h as (08703) needed ALBUTEROL SULFATE [id number] Araceli Prince PHARMACEUTICAL DEVELOPMENT TECHNICIAN PROAIR HFA 108 (90 Base) 10-22-2015 Araceli Prince CNP [facility] MCG/ACT AERS 2 puffs q4h as (83576) needed ALBUTEROL SULFATE [id number] Araceli Prince PHARMACEUTICAL DEVELOPMENT TECHNICIAN PROAIR HFA 108 (90 Base) 10-22-2015 Araceli Prince PHARMACEUTICAL DEVELOPMENT TECHNICIAN [facility] MCG/ACT AERS 2 puffs q4h as (14559) needed ALBUTEROL SULFATE [id number] Araceli Prince PHARMACEUTICAL DEVELOPMENT TECHNICIAN PROAIR HFA 108 (90 Base) 10-22-2015 Araceli Prince PHARMACEUTICAL DEVELOPMENT TECHNICIAN [facility] MCG/ACT AERS 2 puffs q4h as (71413) needed ALBUTEROL SULFATE [id number] Araceli Prince PHARMACEUTICAL DEVELOPMENT TECHNICIAN PROAIR HFA 108 (90 Base) 10-22-2015 Araceli Prince PHARMACEUTICAL DEVELOPMENT TECHNICIAN [facility] MCG/ACT AERS 2 puffs q4h as (50983) needed ALBUTEROL SULFATE [id number] Araceli Prince PHARMACEUTICAL DEVELOPMENT TECHNICIAN PROAIR HFA 108 (90 Base) 10-22-2015 Araceli Prince PHARMACEUTICAL DEVELOPMENT TECHNICIAN [facility] MCG/ACT AERS 2 puffs q4h as (13917) needed ALBUTEROL SULFATE [id number] Araceli Prince PHARMACEUTICAL DEVELOPMENT TECHNICIAN PROAIR HFA 108 (90 Base) 10-22-2015 Araceli Prince PHARMACEUTICAL DEVELOPMENT TECHNICIAN [facility] MCG/ACT AERS 2 puffs q4h as (87906) needed ALBUTEROL SULFATE [id number] Araceli Prince [facility] PROAIR HFA 108 (90 Base) 10-22-2015 Araceli Prince [facility] MCG/ACT AERS 2 puffs q4h as (23093) needed ALBUTEROL SULFATE [id number] Araceli Prince [facility] aspirin ASPIRIN 81 MG TABS One tablet by mouth [facility] (09318) daily ASPIRIN [id number] Barb Dillard FUR MIXER OPERATOR ASPIRIN 81 MG TABS One tablet by mouth daily [facility] (05179) ASPIRIN [id number] Barb Dillard FUR MIXER OPERATOR ASPIRIN 81 MG ORAL TABS One tablet by mouth daily [facility] (28432) ASPIRIN [id number] Barb Dillard FUR MIXER OPERATOR ASPIRIN 81 MG ORAL TABS One tablet by mouth daily [facility] (63846) ASPIRIN [id number] Barb Dillard FUR MIXER OPERATOR ASPIRIN 81 MG ORAL TABS One tablet by mouth daily [facility] (21126) ASPIRIN 71872005519 Barb Dillard FUR MIXER OPERATOR ASPIRIN 81 MG TABS One tablet by mouth daily [facility] (59268) ASPIRIN [id number] Barb Dillard FUR MIXER OPERATOR ASPIRIN 81 MG ORAL TABS One tablet by mouth daily [facility] (75330) ASPIRIN [id number] Barb Sagastume Nishant FUR MIXER OPERATOR ASPIRIN 81 MG TABS One tablet by mouth daily [facility] (85449) ASPIRIN 29224039989 Barb Sagastume Nishant FUR MIXER OPERATOR ASPIRIN 81 MG TABS One tablet by mouth daily [facility] (48504) ASPIRIN [id number] Barb Sagastume Nishant FUR MIXER OPERATOR ASPIRIN 81 MG TABS One tablet by mouth daily [facility] (15829) ASPIRIN [id number] Barb Sagastume Nishant FUR MIXER OPERATOR ASPIRIN 81 MG ORAL TABS One tablet by mouth daily [facility] (91106) ASPIRIN [id number] Barb Tanika Dillard FUR MIXER OPERATOR beclomethasone QVAR 80 MCG/ACT AERS 2 10-17-2015 Araceli S Prince [facility] puffs INH twice daily PHARMACEUTICAL DEVELOPMENT TECHNICIAN Surgery (83565) BECLOMETHASONE DIPROPIONATE [id number] Araceli S Prince PHARMACEUTICAL DEVELOPMENT TECHNICIAN QVAR 80 MCG/ACT AERS 2 puffs 10-17-2015 Araceli Prince PHARMACEUTICAL DEVELOPMENT TECHNICIAN [facility] INH twice daily Surgery (34396) BECLOMETHASONE DIPROPIONATE [id number] Araceli S Prince PHARMACEUTICAL DEVELOPMENT TECHNICIAN QVAR 80 MCG/ACT AERS 2 puffs 10-17-2015 Araceli S Prince PHARMACEUTICAL DEVELOPMENT TECHNICIAN [facility] INH twice daily Surgery (88009) BECLOMETHASONE DIPROPIONATE [id number] Araceli S Prince PHARMACEUTICAL DEVELOPMENT TECHNICIAN QVAR 80 MCG/ACT AERS 2 puffs 10-17-2015 Araceli S Prince PHARMACEUTICAL DEVELOPMENT TECHNICIAN [facility] INH twice daily Surgery (61056) BECLOMETHASONE DIPROPIONATE [id number] Araceli S Prince PHARMACEUTICAL DEVELOPMENT TECHNICIAN QVAR 80 MCG/ACT AERS 2 puffs 10-17-2015 Araceli S Prince PHARMACEUTICAL DEVELOPMENT TECHNICIAN [facility]H twice daily Surgery (45542) BECLOMETHASONE DIPROPIONATE [id number] Araceli S Prince PHARMACEUTICAL DEVELOPMENT TECHNICIAN QVAR 80 MCG/ACT AERS 2 puffs 10-17-2015 Araceli S Prince PHARMACEUTICAL DEVELOPMENT TECHNICIAN [facility] INH twice daily Surgery (83720) BECLOMETHASONE DIPROPIONATE [id number] Araceli S Prince PHARMACEUTICAL DEVELOPMENT TECHNICIAN QVAR 80 MCG/ACT AERS 2 puffs 10-17-2015 Araceli S Prince PHARMACEUTICAL DEVELOPMENT TECHNICIAN [facility] INH twice daily Surgery (88281) BECLOMETHASONE DIPROPIONATE [id number] Araceli S Prince PHARMACEUTICAL DEVELOPMENT TECHNICIAN QVAR 80 MCG/ACT AERS 2 puffs 10-17-2015 Araceli S Prince PHARMACEUTICAL DEVELOPMENT TECHNICIAN [facility] INH twice daily Surgery (16674) BECLOMETHASONE DIPROPIONATE [id number] Araceli S Prince PHARMACEUTICAL DEVELOPMENT TECHNICIAN QVAR 80 MCG/ACT AERS 2 puffs 10-17-2015 Araceli S Prince PHARMACEUTICAL DEVELOPMENT TECHNICIAN [facility] INH twice daily Surgery (60834) BECLOMETHASONE DIPROPIONATE [id number] Araceli S Prince PHARMACEUTICAL DEVELOPMENT TECHNICIAN QVAR 80 MCG/ACT AERS 2 puffs 10-17-2015 Araceli S Prince PHARMACEUTICAL DEVELOPMENT TECHNICIAN [facility] INH twice daily Surgery (69316) BECLOMETHASONE DIPROPIONATE [id number] Araceli S Prince PHARMACEUTICAL DEVELOPMENT TECHNICIAN QVAR 80 MCG/ACT AERS 2 puffs 10-17-2015 Araceli S Prince PHARMACEUTICAL DEVELOPMENT TECHNICIAN [facility] INH twice daily Surgery (75303) BECLOMETHASONE DIPROPIONATE [id number] Araceli S Prince PHARMACEUTICAL DEVELOPMENT TECHNICIAN QVAR 80 MCG/ACT AERS 2 puffs 10-17-2015 Araceli S Prince PHARMACEUTICAL DEVELOPMENT TECHNICIAN [facility] INH twice daily Surgery (74173) BECLOMETHASONE DIPROPIONATE [id number] Araceli S Prince PHARMACEUTICAL DEVELOPMENT TECHNICIAN QVAR 80 MCG/ACT AERS 2 puffs 10-17-2015 Araceli S Prince PHARMACEUTICAL DEVELOPMENT TECHNICIAN [facility] INH twice daily Surgery (27999) BECLOMETHASONE DIPROPIONATE [id number] Araceli S Prince PHARMACEUTICAL DEVELOPMENT TECHNICIAN QVAR 80 MCG/ACT AERS 2 puffs 10-17-2015 Araceli S Prince PHARMACEUTICAL DEVELOPMENT TECHNICIAN [facility]H twice daily Surgery (73084) BECLOMETHASONE DIPROPIONATE [id number] Araceli S Prince PHARMACEUTICAL DEVELOPMENT TECHNICIAN QVAR 80 MCG/ACT AERS 2 puffs 10-17-2015 Araceli S Prince PHARMACEUTICAL DEVELOPMENT TECHNICIAN [facility] INH twice daily Surgery (26730) BECLOMETHASONE DIPROPIONATE [id number] Araceli S Prince PHARMACEUTICAL DEVELOPMENT TECHNICIAN QVAR 80 MCG/ACT AERS 2 puffs 10-17-2015 Araceli S Prince PHARMACEUTICAL DEVELOPMENT TECHNICIAN [facility]H twice daily Surgery (03782) BECLOMETHASONE DIPROPIONATE [id number] Araceli Prince PHARMACEUTICAL DEVELOPMENT TECHNICIAN QVAR 80 MCG/ACT AERS 2 puffs 10-17-2015 Araceli Prince PHARMACEUTICAL DEVELOPMENT TECHNICIAN [facility]H twice daily Surgery (89503) BECLOMETHASONE DIPROPIONATE [id number] Araceli Prince PHARMACEUTICAL DEVELOPMENT TECHNICIAN QVAR 80 MCG/ACT AERS 2 puffs 10-17-2015 Araceli Prince PHARMACEUTICAL DEVELOPMENT TECHNICIAN [facility] INH twice daily Surgery (43633) BECLOMETHASONE DIPROPIONATE [id number] Araceli S Prince PHARMACEUTICAL DEVELOPMENT TECHNICIAN QVAR 80 MCG/ACT AERS 2 puffs 10-17-2015 Araceli Prince PHARMACEUTICAL DEVELOPMENT TECHNICIAN [facility] INH twice daily Surgery (05538) BECLOMETHASONE DIPROPIONATE [id number] Araceli S Suresh PHARMACEUTICAL DEVELOPMENT TECHNICIAN QVAR 80 MCG/ACT AERS 2 puffs 10-17-2015 Araceli Prince PHARMACEUTICAL DEVELOPMENT TECHNICIAN [facility] INH twice daily Surgery (00054) BECLOMETHASONE DIPROPIONATE [id number] Araceli Prince PHARMACEUTICAL DEVELOPMENT TECHNICIAN QVAR 80 MCG/ACT AERS 2 puffs 10-17-2015 Araceli Prince PHARMACEUTICAL DEVELOPMENT TECHNICIAN [facility] twice daily Surgery (63774) BECLOMETHASONE DIPROPIONATE [id number] Araceli S Suresh PHARMACEUTICAL DEVELOPMENT TECHNICIAN QVAR 80 MCG/ACT AERS 2 puffs 10-17-2015 Araceli Prince PHARMACEUTICAL DEVELOPMENT TECHNICIAN [facility] INH twice daily Surgery (97843) BECLOMETHASONE DIPROPIONATE [id number] Araceli S Suresh PHARMACEUTICAL DEVELOPMENT TECHNICIAN cloZAPine CLOZAPINE 150 MG TBDP One tablet by [facility] (84897) mouth twice daily CLOZAPINE [id number] Barb Dillard LPN CLOZAPINE 150 MG TBDP One tablet by mouth twice [facility] (68633) daily CLOZAPINE 12586139552 Barb Dillard FUR MIXER OPERATOR CLOZAPINE 150 MG TBDP One tablet by mouth twice [facility] (96541) daily CLOZAPINE [id number] Barb Dillard FUR MIXER OPERATOR CLOZAPINE 150 MG TBDP One tablet by mouth twice [facility] (06608) daily CLOZAPINE 34320793470 Barb Dillard FUR MIXER OPERATOR CLOZAPINE 150 MG TBDP One tablet by mouth twice [facility] (80156) daily CLOZAPINE 20930242293 Barb Dillard LPN CLOZAPINE 150 MG TBDP One tablet by mouth twice [facility] (12839) daily CLOZAPINE 62858498056 Barb Dillard FUR MIXER OPERATOR CLOZAPINE 150 MG TBDP One tablet by mouth twice [facility] (29051) daily CLOZAPINE 29407057697 Barb Tanika Nishant FUR MIXER OPERATOR CLOZAPINE 150 MG TBDP One tablet by mouth twice [facility] (46287) daily CLOZAPINE 74504411634 Barb Dillard FUR MIXER OPERATOR CLOZAPINE 150 MG TBDP One tablet by mouth twice [facility] (22283) daily CLOZAPINE 49193358194 Barb L Nishant FUR MIXER OPERATOR CLOZAPINE 150 MG TBDP One tablet by mouth twice [facility] (39676) daily CLOZAPINE 46942990059 Barb Dillard FUR MIXER OPERATOR CLOZAPINE 150 MG TBDP One tablet by mouth twice [facility] (61013) daily CLOZAPINE 41901470941 Barb Dillard FUR MIXER OPERATOR glimepiride AMARYL 4 MG TABS One tablet by mouth [facility] (66497) daily GLIMEPIRIDE 06357781091 Barb Dillard FUR MIXER OPERATOR AMARYL 4 MG TABS One tablet by mouth daily [facility] (36352) GLIMEPIRIDE [id number] Barb Dillard FUR MIXER OPERATOR AMARYL 4 MG TABS One tablet by mouth daily [facility] (53003) GLIMEPIRIDE [id number] Barb Dillard FUR MIXER OPERATOR AMARYL 4 MG TABS One tablet by mouth daily [facility] (49678) GLIMEPIRIDE [id number] Barb Dillard FUR MIXER OPERATOR AMARYL 4 MG TABS One tablet by mouth daily [facility] (58189) GLIMEPIRIDE [id number] Barb Dillard FUR MIXER OPERATOR AMARYL 4 MG TABS One tablet by mouth daily [facility] (19356) GLIMEPIRIDE [id number] Barb Dillard FUR MIXER OPERATOR AMARYL 4 MG TABS One tablet by mouth daily [facility] (64988) GLIMEPIRIDE [id number] Barb Dillard FUR MIXER OPERATOR AMARYL 4 MG TABS One tablet by mouth daily [facility] (77400) GLIMEPIRIDE [id number] Barb Dillard FUR MIXER OPERATOR AMARYL 4 MG TABS One tablet by mouth daily [facility] (00115) GLIMEPIRIDE [id number] Barb Dillard FUR MIXER OPERATOR AMARYL 4 MG TABS One tablet by mouth daily [facility] (17720) GLIMEPIRIDE 23894346023 Barb Dillard FUR MIXER OPERATOR AMARYL 4 MG TABS One tablet by mouth daily [facility] (24196) GLIMEPIRIDE [id number] Barb Dillard FUR MIXER OPERATOR lisinopril LISINOPRIL 10 MG TABS One tablet by [facility] (47233) mouth daily LISINOPRIL 51948673769 Barb Dillard FUR MIXER OPERATOR LISINOPRIL 10 MG TABS One tablet by mouth daily [facility] (45422) LISINOPRIL 09962444357 Barb Dillard FUR MIXER OPERATOR LISINOPRIL 10 MG TABS One tablet by mouth daily [facility] (48951) LISINOPRIL 61831975241 Barb Dillard FUR MIXER OPERATOR LISINOPRIL 10 MG TABS One tablet by mouth daily [facility] (45917) LISINOPRIL 43207481551 Barb Dillard FUR MIXER OPERATOR LISINOPRIL 10 MG TABS One tablet by mouth daily [facility] (16741) LISINOPRIL [id number] Barb Dillard FUR MIXER OPERATOR LISINOPRIL 10 MG TABS One tablet by mouth daily [facility] (00595) LISINOPRIL 06027496935 Barb Dillard FUR MIXER OPERATOR LISINOPRIL 10 MG TABS One tablet by mouth daily [facility] (23147) LISINOPRIL 02387308749 Barb Dillard FUR MIXER OPERATOR LISINOPRIL 10 MG TABS One tablet by mouth daily [facility] (08897) LISINOPRIL 44131216880 Barb Dillard FUR MIXER OPERATOR LISINOPRIL 10 MG TABS One tablet by mouth daily [facility] (76179) LISINOPRIL 05878393838 Barb Dillard FUR MIXER OPERATOR LISINOPRIL 10 MG TABS One tablet by mouth daily [facility] (84452) LISINOPRIL [id number] Barb Dillard FUR MIXER OPERATOR LISINOPRIL 10 MG TABS One tablet by mouth daily [facility] (05887) LISINOPRIL 89796161405 Barb L Nishant FUR MIXER OPERATOR LORazepam LORAZEPAM 0.5 MG TABS One tablet by [facility] (07388) mouth three times daily LORAZEPAM 72322739314 Barb Tanika Nishant FUR MIXER OPERATOR LORAZEPAM 0.5 MG TABS One tablet by mouth three [facility] (35195) times daily LORAZEPAM 12332268799 Barb Tanika Nishant FUR MIXER OPERATOR LORAZEPAM 0.5 MG TABS One tablet by mouth three [facility] (12881) times daily LORAZEPAM [id number] Barb L Nishant FUR MIXER OPERATOR LORAZEPAM 0.5 MG TABS One tablet by mouth three [facility] (67773) times daily LORAZEPAM 84752731271 Barb L Nishant FUR MIXER OPERATOR LORAZEPAM 0.5 MG TABS One tablet by mouth three [facility] (46756) times daily LORAZEPAM 68058301005 Barb L Nishant FUR MIXER OPERATOR LORAZEPAM 0.5 MG TABS One tablet by mouth three [facility] (99780) times daily LORAZEPAM 38368989819 Barb Sagastume Nishant FUR MIXER OPERATOR LORAZEPAM 0.5 MG TABS One tablet by mouth three [facility] (18597) times daily LORAZEPAM 89013977936 Barb L Nishant FUR MIXER OPERATOR LORAZEPAM 0.5 MG TABS One tablet by mouth three [facility] (87929) times daily LORAZEPAM 23100370779 Barb Tanika Nishant FUR MIXER OPERATOR LORAZEPAM 0.5 MG TABS One tablet by mouth three [facility] (38374) times daily LORAZEPAM 47802566227 Barb L Nishant FUR MIXER OPERATOR LORAZEPAM 0.5 MG TABS One tablet by mouth three [facility] (05730) times daily LORAZEPAM 24852160664 Barb L Nishant FUR MIXER OPERATOR LORAZEPAM 0.5 MG TABS One tablet by mouth three [facility] (54036) times daily LORAZEPAM 75286728227 Barb L Nishant FUR MIXER OPERATOR metFORMIN GLUCOPHAGE 500 MG TABS Two 07-16-2015 [facility] tablets by mouth twice daily (58043) METFORMIN HCL 61427301400 Melida E Tullar GLUCOPHAGE 500 MG TABS Two tablets by 07-16-2015 [facility] (98054) mouth twice daily METFORMIN HCL 42586983962 Melida E Tullar GLUCOPHAGE 500 MG TABS Two tablets by 07-16-2015 [facility] (02236) mouth twice daily METFORMIN HCL 14525404437 Melida E Tullar GLUCOPHAGE 500 MG TABS Two tablets by 07-16-2015 [facility] (34516) mouth twice daily METFORMIN HCL 66873125016 Melida E Tullar GLUCOPHAGE 500 MG TABS Two tablets by 07-16-2015 [facility] (35456) mouth twice daily METFORMIN HCL 72457144903 Melida E Tullar GLUCOPHAGE 500 MG TABS Two tablets by 07-16-2015 [facility] (51348) mouth twice daily METFORMIN HCL 54690161322 Melida E Tullar GLUCOPHAGE 500 MG TABS Two tablets by 07-16-2015 [facility] (18419) mouth twice daily METFORMIN HCL 86077809387 Melida E Tullar GLUCOPHAGE 500 MG TABS Two tablets by 07-16-2015 [facility] (04993) mouth twice daily METFORMIN HCL 27785736270 Melida E Tullar GLUCOPHAGE 500 MG TABS Two tablets by 07-16-2015 [facility] (45875) mouth twice daily METFORMIN HCL 33265580449 Melida E Tullar GLUCOPHAGE 500 MG TABS Two tablets by 07-16-2015 [facility] (49490) mouth twice daily METFORMIN HCL 44156679132 Melida E Tullar GLUCOPHAGE 500 MG TABS Two tablets by 07-16-2015 [facility] (05788) mouth twice daily METFORMIN HCL 67917361085 Melida E Tullar MULTIPLE VITAMIN MULTIVITAMINS CAPS One tablet by [facility] mouth daily MULTIPLE VITAMIN (11421) 68123421736 Barb Dillard LPN MULTIVITAMINS CAPS One tablet by mouth daily [facility] (92620) MULTIPLE VITAMIN 52918854494 Barb Dillard LPN MULTIVITAMINS CAPS One tablet by mouth daily [facility] (84994) MULTIPLE VITAMIN 29039238533 Barb Dillard FUR MIXER OPERATOR MULTIVITAMINS CAPS One tablet by mouth daily [facility] (28058) MULTIPLE VITAMIN 84874350626 Barb Dillard FUR MIXER OPERATOR MULTIVITAMINS CAPS One tablet by mouth daily [facility] (06059) MULTIPLE VITAMIN 74614420962 Barb Dillard FUR MIXER OPERATOR MULTIPLE VITAMIN MULTIVITAMINS CAPS One tablet by [facility] mouth daily MULTIPLE VITAMIN (70885) 75537978828 Barb Dillard FUR MIXER OPERATOR MULTIVITAMINS CAPS One tablet by mouth daily [facility] (39720) MULTIPLE VITAMIN 91918482033 Barb Dillard FUR MIXER OPERATOR MULTIVITAMINS CAPS One tablet by mouth daily [facility] (21955) MULTIPLE VITAMIN 93746446030 Barb Dillard FUR MIXER OPERATOR MULTIVITAMINS CAPS One tablet by mouth daily [facility] (26860) MULTIPLE VITAMIN 46897246492 Barb Dillard FUR MIXER OPERATOR MULTIVITAMINS CAPS One tablet by mouth daily [facility] (66695) MULTIPLE VITAMIN 05204894010 Barb Dillard FUR MIXER OPERATOR MULTIVITAMINS CAPS One tablet by mouth daily [facility] (32672) MULTIPLE VITAMIN 69645018474 Barb Dillard FUR MIXER OPERATOR norethindrone ABRAHAM 0.35 MG TABS One 12-16-2016 Lavern Saldana [facility] tablet by mouth daily MD Surgery (97918) NORETHINDRONE [id number] Lavern Saldana MD ABRAHAM 0.35 MG TABS One 12-16-2016 Zenia S Camelia SCREW MACHINE OPERATOR SWISS TYPE [facility] tablet by mouth daily Surgery (49383) NORETHINDRONE 13330031093 Zenia S Camelia SCREW MACHINE OPERATOR SWISS TYPE NORETHINDRONE TABS One 12-16-2016 [facility] tablet by mouth daily Surgery (78875) NORETHINDRONE TABS 04972840417 Zenia S Vance SCREW MACHINE OPERATOR SWISS TYPE ABRAHAM 0.35 MG TABS One 12-16-2016 Lavern Sladana MD [facility] tablet by mouth daily Surgery (37564) NORETHINDRONE [id number] Lavern Saldana MD NORETHINDRONE TABS One [facility] tablet by mouth daily Surgery (08400) NORETHINDRONE TABS 99810573003 Barb Dillard LPN NORETHINDRONE TABS One [facility] tablet by mouth daily Surgery (51771) NORETHINDRONE TABS 21684276615 Barb Dillard LPN NORETHINDRONE TABS One 12-16-2016 [facility] tablet by mouth daily Surgery (31289) NORETHINDRONE TABS 56893879556 Zenia S Camelia SCREW MACHINE OPERATOR SWISS TYPE ABRAHAM 0.35 MG TABS One 12-16-2016 Lavern Saldana MD [facility] tablet by mouth daily Surgery (40943) NORETHINDRONE 12918369246 Lavern Saldana MD NORETHINDRONE TABS One [facility] tablet by mouth daily Surgery (42051) NORETHINDRONE TABS 12179026340 Barb Dillard LPN NORETHINDRONE TABS One [facility] tablet by mouth daily Surgery (44817) NORETHINDRONE TABS 51819767341 Barb Dillard LPN NORETHINDRONE TABS One [facility] tablet by mouth daily Surgery (76064) NORETHINDRONE TABS 51446738533 Barb Dillard LPN NORETHINDRONE TABS One 12-16-2016 [facility] tablet by mouth daily Surgery (63087) NORETHINDRONE TABS 75205453168 Zenia S Camelia SCREW MACHINE OPERATOR SWISS TYPE NORETHINDRONE TABS One [facility] tablet by mouth daily Surgery (41958) NORETHINDRONE TABS 22974894751 Barb Dillard LPN NORETHINDRONE TABS One [facility] tablet by mouth daily Surgery (24817) NORETHINDRONE TABS 13711600791 Barb Dillard LPN NORETHINDRONE TABS One 12-16-2016 [facility] tablet by mouth daily Surgery (25773) NORETHINDRONE TABS 27050485382 Zenia S Vance SCREW MACHINE OPERATOR SWISS TYPE ABRAHAM 0.35 MG TABS One 12-16-2016 Lavern Saldana MD [facility] tablet by mouth daily Surgery (28113) NORETHINDRONE [id number] Lavern Saldana MD NORETHINDRONE TABS One [facility] tablet by mouth daily Surgery (12081) NORETHINDRONE TABS 16140489725 Barb Dillard LPN NORETHINDRONE TABS One 12-16-2016 [facility] tablet by mouth daily Surgery (49221) NORETHINDRONE TABS 01462458839 Zenia S Camelia SCREW MACHINE OPERATOR SWISS TYPE ABRAHAM 0.35 MG TABS One 12-16-2016 Lavern Saldana MD [facility] tablet by mouth daily Surgery (36732) NORETHINDRONE [id number] Lavern Saldana MD NORETHINDRONE TABS One [facility] tablet by mouth daily Surgery (17497) NORETHINDRONE TABS 85632267735 Barb Dillard LPN NORETHINDRONE TABS One 12-16-2016 [facility] tablet by mouth daily Surgery (39497) NORETHINDRONE TABS [id number] Zenia S Vance SCREW MACHINE OPERATOR SWISS TYPE ABRAHAM 0.35 MG TABS One 12-16-2016 Lavern Saldana MD [facility] tablet by mouth daily Surgery (12634) NORETHINDRONE [id number] Lavern Saldana MD NORETHINDRONE TABS One [facility] tablet by mouth daily Surgery (99765) NORETHINDRONE TABS 54127419456 Barb Dillard LPN NORETHINDRONE TABS One 12-16-2016 [facility] tablet by mouth daily Surgery (37885) NORETHINDRONE TABS 36324109171 Zenia S Vance SCREW MACHINE OPERATOR SWISS TYPE NORETHINDRONE TABS One [facility] tablet by mouth daily Surgery (89920) NORETHINDRONE TABS 76836445821 Barb Dillard LPN OXcarbazepine TRILEPTAL 600 MG TABS q hs [facility] OXCARBAZEPINE 87703238970 Barb Sagastume (82417) Nishant MOHAMUD TRILEPTAL 300 MG TABS One tablet by mouth daily [facility] (74721) OXCARBAZEPINE 55377851129 Barb Dillard FUR MIXER OPERATOR TRILEPTAL 600 MG TABS q hs OXCARBAZEPINE [facility] (69742) 05396230459 Barb Dillard FUR MIXER OPERATOR TRILEPTAL 300 MG TABS One tablet by mouth daily [facility] (23752) OXCARBAZEPINE 68078246563 Barb Dillard FUR MIXER OPERATOR TRILEPTAL 600 MG TABS q hs OXCARBAZEPINE [facility] (94047) 89132058870 Barb Dillard FUR MIXER OPERATOR TRILEPTAL 300 MG TABS One tablet by mouth daily [facility] (77900) OXCARBAZEPINE 25921126036 Barb Dillard FUR MIXER OPERATOR TRILEPTAL 600 MG TABS q hs OXCARBAZEPINE [facility] (87682) 73047851794 Barb Dillard FUR MIXER OPERATOR TRILEPTAL 300 MG TABS One tablet by mouth daily [facility] (16130) OXCARBAZEPINE [id number] Barb Dillard FUR MIXER OPERATOR TRILEPTAL 600 MG TABS q hs OXCARBAZEPINE [facility] ([id number]) [id number] Barb Dillard FUR MIXER OPERATOR TRILEPTAL 300 MG TABS One tablet by mouth daily [facility] (66146) OXCARBAZEPINE [id number] Barb Dillard FUR MIXER OPERATOR TRILEPTAL 300 MG TABS One tablet by mouth daily [facility] ([id number]) OXCARBAZEPINE [phone] Barb Dillard FUR MIXER OPERATOR TRILEPTAL 600 MG TABS q hs OXCARBAZEPINE [facility] Surgery (28923) [id number] Barb Dillard FUR MIXER OPERATOR TRILEPTAL 600 MG TABS q hs OXCARBAZEPINE [facility] (53254) [id number] Barb Dillard FUR MIXER OPERATOR TRILEPTAL 300 MG TABS One tablet by mouth daily [facility] (56266) OXCARBAZEPINE [id number] Barb Dillard FUR MIXER OPERATOR TRILEPTAL 600 MG TABS q hs OXCARBAZEPINE [facility] (44372) [id number] Barb Dillard FUR MIXER OPERATOR TRILEPTAL 300 MG TABS One tablet by mouth daily [facility] (89912) OXCARBAZEPINE [phone] Barb Dillard FUR MIXER OPERATOR TRILEPTAL 600 MG TABS q hs OXCARBAZEPINE [facility] (55547) [id number] Barb Dillard FUR MIXER OPERATOR TRILEPTAL 300 MG TABS One tablet by mouth daily [facility] (41034) OXCARBAZEPINE [id number] Barb Dillard FUR MIXER OPERATOR TRILEPTAL 600 MG TABS q hs OXCARBAZEPINE [facility] (90483) [id number] Barb Dillard FUR MIXER OPERATOR TRILEPTAL 300 MG TABS One tablet by mouth daily [facility] (08106) OXCARBAZEPINE [id number] Barb Dillard FUR MIXER OPERATOR TRILEPTAL 300 MG TABS One tablet by mouth daily [facility] (95857) OXCARBAZEPINE [id number] Barb Dillard FUR MIXER OPERATOR TRILEPTAL 600 MG TABS q hs OXCARBAZEPINE [facility] (70102) [id number] Barb Dillard FUR MIXER OPERATOR predniSONE PREDNISONE 20 MG TABS One tablet by [facility] (76534) mouth daily x 5 days PREDNISONE [id number] Barb Dillard FUR MIXER OPERATOR PREDNISONE 20 MG TABS One tablet by 07-16-2015 [facility] (98386) mouth daily x 5 days PREDNISONE [id number] Melida E Tullar PREDNISONE 20 MG TABS One tablet by [facility] (06182) mouth daily x 5 days PREDNISONE [id number] Barb Dillard FUR MIXER OPERATOR PREDNISONE 20 MG TABS One tablet by 07-16-2015 [facility] (92115) mouth daily x 5 days PREDNISONE [id number] Melida E Tullar PREDNISONE 20 MG TABS One tablet by [facility] (53608) mouth daily x 5 days PREDNISONE [id number] Barb Dillard FUR MIXER OPERATOR PREDNISONE 20 MG TABS One tablet by 07-16-2015 [facility] (69664) mouth daily x 5 days PREDNISONE [id number] Melida E Tullar PREDNISONE 20 MG TABS One tablet by 07-16-2015 [facility] (41306) mouth daily x 5 days PREDNISONE [id number] Melida E Tullar PREDNISONE 20 MG TABS One tablet by [facility] (21112) mouth daily x 5 days PREDNISONE [id number] Barb Dillard FUR MIXER OPERATOR PREDNISONE 20 MG TABS One tablet by [facility] (22531) mouth daily x 5 days PREDNISONE [id number] Barb Dillard FUR MIXER OPERATOR PREDNISONE 20 MG TABS One tablet by 07-16-2015 [facility] (51511) mouth daily x 5 days PREDNISONE [id number] Melida E Tullar PREDNISONE 20 MG TABS One tablet by [facility] (97676) mouth daily x 5 days PREDNISONE [phone] Barb Dillard FUR MIXER OPERATOR PREDNISONE 20 MG TABS One tablet by 07-16-2015 [facility] (23889) mouth daily x 5 days PREDNISONE [id number] Melida E Tullar PREDNISONE 20 MG TABS One tablet by [facility] (75880) mouth daily x 5 days PREDNISONE [id number] Barb Dillard FUR MIXER OPERATOR PREDNISONE 20 MG TABS One tablet by 07-16-2015 [facility] (24978) mouth daily x 5 days PREDNISONE [id number] Melida E Tullar PREDNISONE 20 MG TABS One tablet by [facility] (79031) mouth daily x 5 days PREDNISONE [id number] Barb Dillard FUR MIXER OPERATOR PREDNISONE 20 MG TABS One tablet by 07-16-2015 [facility] (53750) mouth daily x 5 days PREDNISONE [id number] Melida E Tullar PREDNISONE 20 MG TABS One tablet by [facility] (66147) mouth daily x 5 days PREDNISONE [id number] Barb Sagastume Nishant FUR MIXER OPERATOR PREDNISONE 20 MG TABS One tablet by 07-16-2015 [facility] (01316) mouth daily x 5 days PREDNISONE [id number] Melida E Tullar PREDNISONE 20 MG TABS One tablet by [facility] (28759) mouth daily x 5 days PREDNISONE [id number] Barb Dillard FUR MIXER OPERATOR PREDNISONE 20 MG TABS One tablet by 07-16-2015 [facility] (89670) mouth daily x 5 days PREDNISONE [id number] Melida E Tullar PREDNISONE 20 MG TABS One tablet by [facility] (28994) mouth daily x 5 days PREDNISONE [id number] Barb Dillard FUR MIXER OPERATOR PREDNISONE 20 MG TABS One tablet by 07-16-2015 [facility] (15992) mouth daily x 5 days PREDNISONE [id number] Melida E Tullar simvastatin ZOCOR 20 MG TABS q hs SIMVASTATIN [facility] (83963) [id number] Barb Dillard FUR MIXER OPERATOR ZOCOR 20 MG TABS q hs SIMVASTATIN [id number] [facility] (64292) Barb Dillard FUR MIXER OPERATOR ZOCOR 20 MG TABS q hs SIMVASTATIN [id number] [facility] (97396) Barb Dillard FUR MIXER OPERATOR ZOCOR 20 MG TABS q hs SIMVASTATIN [id number] [facility] (66550) Barb Dillard FUR MIXER OPERATOR ZOCOR 20 MG TABS q hs SIMVASTATIN 55657512050 [facility] (81256) Barb Dillard FUR MIXER OPERATOR ZOCOR 20 MG TABS q hs SIMVASTATIN [id number] [facility] (73975) Barb Dillard FUR MIXER OPERATOR ZOCOR 20 MG TABS q hs SIMVASTATIN [id number] [facility] (64067) Barb Dillard FUR MIXER OPERATOR ZOCOR 20 MG TABS q hs SIMVASTATIN [id number] [facility] (85433) Barb Dillard FUR MIXER OPERATOR ZOCOR 20 MG TABS q hs SIMVASTATIN [id number] [facility] (17978) Barb Dillard FUR MIXER OPERATOR ZOCOR 20 MG TABS q hs SIMVASTATIN [id number] [facility] (38108) Barb Dlilard FUR MIXER OPERATOR ZOCOR 20 MG TABS q hs SIMVASTATIN [id number] [facility] (00204) Barb Dillard LPN thyroxine SYNTHROID 150 MCG TABS One tablet by [facility] (22960) mouth daily LEVOTHYROXINE SODIUM [id number] Barb Dillard FUR MIXER OPERATOR SYNTHROID 150 MCG TABS One tablet by mouth daily [facility] (13323) LEVOTHYROXINE SODIUM 95259305497 Barb Dillard LPN SYNTHROID 150 MCG TABS One tablet by mouth daily [facility] (64888) LEVOTHYROXINE SODIUM [id number] Barb Dillard FUR MIXER OPERATOR SYNTHROID 150 MCG TABS One tablet by mouth daily [facility] (92922) LEVOTHYROXINE SODIUM [id number] Barb Dillard FUR MIXER OPERATOR SYNTHROID 150 MCG TABS One tablet by mouth daily [facility] (86432) LEVOTHYROXINE SODIUM [id number] Barb Dillard FUR MIXER OPERATOR SYNTHROID 150 MCG TABS One tablet by mouth daily [facility] (24414) LEVOTHYROXINE SODIUM 41235254546 Barb Dillard FUR MIXER OPERATOR SYNTHROID 150 MCG TABS One tablet by mouth daily [facility] (50392) LEVOTHYROXINE SODIUM 65692018743 Barb Dillard FUR MIXER OPERATOR SYNTHROID 150 MCG TABS One tablet by mouth daily [facility] (95437) LEVOTHYROXINE SODIUM [id number] Barb Dillard FUR MIXER OPERATOR SYNTHROID 150 MCG TABS One tablet by mouth daily [facility] (03543) LEVOTHYROXINE SODIUM 06186263037 Barb Dillard FUR MIXER OPERATOR SYNTHROID 150 MCG TABS One tablet by mouth daily [facility] (80498) LEVOTHYROXINE SODIUM [id number] Barb Dillard FUR MIXER OPERATOR SYNTHROID 150 MCG TABS One tablet by mouth daily [facility] (85218) LEVOTHYROXINE SODIUM [id number] Barb Dillard LPN valproate DEPAKOTE 500 MG TBEC One tablet by [facility] (55473) mouth four times daily DIVALPROEX SODIUM [id number] Barb Dillard FUR MIXER OPERATOR DEPAKOTE 500 MG TBEC One tablet by mouth four [facility] (49699) times daily DIVALPROEX SODIUM [id number] Barb Dillard FUR MIXER OPERATOR DEPAKOTE 500 MG TBEC One tablet by mouth four [facility] (83665) times daily DIVALPROEX SODIUM 21430397850 Barb Dillard FUR MIXER OPERATOR DEPAKOTE 500 MG TBEC One tablet by mouth four [facility] (67720) times daily DIVALPROEX SODIUM [id number] Barb Dillard FUR MIXER OPERATOR DEPAKOTE 500 MG TBEC One tablet by mouth four [facility] (50385) times daily DIVALPROEX SODIUM [id number] Barb Tanika Nishant FUR MIXER OPERATOR DEPAKOTE 500 MG TBEC One tablet by mouth four [facility] (51494) times daily DIVALPROEX SODIUM [id number] Barb L Nishant FUR MIXER OPERATOR DEPAKOTE 500 MG TBEC One tablet by mouth four [facility] (70187) times daily DIVALPROEX SODIUM 35597019296 Barb Dillard FUR MIXER OPERATOR DEPAKOTE 500 MG TBEC One tablet by mouth four [facility] (96877) times daily DIVALPROEX SODIUM 34781441240 Barb Tanika Nishant FUR MIXER OPERATOR DEPAKOTE 500 MG TBEC One tablet by mouth four [facility] (48088) times daily DIVALPROEX SODIUM [id number] Barb Tanika Dillard FUR MIXER OPERATOR DEPAKOTE 500 MG TBEC One tablet by mouth four [facility] (35443) times daily DIVALPROEX SODIUM 49417582079 Barb Dillard FUR MIXER OPERATOR DEPAKOTE 500 MG TBEC One tablet by mouth four [facility] (07050) times daily DIVALPROEX SODIUM [id number] Barb Tanika Dillard FUR MIXER OPERATOR Problems Active Problems Category Problem Name Status Date Location Asthma Moderate persistent Active 10-17-2015 - [facility] asthma [facility] (29278) Pulmonary heart disease Pulmonary hypertension Active 07-16-2015 - [facility] (50847) Schizophrenia and other Schizophrenia Active 10-17-2015 - [facility] psychotic disorders Surgery (01730) Unclassified Procedure carried out Active 01-15-2017 - [facility] on subject Care (35072) Unclassified Gynecologic Active 01-15-2017 - [facility] examination Surgery (10079) Unclassified Screening for Active 01-15-2017 - [facility] malignant neoplasm of Surgery (32138) cervix Unclassified Screening mammography Active 12-02-2016 - [facility] (47006) Past or Other Problems Category Problem Name Status Date Location Fluid and electrolyte Hyponatremia Completed 07-16-2015 - [facility] disorders [facility] (47129) Immunizations and Encounter for Completed 01-15-2017 - [facility] screening for screening for human Surgery (04055) infectious disease papillomavirus (HPV) Other lower Dyspnea Completed 07-16-2015 - [facility] disease - 04-24-2016 Care (38973) - Other lower Wheezing Completed 07-16-2015 - [facility] respiratory disease - 04-24-2016 Surgery (89768) - Results Result Name Value Range Unit Interpretation Flag Date Location rx refill: erx request for qvar 80 mcg/act aers on null [id number]`QVAR 80 MCG/ACT AERS`80``1 Better 03-01-2017 Pulmonary Unspecified``2 puffs INH twice - Medicine of daily```0`07/24/2016`No date sent`[place] 03-01-2017 [facility]*`[id number]`56284`QVAR (66489) 80MCG AER Quantity: 8.7 Gram Instructions: INHALE 2 PUFFS TWICE DAILY e-script [id number]`QVAR 80 MCG/ACT AERS`80``1 Better 07-24-2016 [facility] Unspecified``2 puffs INH twice - Women's messenge daily```0`04/23/2016`04/23/2016`[place] 07-24-2016 Care r refill [facility]*`[id number]`49625`QVAR (21698) request 80MCG AER Quantity: 8.7 Gram Instructions: INHALE 2 PUFFS TWICE DAILY [id number]`QVAR 80 MCG/ACT AERS`80``1 Better 07-24-2016 [facility] Unspecified``2 puffs INH twice - Plastic daily```0`04/23/2016`04/23/2016`[place] 07-24-2016 [facility]*`[id number]`35351`QVAR (99631) 80MCG AER Quantity: 8.7 Gram Instructions: INHALE 2 PUFFS TWICE DAILY office visit: well-controlled asthma on null Documentation of Done Invalid 04-23-2016 - Pulmonary current medications Interpretation Code 04-23-2016 [facility] (procedure) [facility] (99177) Tobacco smoking Never Invalid 04-23-2016 - Pulmonary status MEIS Interpretation Code 04-23-2016 [facility] (16020) Tobacco use [facility] Never smoker Invalid 04-23-2016 - Pulmonary Interpretation Code 04-23-2016 [facility] (25739) office visit: est annual on null Documentation of Done Invalid 01-15-2017 - [facility] current medications Interpretation Code 01-15-2017 Surgery (21543) (procedure) Fall risk No Invalid 01-15-2017 - [facility] assessment Interpretation Code 01-15-2017 Surgery (28688) Hemoglobin presence not done Invalid 01-15-2017 - [facility] in stool Interpretation Code 01-15-2017 Surgery (31396) Tobacco smoking Never smoker Invalid 01-15-2017 - [facility] status MEIS Interpretation Code 01-15-2017 [facility] (37683) Tobacco smoking Never Invalid 01-15-2017 - [facility] status NHIS Interpretation Code 01-15-2017 Surgery (73336) Tobacco use [facility] Never smoker Invalid 01-15-2017 - [facility] Interpretation Code 01-15-2017 Surgery (39938) office visit: asthma on null Documentation of Done Invalid 10-15-2016 - Pulmonary current medications Interpretation Code 10-15-2016 [facility] (procedure) [facility] (58621) Protein mass conc Done 10-15-2016 - [facility] 10-15-2016 [facility] (43196) Tobacco smoking Never Invalid 10-15-2016 - Pulmonary status NHIS Interpretation Code 10-15-2016 [facility] (13454) Tobacco smoking Never smoker 10-15-2016 - [facility] status MEIS 10-15-2016 [facility] (63245) Tobacco use [facility] Never smoker Invalid 10-15-2016 - Pulmonary Interpretation Code 10-15-2016 [facility] (27607) lab report: pap i-g hpv hi risk on null HPV HC,HGH RISK . Invalid Interpretation 02-03-2017 - [facility] Code 02-03-2017 Surgery (11043) lab report: cbc w/diff, automated on null Absolute Neut 3.6 X10 2.0-7.7 Invalid 07-16-2015 - [facility] 3/UL Interpretation 07-16-2015 Plastic Code Surgery (60442) Basophils/100 0.2 0-1 % 07-16-2015 - [facility] WBC (Bld) 07-16-2015 [facility] (02180) Basophils/100 0.2 0-1 % Invalid 07-16-2015 - [facility] WBC Auto (Bld) Interpretation 07-16-2015 Pl[facility] Code [facility] (40473) Eosinophils/100 3.6 0-5 % Invalid 07-16-2015 - [facility] leukocytes Interpretation 07-16-2015 Plastic Code Surgery (62108) Eosinophils/100 3.6 0-5 % 07-16-2015 - [facility] WBC (Bld) 07-16-2015 [facility] (38280) Erythrocyte 53.0 35.1-43.9 fL High 07-16-2015 - [facility] distribution 07-16-2015 [facility] width Auto Ratio (14115) (RBC) Erythrocyte 15.5 11.6-14.6 % High 07-16-2015 - [facility] distribution 07-16-2015 Plastic width Auto Ratio Surgery (RBC) (68109) Erythrocyte 15.5 11.6-14.6 % High 07-16-2015 - [facility] distribution 07-16-2015 [facility] width Ratio (76768) (RBC) Erythrocyte 53.0 35.1-43.9 fL High 07-16-2015 - [facility] distribution 07-16-2015 [facility] width Ratio (82101) (RBC) Erythrocytes 3.90 4.2-5.4 10*6/u Low 07-16-2015 - [facility] (RBC) L 07-16-2015 Plastic Surgery (75394) Hematocrit (HCT) 37.1 37-47 % Invalid 07-16-2015 - [facility] Interpretation 07-16-2015 Plastic Code Surgery (23663) Hematocrit 37.1 37-47 % 07-16-2015 - [facility] Volume Fraction 07-16-2015 [facility] (Bld) (80421) Hemoglobin mass 12.3 12.0-15.0 g/dL Invalid 07-16-2015 - [facility] conc (Bld) Interpretation 07-16-2015 Plastic Code Surgery (89055) Immature 0.500 0.0-0.9 % Invalid 07-16-2015 - [facility] granulocytes Interpretation 07-16-2015 [facility] #/vol (Bld) Code (42025) immature 0.500 0.0-0.9 % Invalid 07-16-2015 - [facility] granulocytes, Interpretation 07-16-2015 [facility] percentage of Code (33347) total cells, blood Immature 0.500 0.0-0.9 % Invalid 07-16-2015 - [facility] granulocytes/100 Interpretation 07-16-2015 Plastic WBC (Bld) Code Surgery (16839) Lymphocytes 1.86 X10 0.83-4.51 Invalid 07-16-2015 - [facility] 3/UL Interpretation 07-16-2015 Plastic Code Surgery (42402) Lymphocytes 1.86 X10 0.83-4.51 07-16-2015 - [facility] #/vol (Bld) 3/UL 07-16-2015 [facility] (63932) Lymphocytes/100 29.1 19-41 % Invalid 07-16-2015 - [facility] leukocytes Interpretation 07-16-2015 Plastic Code Surgery (11541) Lymphocytes/100 29.1 19-41 % 07-16-2015 - [facility] WBC (Bld) 07-16-2015 [facility] (37483) MCH 31.5 27.0-32.0 pg Invalid 07-16-2015 - [facility] Interpretation 07-16-2015 Pl[facility] Code Surgery (71821) MCH Entitic mass 31.5 27.0-32.0 pg 07-16-2015 - [facility] (RBC) 07-16-2015 [facility] (96078) MCHC mass conc 33.2 32-36 Invalid 07-16-2015 - [facility] (RBC) G/GL Interpretation 07-16-2015 Plastic Code Surgery (68723) MCHC mass conc 33.2 32-36 07-16-2015 - [facility] (RBC) G/GL 07-16-2015 [facility] (43514) MCV 95.1 81-99 fL Invalid 07-16-2015 - [facility] Interpretation 07-16-2015 Pl[facility] Code Surgery (02837) MCV Entitic 95.1 81-99 fL 07-16-2015 - [facility] volume (RBC) 07-16-2015 [facility] (02395) Monocytes/100 10.8 0-10 % High 07-16-2015 - [facility] leukocytes 07-16-2015 Plastic Surgery (33013) Monocytes/100 10.8 0-10 % High 07-16-2015 - [facility] WBC (Bld) 07-16-2015 [facility] (30071) neutrophil 3.6 X10 2.0-7.7 Invalid 07-16-2015 [facility] count, blood 3/UL Interpretation 07-16-2015 [facility] Code (79878) Neutrophils 3.6 X10 2.0-7.7 07-16-2015 - [facility] #/vol (Bld) 3/UL 07-16-2015 [facility] (63787) Neutrophils Auto 3.6 X10 2.0-7.7 Invalid 07-16-2015 [facility] #/vol (Bld) 3/UL Interpretation 07-16-2015 [facility] Code (33997) Neutrophils/100 55.8 47-70 % 07-16-2015 [facility] WBC (Bld) 07-16-2015 [facility] (43638) Neutrophils/100 55.8 47-70 % Invalid 07-16-2015 - [facility] WBC Auto (Bld) Interpretation 07-16-2015 Plastic Code Surgery (84828) Platelet mean 9.5 6.2-12.0 fL 07-16-2015 [facility] volume Entitic 07-16-2015 [facility] volume (Bld) (34013) Platelets 353 150-450 10*3/m Invalid 07-16-2015 - [facility] m3 Interpretation 07-16-2015 Pl[facility] Code Surgery (87003) Platelets #/vol 353 150-450 10*3/m 07-16-2015 - [facility] (Bld) m3 07-16-2015 [facility] (79469) PMV by 9.5 6.2-12.0 fL Invalid 07-16-2015 - [facility] Wan Interpretation 07-16-2015 Plastic Code Surgery (50566) RBC #/vol (Bld) 3.90 4.2-5.4 10*6/u Low 07-16-2015 - [facility] L 07-16-2015 [facility] (47404) RDW SD 53.0 35.1-43.9 fL High 07-16-2015 - [facility] 07-16-2015 Plastic Surgery (35149) red blood cell 53.0 35.1-43.9 fL High 07-16-2015 - [facility] distribution 07-16-2015 [facility] width, size (34947) density WBC #/vol (Bld) 6.4 4.4-11.0 10*9/L 07-16-2015 - [facility] 07-16-2015 [facility] (64124) WBC (Leukocytes) 6.4 4.4-11.0 10*9/L Invalid 07-16-2015 - [facility] Interpretation 07-16-2015 [facility] Code [facility] (55447) lab report: basic metabolic profile (bmp) on null Anion gap 4 5-15 mmol/L Low 07-16-2015 - [facility] 07-16-2015 Surgery (11921) Anion gap 4 4 5-15 Low 07-16-2015 - [facility] molar conc 07-16-2015 [facility] (78210) Anion gap 4 5-15 mmol/L Low 07-16-2015 - [facility] molar conc 07-16-2015 [facility] (78875) BUN/Creatinine 12.0 10-20 Invalid 07-16-2015 - [facility] Ratio RATIO Interpretation 07-16-2015 Surgery (28838) Code Calcium 8.4 8.5-10.1 mg/dL Low 07-16-2015 - [facility] 07-16-2015 Surgery (02910) Chloride 110 98-107 mmol/L High 07-16-2015 - [facility] 07-16-2015 Surgery (20020) CO2 27.0 21.0-32. mmol/L Invalid 07-16-2015 - [facility] 0 Interpretation 07-16-2015 Surgery (24841) Code CO2 ppres 27.0 21.0-32. mmol/L Invalid 07-16-2015 - [facility] (BldV) 0 Interpretation 07-16-2015 [facility] Code (05883) Creatinine 0.75 0.55-1.2 mg/dL Invalid 07-16-2015 - [facility] 0 Interpretation 07-16-2015 [facility] (75013) Code eGFR 88 >60 mL/min Invalid 07-16-2015 - [facility] (non-black) Interpretation 07-16-2015 Surgery (33983) Code eGFR 106 >60 mL/min Invalid 07-16-2015 - [facility] (non-black) Interpretation 07-16-2015 Surgery (49102) Code EST GFR - AA 106 >60 mL/min Invalid 07-16-2015 - [facility] Interpretation 07-16-2015 [facility] Code (35499) Glucose 98 70-110 mg/dL Invalid 07-16-2015 - [facility] Interpretation 07-16-2015 [facility] Code (82282) Glucose mass 98 70-110 mg/dL Invalid 07-16-2015 - [facility] conc Interpretation 07-16-2015 Surgery (17776) Code Potassium 4.0 3.5-5.1 mmol/L Invalid 07-16-2015 - [facility] molar conc Interpretation 07-16-2015 Surgery (62381) Code Sodium 141 136-145 mmol/L Invalid 07-16-2015 - [facility] Interpretation 07-16-2015 Surgery (46201) Code Urea nitrogen 9 7-18 mg/dL Invalid 07-16-2015 - [facility] Interpretation 07-16-2015 Surgery (56821) Code progress on 2017-04-20 PROGRESS HNO ID: [id number]: Felton Pastora 04-20-2017 [facility] KaputService: (none)Author Type: [place] Nurse PractitionerType: Progress (12627) NotesFiled: 04/20/2017 9:01 PMNote Text:HPI Patient is a 46 year old female here today for a 4 day history ofnasal congestion, cough and sore throat. Patient states cough is worse inthe morning and at night. States throat pain is worse in the morning andat night. Denies know fever. Has tried OTC medications with little relief. No other concerns at this time.Review of SystemsConstitutional: Positive for chills and malaise/fatigue. Negative forfever.HENT: Positive for congestion, ear pain and sore throat.Respiratory: Positive for cough. Negative for sputum production, shortnessof breath and wheezing.Cardiovascular: Negative.Gastrointestinal: Negative for nausea and vomiting.Musculoskeletal: Negative for myalgias.Neurological: Positive for headaches (sinus pressure).Endo/Heme/Allergies: Negative for environmental allergies.All other systems reviewed and are negative.PAST MEDICAL HISTORYDiagnosis Date- DM w/o complication type II 07/17/2011- Schizophrenia (HCC)PAST SURGICAL HISTORYProcedure Laterality Date- NONEALLERGIES Review of patient's allergies indicates no known allergies.MEDICATIONSHydrochlorothiazi de 12.5 mg capsule Take 12.5 mg by mouth once daily.valsartan (DIOVAN) 320 mg tablet Take 320 mg by mouth once daily.amLODIPine (NORVASC) 5 mg tablet Take 5 mg by mouth once daily.aspirin, enteric coated (ASPIRIN, ENTERIC COATED) 81 mg EC tablet Take 81mg by mouth once daily.atorvastatin (LIPITOR) 40 mg tablet Take 40 mg by mouth once daily.Clozapine 150 mg ORAL TbDL Take by mouth.metFORMIN (GLUCOPHAGE) 500 mg ORAL tablet Take 1 tablet by mouth twicedaily.glimepiride (AMARYL) 4 mg ORAL tablet Take 1 tablet by mouth once daily.Levothyroxine 150 mcg ORAL Cap Take by mouth.Ascorbic Acid (VITAMIN C) 1,000 mg ORAL tablet Take 1 tablet by mouth oncedaily.guaiFENesin (MUCINEX) 600 mg 12 hr tablet Take 2 tablets by mouth twicedaily.predniSONE (DELTASONE) 20 mg tablet Take 1 tablet by mouth twice daily for5 days.Norethindrone, Contraceptive, 0.35 mg tablet TAKE 1 TABLET DAILYLORazepam (ATIVAN) 0.5 mg ORAL Tab Take 1 tablet by mouth twice daily.divalproex ER (DEPAKOTE ER) 500 mg ORAL 24 hr tablet Take 1 tablet bymouth once daily.oxcarbazepine (TRILEPTAL) 300 mg ORAL tablet Take 1 tablet by mouth twicedaily.simvastatin (ZOCOR) 20 mg ORAL tablet Take 1 tablet by mouth daily atbedtime.lisinopril (PRINIVIL) 10 mg ORAL tablet Take 1 tablet by mouth once daily.FAMILY HISTORYProblem Relation Age of Onset- Cancer MotherSocial HistorySubstance Use Topics- Smoking status: Never Smoker- Smokeless tobacco: Never Used- Alcohol use NoBP 124/72 Pulse 90 Temp 36.4 ?C (97.5 ?F) (Tympanic) Resp 18 Wt119.7 kg (264 lb) SpO2 98% BMI 46.03 kg/k6Lylwcmpp ExamConstitutional: She is well-developed, well-nourished, and in no distress.Vital signs are normal.Mildly ill.HENT:Head: Normocephalic and atraumatic.Right Ear: Tympanic membrane, external ear and ear canal normal.Left Ear: Tympanic membrane, external ear and ear canal normal.Nose: Mucosal edema and rhinorrhea present. Right sinus exhibits nomaxillary sinus tenderness and no frontal sinus tenderness. Left sinusexhibits no maxillary sinus tenderness and no frontal sinus tenderness.Mouth/Throat: Uvula is midline, oropharynx is clear and moist and mucousmembranes are normal. No oropharyngeal exudate, posterior oropharyngealedema or posterior oropharyngeal erythema.Neck: Neck supple.Cardiovascular: Normal rate, regular rhythm and normal heart sounds.Pulmonary/Chest: Effort normal and breath sounds normal. She has nowheezes. She has no rales.Lymphadenopathy: Head (right side): No submental, no submandibular and no tonsillaradenopathy present. Head (left side): No submental, no submandibular and no tonsillaradenopathy present. She has no cervical adenopathy.Submandibular fullness.Neurological: She is alert.Skin: Skin is warm and dry.Nursing note and vitals reviewed.ASSESSMENT/PLAN:1. Viral URI with cough - ICD9: 465.9, ICD10: J06.9, B97.89- Discussed viral etiology and rationale for treatment.- Symptomatic treatment with prn analgesia- Supportive care with fluids and rest- The patient may also use warm salt water gargles, throat lozenges and/orOTC throat spray as needed.- Follow up in 3-5 days if symptoms persist or sooner if worsening ofsymptoms- GUAIFENESIN ER 600 MG TABLET, EXTENDED RELEASE 12 HR- PREDNISONE 20 MG TABLETPrescription instructions reviewed with patient as applicable. Patientadvised if symptoms do not improve or if symptoms worsen sooner, tocontact their primary care physician. Potential red flag symptomsdiscussed with the patient. Reviewed appropriate action plan to take ifred flag symptoms occur. Patient agreeable to treatment plan.JOSE RAMON Vaughan on 2017-04-20 CNOV Office Visit Normal 04-20-2017 [place] ([facility]) [facility] ([id number]) 1970 FDate Time Provider Department04/20/17 8:15 PM FELTON CAZARES) [facility] During [place] your visit today, we recorded the following information about you: Temperature Pulse Respiration Blood (88033) pressure 97.5 degrees 90/minute 18/minute 124/72 Weight 119.7 kgFelton Cazares CNP 04/20/2017 9:01 PM SignedHPI Patient is a 46 year old female here today for a 4 day history of nasalcongestion, cough and sore throat. Patient states cough is worse in the morningand at night. States throat pain is worse in the morning and at night. Deniesknow fever. Has tried OTC medications with little relief. No other concerns atthis time.Review of SystemsConstitutional: Positive for chills and malaise/fatigue. Negative for fever.HENT: Positive for congestion, ear pain and sore throat.Respiratory: Positive for cough. Negative for sputum production, shortness ofbreath and wheezing.Cardiovascular: Negative.Gastrointestinal: Negative for nausea and vomiting.Musculoskeletal: Negative for myalgias.Neurological: Positive for headaches (sinus pressure).Endo/Heme/Allergies: Negative for environmental allergies.All other systems reviewed and are negative.PAST MEDICAL HISTORYDiagnosis Date- DM w/o complication type II 07/17/2011- Schizophrenia (HCC)PAST SURGICAL HISTORYProcedure Laterality Date- NONEALLERGIES Review of patient's allergies indicates no known allergies.MEDICATIONSHydrochlorothiazide 12.5 mg capsule Take 12.5 mg by mouth once daily.valsartan (DIOVAN) 320 mg tablet Take 320 mg by mouth once daily.amLODIPine (NORVASC) 5 mg tablet Take 5 mg by mouth once daily.aspirin, enteric coated (ASPIRIN, ENTERIC COATED) 81 mg EC tablet Take 81 mg bymouth once daily.atorvastatin (LIPITOR) 40 mg tablet Take 40 mg by mouth once daily.Clozapine 150 mg ORAL TbDL Take by mouth.metFORMIN (GLUCOPHAGE) 500 mg ORAL tablet Take 1 tablet by mouth twice daily.glimepiride (AMARYL) 4 mg ORAL tablet Take 1 tablet by mouth once daily.Levothyroxine 150 mcg ORAL Cap Take by mouth.Ascorbic Acid (VITAMIN C) 1,000 mg ORAL tablet Take 1 tablet by mouth oncedaily.guaiFENesin (MUCINEX) 600 mg 12 hr tablet Take 2 tablets by mouth twice daily.predniSONE (DELTASONE) 20 mg tablet Take 1 tablet by mouth twice daily for 5days.Norethindrone, Contraceptive, 0.35 mg tablet TAKE 1 TABLET DAILYLORazepam (ATIVAN) 0.5 mg ORAL Tab Take 1 tablet by mouth twice daily.divalproex ER (DEPAKOTE ER) 500 mg ORAL 24 hr tablet Take 1 tablet by mouthonce daily.oxcarbazepine (TRILEPTAL) 300 mg ORAL tablet Take 1 tablet by mouth twicedaily.simvastatin (ZOCOR) 20 mg ORAL tablet Take 1 tablet by mouth daily at bedtime.lisinopril (PRINIVIL) 10 mg ORAL tablet Take 1 tablet by mouth once daily.FAMILY HISTORYProblem Relation Age of Onset- Cancer MotherSocial HistorySubstance Use Topics- Smoking status: Never Smoker- Smokeless tobacco: Never Used- Alcohol use NoBP 124/72 Pulse 90 Temp 36.4 ?C (97.5 ?F) (Tympanic) Resp 18 Wt 119.7kg (264 lb) SpO2 98% BMI 46.03 kg/d3Yxisvmja ExamConstitutional: She is well-developed, well-nourished, and in no distress.Vital signs are normal.Mildly ill.HENT:Head: Normocephalic and atraumatic.Right Ear: Tympanic membrane, external ear and ear canal normal.Left Ear: Tympanic membrane, external ear and ear canal normal.Nose: Mucosal edema and rhinorrhea present. Right sinus exhibits no maxillarysinus tenderness and no frontal sinus tenderness. Left sinus exhibits nomaxillary sinus tenderness and no frontal sinus tenderness.Mouth/Throat: Uvula is midline, oropharynx is clear and moist and mucousmembranes are normal. No oropharyngeal exudate, posterior oropharyngeal edemaor posterior oropharyngeal erythema.Neck: Neck supple.Cardiovascular: Normal rate, regular rhythm and normal heart sounds.Pulmonary/Chest: Effort normal and breath sounds normal. She has no wheezes.She has no rales.Lymphadenopathy: Head (right side): No submental, no submandibular and no tonsillaradenopathy present. Head (left side): No submental, no submandibular and no tonsillaradenopathy present. She has no cervical adenopathy.Submandibular fullness.Neurological: She is alert.Skin: Skin is warm and dry.Nursing note and vitals reviewed.ASSESSMENT/PLAN:1. Viral URI with cough - ICD9: 465.9, ICD10: J06.9, B97.89- Discussed viral etiology and rationale for treatment.- Symptomatic treatment with prn analgesia- Supportive care with fluids and rest- The patient may also use warm salt water gargles, throat lozenges and/or OTCthroat spray as needed.- Follow up in 3-5 days if symptoms persist or sooner if worsening of symptoms- GUAIFENESIN ER 600 MG TABLET, EXTENDED RELEASE 12 HR- PREDNISONE 20 MG TABLETPrescription instructions reviewed with patient as applicable. Patient advisedif symptoms do not improve or if symptoms worsen sooner, to contact theirprimary care physician. Potential red flag symptoms discussed with thepatient. Reviewed appropriate action plan to take if red flag symptoms occur.Patient agreeable to treatment plan.Felton Cazares CNPReferring Provider: SELF [[id number]]Allergies As of Date: 04/20/2017(No Known Allergies)Date Reviewed: 04/20/2017Reviewed by: Hoa Pedersen Ma - Fully AssessedReason for Visit: Cough [28] Cmt: sneezing x 4 daysPrimary Visit Diagnosis:Viral URI with cough [J06.9, B97.89]Order(s):guaiFENesin (MUCINEX) 600 mg 12 hr tabletTake 2 tablets by mouth twice daily.Disp: 30 tabletRfl: 0 predniSONE (DELTASONE) 20 mg tabletTake 1 tablet by mouth twice daily for 5 days.Disp: 10 tabletRfl: 0Prescriptions as of 04/20/2017 Sig: HYDROCHLOROTHIAZIDE 12.5 MG [...] TABLET Take 1 tablet by mouth once d*Medication notes this encounter NORETHINDRONE (CONTRACEPTIVE) 0.35 MG [...] MA Apr 20, 2017 8:19 PM not takingProblem List As Of Date 04/20/2017 Noted Resolved DM w/o complication type II [E11.9] INVALID FOR* Dermatophytosis of nail [B35.1] INVALID FOR* 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 PREDNISONE 20 MG TABLET 10 t* 0 04/20/2017 04/25/2017 Route: ORAL Sig: Take 1 tablet by mouth twice daily for 5 days. Status:Closed by FELTON CAZARES CNP on 04/20/17 obsolete on 2016-12-02 OBSOLETE Refill Normal 12-02-2016 [place] [id number] 1970 FDate Time Provider Department12/02/16 ETIENNE VICTOR During your visit [place] today, we recorded the following information about you:Erinn Rios LPN 12/02/2016 10:50 AM ([id number]) SignedPt transferring to Dr Saldana. Erinn Kennedy As of Date: 12/02/2016(No Known Allergies)Date Reviewed: 11/26/2015Reviewed by: Krystle Gonzáles Ma - Fully AssessedReason for Visit: Refill Request [94]Prescriptions as of 12/02/2016 Sig: NORETHINDRONE (CONTRACEPTIVE)* TAKE 1 TABLET DAILY * CLOZAPINE 150 MG DISINTEGRATI* Take by mouth. * LORAZEPAM 0.5 MG TABLET Take 1 tablet by mouth twice * * DIVALPROEX ER 500 MG TABLET,E* Take 1 tablet by mouth once d* * OXCARBAZEPINE 300 MG TABLET Take 1 tablet by mouth twice * * METFORMIN 500 MG TABLET Take 1 tablet by mouth twice * * GLIMEPIRIDE 4 MG TABLET Take 1 tablet by mouth once d* * SIMVASTATIN 20 MG TABLET Take 1 tablet by mouth daily * * LEVOTHYROXINE 150 MCG CAPSULE Take by mouth. 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 BMI (Body Mass Index) 41.54 kg/m2 01-15-2017 - 01-15-2017 [facility] ([id number]) BMI (Body Mass Index) 40.02 kg/m2 10-15-2016 - 10-15-2016 [facility] [place] ([id number]) BMI (Body Mass Index) 42.44 kg/m2 04-23-2016 - 04-23-2016 [facility] [place] ([id number]) Body Temperature 97.2 [degF] 01-15-2017 - 01-15-2017 [facility] ([id number]) Body Temperature 98.4 [degF] 10-15-2016 - 10-15-2016 [facility] [place] ([id number]) Body Temperature 97.34 [degF] 04-23-2016 - 04-23-2016 [facility] [place] ([id number]) Body Temperature 97.3 [degF] 04-23-2016 - 04-23-2016 [facility] [place] ([id number]) BSA (Body Surface Area) 2.25 m2 04-23-2016 - 04-23-2016 [facility] ([id number]) Height 167.64 cm 01-15-2017 - 01-15-2017 [facility] ([id number]) Height 167.64 cm 10-15-2016 - 10-15-2016 [facility] [place] ([id number]) Height 167.64 cm 04-23-2016 - 04-23-2016 [facility] [place] ([id number]) Pulse (Heart Rate) 108 /min 01-15-2017 - 01-15-2017 [facility] ([id number]) Pulse (Heart Rate) 103 /min 10-15-2016 - 10-15-2016 [facility] [place] ([id number]) Pulse (Heart Rate) 60 /min 04-23-2016 - 04-23-2016 [facility] [place] ([id number]) Pulse Oximetry 98 % 10-15-2016 - 10-15-2016 [facility] [place] ([id number]) Pulse Oximetry 95 % 04-23-2016 - 04-23-2016 [facility] [place] ([id number]) Respiratory Rate 17 /min 01-15-2017 - 01-15-2017 [facility] ([id number]) Respiratory Rate 20 /min 10-15-2016 - 10-15-2016 [facility] [place] ([id number]) Respiratory Rate 18 /min 04-23-2016 - 04-23-2016 [facility] [place] ([id number]) Weight 116.75 kg 01-15-2017 - 01-15-2017 [facility] ([id number]) Weight 116.76 kg 01-15-2017 - 01-15-2017 [facility] (88912) Weight 112.49 kg 10-15-2016 - 10-15-2016 [facility] [place] (56698) Weight 119.3 kg 04-23-2016 - 04-23-2016 [facility] [place] ([id number]) Weight 119.55 kg 04-23-2016 - 04-23-2016 [facility] [place] ([id number]) Encounters Date Type Reason Provider Location 04-20-2017 - 04-21-2017 [facility] ([id number]) Procedures Procedure Name Date Provider Location Gynecologic examination 01-15-2017 [facility] [place] ([id number]) Screening for malignant 01-15-2017 [facility] ([id number]) Documentation of current 01-15-2017 - [facility] 01-15-2017 [facility] ([id number]) Mammogram, screening 12-02-2016 - Lavern Saldana [facility] 02-03-2017 [facility] ([id number]) Screening mammography 12-02-2016 [facility] ([id number]) Screening mammography 12-02-2016 [facility] [place] ([id number]) BWA 10-15-2016 - Araceli Prince CNP [facility] 03-02-2017 [place] ([id number]) Follow Up Appt 6 months 10-15-2016 - Araceli [facility] CNP [facility] 03-02-2017 [place] ([id number]) Echo ttc r-t 2d 04-06-2016 - Araceli Prince CNP [facility] [facility] w/wom-mode compl 04-10-2016 Surgery ([id number]) spec&colr d Tte w/doppler, complete 04-06-2016 - Araceli Prince CNP [facility] 04-10-2016 [facility] ([id number]) BWA 01-16-2016 - Araceli Prince CNP [facility] [facility] 04-10-2016 [facility] ([id number]) Follow Up Appt 3 months 01-16-2016 - Araceli Prince CNP [facility] [facility] 04-10-2016 [facility] ([id number]) BWA 01-16-2016 - Araceli Prince CNP [facility] 04-10-2016 [facility] ([id number]) Follow Up Appt 3 months 01-16-2016 - Araceli Prince CNP [facility] 04-10-2016 [facility] ([id number]) [facility] 10-17-2015 - Rolo Urbano Dino [place] [facility] 04-23-2016 [facility] ([id number]) Follow Up Appt 3 months 10-17-2015 - Rolo Urbano Dino [place] [facility] 04-23-2016 Surgery ([id number]) [facility] 10-17-2015 - Rolo Sun [facility] 04-23-2016 Care ([id number]) Follow Up Appt 3 months 10-17-2015 - Rolo Urbano Dino [facility] 04-23-2016 [facility] ([id number]) *BMP 07-16-2015 - Araceli S Suresh ALBRIGHT [place] [facility] 07-16-2015 [facility] ([id number]) Chest x-ray 07-16-2015 - Araceli S Suresh ALBRIGHT [facility] [facility] 07-16-2015 Surgery ([id number]) Follow Up Appt 3 months 07-16-2015 - Araceli S Suresh ALBRIGHT [place] [facility] 07-16-2015 Surgery ([id number]) Pulmonary Function Test - 07-16-2015 - Araecli S [place] PHARMACEUTICAL DEVELOPMENT TECHNICIAN [place] [facility] complete 07-16-2015 Surgery ([id number]) Pulmonary stress 07-16-2015 - Araceli S Suresh ALBRIGHT [place] [facility] test/simple 07-16-2015 Surgery ([id number]) *BMP 07-16-2015 - Araceli S Suresh ALBRIGHT [facility] 07-16-2015 [facility] ([id number]) Chest x-ray 07-16-2015 - Araceli S Suresh ALBRIGHT [facility] 07-16-2015 Care ([id number]) Follow Up Appt 3 months 07-16-2015 - Araceli S Suresh ALBRIGHT [facility] 07-16-2015 Care ([id number]) Pulmonary Function Test - 07-16-2015 - Araceli [facility] PHARMACEUTICAL DEVELOPMENT TECHNICIAN [facility] complete 07-16-2015 [facility] ([id number]) Pulmonary stress 07-16-2015 - Araceli Prince PHARMACEUTICAL DEVELOPMENT TECHNICIAN [facility] test/simple 07-16-2015 [facility] ([id number]) Plan of Treatment Plan Description Date Location Appointment Appointment 04-05-2017 - [facility] 04-05-2017 ([id number]) Pulmonary Function Test Pulmonary Function Test 03-08-2017 - [facility] - complete - complete 10-15-2016 ([id number]) Pulmonary Function Test Pulmonary Function Test 03-08-2017 - [facility] - complete - complete 10-15-2016 Care ([id number]) Appointment Appointment 01-15-2017 - [facility] 01-15-2017 [facility] ([id number]) Mammogram, Screening, Mammogram, Screening, 12-02-2016 - [facility] both breasts both breasts 02-03-2017 ([id number]) Mammogram, Screening, Mammogram, Screening, 12-02-2016 - [facility] both breasts both breasts 12-02-2016 [facility] ([id number]) Appointment Appointment 10-15-2016 - [facility] 10-15-2016 [place] ([id number]) [facility] 10-15-2016 - [place] [facility] 03-02-2017 ([id number]) Follow Up Appt 6 months Follow Up Appt 6 months 10-15-2016 - [facility] 03-02-2017 ([id number]) [facility] 10-15-2016 - [facility] 10-15-2016 [facility] ([id number]) Follow Up Appt 6 months Follow Up Appt 6 months 10-15-2016 - [facility] 10-15-2016 [facility] ([id number]) [facility] 04-23-2016 - [facility] [facility] 04-23-2016 ([id number]) Follow Up Appt 6 months Follow Up Appt 6 months 04-23-2016 - [facility] 04-23-2016 ([id number]) [facility] 04-23-2016 - [facility] 04-23-2016 [facility] ([id number]) Follow Up Appt 6 months Follow Up Appt 6 months 04-23-2016 - [facility] 04-23-2016 Care ([id number]) Echo Complete with Echo Complete with 04-06-2016 - [facility] Color Flow Color Flow 04-10-2016 ([id number]) Echo Complete with Echo Complete with 04-06-2016 - [facility] Color Flow Color Flow 04-10-2016 Care ([id number]) [facility] 01-16-2016 - [facility] [facility] 04-10-2016 ([id number]) Follow Up Appt 3 months Follow Up Appt 3 months 01-16-2016 - [place] [facility] 04-10-2016 ([id number]) [facility] 01-16-2016 - [facility] 04-10-2016 Care ([id number]) Follow Up Appt 3 months Follow Up Appt 3 months 01-16-2016 - [facility] 04-10-2016 Care ([id number]) [facility] 10-17-2015 - [place] [facility] 04-23-2016 ([id number]) Follow Up Appt 3 months Follow Up Appt 3 months 10-17-2015 - [facility] [facility] 04-23-2016 ([id number]) [facility] 10-17-2015 - [facility] 04-23-2016 Care ([id number]) Follow Up Appt 3 months Follow Up Appt 3 months 10-17-2015 - [facility] 04-23-2016 Care ([id number]) *BMP *BMP 07-16-2015 - [facility] 07-16-2015 ([id number]) X-Ray, Chest, PA & X-Ray, Chest, PA & 07-16-2015 - [facility] Lateral Lateral 07-16-2015 ([id number]) Follow Up Appt 3 months Follow Up Appt 3 months 07-16-2015 - [facility] 07-16-2015 ([id number]) Pulmonary Function Test Pulmonary Function Test 07-16-2015 - [facility] - complete - complete 07-16-2015 ([id number]) Pulmonary stress Pulmonary stress 07-16-2015 - [facility] testing; simple (eg, testing; simple (eg, 07-16-2015 ([id number]) 6-minute walk) 6-minute walk) *BMP *BMP 07-16-2015 - [facility] 07-16-2015 Care ([id number]) X-Ray, Chest, PA & X-Ray, Chest, PA & 07-16-2015 - [facility] Lateral Lateral 07-16-2015 Care ([id number]) Follow Up Appt 3 months Follow Up Appt 3 months 07-16-2015 - [facility] 07-16-2015 [facility] ([id number]) Pulmonary Function Test Pulmonary Function Test 07-16-2015 - [facility] - complete - complete 07-16-2015 Care ([id number]) Pulmonary stress Pulmonary stress 07-16-2015 - [facility] testing; simple (eg, testing; simple (eg, 07-16-2015 Care (12879) 6-minute walk) 6-minute walk) The following information is from the original human readable content Type Date Detail Appointment 01:30 PM Rolo Sun, [address], [address], [place], [address] Pending order Pulmonary Function Test - complete Pending order Mammogram, Screening, both breasts Pending order BWA Pending order Follow Up Appt 6 months Pending order [facility] Pending order Follow Up Appt 6 months Pending order Echo Complete with Color Flow Pending order BWA Pending order Follow Up Appt 3 months Pending order Follow Up Appt 3 months Pending order [facility] Pending order X-Ray, Chest, PA & Lateral Pending order *BMP Pending order Pulmonary stress testing; simple (eg, 6-minute walk) Pending order Pulmonary Function Test - complete Pending order Follow Up Appt 3 months Type Date Detail Appointment 01:30 PM Rolo Sun, [address], [address], [place], [address] Pending order Pulmonary Function Test - complete Pending order BWA Pending order Follow Up Appt 6 months Pending order [facility]SM Pending order Follow Up Appt 6 months Pending order Echo Complete with Color Flow Pending order BWA Pending order Follow Up Appt 3 months Pending order Follow Up Appt 3 months Pending order [facility] Pending order X-Ray, Chest, PA & Lateral Pending order *BMP Pending order Pulmonary stress testing; simple (eg, 6-minute walk) Pending order Pulmonary Function Test - complete Pending order Follow Up Appt 3 months Type Date Detail Appointment 02:30 PM Araceli Prince CNP, [address], [address], [place], [address] Appointment 01:30 PM Rolo Sun, [address], [address], [place], [address] Pending order Pulmonary Function Test - complete Pending order BWA Pending order Follow Up Appt 6 months Pending order CSM Pending order Follow Up Appt 6 months Pending order Echo Complete with Color Flow Pending order BWA Pending order Follow Up Appt 3 months Pending order Follow Up Appt 3 months Pending order [facility] Pending order X-Ray, Chest, PA & Lateral Pending order *BMP Pending order Pulmonary stress testing; simple (eg, 6-minute walk) Pending order Pulmonary Function Test - complete Pending order Follow Up Appt 3 months Type Date Detail Appointment 01:30 PM Lavern Saldana MD, [address] Floor, [place], [address], Appointment 01:30 PM Rolo Sun, [address], [address], [place], [address] Pending order Pulmonary Function Test - complete Pending order Mammogram, Screening, both breasts Pending order BWA Pending order Follow Up Appt 6 months Pending order CSM Pending order Follow Up Appt 6 months Pending order Echo Complete with Color Flow Pending order BWA Pending order Follow Up Appt 3 months Pending order Follow Up Appt 3 months Pending order [facility] Pending order X-Ray, Chest, PA & Lateral Pending order *BMP Pending order Pulmonary stress testing; simple (eg, 6-minute walk) Pending order Pulmonary Function Test - complete Pending order Follow Up Appt 3 months Summary Purpose DATE CREATED AUTHOR AUTHOR'S ORGANIZATION 10/12/2017 [facility] Family History No Family History Records Found Advance Directives No Advanced Directives Records Found Additional Source Comments FOR RECORDS PERTAINING TO PATIENTS WHO ARE OR HAVE BEEN ENROLLED IN A CHEMICAL DEPENDENCY/SUBSTANCE ABUSE PROGRAM, SOME INFORMATION MAY BE OMITTED. This clinical summary was aggregated from multiple sources. Caution should be exercised in using it in the provision of clinical care. This summary normalizes information from multiple sources, and as a consequence, information in this document may materially changethe coding, format and clinical context of patient data. In addition, data may be omittedin some cases. CLINICAL DECISIONS SHOULD BE BASED ON THE PRIMARY CLINICAL RECORDS. [facility] provides no warranty or guarantee of the accuracy or completeness of information in this document. UNRECOGNIZED CONTENT PROVIDED BELOW FOR UNRECOGNIZED SECTION INFORMATION SOURCE DATE CREATED AUTHOR AUTHOR'S ORGANIZATION 10/12/2017 [facility]
== END | disposition home or self-care (01) ==
LOC: LAB 08-22 16:28
PROVIDERS: Family Provider Family Medicine Geriatric Medicine; PCP Family Medicine Geriatric Medicine; Referring Provider Psychiatry & Neurology Psychiatry; Visit Provider Psychiatry & Neurology Psychiatry
DX: Z79.899 Other long term (current) drug therapy (principal)
CPT/HCPCS: 36415; 85025

== ENCOUNTER 2018-06-28 08:50 | Outpatient (RCR) | payer MEDICARE, SELFPAY ==
[2018-05-25 00:05] VITALS: BMI 42.6
[2018-06-28 10:02] LABS: Absolute Lymphocyte Count 2.09 X10^3/ul (0.83-4.51); Absolute Neutrophil Count 2.5 X10^3/uL (2.0-7.7); Basophil# 0.01 X10^3/uL; Basophil% 0.2 % (0-1); Eosinophil# 0.19 X10^3/uL; Eosinophils% 3.5 % (0-5); Hematocrit 34.9 % (37-47); Hemoglobin 11.5 g/dl (12.0-15.0); Lymphocyte # 2.09 X10^3/ul (4.0); Lymphocyte % 38.6 % (19-41); Mean Corpuscular Volume 94.1 fL (81-99); Mean Platelet Vol. 9.3 fl (6.2-12.0); Monocyte# 0.67 X10^3/uL; Monocyte% 12.4 % (0-10); Neutrophil # 2.45 X10^3/uL (2.7-7.7); Neutrophil % 45.1 % (47-70); POSITIVE COUNT NO; POSITIVE DIFFERENTIAL NO; POSITIVE MORPHOLOGY NO; Platelet Count 280 K/mm3 (150-450); RBC Distribution Width CV 14.6 % (11.6-14.6); Red Blood Count 3.71 M/mm3 (4.2-5.4); White Blood Count 5.4 K/mm3 (4.4-11.0)
== END 2018-06-28 09:50 | disposition home or self-care (01) ==
LOC: LAB 08:50
PROVIDERS: Family Provider Family Medicine Geriatric Medicine; PCP Family Medicine Geriatric Medicine; Referring Provider Psychiatry & Neurology Psychiatry; Visit Provider Psychiatry & Neurology Psychiatry
DX: Z79.899 Other long term (current) drug therapy (principal); F19.10 Other psychoactive substance abuse, uncomplicated; R53.83 Other fatigue
CPT/HCPCS: 36415; 85025

== ENCOUNTER → 2018-07-14 10:55 | Outpatient (CLI) | payer MEDICARE, SELFPAY ==
[2018-05-25 00:05] VITALS: BMI 42.6
[2018-07-14 12:45] LABS: Absolute Lymphocyte Count 2.24 X10^3/ul (0.83-4.51); Absolute Neutrophil Count 2.9 X10^3/uL (2.0-7.7); Basophil# 0.02 X10^3/uL; Basophil% 0.3 % (0-1); Eosinophil# 0.19 X10^3/uL; Eosinophils% 3.1 % (0-5); Hematocrit 37.6 % (37-47); Hemoglobin 12.3 g/dl (12.0-15.0); Lymphocyte # 2.24 X10^3/ul (4.0); Lymphocyte % 36.2 % (19-41); Mean Corp Hgb Conc 32.7 g/gl (32-36); Mean Corpuscular Hgb 30.7 pg (27.0-32.0); Mean Corpuscular Volume 93.8 fL (81-99); Mean Platelet Vol. 9.6 fl (6.2-12.0); Monocyte# 0.81 X10^3/uL; Monocyte% 13.1 % (0-10); Neutrophil # 2.92 X10^3/uL (2.7-7.7); Neutrophil % 47.1 % (47-70); Platelet Count 289 K/mm3 (150-450); RBC Distribution Width CV 14.5 % (11.6-14.6); RBC Distribution Width SD 49.4 fl (35.1-43.9); Red Blood Count 4.01 M/mm3 (4.2-5.4); White Blood Count 6.2 K/mm3 (4.4-11.0)
[2018-07-14 12:49] LABS: POSITIVE COUNT NO; POSITIVE DIFFERENTIAL NO; POSITIVE MORPHOLOGY NO
[2018-07-14 13:09] LABS: BUN 17 mg/dL (7-18); Creatinine, Serum 1.18 mg/dL (0.55-1.02); Glucose 81 mg/dL (74-106)
[2018-07-14 13:10] LABS: ALB/GLOB Ratio 0.7 RATIO (0.9-2.4); AST(SGOT) 17 U/L (15-37); Alanine Aminotransfer ALT/SGPT 29 U/L (13-56); Albumin, Serum 3.2 g/dL (3.2-5.0); Alkaline Phosphatase 73 U/L (45-117); Anion Gap 8 (5-15); BUN/Creat Ratio 14.4 RATIO (10-20); Calcium,Total 8.9 mg/dL (8.5-10.1); Chloride 104 mmol/L (98-107); EST Glomerular Filtration Rate 52 mL/min (>60); Est Glom Filt Rate - Afr Amer 62 mL/min (>60); Globulin 4.4 g/dL (2.2-4.2); Potassium 4.3 mmol/L (3.5-5.1); Protein, Total 7.6 g/dL (6.4-8.2); Sodium Level 133 mmol/L (136-145); Thyroid Stim Hormone (TSH) 0.79 uIU/mL (0.358-3.74)
== END ==
PROVIDERS: Family Provider Family Medicine Geriatric Medicine; PCP Family Medicine Geriatric Medicine; Visit Provider Family Medicine Geriatric Medicine
DX: E11.9 Type 2 diabetes mellitus without complications (principal); I10 Essential (primary) hypertension
CPT/HCPCS: 36415; 80053; 84443; 85025

== ENCOUNTER 2018-07-26 09:42 | Outpatient (RCR) | payer MEDICARE, SELFPAY ==
[2018-05-25 00:05] VITALS: BMI 42.6
[2018-07-26 11:07] LABS: Absolute Lymphocyte Count 2.13 X10^3/ul (0.83-4.51); Absolute Neutrophil Count 3.6 X10^3/uL (2.0-7.7); Basophil# 0.02 X10^3/uL; Basophil% 0.3 % (0-1); Eosinophil# 0.22 X10^3/uL; Eosinophils% 3.3 % (0-5); Hemoglobin 11.8 g/dl (12.0-15.0); Lymphocyte # 2.13 X10^3/ul (4.0); Lymphocyte % 32.4 % (19-41); Mean Corp Hgb Conc 32.8 g/gl (32-36); Mean Corpuscular Hgb 30.7 pg (27.0-32.0); Mean Corpuscular Volume 93.8 fL (81-99); Mean Platelet Vol. 9.4 fl (6.2-12.0); Monocyte# 0.55 X10^3/uL; Monocyte% 8.4 % (0-10); Neutrophil # 3.64 X10^3/uL (2.7-7.7); Neutrophil % 55.3 % (47-70); Platelet Count 279 K/mm3 (150-450); RBC Distribution Width CV 14.8 % (11.6-14.6); RBC Distribution Width SD 50.8 fl (35.1-43.9); Red Blood Count 3.84 M/mm3 (4.2-5.4); White Blood Count 6.6 K/mm3 (4.4-11.0)
[2018-07-26 11:08] LABS: POSITIVE COUNT NO; POSITIVE DIFFERENTIAL NO; POSITIVE MORPHOLOGY NO
[2018-07-26 11:12] LABS: Color, Urine Yellow (Yellow); Glucose, Dipstick Normal (Normal); Ketone-Dipstick Negative (Negative); Leukocyte Esterase-Dipstick Negative /ul (Negative); Nitrite-Dipstick Negative (Negative); Occult Blood-Urine Negative /ul (Negative); Protein-Dipstick Negative (Negative); Urine Bilirubin Dipstick Negative (Negative); Urine Clarity Clear (Clear); Urine Urobilinogen Normal (Normal); Urine pH 6.5 (5.0 - 8.0)
[2018-07-26 11:26] LABS: Sodium Level 136 mmol/L (136-145)
[2018-07-26 11:42] LABS: Valproic Acid (Depakene) Level 53 ug/mL (50-100)
== END 2018-08-16 16:00 | disposition home or self-care (01) ==
LOC: LAB 09:42
PROVIDERS: Family Provider Family Medicine Geriatric Medicine; PCP Family Medicine Geriatric Medicine; Referring Provider Psychiatry & Neurology Psychiatry; Visit Provider Psychiatry & Neurology Psychiatry
DX: Z79.899 Other long term (current) drug therapy (principal)
CPT/HCPCS: 36415; 80164; 81002; 82140; 84295; 85025

== ENCOUNTER 2018-08-23 08:35 | Outpatient (RCR) | payer MEDICARE, SELFPAY ==
[2018-05-25 00:05] VITALS: BMI 42.6
[2018-08-23 09:23] LABS: Absolute Lymphocyte Count 2.03 X10^3/ul (0.83-4.51); Absolute Neutrophil Count 2.8 X10^3/uL (2.0-7.7); Basophil# 0.02 X10^3/uL; Basophil% 0.4 % (0-1); Eosinophil# 0.24 X10^3/uL; Eosinophils% 4.3 % (0-5); Hematocrit 36.6 % (37-47); Hemoglobin 12.1 g/dl (12.0-15.0); Lymphocyte # 2.03 X10^3/ul (4.0); Lymphocyte % 36.3 % (19-41); Mean Corp Hgb Conc 33.1 g/gl (32-36); Mean Corpuscular Hgb 30.8 pg (27.0-32.0); Mean Corpuscular Volume 93.1 fL (81-99); Mean Platelet Vol. 9.9 fl (6.2-12.0); Monocyte# 0.51 X10^3/uL; Monocyte% 9.1 % (0-10); Neutrophil # 2.79 X10^3/uL (2.7-7.7); Neutrophil % 49.7 % (47-70); Platelet Count 281 K/mm3 (150-450); RBC Distribution Width CV 14.9 % (11.6-14.6); RBC Distribution Width SD 49.3 fl (35.1-43.9); Red Blood Count 3.93 M/mm3 (4.2-5.4); White Blood Count 5.6 K/mm3 (4.4-11.0)
[2018-08-23 09:24] LABS: POSITIVE COUNT NO; POSITIVE DIFFERENTIAL NO; POSITIVE MORPHOLOGY NO
== END 2018-09-02 09:35 | disposition home or self-care (01) ==
LOC: LAB 08:35
PROVIDERS: Family Provider Family Medicine Geriatric Medicine; PCP Family Medicine Geriatric Medicine; Referring Provider Psychiatry & Neurology Psychiatry; Visit Provider Psychiatry & Neurology Psychiatry
DX: Z79.899 Other long term (current) drug therapy (principal)
CPT/HCPCS: 36415; 85025

== ENCOUNTER 2018-09-20 09:11 | Outpatient (RCR) | payer MEDICARE, SELFPAY ==
[2018-05-25 00:05] VITALS: BMI 42.6
[2018-09-19 13:26] VITALS: BMI 42.6
[2018-09-20 10:15] LABS: Absolute Lymphocyte Count 2.18 X10^3/ul (0.83-4.51); Absolute Neutrophil Count 3.5 X10^3/uL (2.0-7.7); Basophil# 0.01 X10^3/uL; Basophil% 0.2 % (0-1); Eosinophil# 0.31 X10^3/uL; Eosinophils% 4.7 % (0-5); Hematocrit 36.9 % (37-47); Lymphocyte # 2.18 X10^3/ul (4.0); Lymphocyte % 32.9 % (19-41); Mean Corp Hgb Conc 32.5 g/gl (32-36); Mean Corpuscular Hgb 30.8 pg (27.0-32.0); Mean Corpuscular Volume 94.9 fL (81-99); Mean Platelet Vol. 9.6 fl (6.2-12.0); Monocyte% 9.1 % (0-10); Neutrophil % 52.8 % (47-70); Platelet Count 303 K/mm3 (150-450); RBC Distribution Width CV 15.2 % (11.6-14.6); RBC Distribution Width SD 52.5 fl (35.1-43.9); Red Blood Count 3.89 M/mm3 (4.2-5.4); White Blood Count 6.6 K/mm3 (4.4-11.0)
[2018-09-20 10:16] LABS: POSITIVE COUNT NO; POSITIVE DIFFERENTIAL NO; POSITIVE MORPHOLOGY NO
== END 2018-10-16 12:00 | disposition home or self-care (01) ==
LOC: LAB 09:11
PROVIDERS: Family Provider Family Medicine Geriatric Medicine; PCP Family Medicine Geriatric Medicine; Referring Provider Psychiatry & Neurology Psychiatry; Visit Provider Psychiatry & Neurology Psychiatry
DX: Z79.899 Other long term (current) drug therapy (principal)
CPT/HCPCS: 36415; 85025

== ENCOUNTER 2018-11-15 09:27 | Outpatient (RCR) | payer MEDICARE, SELFPAY ==
[2018-09-19 13:26] VITALS: BMI 42.6
[2018-10-18 09:49] LABS: Absolute Lymphocyte Count 2.23 X10^3/ul (0.83-4.51); Basophil# 0.01 X10^3/uL; Basophil% 0.2 % (0-1); Eosinophils% 3.3 % (0-5); Hematocrit 36.8 % (37-47); Hemoglobin 12.3 g/dl (12.0-15.0); Lymphocyte # 2.23 X10^3/ul (4.0); Lymphocyte % 36.4 % (19-41); Mean Corp Hgb Conc 33.4 g/gl (32-36); Mean Corpuscular Hgb 31.1 pg (27.0-32.0); Mean Corpuscular Volume 93.2 fL (81-99); Mean Platelet Vol. 9.3 fl (6.2-12.0); Monocyte# 0.66 X10^3/uL; Monocyte% 10.8 % (0-10); Neutrophil # 3.01 X10^3/uL (2.7-7.7); Neutrophil % 49.1 % (47-70); Platelet Count 281 K/mm3 (150-450); RBC Distribution Width CV 14.5 % (11.6-14.6); RBC Distribution Width SD 49.5 fl (35.1-43.9); Red Blood Count 3.95 M/mm3 (4.2-5.4); White Blood Count 6.1 K/mm3 (4.4-11.0)
[2018-10-18 09:57] LABS: POSITIVE COUNT NO; POSITIVE DIFFERENTIAL NO; POSITIVE MORPHOLOGY NO
[2018-11-15 09:55] LABS: Absolute Lymphocyte Count 2.27 X10^3/uL (0.83-4.51); Absolute Neutrophil Count 3.2 X10^3/uL (2.0-7.7); Basophil# 0.02 X10^3/uL; Basophil% 0.3 % (0-1); Eosinophil# 0.18 X10^3/uL; Eosinophils% 2.8 % (0-5); Hematocrit 36.8 % (37-47); Hemoglobin 12.4 g/dL (12.0-15.0); Lymphocyte # 2.27 X10^3/ul (4.0); Lymphocyte % 35.4 % (19-41); Mean Corp Hgb Conc 33.7 g/dL (32-36); Mean Corpuscular Hgb 31.8 pg (27.0-32.0); Mean Corpuscular Volume 94.4 fL (81-99); Mean Platelet Vol. 9.6 fl (6.2-12.0); Monocyte# 0.71 X10^3/uL; Monocyte% 11.1 % (0-10); NRBC Flagged by Analyzer 0 % (0-5); Neutrophil # 3.21 X10^3/uL (2.7-7.7); Neutrophil % 49.9 % (47-70); Platelet Count 250 K/mm3 (150-450); RBC Distribution Width CV 14.1 % (11.6-14.6); RBC Distribution Width SD 48.7 fl (35.1-43.9); White Blood Count 6.4 K/mm3 (4.4-11.0)
== END 2018-11-16 16:45 | disposition home or self-care (01) ==
LOC: LAB 09:27
PROVIDERS: Family Provider Family Medicine Geriatric Medicine; PCP Family Medicine Geriatric Medicine; Referring Provider Psychiatry & Neurology Psychiatry; Visit Provider Psychiatry & Neurology Psychiatry
DX: Z79.899 Other long term (current) drug therapy (principal)
CPT/HCPCS: 36415; 85025

== ENCOUNTER 2018-12-09 08:38 | Outpatient (RCR) | payer MEDICARE, SELFPAY ==
[2018-09-19 13:26] VITALS: BMI 42.6
[2018-12-09 09:48] LABS: Absolute Lymphocyte Count 3.02 X10^3/uL (0.83-4.51); Absolute Neutrophil Count 3.5 X10^3/uL (2.0-7.7); Basophil# 0.04 X10^3/uL; Basophil% 0.5 % (0-1); Eosinophil# 0.27 X10^3/uL; Eosinophils% 3.6 % (0-5); Hematocrit 37.3 % (37-47); Hemoglobin 12.3 g/dL (12.0-15.0); Lymphocyte # 3.02 X10^3/ul (4.0); Lymphocyte % 39.9 % (19-41); Mean Corpuscular Hgb 31.5 pg (27.0-32.0); Mean Corpuscular Volume 95.6 fL (81-99); Mean Platelet Vol. 9.4 fl (6.2-12.0); Monocyte# 0.74 X10^3/uL; Monocyte% 9.8 % (0-10); NRBC Flagged by Analyzer 0 % (0-5); Neutrophil # 3.46 X10^3/uL (2.7-7.7); Neutrophil % 45.7 % (47-70); Platelet Count 288 K/mm3 (150-450); RBC Distribution Width CV 14.4 % (11.6-14.6); RBC Distribution Width SD 50.8 fl (35.1-43.9); White Blood Count 7.6 K/mm3 (4.4-11.0)
== END 2018-12-09 09:38 | disposition home or self-care (01) ==
LOC: LAB 08:38
PROVIDERS: Family Provider Family Medicine Geriatric Medicine; PCP Family Medicine Geriatric Medicine; Referring Provider Psychiatry & Neurology Psychiatry; Visit Provider Psychiatry & Neurology Psychiatry
DX: Z79.899 Other long term (current) drug therapy (principal)
CPT/HCPCS: 36415; 85025

== ENCOUNTER → 2019-01-02 09:48 | Outpatient (CLI) | payer MEDICARE, SELFPAY ==
[2018-09-19 13:26] VITALS: BMI 42.6
[2019-01-02 17:11] LABS: Absolute Lymphocyte Count 2.56 X10^3/uL (0.83-4.51); Absolute Neutrophil Count 3.3 X10^3/uL (2.0-7.7); Basophil# 0.02 X10^3/uL; Basophil% 0.3 % (0-1); Eosinophil# 0.24 X10^3/uL; Eosinophils% 3.5 % (0-5); Hemoglobin 11.8 g/dL (12.0-15.0); Lymphocyte # 2.56 X10^3/ul (4.0); Mean Corp Hgb Conc 32.8 g/dL (32-36); Mean Corpuscular Hgb 31.6 pg (27.0-32.0); Mean Corpuscular Volume 96.3 fL (81-99); Monocyte% 11.6 % (0-10); NRBC Flagged by Analyzer 0 % (0-5); Neutrophil # 3.26 X10^3/uL (2.7-7.7); Platelet Count 277 K/mm3 (150-450); RBC Distribution Width CV 14.6 % (11.6-14.6); RBC Distribution Width SD 51.5 fl (35.1-43.9); Red Blood Count 3.74 M/mm3 (4.2-5.4); White Blood Count 6.9 K/mm3 (4.4-11.0)
[2019-01-02 17:30] LABS: Vitamin D,25 Hydroxy 25.1 ng/mL (29.95-100.01)
[2019-01-02 17:42] LABS: ALB/GLOB Ratio 0.7 RATIO (0.9-2.4); AST(SGOT) 14 U/L (15-37); Alanine Aminotransfer ALT/SGPT 27 U/L (13-56); Albumin, Serum 3.1 g/dL (3.2-5.0); Alkaline Phosphatase 69 U/L (45-117); Anion Gap 11 (5-15); BUN 13 mg/dL (7-18); BUN/Creat Ratio 12.6 RATIO (10-20); Calcium,Total 8.8 mg/dL (8.5-10.1); Chloride 105 mmol/L (98-107); Creatinine, Serum 1.03 mg/dL (0.55-1.02); EST Glomerular Filtration Rate 60 mL/min (>60); Est Glom Filt Rate - Afr Amer 73 mL/min (>60); Globulin 4.4 g/dL (2.2-4.2); Glucose 52 mg/dL (74-106); Potassium 4.9 mmol/L (3.5-5.1); Protein, Total 7.5 g/dL (6.4-8.2); Sodium Level 138 mmol/L (136-145); Thyroid Stim Hormone (TSH) 1.48 uIU/mL (0.358-3.74)
== END ==
PROVIDERS: Family Provider Family Medicine Geriatric Medicine; PCP Family Medicine Geriatric Medicine; Visit Provider Family Medicine Geriatric Medicine
DX: E11.9 Type 2 diabetes mellitus without complications (principal); E55.9 Vitamin D deficiency, unspecified; I10 Essential (primary) hypertension
CPT/HCPCS: 36415; 80053; 82306; 84443; 85025

== ENCOUNTER 2019-01-10 09:29 | Outpatient (RCR) | payer MEDICARE, SELFPAY ==
[2018-09-19 13:26] VITALS: BMI 42.6
[2019-01-10 10:17] LABS: Absolute Neutrophil Count 3.7 X10^3/uL (2.0-7.7); Basophil# 0.02 X10^3/uL; Basophil% 0.3 % (0-1); Eosinophil# 0.21 X10^3/uL; Eosinophils% 3.1 % (0-5); Hematocrit 36.3 % (37-47); Lymphocyte % 29.7 % (19-41); Mean Corp Hgb Conc 33.1 g/dL (32-36); Mean Corpuscular Hgb 31.3 pg (27.0-32.0); Mean Corpuscular Volume 94.5 fL (81-99); Mean Platelet Vol. 9.8 fl (6.2-12.0); Monocyte# 0.77 X10^3/uL; Monocyte% 11.4 % (0-10); NRBC Flagged by Analyzer 0 % (0-5); Neutrophil # 3.68 X10^3/uL (2.7-7.7); Neutrophil % 54.8 % (47-70); Platelet Count 286 K/mm3 (150-450); RBC Distribution Width CV 14.6 % (11.6-14.6); RBC Distribution Width SD 50.7 fl (35.1-43.9); Red Blood Count 3.84 M/mm3 (4.2-5.4); White Blood Count 6.7 K/mm3 (4.4-11.0)
== END 2019-01-16 18:00 | disposition home or self-care (01) ==
LOC: LAB 09:29
PROVIDERS: Family Provider Family Medicine Geriatric Medicine; PCP Family Medicine Geriatric Medicine; Referring Provider Psychiatry & Neurology Psychiatry; Visit Provider Psychiatry & Neurology Psychiatry
DX: Z79.899 Other long term (current) drug therapy (principal)
CPT/HCPCS: 36415; 85025

== ENCOUNTER → 2019-01-24 08:39 | Outpatient (CLI) | payer MEDICARE, SELFPAY ==
[2018-09-19 13:26] VITALS: BMI 42.6
[2019-01-24 09:55] LABS: Absolute Lymphocyte Count 1.84 X10^3/uL (0.83-4.51); Absolute Neutrophil Count 3.5 X10^3/uL (2.0-7.7); Basophil# 0.02 X10^3/uL; Basophil% 0.3 % (0-1); Eosinophil# 0.19 X10^3/uL; Eosinophils% 3.1 % (0-5); Hematocrit 37.5 % (37-47); Hemoglobin 12.6 g/dL (12.0-15.0); Lymphocyte # 1.84 X10^3/ul (4.0); Mean Corp Hgb Conc 33.6 g/dL (32-36); Mean Corpuscular Hgb 31.8 pg (27.0-32.0); Mean Corpuscular Volume 94.7 fL (81-99); Monocyte# 0.52 X10^3/uL; Monocyte% 8.5 % (0-10); NRBC Flagged by Analyzer 0 % (0-5); Neutrophil # 3.53 X10^3/uL (2.7-7.7); Neutrophil % 57.6 % (47-70); Platelet Count 288 K/mm3 (150-450); RBC Distribution Width CV 14.5 % (11.6-14.6); RBC Distribution Width SD 50.5 fl (35.1-43.9); Red Blood Count 3.96 M/mm3 (4.2-5.4); White Blood Count 6.1 K/mm3 (4.4-11.0)
[2019-01-24 10:35] LABS: AST(SGOT) 17 U/L (15-37); Alanine Aminotransfer ALT/SGPT 24 U/L (13-56); Sodium Level 136 mmol/L (136-145)
[2019-01-24 10:37] LABS: Valproic Acid (Depakene) Level 45 ug/mL (50-100)
== END ==
PROVIDERS: Family Provider Family Medicine Geriatric Medicine; PCP Family Medicine Geriatric Medicine; Referring Provider Psychiatry & Neurology Psychiatry; Visit Provider Psychiatry & Neurology Psychiatry
DX: Z79.899 Other long term (current) drug therapy (principal)
CPT/HCPCS: 36415; 80164; 82140; 84295; 84450; 84460; 85025

== ENCOUNTER 2019-02-09 08:38 | Outpatient (RCR) | payer MEDICARE, SELFPAY ==
[2018-09-19 13:26] VITALS: BMI 42.6
[2019-02-09 09:25] LABS: Absolute Lymphocyte Count 1.64 X10^3/uL (0.83-4.51); Absolute Neutrophil Count 3.6 X10^3/uL (2.0-7.7); Basophil# 0.02 X10^3/uL; Basophil% 0.3 % (0-1); Eosinophils% 3.2 % (0-5); Hematocrit 37.1 % (37-47); Hemoglobin 12.2 g/dL (12.0-15.0); Lymphocyte # 1.64 X10^3/ul (4.0); Lymphocyte % 26.2 % (19-41); Mean Corp Hgb Conc 32.9 g/dL (32-36); Mean Corpuscular Hgb 31.5 pg (27.0-32.0); Mean Corpuscular Volume 95.9 fL (81-99); Mean Platelet Vol. 9.7 fl (6.2-12.0); Monocyte# 0.82 X10^3/uL; Monocyte% 13.1 % (0-10); NRBC Flagged by Analyzer 0 % (0-5); Neutrophil # 3.55 X10^3/uL (2.7-7.7); Neutrophil % 56.6 % (47-70); Platelet Count 273 K/mm3 (150-450); RBC Distribution Width CV 14.8 % (11.6-14.6); RBC Distribution Width SD 52.5 fl (35.1-43.9); Red Blood Count 3.87 M/mm3 (4.2-5.4); White Blood Count 6.3 K/mm3 (4.4-11.0)
== END 2019-02-09 18:00 | disposition home or self-care (01) ==
LOC: LAB 08:38
PROVIDERS: Family Provider Family Medicine Geriatric Medicine; PCP Family Medicine Geriatric Medicine; Referring Provider Psychiatry & Neurology Psychiatry; Visit Provider Psychiatry & Neurology Psychiatry
DX: Z79.899 Other long term (current) drug therapy (principal)
CPT/HCPCS: 36415; 85025

== ENCOUNTER → 2019-02-15 13:19 | Outpatient (CLI) | payer MEDICARE, SELFPAY ==
[2018-09-19 13:26] VITALS: BMI 42.6
--- NOTE | 2019-02-15 13:23 | BI_ITS ---
MAMMOGRAPHY - BILATERAL SCREENING REASON FOR EXAM: Female, 48 years old. Routine annual screening examination. PERTINENT HISTORY: Non-contributory. TECHNIQUE: Digital bilateral breast giovana (3D mammographic acquisition) in the CC and MLO projections. 2-D mediolateral oblique (MLO) and craniocaudad (CC) views of both breasts were obtained. CAD: Full Field Digital Mammography with Computer Added Detection was performed. COMPARISON: Comparison is made with prior study dated January 13, 2018 and December 11, 2016. FINDINGS: Breast Composition: There are scattered areas of fibroglandular density. There are no dominant masses or suspicious calcifications. No other significant abnormalities are identified. There has been no significant change since the prior study. BI/SCREEN MAMM (CAD) W/GIOVANA BILAT IMPRESSION: Stable bilateral screening mammogram. Yearly follow-up mammogram recommended. (A) ASSESSMENT CATEGORY: BIRADS Category 1: Negative. A letter regarding these results will be sent to the patient by the facility within 30 days. Approximately 10% of breast cancers are not detected by mammography. A normal mammogram should not delay biopsy of a clinically suspicious abnormality. [id number] Electronically Signed: Michele Rhodes, at 15:33 EDT , Service support ,
== END ==
PROVIDERS: Family Provider Family Medicine Geriatric Medicine; PCP Family Medicine Geriatric Medicine; Referring Provider Family Medicine Geriatric Medicine; Visit Provider Family Medicine Geriatric Medicine
DX: Z12.31 Encounter for screening mammogram for malignant neoplasm of breast (principal)
CPT/HCPCS: 77063; 77067

== ENCOUNTER 2019-03-07 09:20 | Outpatient (RCR) | payer MEDICARE, SELFPAY ==
[2018-09-19 13:26] VITALS: BMI 42.6
[2019-03-07 10:29] LABS: Absolute Lymphocyte Count 1.96 X10^3/uL (0.83-4.51); Absolute Neutrophil Count 3.1 X10^3/uL (2.0-7.7); Basophil# 0.03 X10^3/uL; Basophil% 0.5 % (0-1); Eosinophil# 0.21 X10^3/uL; Eosinophils% 3.6 % (0-5); Hematocrit 37.3 % (37-47); Hemoglobin 12.1 g/dL (12.0-15.0); Lymphocyte # 1.96 X10^3/ul (4.0); Lymphocyte % 33.2 % (19-41); Mean Corp Hgb Conc 32.4 g/dL (32-36); Mean Corpuscular Hgb 30.9 pg (27.0-32.0); Mean Corpuscular Volume 95.2 fL (81-99); Mean Platelet Vol. 9.7 fl (6.2-12.0); Monocyte# 0.62 X10^3/uL; Monocyte% 10.5 % (0-10); NRBC Flagged by Analyzer 0 % (0-5); Neutrophil # 3.07 X10^3/uL (2.7-7.7); Neutrophil % 51.9 % (47-70); Platelet Count 282 K/mm3 (150-450); RBC Distribution Width CV 14.7 % (11.6-14.6); RBC Distribution Width SD 51.4 fl (35.1-43.9); Red Blood Count 3.92 M/mm3 (4.2-5.4); White Blood Count 5.9 K/mm3 (4.4-11.0)
== END 2019-03-07 18:00 | disposition home or self-care (01) ==
LOC: LAB 09:20
PROVIDERS: Family Provider Family Medicine Geriatric Medicine; PCP Family Medicine Geriatric Medicine; Referring Provider Psychiatry & Neurology Psychiatry; Visit Provider Psychiatry & Neurology Psychiatry
DX: Z79.899 Other long term (current) drug therapy (principal)
CPT/HCPCS: 36415; 85025

== ENCOUNTER → 2019-03-14 13:05 | Outpatient (CLI) | payer MEDICARE, SELFPAY ==
[2018-09-19 13:26] VITALS: BMI 42.6
--- NOTE | 2019-03-14 14:33 | PFTCOMP_ITS ---
COMPLETE PULMONARY FUNCTION TEST INTERPRETATION Brief HPI: Patient is a 48 year old -Russian female, currently under the care of myself, who presents to [facility] for complete pulmonary function tests secondary to diagnosis of asthma. Respiratory therapist reports good effort and reproducible results. Interpretation: Forced expiration spirometry shows no large airways obstructive ventilatory defect with an FEV1 of 77% predicted. There is no significant bronchodilator response by strict ATS criteria. Spirograms are of good quality and plateau normally. The respiratory flow volume loop shows a normal pattern. Lung volumes by body plethysmography show a normal total lung capacity at 5 L, 90% predicted. FRC and RV are elevated out of proportion. Lung volume measurements are consistent with air-trapping. Diffusion capacity by carbon monoxide is at the lower limit of normal at 72% predicted. The airway resistance is normal. Compared to previous pulmonary function tests from 03/18/2017, there is been a significant improvement in lung volumes by 24%. Impression: These pulmonary function tests are grossly within normal limits. There has been improvement compared to previous testing.
== END ==
PROVIDERS: Family Provider Family Medicine Geriatric Medicine; PCP Family Medicine Geriatric Medicine; Referring Provider Nurse Practitioner Acute Care; Visit Provider Nurse Practitioner Acute Care
DX: J45.909 Unspecified asthma, uncomplicated (principal)
CPT/HCPCS: 94060; 94726; 94729

== ENCOUNTER 2019-03-30 09:23 | Outpatient (RCR) | payer MEDICARE, SELFPAY ==
[2018-09-19 13:26] VITALS: BMI 42.6
[2019-03-30 09:59] LABS: Absolute Lymphocyte Count 1.94 X10^3/uL (0.83-4.51); Absolute Neutrophil Count 3.4 X10^3/uL (2.0-7.7); Basophil# 0.02 X10^3/uL; Basophil% 0.3 % (0-1); Eosinophil# 0.23 X10^3/uL; Eosinophils% 3.7 % (0-5); Hematocrit 37.7 % (37-47); Hemoglobin 12.4 g/dL (12.0-15.0); Lymphocyte # 1.94 X10^3/ul (4.0); Mean Corp Hgb Conc 32.9 g/dL (32-36); Mean Corpuscular Hgb 31.2 pg (27.0-32.0); Mean Platelet Vol. 9.5 fl (6.2-12.0); Monocyte# 0.68 X10^3/uL; Monocyte% 10.9 % (0-10); NRBC Flagged by Analyzer 0 % (0-5); Neutrophil # 3.35 X10^3/uL (2.7-7.7); Neutrophil % 53.6 % (47-70); Platelet Count 284 K/mm3 (150-450); RBC Distribution Width CV 14.4 % (11.6-14.6); RBC Distribution Width SD 50.1 fl (35.1-43.9); Red Blood Count 3.97 M/mm3 (4.2-5.4); White Blood Count 6.3 K/mm3 (4.4-11.0)
== END 2019-03-30 18:00 | disposition home or self-care (01) ==
LOC: LAB 09:23
PROVIDERS: Family Provider Family Medicine Geriatric Medicine; PCP Family Medicine Geriatric Medicine; Referring Provider Psychiatry & Neurology Psychiatry; Visit Provider Psychiatry & Neurology Psychiatry
DX: Z79.899 Other long term (current) drug therapy (principal)
CPT/HCPCS: 36415; 85025

== ENCOUNTER 2019-04-26 08:53 | Outpatient (RCR) | payer MEDICAID, SELFPAY ==
[2019-04-05 06:29] VITALS: BMI 43.2
[2019-04-26 10:01] LABS: Basophil# 0.02 X10^3/uL; Basophil% 0.4 % (0-1); Eosinophil# 0.21 X10^3/uL; Eosinophils% 4.1 % (0-5); Hematocrit 38.7 % (37-47); Hemoglobin 12.4 g/dL (12.0-15.0); Lymphocyte % 21.6 % (19-41); Mean Corpuscular Hgb 30.8 pg (27.0-32.0); Mean Corpuscular Volume 96.3 fL (81-99); Mean Platelet Vol. 9.8 fl (6.2-12.0); Monocyte# 0.71 X10^3/uL; Monocyte% 13.9 % (0-10); NRBC Flagged by Analyzer 0 % (0-5); Neutrophil # 3.04 X10^3/uL (2.7-7.7); Neutrophil % 59.6 % (47-70); Platelet Count 253 K/mm3 (150-450); RBC Distribution Width CV 14.5 % (11.6-14.6); RBC Distribution Width SD 51.4 fl (35.1-43.9); Red Blood Count 4.02 M/mm3 (4.2-5.4); White Blood Count 5.1 K/mm3 (4.4-11.0)
== END 2019-04-26 18:00 | disposition home or self-care (01) ==
LOC: LAB 08:53
PROVIDERS: Family Provider Family Medicine Geriatric Medicine; PCP Family Medicine Geriatric Medicine; Referring Provider Psychiatry & Neurology Psychiatry; Visit Provider Psychiatry & Neurology Psychiatry
DX: Z79.899 Other long term (current) drug therapy (principal)
CPT/HCPCS: 36415; 85025

== ENCOUNTER 2019-05-23 09:28 | Outpatient (RCR) | payer MEDICAID, SELFPAY ==
[2019-04-05 06:29] VITALS: BMI 43.2
[2019-05-23 10:49] LABS: Absolute Lymphocyte Count 2.34 X10^3/uL (0.83-4.51); Absolute Neutrophil Count 2.6 X10^3/uL (2.0-7.7); Basophil# 0.02 X10^3/uL; Basophil% 0.3 % (0-1); Eosinophil# 0.19 X10^3/uL; Eosinophils% 3.2 % (0-5); Hematocrit 38.6 % (37-47); Hemoglobin 12.5 g/dL (12.0-15.0); Lymphocyte # 2.34 X10^3/ul (4.0); Lymphocyte % 39.7 % (19-41); Mean Corp Hgb Conc 32.4 g/dL (32-36); Mean Corpuscular Hgb 30.7 pg (27.0-32.0); Mean Corpuscular Volume 94.8 fL (81-99); Mean Platelet Vol. 9.9 fl (6.2-12.0); Monocyte% 11.9 % (0-10); NRBC Flagged by Analyzer 0 % (0-5); Neutrophil # 2.62 X10^3/uL (2.7-7.7); Neutrophil % 44.4 % (47-70); Platelet Count 279 K/mm3 (150-450); RBC Distribution Width CV 14.4 % (11.6-14.6); RBC Distribution Width SD 50.6 fl (35.1-43.9); Red Blood Count 4.07 M/mm3 (4.2-5.4); White Blood Count 5.9 K/mm3 (4.4-11.0)
== END 2019-05-23 18:00 | disposition home or self-care (01) ==
LOC: LAB 09:28
PROVIDERS: Family Provider Family Medicine Geriatric Medicine; PCP Family Medicine Geriatric Medicine; Referring Provider Psychiatry & Neurology Psychiatry; Visit Provider Psychiatry & Neurology Psychiatry
DX: Z79.899 Other long term (current) drug therapy (principal)
CPT/HCPCS: 36415; 85025

== ENCOUNTER → 2019-07-05 10:11 | Outpatient (CLI) | payer MEDICAID, SELFPAY ==
[2019-06-13 14:56] VITALS: BMI 43.2
[2019-07-05 12:16] LABS: Absolute Lymphocyte Count 1.84 X10^3/uL (0.83-4.51); Absolute Neutrophil Count 3.5 X10^3/uL (2.0-7.7); Basophil# 0.02 X10^3/uL; Basophil% 0.3 % (0-1); Eosinophil# 0.15 X10^3/uL; Eosinophils% 2.4 % (0-5); Hematocrit 36.5 % (37-47); Hemoglobin 11.9 g/dL (12.0-15.0); Lymphocyte # 1.84 X10^3/ul (4.0); Lymphocyte % 29.4 % (19-41); Mean Corp Hgb Conc 32.6 g/dL (32-36); Mean Corpuscular Hgb 30.7 pg (27.0-32.0); Mean Corpuscular Volume 94.3 fL (81-99); Mean Platelet Vol. 9.9 fl (6.2-12.0); Monocyte% 11.2 % (0-10); NRBC Flagged by Analyzer 0 % (0-5); Neutrophil # 3.48 X10^3/uL (2.7-7.7); Neutrophil % 55.6 % (47-70); Platelet Count 320 K/mm3 (150-450); RBC Distribution Width CV 14.4 % (11.6-14.6); RBC Distribution Width SD 49.3 fl (35.1-43.9); Red Blood Count 3.87 M/mm3 (4.2-5.4); White Blood Count 6.3 K/mm3 (4.4-11.0)
[2019-07-05 12:50] LABS: ALB/GLOB Ratio 0.6 RATIO (0.9-2.4); AST(SGOT) 17 U/L (15-37); Alanine Aminotransfer ALT/SGPT 25 U/L (13-56); Albumin, Serum 3.1 g/dL (3.2-5.0); Alkaline Phosphatase 69 U/L (45-117); Anion Gap 5 (5-15); BUN 14 mg/dL (7-18); BUN/Creat Ratio 12.8 RATIO (10-20); Calcium,Total 8.7 mg/dL (8.5-10.1); Chloride 102 mmol/L (98-107); Creatinine, Serum 1.09 mg/dL (0.55-1.02); EST Glomerular Filtration Rate 56 mL/min (>60); Est Glom Filt Rate - Afr Amer 68 mL/min (>60); Globulin 4.9 g/dL (2.2-4.2); Glucose 123 mg/dL (74-106); Potassium 4.3 mmol/L (3.5-5.1); Sodium Level 133 mmol/L (136-145); Thyroid Stim Hormone (TSH) 1.19 uIU/mL (0.358-3.74)
== END ==
PROVIDERS: PCP Family Medicine Geriatric Medicine; Visit Provider Family Medicine Geriatric Medicine
DX: E11.9 Type 2 diabetes mellitus without complications (principal); I10 Essential (primary) hypertension
CPT/HCPCS: 36415; 80053; 84443; 85025

== ENCOUNTER 2019-07-18 08:48 | Outpatient (RCR) | payer MEDICAID, SELFPAY ==
[2019-06-13 14:56] VITALS: BMI 43.2
[2019-06-20 09:48] LABS: Absolute Lymphocyte Count 2.09 X10^3/uL (0.83-4.51); Absolute Neutrophil Count 3.4 X10^3/uL (2.0-7.7); Basophil# 0.02 X10^3/uL; Basophil% 0.3 % (0-1); Eosinophil# 0.29 X10^3/uL; Eosinophils% 4.4 % (0-5); Hematocrit 37.7 % (37-47); Hemoglobin 12.1 g/dL (12.0-15.0); Lymphocyte # 2.09 X10^3/ul (4.0); Mean Corp Hgb Conc 32.1 g/dL (32-36); Mean Corpuscular Hgb 30.5 pg (27.0-32.0); Mean Platelet Vol. 9.6 fl (6.2-12.0); Monocyte# 0.72 X10^3/uL; NRBC Flagged by Analyzer 0 % (0-5); Neutrophil # 3.39 X10^3/uL (2.7-7.7); Neutrophil % 51.8 % (47-70); Platelet Count 262 K/mm3 (150-450); RBC Distribution Width CV 14.5 % (11.6-14.6); RBC Distribution Width SD 50.5 fl (35.1-43.9); Red Blood Count 3.97 M/mm3 (4.2-5.4); White Blood Count 6.5 K/mm3 (4.4-11.0)
[2019-07-18 09:15] LABS: Absolute Lymphocyte Count 1.67 X10^3/uL (0.83-4.51); Absolute Neutrophil Count 2.6 X10^3/uL (2.0-7.7); Basophil# 0.02 X10^3/uL; Basophil% 0.4 % (0-1); Eosinophil# 0.14 X10^3/uL; Eosinophils% 2.8 % (0-5); Hematocrit 36.6 % (37-47); Hemoglobin 12.2 g/dL (12.0-15.0); Lymphocyte # 1.67 X10^3/ul (4.0); Lymphocyte % 33.7 % (19-41); Mean Corp Hgb Conc 33.3 g/dL (32-36); Mean Corpuscular Hgb 32.1 pg (27.0-32.0); Mean Corpuscular Volume 96.3 fL (81-99); Mean Platelet Vol. 9.9 fl (6.2-12.0); Monocyte# 0.54 X10^3/uL; Monocyte% 10.9 % (0-10); NRBC Flagged by Analyzer 0 % (0-5); Neutrophil # 2.56 X10^3/uL (2.7-7.7); Neutrophil % 51.8 % (47-70); Platelet Count 229 K/mm3 (150-450); RBC Distribution Width CV 14.6 % (11.6-14.6); RBC Distribution Width SD 50.8 fl (35.1-43.9)
== END 2019-07-18 18:00 | disposition home or self-care (01) ==
LOC: LAB 08:48
PROVIDERS: Family Provider Family Medicine Geriatric Medicine; PCP Family Medicine Geriatric Medicine; Referring Provider Psychiatry & Neurology Psychiatry; Visit Provider Psychiatry & Neurology Psychiatry
DX: Z79.899 Other long term (current) drug therapy (principal)
CPT/HCPCS: 36415; 85025

== ENCOUNTER 2019-08-15 09:05 | Outpatient (RCR) | payer MEDICAID, SELFPAY ==
[2019-06-13 14:56] VITALS: BMI 43.2
[2019-08-15 10:16] LABS: Absolute Lymphocyte Count 2.11 X10^3/uL (0.83-4.51); Absolute Neutrophil Count 3.3 X10^3/uL (2.0-7.7); Basophil# 0.02 X10^3/uL; Basophil% 0.3 % (0-1); Eosinophil# 0.23 X10^3/uL; Eosinophils% 3.6 % (0-5); Hematocrit 36.4 % (37-47); Hemoglobin 11.7 g/dL (12.0-15.0); Lymphocyte # 2.11 X10^3/ul (4.0); Lymphocyte % 33.4 % (19-41); Mean Corp Hgb Conc 32.1 g/dL (32-36); Mean Corpuscular Hgb 30.5 pg (27.0-32.0); Mean Corpuscular Volume 94.8 fL (81-99); Mean Platelet Vol. 9.8 fl (6.2-12.0); Monocyte# 0.62 X10^3/uL; Monocyte% 9.8 % (0-10); NRBC Flagged by Analyzer 0 % (0-5); Neutrophil % 52.4 % (47-70); Platelet Count 285 K/mm3 (150-450); RBC Distribution Width CV 14.6 % (11.6-14.6); RBC Distribution Width SD 50.4 fl (35.1-43.9); Red Blood Count 3.84 M/mm3 (4.2-5.4); White Blood Count 6.3 K/mm3 (4.4-11.0)
== END 2019-08-17 18:00 | disposition home or self-care (01) ==
LOC: LAB 09:05
PROVIDERS: Family Provider Family Medicine Geriatric Medicine; PCP Family Medicine Geriatric Medicine; Referring Provider Psychiatry & Neurology Psychiatry; Visit Provider Psychiatry & Neurology Psychiatry
DX: Z79.899 Other long term (current) drug therapy (principal)
CPT/HCPCS: 36415; 85025

== ENCOUNTER 2019-09-12 08:54 | Outpatient (RCR) | payer MEDICAID, SELFPAY ==
[2019-06-13 14:56] VITALS: BMI 43.2
[2019-09-12 09:17] LABS: Absolute Lymphocyte Count 1.82 X10^3/uL (0.83-4.51); Absolute Neutrophil Count 2.9 X10^3/uL (2.0-7.7); Basophil# 0.03 X10^3/uL; Basophil% 0.5 % (0-1); Eosinophil# 0.26 X10^3/uL; Eosinophils% 4.6 % (0-5); Hematocrit 35.9 % (37-47); Hemoglobin 11.6 g/dL (12.0-15.0); Lymphocyte # 1.82 X10^3/ul (4.0); Lymphocyte % 32.5 % (19-41); Mean Corp Hgb Conc 32.3 g/dL (32-36); Mean Corpuscular Hgb 30.9 pg (27.0-32.0); Mean Corpuscular Volume 95.7 fL (81-99); Mean Platelet Vol. 9.3 fl (6.2-12.0); Monocyte# 0.55 X10^3/uL; Monocyte% 9.8 % (0-10); NRBC Flagged by Analyzer 0 % (0-5); Neutrophil # 2.92 X10^3/uL (2.7-7.7); Neutrophil % 52.2 % (47-70); Platelet Count 248 K/mm3 (150-450); RBC Distribution Width CV 14.5 % (11.6-14.6); RBC Distribution Width SD 50.5 fl (35.1-43.9); Red Blood Count 3.75 M/mm3 (4.2-5.4); White Blood Count 5.6 K/mm3 (4.4-11.0)
== END 2019-09-12 18:00 | disposition home or self-care (01) ==
LOC: LAB 08:54
PROVIDERS: Family Provider Family Medicine Geriatric Medicine; PCP Family Medicine Geriatric Medicine; Referring Provider Psychiatry & Neurology Psychiatry; Visit Provider Psychiatry & Neurology Psychiatry
DX: Z79.899 Other long term (current) drug therapy (principal)
CPT/HCPCS: 36415; 85025

== ENCOUNTER 2019-10-11 09:29 | Outpatient (RCR) | payer MEDICAID, SELFPAY ==
[2019-06-13 14:56] VITALS: BMI 43.2
[2019-10-11 09:49] LABS: Absolute Lymphocyte Count 2.32 X10^3/uL (0.83-4.51); Absolute Neutrophil Count 3.4 X10^3/uL (2.0-7.7); Basophil# 0.02 X10^3/uL; Basophil% 0.3 % (0-1); Eosinophil# 0.21 X10^3/uL; Eosinophils% 3.1 % (0-5); Hematocrit 35.9 % (37-47); Hemoglobin 11.6 g/dL (12.0-15.0); Lymphocyte # 2.32 X10^3/ul (4.0); Mean Corp Hgb Conc 32.3 g/dL (32-36); Mean Corpuscular Hgb 31.4 pg (27.0-32.0); Mean Platelet Vol. 9.4 fl (6.2-12.0); Monocyte# 0.85 X10^3/uL; Monocyte% 12.5 % (0-10); NRBC Flagged by Analyzer 0 % (0-5); Neutrophil # 3.38 X10^3/uL (2.7-7.7); Neutrophil % 49.5 % (47-70); Platelet Count 252 K/mm3 (150-450); RBC Distribution Width CV 14.6 % (11.6-14.6); RBC Distribution Width SD 52.2 fl (35.1-43.9); White Blood Count 6.8 K/mm3 (4.4-11.0)
== END 2019-10-11 18:00 | disposition home or self-care (01) ==
LOC: LAB 09:29
PROVIDERS: Family Provider Family Medicine Geriatric Medicine; PCP Family Medicine Geriatric Medicine; Referring Provider Psychiatry & Neurology Psychiatry; Visit Provider Psychiatry & Neurology Psychiatry
DX: Z79.899 Other long term (current) drug therapy (principal)
CPT/HCPCS: 36415; 85025

== ENCOUNTER → 2019-10-19 16:11 | Outpatient (CLI) | payer MEDICAID, SELFPAY ==
[2019-06-13 14:56] VITALS: BMI 43.2
[2019-10-19 17:55] LABS: Absolute Lymphocyte Count 2.89 X10^3/uL (0.83-4.51); Absolute Neutrophil Count 3.7 X10^3/uL (2.0-7.7); Basophil# 0.02 X10^3/uL; Basophil% 0.3 % (0-1); Eosinophil# 0.27 X10^3/uL; Eosinophils% 3.6 % (0-5); Hematocrit 36.8 % (37-47); Hemoglobin 11.7 g/dL (12.0-15.0); Lymphocyte # 2.89 X10^3/ul (4.0); Lymphocyte % 38.1 % (19-41); Mean Corp Hgb Conc 31.8 g/dL (32-36); Mean Corpuscular Volume 100.5 fL (81-99); Mean Platelet Vol. 9.4 fl (6.2-12.0); Monocyte# 0.69 X10^3/uL; Monocyte% 9.1 % (0-10); NRBC Flagged by Analyzer 0 % (0-5); Neutrophil % 48.6 % (47-70); Platelet Count 250 K/mm3 (150-450); RBC Distribution Width CV 14.6 % (11.6-14.6); RBC Distribution Width SD 54.3 fl (35.1-43.9); Red Blood Count 3.66 M/mm3 (4.2-5.4); White Blood Count 7.6 K/mm3 (4.4-11.0)
[2019-10-19 18:59] LABS: ALB/GLOB Ratio 0.6 RATIO (0.9-2.4); AST(SGOT) 11 U/L (15-37); Alanine Aminotransfer ALT/SGPT 22 U/L (13-56); Albumin, Serum 3.1 g/dL (3.2-5.0); Alkaline Phosphatase 67 U/L (45-117); Anion Gap 8 (5-15); BUN 15 mg/dL (7-18); BUN/Creat Ratio 14.9 RATIO (10-20); Calcium,Total 8.4 mg/dL (8.5-10.1); Chloride 105 mmol/L (98-107); Creatinine, Serum 1.01 mg/dL (0.55-1.02); EST Glomerular Filtration Rate 61 mL/min (>60); Est Glom Filt Rate - Afr Amer 74 mL/min (>60); Globulin 4.9 g/dL (2.2-4.2); Glucose 62 mg/dL (74-106); Potassium 4.4 mmol/L (3.5-5.1); Sodium Level 138 mmol/L (136-145); Thyroid Stim Hormone (TSH) 1.84 uIU/mL (0.358-3.74)
== END ==
PROVIDERS: PCP Family Medicine Geriatric Medicine; Visit Provider Family Medicine Geriatric Medicine
DX: F63.89 Other impulse disorders (principal)
CPT/HCPCS: 36415; 80053; 84443; 85025

== ENCOUNTER 2019-11-07 08:57 | Outpatient (RCR) | payer MEDICAID, SELFPAY ==
[2019-06-13 14:56] VITALS: BMI 43.2
[2019-11-07 09:22] LABS: Absolute Lymphocyte Count 2.07 X10^3/uL (0.83-4.51); Absolute Neutrophil Count 3.3 X10^3/uL (2.0-7.7); Basophil# 0.02 X10^3/uL; Basophil% 0.3 % (0-1); Eosinophils% 3.2 % (0-5); Hemoglobin 11.8 g/dL (12.0-15.0); Lymphocyte # 2.07 X10^3/ul (4.0); Lymphocyte % 33.1 % (19-41); Mean Corp Hgb Conc 32.8 g/dL (32-36); Mean Corpuscular Hgb 31.7 pg (27.0-32.0); Mean Corpuscular Volume 96.8 fL (81-99); Mean Platelet Vol. 9.5 fl (6.2-12.0); Monocyte# 0.63 X10^3/uL; Monocyte% 10.1 % (0-10); NRBC Flagged by Analyzer 0 % (0-5); Neutrophil # 3.32 X10^3/uL (2.7-7.7); Platelet Count 267 K/mm3 (150-450); RBC Distribution Width CV 14.4 % (11.6-14.6); RBC Distribution Width SD 51.2 fl (35.1-43.9); Red Blood Count 3.72 M/mm3 (4.2-5.4); White Blood Count 6.3 K/mm3 (4.4-11.0)
== END 2019-11-07 18:00 | disposition home or self-care (01) ==
LOC: LAB 08:57
PROVIDERS: Family Provider Family Medicine Geriatric Medicine; PCP Family Medicine Geriatric Medicine; Referring Provider Psychiatry & Neurology Psychiatry; Visit Provider Psychiatry & Neurology Psychiatry
DX: Z79.899 Other long term (current) drug therapy (principal)
CPT/HCPCS: 36415; 85025

== ENCOUNTER 2019-12-05 08:31 | Outpatient (RCR) | payer MEDICAID, SELFPAY ==
[2019-06-13 14:56] VITALS: BMI 43.2
[2019-12-05 08:58] LABS: Absolute Lymphocyte Count 2.24 X10^3/uL (0.83-4.51); Absolute Neutrophil Count 3.4 X10^3/uL (2.0-7.7); Basophil# 0.03 X10^3/uL; Basophil% 0.4 % (0-1); Eosinophil# 0.27 X10^3/uL; Hemoglobin 11.7 g/dL (12.0-15.0); Lymphocyte # 2.24 X10^3/ul (4.0); Lymphocyte % 33.3 % (19-41); Mean Corp Hgb Conc 32.5 g/dL (32-36); Mean Corpuscular Volume 95.2 fL (81-99); Mean Platelet Vol. 9.7 fl (6.2-12.0); Monocyte# 0.73 X10^3/uL; Monocyte% 10.8 % (0-10); NRBC Flagged by Analyzer 0 % (0-5); Neutrophil # 3.43 X10^3/uL (2.7-7.7); Neutrophil % 51.1 % (47-70); Platelet Count 256 K/mm3 (150-450); RBC Distribution Width CV 14.6 % (11.6-14.6); RBC Distribution Width SD 51.6 fl (35.1-43.9); Red Blood Count 3.78 M/mm3 (4.2-5.4); White Blood Count 6.7 K/mm3 (4.4-11.0)
== END 2019-12-18 18:00 | disposition home or self-care (01) ==
LOC: LAB 08:31
PROVIDERS: Family Provider Family Medicine Geriatric Medicine; PCP Family Medicine Geriatric Medicine; Referring Provider Psychiatry & Neurology Psychiatry; Visit Provider Psychiatry & Neurology Psychiatry
DX: Z79.899 Other long term (current) drug therapy (principal)
CPT/HCPCS: 36415; 85025

== ENCOUNTER 2020-01-01 09:05 | Outpatient (RCR) | payer MEDICAID, SELFPAY ==
[2019-06-13 14:56] VITALS: BMI 43.2
[2020-01-01 10:26] LABS: Absolute Lymphocyte Count 2.23 X10^3/uL (0.83-4.51); Absolute Neutrophil Count 3.1 X10^3/uL (2.0-7.7); Basophil# 0.01 X10^3/uL; Basophil% 0.2 % (0-1); Eosinophil# 0.17 X10^3/uL; Eosinophils% 2.8 % (0-5); Hematocrit 35.4 % (37-47); Hemoglobin 11.6 g/dL (12.0-15.0); Lymphocyte # 2.23 X10^3/ul (4.0); Lymphocyte % 36.3 % (19-41); Mean Corp Hgb Conc 32.8 g/dL (32-36); Mean Corpuscular Hgb 31.2 pg (27.0-32.0); Mean Corpuscular Volume 95.2 fL (81-99); Mean Platelet Vol. 10.1 fl (6.2-12.0); Monocyte# 0.61 X10^3/uL; Monocyte% 9.9 % (0-10); NRBC Flagged by Analyzer 0 % (0-5); Neutrophil # 3.09 X10^3/uL (2.7-7.7); Neutrophil % 50.1 % (47-70); Platelet Count 262 K/mm3 (150-450); RBC Distribution Width CV 14.4 % (11.6-14.6); RBC Distribution Width SD 50.1 fl (35.1-43.9); Red Blood Count 3.72 M/mm3 (4.2-5.4); White Blood Count 6.2 K/mm3 (4.4-11.0)
== END 2020-01-01 18:00 | disposition home or self-care (01) ==
LOC: LAB 09:05
PROVIDERS: Family Provider Family Medicine Geriatric Medicine; PCP Family Medicine Geriatric Medicine; Referring Provider Psychiatry & Neurology Psychiatry; Visit Provider Psychiatry & Neurology Psychiatry
DX: Z79.899 Other long term (current) drug therapy (principal)
CPT/HCPCS: 36415; 85025

== ENCOUNTER → 2020-01-05 09:46 | Outpatient (CLI) | payer MEDICAID, SELFPAY ==
[2019-06-13 14:56] VITALS: BMI 43.2
[2020-01-05 12:33] LABS: Absolute Lymphocyte Count 1.95 X10^3/uL (0.83-4.51); Basophil# 0.02 X10^3/uL; Basophil% 0.3 % (0-1); Eosinophil# 0.21 X10^3/uL; Eosinophils% 2.9 % (0-5); Hematocrit 34.8 % (37-47); Hemoglobin 11.4 g/dL (12.0-15.0); Lymphocyte # 1.95 X10^3/ul (4.0); Lymphocyte % 26.9 % (19-41); Mean Corp Hgb Conc 32.8 g/dL (32-36); Mean Corpuscular Hgb 31.5 pg (27.0-32.0); Mean Corpuscular Volume 96.1 fL (81-99); Mean Platelet Vol. 10.3 fl (6.2-12.0); Monocyte# 0.97 X10^3/uL; Monocyte% 13.4 % (0-10); NRBC Flagged by Analyzer 0 % (0-5); Neutrophil # 4.01 X10^3/uL (2.7-7.7); Neutrophil % 55.4 % (47-70); Platelet Count 263 K/mm3 (150-450); RBC Distribution Width CV 14.7 % (11.6-14.6); RBC Distribution Width SD 52.4 fl (35.1-43.9); Red Blood Count 3.62 M/mm3 (4.2-5.4); White Blood Count 7.2 K/mm3 (4.4-11.0)
[2020-01-05 13:06] LABS: ALB/GLOB Ratio 0.6 RATIO (0.9-2.4); AST(SGOT) 14 U/L (15-37); Alanine Aminotransfer ALT/SGPT 21 U/L (13-56); Albumin, Serum 2.9 g/dL (3.2-5.0); Alkaline Phosphatase 71 U/L (45-117); Anion Gap 10 (5-15); BUN 18 mg/dL (7-18); BUN/Creat Ratio 15.3 RATIO (10-20); Calcium,Total 8.6 mg/dL (8.5-10.1); Chloride 106 mmol/L (98-107); Creatinine, Serum 1.18 mg/dL (0.55-1.02); EST Glomerular Filtration Rate 51 mL/min (>60); Est Glom Filt Rate - Afr Amer 62 mL/min (>60); Globulin 4.7 g/dL (2.2-4.2); Glucose 76 mg/dL (74-106); Potassium 4.9 mmol/L (3.5-5.1); Protein, Total 7.6 g/dL (6.4-8.2); Sodium Level 136 mmol/L (136-145); Thyroid Stim Hormone (TSH) 1.72 uIU/mL (0.358-3.74)
== END ==
PROVIDERS: PCP Family Medicine Geriatric Medicine; Visit Provider Family Medicine Geriatric Medicine
DX: I10 Essential (primary) hypertension (principal); E11.9 Type 2 diabetes mellitus without complications
CPT/HCPCS: 36415; 80053; 84443; 85025

== ENCOUNTER → 2020-01-12 07:43 | Outpatient (CLI) | payer MEDICAID, SELFPAY ==
[2019-06-13 14:56] VITALS: BMI 43.2
[2020-01-12 08:02] LABS: Platelet Count 282 K/mm3 (150-450)
[2020-01-12 08:27] LABS: Valproic Acid (Depakene) Level 58 ug/mL (50-100)
[2020-01-12 08:29] LABS: AST(SGOT) 14 U/L (15-37); Alanine Aminotransfer ALT/SGPT 20 U/L (13-56); Sodium Level 132 mmol/L (136-145)
== END ==
PROVIDERS: PCP Family Medicine Geriatric Medicine; Referring Provider Psychiatry & Neurology Psychiatry; Visit Provider Psychiatry & Neurology Psychiatry
DX: Z79.899 Other long term (current) drug therapy (principal)
CPT/HCPCS: 36415; 80164; 82140; 84295; 84450; 84460; 85049

== ENCOUNTER 2020-01-30 08:55 | Outpatient (RCR) | payer MEDICAID, SELFPAY ==
[2019-06-13 14:56] VITALS: BMI 43.2
[2020-01-30 10:07] LABS: Absolute Lymphocyte Count 2.27 X10^3/uL (0.83-4.51); Absolute Neutrophil Count 2.8 X10^3/uL (2.0-7.7); Basophil# 0.02 X10^3/uL; Basophil% 0.3 % (0-1); Eosinophil# 0.18 X10^3/uL; Hematocrit 35.9 % (37-47); Hemoglobin 11.3 g/dL (12.0-15.0); Lymphocyte # 2.27 X10^3/ul (4.0); Lymphocyte % 38.2 % (19-41); Mean Corp Hgb Conc 31.5 g/dL (32-36); Mean Corpuscular Hgb 30.5 pg (27.0-32.0); Mean Platelet Vol. 9.8 fl (6.2-12.0); Monocyte# 0.63 X10^3/uL; Monocyte% 10.6 % (0-10); NRBC Flagged by Analyzer 0 % (0-5); Neutrophil # 2.81 X10^3/uL (2.7-7.7); Neutrophil % 47.2 % (47-70); Platelet Count 278 K/mm3 (150-450); RBC Distribution Width CV 14.7 % (11.6-14.6); RBC Distribution Width SD 52.9 fl (35.1-43.9)
== END 2020-01-30 18:00 | disposition home or self-care (01) ==
LOC: LAB 08:55
PROVIDERS: Family Provider Family Medicine Geriatric Medicine; PCP Family Medicine Geriatric Medicine; Referring Provider Psychiatry & Neurology Psychiatry; Visit Provider Psychiatry & Neurology Psychiatry
DX: Z79.899 Other long term (current) drug therapy (principal)
CPT/HCPCS: 36415; 85025

== ENCOUNTER 2020-02-27 08:36 | Outpatient (RCR) | payer MEDICAID, SELFPAY ==
[2019-06-13 14:56] VITALS: BMI 43.2
[2020-02-27 09:06] LABS: Absolute Lymphocyte Count 1.96 X10^3/uL (0.83-4.51); Absolute Neutrophil Count 2.8 X10^3/uL (2.0-7.7); Basophil# 0.02 X10^3/uL; Basophil% 0.3 % (0-1); Eosinophil# 0.23 X10^3/uL; Hematocrit 36.6 % (37-47); Hemoglobin 11.7 g/dL (12.0-15.0); Lymphocyte # 1.96 X10^3/ul (4.0); Mean Corpuscular Hgb 30.9 pg (27.0-32.0); Mean Corpuscular Volume 96.6 fL (81-99); Mean Platelet Vol. 9.6 fl (6.2-12.0); Monocyte% 12.1 % (0-10); NRBC Flagged by Analyzer 0 % (0-5); Neutrophil # 2.84 X10^3/uL (2.7-7.7); Neutrophil % 49.3 % (47-70); Platelet Count 267 K/mm3 (150-450); RBC Distribution Width CV 14.5 % (11.6-14.6); RBC Distribution Width SD 51.5 fl (35.1-43.9); Red Blood Count 3.79 M/mm3 (4.2-5.4); White Blood Count 5.8 K/mm3 (4.4-11.0)
== END 2020-02-27 18:00 | disposition home or self-care (01) ==
LOC: LAB 08:36
PROVIDERS: Family Provider Family Medicine Geriatric Medicine; PCP Family Medicine Geriatric Medicine; Referring Provider Psychiatry & Neurology Psychiatry; Visit Provider Psychiatry & Neurology Psychiatry
DX: Z79.899 Other long term (current) drug therapy (principal)
CPT/HCPCS: 36415; 85025

== ENCOUNTER → 2020-02-27 14:41 | Outpatient (CLI) | payer MEDICAID, SELFPAY ==
[2019-06-13 14:56] VITALS: BMI 43.2
--- NOTE | 2020-02-27 14:42 | BI_ITS ---
MAMMOGRAPHY - BILATERAL SCREENING REASON FOR EXAM: Female, 49 years old. Routine annual screening examination. PERTINENT HISTORY: Non-contributory. TECHNIQUE: Digital bilateral breast giovana (3D mammographic acquisition) in the CC and MLO projections. 2-D mediolateral oblique (MLO) and craniocaudad (CC) views of both breasts were obtained. CAD: Full Field Digital Mammography with Computer Added Detection was performed. COMPARISON: Comparison is made with prior study dated 02/15/2019 and 01/13/2018. FINDINGS: Breast Composition: There are scattered areas of fibroglandular density. There are no dominant masses or suspicious calcifications. No other significant abnormalities are identified. There has been no significant change since the prior study. BI/SCREEN MAMM (CAD) W/GIOVANA BILAT IMPRESSION: Stable bilateral screening mammogram. Yearly follow-up mammogram recommended. (A) ASSESSMENT CATEGORY: BIRADS Category 1: Negative. A letter regarding these results will be sent to the patient by the facility within 30 days. Approximately 10% of breast cancers are not detected by mammography. A normal mammogram should not delay biopsy of a clinically suspicious abnormality. [id number] Electronically Signed: Michele Rhodes, at 15:32 EST , Service support ,
== END ==
PROVIDERS: PCP Family Medicine Geriatric Medicine; Referring Provider Obstetrics & Gynecology; Visit Provider Obstetrics & Gynecology
DX: Z12.31 Encounter for screening mammogram for malignant neoplasm of breast (principal); Z79.899 Other long term (current) drug therapy
CPT/HCPCS: 36415; 77063; 77067; 85025

== ENCOUNTER 2020-04-16 08:59 | Outpatient (RCR) | payer MEDICAID, SELFPAY ==
[2019-06-13 14:56] VITALS: BMI 43.2
[2020-04-16 09:20] LABS: Absolute Lymphocyte Count 2.32 X10^3/uL (0.83-4.51); Absolute Neutrophil Count 3.3 X10^3/uL (2.0-7.7); Basophil# 0.03 X10^3/uL; Basophil% 0.5 % (0-1); Eosinophil# 0.15 X10^3/uL; Eosinophils% 2.3 % (0-5); Hematocrit 34.9 % (37-47); Hemoglobin 11.4 g/dL (12.0-15.0); Lymphocyte # 2.32 X10^3/ul (4.0); Lymphocyte % 35.9 % (19-41); Mean Corp Hgb Conc 32.7 g/dL (32-36); Mean Corpuscular Hgb 31.1 pg (27.0-32.0); Mean Corpuscular Volume 95.4 fL (81-99); Mean Platelet Vol. 9.8 fl (6.2-12.0); Monocyte# 0.66 X10^3/uL; Monocyte% 10.2 % (0-10); NRBC Flagged by Analyzer 0 % (0-5); Neutrophil # 3.28 X10^3/uL (2.7-7.7); Neutrophil % 50.6 % (47-70); Platelet Count 243 K/mm3 (150-450); RBC Distribution Width CV 14.9 % (11.6-14.6); RBC Distribution Width SD 51.9 fl (35.1-43.9); Red Blood Count 3.66 M/mm3 (4.2-5.4); White Blood Count 6.5 K/mm3 (4.4-11.0)
== END 2020-04-16 18:00 | disposition home or self-care (01) ==
LOC: LAB 08:59
PROVIDERS: Family Provider Family Medicine Geriatric Medicine; PCP Family Medicine Geriatric Medicine; Referring Provider Psychiatry & Neurology Psychiatry; Visit Provider Psychiatry & Neurology Psychiatry
DX: Z79.899 Other long term (current) drug therapy (principal)
CPT/HCPCS: 36415; 85025

== ENCOUNTER 2020-05-22 07:54 | Outpatient (RCR) | payer MEDICAID, SELFPAY ==
[2019-06-13 14:56] VITALS: BMI 43.2
[2020-05-22 08:19] LABS: Absolute Lymphocyte Count 1.97 X10^3/uL (0.83-4.51); Absolute Neutrophil Count 2.6 X10^3/uL (2.0-7.7); Basophil# 0.03 X10^3/uL; Basophil% 0.6 % (0-1); Eosinophil# 0.18 X10^3/uL; Eosinophils% 3.4 % (0-5); Hematocrit 35.6 % (37-47); Hemoglobin 11.6 g/dL (12.0-15.0); Lymphocyte # 1.97 X10^3/ul (4.0); Lymphocyte % 37.2 % (19-41); Mean Corp Hgb Conc 32.6 g/dL (32-36); Mean Corpuscular Hgb 30.3 pg (27.0-32.0); Mean Platelet Vol. 9.6 fl (6.2-12.0); Monocyte# 0.46 X10^3/uL; Monocyte% 8.7 % (0-10); NRBC Flagged by Analyzer 0 % (0-5); Neutrophil # 2.64 X10^3/uL (2.7-7.7); Neutrophil % 49.7 % (47-70); Platelet Count 310 K/mm3 (150-450); RBC Distribution Width CV 14.7 % (11.6-14.6); RBC Distribution Width SD 50.1 fl (35.1-43.9); Red Blood Count 3.83 M/mm3 (4.2-5.4); White Blood Count 5.3 K/mm3 (4.4-11.0)
[2020-05-22 08:39] LABS: Valproic Acid (Depakene) Level 58 ug/mL (50-100)
[2020-05-22 08:43] LABS: AST(SGOT) 17 U/L (15-37); Alanine Aminotransfer ALT/SGPT 23 U/L (13-56)
== END 2020-05-22 18:00 | disposition home or self-care (01) ==
LOC: LAB 07:54
PROVIDERS: Family Provider Family Medicine Geriatric Medicine; PCP Family Medicine Geriatric Medicine; Referring Provider Psychiatry & Neurology Psychiatry; Visit Provider Psychiatry & Neurology Psychiatry
DX: Z79.899 Other long term (current) drug therapy (principal)
CPT/HCPCS: 36415; 80164; 82140; 84450; 84460; 85025

== ENCOUNTER 2020-06-20 07:44 | Outpatient (RCR) | payer MEDICAID, SELFPAY ==
[2019-06-13 14:56] VITALS: BMI 43.2
[2020-06-20 08:26] LABS: Absolute Lymphocyte Count 2.03 X10^3/uL (0.83-4.51); Basophil# 0.03 X10^3/uL; Basophil% 0.5 % (0-1); Eosinophil# 0.24 X10^3/uL; Eosinophils% 4.1 % (0-5); Hematocrit 36.2 % (37-47); Hemoglobin 11.7 g/dL (12.0-15.0); Lymphocyte # 2.03 X10^3/ul (4.0); Lymphocyte % 34.3 % (19-41); Mean Corp Hgb Conc 32.3 g/dL (32-36); Mean Corpuscular Hgb 30.9 pg (27.0-32.0); Mean Corpuscular Volume 95.5 fL (81-99); Mean Platelet Vol. 9.4 fl (6.2-12.0); Monocyte% 10.2 % (0-10); NRBC Flagged by Analyzer 0 % (0-5); Neutrophil # 2.99 X10^3/uL (2.7-7.7); Neutrophil % 50.6 % (47-70); Platelet Count 309 K/mm3 (150-450); RBC Distribution Width CV 15.2 % (11.6-14.6); RBC Distribution Width SD 53.7 fl (35.1-43.9); Red Blood Count 3.79 M/mm3 (4.2-5.4); White Blood Count 5.9 K/mm3 (4.4-11.0)
== END 2020-06-20 18:00 | disposition home or self-care (01) ==
LOC: LAB 07:44
PROVIDERS: Family Provider Family Medicine Geriatric Medicine; PCP Family Medicine Geriatric Medicine; Referring Provider Psychiatry & Neurology Psychiatry; Visit Provider Psychiatry & Neurology Psychiatry
DX: Z79.899 Other long term (current) drug therapy (principal)
CPT/HCPCS: 36415; 85025

== ENCOUNTER → 2020-07-04 09:54 | Outpatient (CLI) | payer MEDICAID, SELFPAY ==
[2019-06-13 14:56] VITALS: BMI 43.2
[2020-07-04 12:17] LABS: Absolute Lymphocyte Count 2.55 X10^3/uL (0.83-4.51); Absolute Neutrophil Count 3.8 X10^3/uL (2.0-7.7); Basophil# 0.04 X10^3/uL; Basophil% 0.5 % (0-1); Eosinophil# 0.22 X10^3/uL; Eosinophils% 2.9 % (0-5); Hemoglobin 11.3 g/dL (12.0-15.0); Lymphocyte # 2.55 X10^3/ul (4.0); Mean Corp Hgb Conc 33.2 g/dL (32-36); Mean Corpuscular Hgb 31.5 pg (27.0-32.0); Mean Corpuscular Volume 94.7 fL (81-99); Mean Platelet Vol. 9.9 fl (6.2-12.0); Monocyte# 0.88 X10^3/uL; Monocyte% 11.7 % (0-10); NRBC Flagged by Analyzer 0 % (0-5); Neutrophil # 3.76 X10^3/uL (2.7-7.7); Neutrophil % 50.2 % (47-70); Platelet Count 324 K/mm3 (150-450); RBC Distribution Width CV 15.3 % (11.6-14.6); RBC Distribution Width SD 53.6 fl (35.1-43.9); Red Blood Count 3.59 M/mm3 (4.2-5.4); White Blood Count 7.5 K/mm3 (4.4-11.0)
[2020-07-04 12:47] LABS: ALB/GLOB Ratio 0.7 RATIO (0.9-2.4); AST(SGOT) 12 U/L (15-37); Alanine Aminotransfer ALT/SGPT 26 U/L (13-56); Alkaline Phosphatase 72 U/L (45-117); Anion Gap 7 (5-15); BUN 11 mg/dL (7-18); BUN/Creat Ratio 10.6 RATIO (10-20); Calcium,Total 8.8 mg/dL (8.5-10.1); Chloride 103 mmol/L (98-107); Creatinine, Serum 1.04 mg/dL (0.55-1.02); EST Glomerular Filtration Rate 59 mL/min (>60); Est Glom Filt Rate - Afr Amer 72 mL/min (>60); Globulin 4.5 g/dL (2.2-4.2); Glucose 60 mg/dL (74-106); Potassium 4.4 mmol/L (3.5-5.1); Protein, Total 7.5 g/dL (6.4-8.2); Sodium Level 136 mmol/L (136-145); Thyroid Stim Hormone (TSH) 1.53 uIU/mL (0.358-3.74); Total Bilirubin < 0.10 mg/dL (0.20-1.00)
== END ==
PROVIDERS: PCP Family Medicine Geriatric Medicine; Visit Provider Family Medicine Geriatric Medicine
DX: I10 Essential (primary) hypertension (principal); E11.9 Type 2 diabetes mellitus without complications
CPT/HCPCS: 36415; 80053; 84443; 85025

== ENCOUNTER → 2020-07-11 | Outpatient (CLI) | payer MEDICARE, MEDICAID, SELFPAY ==
[2020-07-16 03:06] LABS: Chlamydia By Nucleic Acid AMP Negative (Negative)
[2020-07-16 11:14] LABS: Gonococcus By Nucleic Acid AMP Negative (Negative)
== END | disposition home or self-care (01) ==
LOC: LABSPEC 13:19
PROVIDERS: PCP Family Medicine Geriatric Medicine; Referring Provider Nurse Practitioner Women's Health; Visit Provider Nurse Practitioner Women's Health
DX: Z11.3 Encounter for screening for infections with a predominantly sexual mode of transmission (principal)
CPT/HCPCS: 87491; 87591

== ENCOUNTER 2020-08-13 10:48 | Outpatient (RCR) | payer MEDICARE, MEDICAID, SELFPAY ==
[2020-08-13 12:31] LABS: Absolute Lymphocyte Count 2.73 X10^3/uL (0.83-4.51); Absolute Neutrophil Count 3.3 X10^3/uL (2.0-7.7); Basophil# 0.03 X10^3/uL; Basophil% 0.4 % (0-1); Eosinophil# 0.22 X10^3/uL; Eosinophils% 3.2 % (0-5); Hematocrit 36.5 % (37-47); Hemoglobin 11.7 g/dL (12.0-15.0); Lymphocyte # 2.73 X10^3/ul (0.83-4.51); Lymphocyte % 39.2 % (19-41); Mean Corp Hgb Conc 32.1 g/dL (32-36); Mean Corpuscular Hgb 30.2 pg (27.0-32.0); Mean Corpuscular Volume 94.1 fL (81-99); Mean Platelet Vol. 10.4 fl (6.2-12.0); Monocyte# 0.68 X10^3/uL; Monocyte% 9.8 % (0-10); NRBC Flagged by Analyzer 0 % (0-5); Neutrophil # 3.28 X10^3/uL (2.7-7.7); Neutrophil % 47.1 % (47-70); Platelet Count 284 K/mm3 (150-450); RBC Distribution Width CV 14.8 % (11.6-14.6); RBC Distribution Width SD 51.5 fl (35.1-43.9); Red Blood Count 3.88 M/mm3 (4.2-5.4)
== END 2020-08-13 18:00 | disposition home or self-care (01) ==
LOC: LAB 10:48
PROVIDERS: Family Provider Family Medicine Geriatric Medicine; PCP Family Medicine Geriatric Medicine; Referring Provider Psychiatry & Neurology Psychiatry; Visit Provider Psychiatry & Neurology Psychiatry
DX: Z79.899 Other long term (current) drug therapy (principal)
CPT/HCPCS: 36415; 85025

== ENCOUNTER 2020-09-18 11:38 | Outpatient (RCR) | payer MEDICARE, MEDICAID, SELFPAY ==
[2020-09-18 12:33] LABS: Absolute Lymphocyte Count 2.19 X10^3/uL (0.83-4.51); Absolute Neutrophil Count 3.2 X10^3/uL (2.0-7.7); Basophil# 0.03 X10^3/uL; Basophil% 0.5 % (0-1); Eosinophil# 0.18 X10^3/uL; Eosinophils% 2.9 % (0-5); Hematocrit 35.2 % (37-47); Hemoglobin 11.3 g/dL (12.0-15.0); Lymphocyte # 2.19 X10^3/ul (0.83-4.51); Lymphocyte % 35.6 % (19-41); Mean Corp Hgb Conc 32.1 g/dL (32-36); Mean Corpuscular Hgb 30.5 pg (27.0-32.0); Mean Corpuscular Volume 95.1 fL (81-99); Mean Platelet Vol. 10.5 fl (6.2-12.0); Monocyte# 0.56 X10^3/uL; Monocyte% 9.1 % (0-10); NRBC Flagged by Analyzer 0 % (0-5); Neutrophil # 3.17 X10^3/uL (2.7-7.7); Neutrophil % 51.6 % (47-70); Platelet Count 280 K/mm3 (150-450); RBC Distribution Width CV 15.2 % (11.6-14.6); RBC Distribution Width SD 52.9 fl (35.1-43.9); White Blood Count 6.2 K/mm3 (4.4-11.0)
== END 2020-09-18 18:00 | disposition home or self-care (01) ==
LOC: LAB 11:38
PROVIDERS: Family Provider Family Medicine Geriatric Medicine; PCP Family Medicine Geriatric Medicine; Referring Provider Psychiatry & Neurology Psychiatry; Visit Provider Psychiatry & Neurology Psychiatry
DX: Z79.899 Other long term (current) drug therapy (principal)
CPT/HCPCS: 36415; 85025

== ENCOUNTER 2020-10-17 15:20 | Outpatient (RCR) | payer MEDICARE, MEDICAID, SELFPAY ==
[2020-10-17 16:50] LABS: Absolute Lymphocyte Count 3.05 X10^3/uL (0.83-4.51); Absolute Neutrophil Count 3.1 X10^3/uL (2.0-7.7); Basophil# 0.02 X10^3/uL; Basophil% 0.3 % (0-1); Eosinophil# 0.25 X10^3/uL; Eosinophils% 3.4 % (0-5); Hematocrit 36.6 % (37-47); Hemoglobin 11.8 g/dL (12.0-15.0); Lymphocyte # 3.05 X10^3/ul (0.83-4.51); Mean Corp Hgb Conc 32.2 g/dL (32-36); Mean Corpuscular Hgb 30.9 pg (27.0-32.0); Mean Corpuscular Volume 95.8 fL (81-99); Mean Platelet Vol. 10.3 fl (6.2-12.0); NRBC Flagged by Analyzer 0 % (0-5); Neutrophil # 3.12 X10^3/uL (2.7-7.7); Neutrophil % 42.9 % (47-70); Platelet Count 256 K/mm3 (150-450); RBC Distribution Width CV 15.4 % (11.6-14.6); RBC Distribution Width SD 54.4 fl (35.1-43.9); Red Blood Count 3.82 M/mm3 (4.2-5.4); White Blood Count 7.3 K/mm3 (4.4-11.0)
== END 2020-10-17 18:00 | disposition home or self-care (01) ==
LOC: LAB 15:20
PROVIDERS: Family Provider Family Medicine Geriatric Medicine; PCP Family Medicine Geriatric Medicine; Referring Provider Psychiatry & Neurology Psychiatry; Visit Provider Psychiatry & Neurology Psychiatry
DX: Z79.899 Other long term (current) drug therapy (principal)
CPT/HCPCS: 36415; 85025

== ENCOUNTER 2020-12-10 15:23 | Outpatient (RCR) | payer MEDICARE, MEDICAID, SELFPAY ==
[2020-12-10 16:28] LABS: Absolute Lymphocyte Count 2.45 X10^3/uL (0.83-4.51); Absolute Neutrophil Count 2.9 X10^3/uL (2.0-7.7); Basophil# 0.02 X10^3/uL; Basophil% 0.3 % (0-1); Eosinophil# 0.23 X10^3/uL; Eosinophils% 3.7 % (0-5); Hemoglobin 11.4 g/dL (12.0-15.0); Lymphocyte # 2.45 X10^3/ul (0.83-4.51); Lymphocyte % 39.8 % (19-41); Mean Corp Hgb Conc 32.6 g/dL (32-36); Mean Corpuscular Hgb 31.4 pg (27.0-32.0); Mean Corpuscular Volume 96.4 fL (81-99); Mean Platelet Vol. 9.9 fl (6.2-12.0); Monocyte# 0.56 X10^3/uL; Monocyte% 9.1 % (0-10); NRBC Flagged by Analyzer 0 % (0-5); Neutrophil # 2.86 X10^3/uL (2.7-7.7); Neutrophil % 46.5 % (47-70); Platelet Count 277 K/mm3 (150-450); RBC Distribution Width CV 14.9 % (11.6-14.6); RBC Distribution Width SD 53.4 fl (35.1-43.9); Red Blood Count 3.63 M/mm3 (4.2-5.4); White Blood Count 6.2 K/mm3 (4.4-11.0)
== END 2020-12-10 18:00 | disposition home or self-care (01) ==
LOC: LAB 15:23
PROVIDERS: Family Provider Family Medicine Geriatric Medicine; PCP Family Medicine Geriatric Medicine; Referring Provider Psychiatry & Neurology Psychiatry; Visit Provider Psychiatry & Neurology Psychiatry
DX: Z79.899 Other long term (current) drug therapy (principal); F19.10 Other psychoactive substance abuse, uncomplicated; R53.83 Other fatigue
CPT/HCPCS: 36415; 85025

== ENCOUNTER 2021-01-07 09:56 | Outpatient (RCR) | payer MEDICARE, MEDICAID, SELFPAY ==
[2021-01-07 10:35] LABS: Absolute Lymphocyte Count 2.65 X10^3/uL (0.83-4.51); Absolute Neutrophil Count 3.1 X10^3/uL (2.0-7.7); Basophil# 0.02 X10^3/uL; Basophil% 0.3 % (0-1); Eosinophil# 0.22 X10^3/uL; Eosinophils% 3.3 % (0-5); Hematocrit 37.1 % (37-47); Hemoglobin 12.3 g/dL (12.0-15.0); Lymphocyte # 2.65 X10^3/ul (0.83-4.51); Lymphocyte % 39.2 % (19-41); Mean Corp Hgb Conc 33.2 g/dL (32-36); Mean Corpuscular Hgb 31.5 pg (27.0-32.0); Mean Corpuscular Volume 94.9 fL (81-99); Mean Platelet Vol. 9.5 fl (6.2-12.0); Monocyte# 0.79 X10^3/uL; Monocyte% 11.7 % (0-10); NRBC Flagged by Analyzer 0 % (0-5); Neutrophil # 3.06 X10^3/uL (2.7-7.7); Neutrophil % 45.2 % (47-70); Platelet Count 281 K/mm3 (150-450); RBC Distribution Width CV 14.7 % (11.6-14.6); RBC Distribution Width SD 51.8 fl (35.1-43.9); Red Blood Count 3.91 M/mm3 (4.2-5.4); White Blood Count 6.8 K/mm3 (4.4-11.0)
== END 2021-01-07 18:00 | disposition home or self-care (01) ==
LOC: LAB 09:56
PROVIDERS: Family Provider Family Medicine Geriatric Medicine; PCP Family Medicine Geriatric Medicine; Referring Provider Psychiatry & Neurology Psychiatry; Visit Provider Psychiatry & Neurology Psychiatry
DX: Z79.899 Other long term (current) drug therapy (principal); F19.10 Other psychoactive substance abuse, uncomplicated; R53.83 Other fatigue
CPT/HCPCS: 36415; 85025

== ENCOUNTER → 2021-02-03 14:39 | Outpatient (CLI) | payer MEDICARE, MEDICAID, SELFPAY ==
[2021-02-03 17:48] LABS: Absolute Neutrophil Count 3.9 X10^3/uL (2.0-7.7); Basophil# 0.02 X10^3/uL; Basophil% 0.3 % (0-1); Eosinophil# 0.17 X10^3/uL; Eosinophils% 2.5 % (0-5); Hematocrit 36.3 % (37-47); Hemoglobin 11.8 g/dL (12.0-15.0); Lymphocyte % 32.5 % (19-41); Mean Corp Hgb Conc 32.5 g/dL (32-36); Mean Corpuscular Hgb 31.1 pg (27.0-32.0); Mean Corpuscular Volume 95.8 fL (81-99); Mean Platelet Vol. 10.7 fl (6.2-12.0); Monocyte# 0.47 X10^3/uL; NRBC Flagged by Analyzer 0 % (0-5); Neutrophil # 3.87 X10^3/uL (2.7-7.7); Neutrophil % 57.3 % (47-70); Platelet Count 261 K/mm3 (150-450); RBC Distribution Width CV 14.6 % (11.6-14.6); RBC Distribution Width SD 51.2 fl (35.1-43.9); Red Blood Count 3.79 M/mm3 (4.2-5.4); White Blood Count 6.8 K/mm3 (4.4-11.0)
[2021-02-03 18:13] LABS: ALB/GLOB Ratio 0.6 RATIO (0.9-2.4); AST(SGOT) 11 U/L (15-37); Alanine Aminotransfer ALT/SGPT 23 U/L (13-56); Alkaline Phosphatase 68 U/L (45-117); Anion Gap 11 (5-15); BUN 15 mg/dL (7-18); BUN/Creat Ratio 11.8 RATIO (10-20); Chloride 101 mmol/L (98-107); Creatinine, Serum 1.27 mg/dL (0.55-1.02); EST Glomerular Filtration Rate 47 mL/min (>60); Est Glom Filt Rate - Afr Amer 57 mL/min (>60); Globulin 4.8 g/dL (2.2-4.2); Glucose 129 mg/dL (74-106); Potassium 4.6 mmol/L (3.5-5.1); Protein, Total 7.8 g/dL (6.4-8.2); Sodium Level 135 mmol/L (136-145); Thyroid Stim Hormone (TSH) 0.29 uIU/mL (0.358-3.74)
== END ==
PROVIDERS: PCP Family Medicine Geriatric Medicine; Visit Provider Family Medicine Geriatric Medicine
DX: I10 Essential (primary) hypertension (principal); E11.65 Type 2 diabetes mellitus with hyperglycemia
CPT/HCPCS: 36415; 80053; 84443; 85025

== ENCOUNTER 2021-02-05 08:39 | Outpatient (RCR) | payer MEDICARE, MEDICAID, SELFPAY ==
[2021-02-05 09:23] LABS: Absolute Lymphocyte Count 1.42 X10^3/uL (0.83-4.51); Absolute Neutrophil Count 2.3 X10^3/uL (2.0-7.7); Basophil# 0.01 X10^3/uL; Basophil% 0.2 % (0-1); Eosinophil# 0.19 X10^3/uL; Eosinophils% 4.2 % (0-5); Hemoglobin 12.3 g/dL (12.0-15.0); Lymphocyte # 1.42 X10^3/ul (0.83-4.51); Lymphocyte % 31.3 % (19-41); Mean Corp Hgb Conc 33.2 g/dL (32-36); Mean Corpuscular Hgb 31.2 pg (27.0-32.0); Mean Corpuscular Volume 93.9 fL (81-99); Mean Platelet Vol. 10.1 fl (6.2-12.0); Monocyte# 0.64 X10^3/uL; Monocyte% 14.1 % (0-10); NRBC Flagged by Analyzer 0 % (0-5); Neutrophil # 2.26 X10^3/uL (2.7-7.7); Platelet Count 231 K/mm3 (150-450); RBC Distribution Width CV 14.2 % (11.6-14.6); RBC Distribution Width SD 49.4 fl (35.1-43.9); Red Blood Count 3.94 M/mm3 (4.2-5.4); White Blood Count 4.5 K/mm3 (4.4-11.0)
== END 2021-02-16 05:16 | disposition home or self-care (01) ==
LOC: LAB 08:39
PROVIDERS: Family Provider Family Medicine Geriatric Medicine; PCP Family Medicine Geriatric Medicine; Referring Provider Psychiatry & Neurology Psychiatry; Visit Provider Psychiatry & Neurology Psychiatry
DX: F19.10 Other psychoactive substance abuse, uncomplicated (principal); R53.83 Other fatigue; Z79.899 Other long term (current) drug therapy
CPT/HCPCS: 36415; 85025

== ENCOUNTER 2021-03-12 12:35 | Outpatient (RCR) | payer MEDICARE, MEDICAID, SELFPAY ==
[2021-03-04 13:45] LABS: Platelet Count 262 K/mm3 (150-450)
[2021-03-04 14:11] LABS: AST(SGOT) 13 U/L (15-37); Alanine Aminotransfer ALT/SGPT 17 U/L (13-56)
[2021-03-04 14:12] LABS: Valproic Acid (Depakene) Level 79 ug/mL (50-100)
[2021-03-12 13:07] LABS: Absolute Lymphocyte Count 2.27 X10^3/uL (0.83-4.51); Absolute Neutrophil Count 2.8 X10^3/uL (2.0-7.7); Basophil# 0.02 X10^3/uL; Basophil% 0.3 % (0-1); Eosinophil# 0.26 X10^3/uL; Eosinophils% 4.3 % (0-5); Hematocrit 34.5 % (37-47); Hemoglobin 11.3 g/dL (12.0-15.0); Lymphocyte # 2.27 X10^3/ul (0.83-4.51); Lymphocyte % 37.8 % (19-41); Mean Corp Hgb Conc 32.8 g/dL (32-36); Mean Corpuscular Hgb 31.6 pg (27.0-32.0); Mean Corpuscular Volume 96.4 fL (81-99); Mean Platelet Vol. 9.4 fl (6.2-12.0); Monocyte# 0.68 X10^3/uL; Monocyte% 11.3 % (0-10); NRBC Flagged by Analyzer 0 % (0-5); Neutrophil # 2.75 X10^3/uL (2.7-7.7); Platelet Count 234 K/mm3 (150-450); Red Blood Count 3.58 M/mm3 (4.2-5.4)
== END 2021-03-18 18:00 | disposition home or self-care (01) ==
LOC: LAB 12:35
PROVIDERS: Family Provider Family Medicine Geriatric Medicine; PCP Family Medicine Geriatric Medicine; Referring Provider Psychiatry & Neurology Psychiatry; Visit Provider Psychiatry & Neurology Psychiatry
DX: F19.10 Other psychoactive substance abuse, uncomplicated (principal); R53.83 Other fatigue; Z79.899 Other long term (current) drug therapy
CPT/HCPCS: 36415; 80164; 82140; 84450; 84460; 85025; 85049

== ENCOUNTER → 2021-03-31 09:03 | Outpatient (CLI) | payer MEDICARE, MEDICAID, SELFPAY ==
[2021-03-31 10:58] LABS: Thyroid Stim Hormone (TSH) 1.65 uIU/mL (0.358-3.74)
== END ==
PROVIDERS: PCP Family Medicine Geriatric Medicine; Visit Provider Family Medicine Geriatric Medicine
DX: E03.9 Hypothyroidism, unspecified (principal)
CPT/HCPCS: 36415; 84443

== ENCOUNTER → 2021-04-07 09:21 | Outpatient (CLI) | payer MEDICARE, MEDICAID, SELFPAY ==
[2021-04-07 13:01] LABS: Thyroid Stim Hormone (TSH) 1.06 uIU/mL (0.358-3.74)
== END ==
PROVIDERS: PCP Family Medicine Geriatric Medicine; Visit Provider Family Medicine Geriatric Medicine
DX: E03.9 Hypothyroidism, unspecified (principal)
CPT/HCPCS: 36415; 84443

== ENCOUNTER 2021-04-22 09:02 | Outpatient (RCR) | payer MEDICARE, MEDICAID, SELFPAY ==
[2021-04-22 10:30] LABS: Absolute Lymphocyte Count 2.32 X10^3/uL (0.83-4.51); Absolute Neutrophil Count 2.6 X10^3/uL (2.0-7.7); Basophil# 0.02 X10^3/uL; Basophil% 0.3 % (0-1); Eosinophil# 0.21 X10^3/uL; Eosinophils% 3.6 % (0-5); Hematocrit 35.4 % (37-47); Hemoglobin 11.7 g/dL (12.0-15.0); Lymphocyte # 2.32 X10^3/ul (0.83-4.51); Lymphocyte % 39.9 % (19-41); Mean Corp Hgb Conc 33.1 g/dL (32-36); Mean Corpuscular Hgb 31.5 pg (27.0-32.0); Mean Corpuscular Volume 95.2 fL (81-99); Mean Platelet Vol. 10.1 fl (6.2-12.0); NRBC Flagged by Analyzer 0 % (0-5); Neutrophil # 2.55 X10^3/uL (2.7-7.7); Neutrophil % 43.9 % (47-70); Platelet Count 280 K/mm3 (150-450); RBC Distribution Width SD 52.8 fl (35.1-43.9); Red Blood Count 3.72 M/mm3 (4.2-5.4); White Blood Count 5.8 K/mm3 (4.4-11.0)
== END 2021-05-19 18:00 | disposition home or self-care (01) ==
LOC: LAB 09:02
PROVIDERS: Family Provider Family Medicine Geriatric Medicine; PCP Family Medicine Geriatric Medicine; Referring Provider Psychiatry & Neurology Psychiatry; Visit Provider Psychiatry & Neurology Psychiatry
DX: Z79.899 Other long term (current) drug therapy (principal)
CPT/HCPCS: 36415; 85025

== ENCOUNTER 2021-05-27 08:36 | Outpatient (RCR) | payer MEDICARE, MEDICAID, SELFPAY ==
[2021-05-27 09:53] LABS: Absolute Neutrophil Count 2.4 X10^3/uL (2.0-7.7); Basophil# 0.02 X10^3/uL; Basophil% 0.4 % (0-1); Eosinophil# 0.13 X10^3/uL; Eosinophils% 2.6 % (0-5); Hematocrit 35.4 % (37-47); Lymphocyte % 35.9 % (19-41); Mean Corp Hgb Conc 33.9 g/dL (32-36); Mean Corpuscular Hgb 32.3 pg (27.0-32.0); Mean Corpuscular Volume 95.4 fL (81-99); Mean Platelet Vol. 10.2 fl (6.2-12.0); Monocyte# 0.61 X10^3/uL; Monocyte% 12.2 % (0-10); NRBC Flagged by Analyzer 0 % (0-5); Neutrophil # 2.44 X10^3/uL (2.7-7.7); Neutrophil % 48.5 % (47-70); Platelet Count 274 K/mm3 (150-450); RBC Distribution Width CV 14.8 % (11.6-14.6); RBC Distribution Width SD 52.2 fl (35.1-43.9); Red Blood Count 3.71 M/mm3 (4.2-5.4)
== END 2021-05-27 23:59 | disposition home or self-care (01) ==
LOC: LAB 08:36
PROVIDERS: Family Provider Family Medicine Geriatric Medicine; PCP Family Medicine Geriatric Medicine; Referring Provider Psychiatry & Neurology Psychiatry; Visit Provider Psychiatry & Neurology Psychiatry
DX: Z79.899 Other long term (current) drug therapy (principal)
CPT/HCPCS: 36415; 85025

== ENCOUNTER 2021-06-19 09:02 | Outpatient (RCR) | payer MEDICARE, MEDICAID, SELFPAY ==
[2021-06-19 11:29] LABS: Absolute Lymphocyte Count 2.16 X10^3/uL (0.83-4.51); Absolute Neutrophil Count 2.9 X10^3/uL (2.0-7.7); Basophil# 0.02 X10^3/uL; Basophil% 0.3 % (0-1); Eosinophil# 0.24 X10^3/uL; Eosinophils% 4.1 % (0-5); Hematocrit 35.5 % (37-47); Hemoglobin 11.4 g/dL (12.0-15.0); Lymphocyte # 2.16 X10^3/ul (0.83-4.51); Lymphocyte % 36.5 % (19-41); Mean Corp Hgb Conc 32.1 g/dL (32-36); Mean Corpuscular Hgb 31.6 pg (27.0-32.0); Mean Corpuscular Volume 98.3 fL (81-99); Mean Platelet Vol. 10.1 fl (6.2-12.0); Monocyte# 0.64 X10^3/uL; Monocyte% 10.8 % (0-10); NRBC Flagged by Analyzer 0 % (0-5); Neutrophil # 2.85 X10^3/uL (2.7-7.7); Neutrophil % 48.1 % (47-70); Platelet Count 297 K/mm3 (150-450); RBC Distribution Width SD 54.5 fl (35.1-43.9); Red Blood Count 3.61 M/mm3 (4.2-5.4); White Blood Count 5.9 K/mm3 (4.4-11.0)
== END 2021-07-17 18:00 | disposition home or self-care (01) ==
LOC: LAB 09:02
PROVIDERS: Family Provider Family Medicine Geriatric Medicine; PCP Family Medicine Geriatric Medicine; Referring Provider Psychiatry & Neurology Psychiatry; Visit Provider Psychiatry & Neurology Psychiatry
DX: Z79.899 Other long term (current) drug therapy (principal)
CPT/HCPCS: 36415; 85025

== ENCOUNTER 2021-07-21 12:52 | Outpatient (RCR) | payer MEDICARE, MEDICAID, SELFPAY ==
[2021-07-21 13:37] LABS: Absolute Lymphocyte Count 2.29 X10^3/uL (0.83-4.51); Absolute Neutrophil Count 3.9 X10^3/uL (2.0-7.7); Basophil# 0.03 X10^3/uL; Basophil% 0.4 % (0-1); Eosinophil# 0.22 X10^3/uL; Hematocrit 34.6 % (37-47); Hemoglobin 11.6 g/dL (12.0-15.0); Lymphocyte # 2.29 X10^3/ul (0.83-4.51); Mean Corp Hgb Conc 33.5 g/dL (32-36); Mean Corpuscular Volume 95.6 fL (81-99); Mean Platelet Vol. 9.3 fl (6.2-12.0); Monocyte# 0.86 X10^3/uL; Monocyte% 11.6 % (0-10); NRBC Flagged by Analyzer 0 % (0-5); Neutrophil # 3.94 X10^3/uL (2.7-7.7); Neutrophil % 53.3 % (47-70); Platelet Count 319 K/mm3 (150-450); RBC Distribution Width CV 14.1 % (11.6-14.6); RBC Distribution Width SD 49.8 fl (35.1-43.9); Red Blood Count 3.62 M/mm3 (4.2-5.4); White Blood Count 7.4 K/mm3 (4.4-11.0)
== END 2021-07-21 18:00 | disposition home or self-care (01) ==
LOC: LAB 12:52
PROVIDERS: Family Provider Family Medicine Geriatric Medicine; PCP Family Medicine Geriatric Medicine; Referring Provider Psychiatry & Neurology Psychiatry; Visit Provider Psychiatry & Neurology Psychiatry
DX: Z79.899 Other long term (current) drug therapy (principal)
CPT/HCPCS: 36415; 85025

== ENCOUNTER 2021-08-04 14:20 | Outpatient (CLI) | payer MEDICARE, MEDICAID, SELFPAY ==
[2021-08-04 17:21] LABS: Absolute Lymphocyte Count 2.59 X10^3/uL (0.83-4.51); Absolute Neutrophil Count 3.5 X10^3/uL (2.0-7.7); Basophil# 0.03 X10^3/uL; Basophil% 0.4 % (0-1); Eosinophil# 0.15 X10^3/uL; Eosinophils% 2.1 % (0-5); Hematocrit 34.1 % (37-47); Hemoglobin 11.6 g/dL (12.0-15.0); Lymphocyte # 2.59 X10^3/ul (0.83-4.51); Lymphocyte % 36.5 % (19-41); Mean Corpuscular Hgb 31.6 pg (27.0-32.0); Mean Corpuscular Volume 92.9 fL (81-99); Mean Platelet Vol. 10.1 fl (6.2-12.0); Monocyte# 0.77 X10^3/uL; Monocyte% 10.9 % (0-10); NRBC Flagged by Analyzer 0 % (0-5); Neutrophil # 3.53 X10^3/uL (2.7-7.7); Neutrophil % 49.8 % (47-70); Platelet Count 287 K/mm3 (150-450); RBC Distribution Width CV 14.3 % (11.6-14.6); RBC Distribution Width SD 48.8 fl (35.1-43.9); Red Blood Count 3.67 M/mm3 (4.2-5.4); White Blood Count 7.1 K/mm3 (4.4-11.0)
[2021-08-04 17:37] LABS: ALB/GLOB Ratio 0.7 RATIO (0.9-2.4); AST(SGOT) 12 U/L (15-37); Alanine Aminotransfer ALT/SGPT 22 U/L (13-56); Alkaline Phosphatase 64 U/L (45-117); Anion Gap 9 (5-15); BUN 23 mg/dL (7-18); BUN/Creat Ratio 18.9 RATIO (10-20); Calcium,Total 8.6 mg/dL (8.5-10.1); Chloride 105 mmol/L (98-107); Creatinine, Serum 1.22 mg/dL (0.55-1.02); EST Glomerular Filtration Rate 49 mL/min (>60); Est Glom Filt Rate - Afr Amer 59 mL/min (>60); Globulin 4.5 g/dL (2.2-4.2); Glucose 108 mg/dL (74-106); Potassium 4.6 mmol/L (3.5-5.1); Protein, Total 7.5 g/dL (6.4-8.2); Sodium Level 137 mmol/L (136-145); Thyroid Stim Hormone (TSH) 1.12 uIU/mL (0.358-3.74)
== END 2021-08-04 23:59 | disposition home or self-care (01) ==
LOC: POLAB3 14:22
PROVIDERS: PCP Family Medicine Geriatric Medicine; Visit Provider Family Medicine Geriatric Medicine
DX: E11.9 Type 2 diabetes mellitus without complications (principal); I10 Essential (primary) hypertension
CPT/HCPCS: 36415; 80053; 84443; 85025

== ENCOUNTER 2021-08-20 08:13 | Outpatient (RCR) | payer MEDICARE, MEDICAID, SELFPAY ==
[2021-08-20 08:34] LABS: Absolute Lymphocyte Count 1.73 X10^3/uL (0.83-4.51); Basophil# 0.02 X10^3/uL; Basophil% 0.4 % (0-1); Eosinophil# 0.19 X10^3/uL; Eosinophils% 3.5 % (0-5); Hematocrit 37.4 % (37-47); Hemoglobin 12.3 g/dL (12.0-15.0); Lymphocyte # 1.73 X10^3/ul (0.83-4.51); Lymphocyte % 31.6 % (19-41); Mean Corp Hgb Conc 32.9 g/dL (32-36); Mean Corpuscular Hgb 31.5 pg (27.0-32.0); Mean Corpuscular Volume 95.7 fL (81-99); Mean Platelet Vol. 9.7 fl (6.2-12.0); Monocyte# 0.52 X10^3/uL; Monocyte% 9.5 % (0-10); NRBC Flagged by Analyzer 0 % (0-5); Neutrophil # 2.98 X10^3/uL (2.7-7.7); Neutrophil % 54.5 % (47-70); Platelet Count 260 K/mm3 (150-450); RBC Distribution Width CV 14.9 % (11.6-14.6); RBC Distribution Width SD 52.3 fl (35.1-43.9); Red Blood Count 3.91 M/mm3 (4.2-5.4); White Blood Count 5.5 K/mm3 (4.4-11.0)
[2021-08-20 09:01] LABS: Valproic Acid (Depakene) Level 60 ug/mL (50-100)
[2021-08-20 09:03] LABS: AST(SGOT) 14 U/L (15-37); Alanine Aminotransfer ALT/SGPT 18 U/L (13-56)
== END 2021-08-20 18:00 | disposition home or self-care (01) ==
LOC: LAB 08:13
PROVIDERS: Family Provider Family Medicine Geriatric Medicine; PCP Family Medicine Geriatric Medicine; Referring Provider Psychiatry & Neurology Psychiatry; Visit Provider Psychiatry & Neurology Psychiatry
DX: Z79.899 Other long term (current) drug therapy (principal)
CPT/HCPCS: 36415; 80164; 82140; 84450; 84460; 85025

== ENCOUNTER 2021-09-24 10:39 | Outpatient (RCR) | payer MEDICARE, MEDICAID, SELFPAY ==
[2021-09-24 11:30] LABS: Absolute Lymphocyte Count 2.19 X10^3/uL (0.83-4.51); Absolute Neutrophil Count 3.1 X10^3/uL (2.0-7.7); Basophil# 0.03 X10^3/uL; Basophil% 0.5 % (0-1); Eosinophils% 3.2 % (0-5); Hematocrit 36.4 % (37-47); Hemoglobin 12.1 g/dL (12.0-15.0); Lymphocyte # 2.19 X10^3/ul (0.83-4.51); Lymphocyte % 35.4 % (19-41); Mean Corp Hgb Conc 33.2 g/dL (32-36); Mean Corpuscular Hgb 31.7 pg (27.0-32.0); Mean Corpuscular Volume 95.3 fL (81-99); Mean Platelet Vol. 10.2 fl (6.2-12.0); Monocyte# 0.65 X10^3/uL; Monocyte% 10.5 % (0-10); NRBC Flagged by Analyzer 0 % (0-5); Neutrophil # 3.09 X10^3/uL (2.7-7.7); Neutrophil % 49.9 % (47-70); Platelet Count 269 K/mm3 (150-450); RBC Distribution Width CV 14.8 % (11.6-14.6); RBC Distribution Width SD 51.9 fl (35.1-43.9); Red Blood Count 3.82 M/mm3 (4.2-5.4); White Blood Count 6.2 K/mm3 (4.4-11.0)
== END 2021-09-24 23:59 | disposition home or self-care (01) ==
LOC: LAB 10:39
PROVIDERS: Family Provider Family Medicine Geriatric Medicine; PCP Family Medicine Geriatric Medicine; Referring Provider Psychiatry & Neurology Psychiatry; Visit Provider Psychiatry & Neurology Psychiatry
DX: Z79.899 Other long term (current) drug therapy (principal)
CPT/HCPCS: 36415; 85025

== ENCOUNTER 2021-10-22 09:06 | Outpatient (RCR) | payer MEDICARE, MEDICAID, SELFPAY ==
[2021-10-22 10:06] LABS: Absolute Lymphocyte Count 2.04 X10^3/uL (0.83-4.51); Absolute Neutrophil Count 2.8 X10^3/uL (2.0-7.7); Basophil# 0.03 X10^3/uL; Basophil% 0.5 % (0-1); Eosinophils% 3.5 % (0-5); Hematocrit 35.8 % (37-47); Hemoglobin 11.7 g/dL (12.0-15.0); Lymphocyte # 2.04 X10^3/ul (0.83-4.51); Lymphocyte % 35.9 % (19-41); Mean Corp Hgb Conc 32.7 g/dL (32-36); Mean Corpuscular Hgb 31.4 pg (27.0-32.0); Mean Platelet Vol. 10.2 fl (6.2-12.0); Monocyte# 0.61 X10^3/uL; Monocyte% 10.7 % (0-10); NRBC Flagged by Analyzer 0 % (0-5); Neutrophil # 2.79 X10^3/uL (2.7-7.7); Platelet Count 257 K/mm3 (150-450); RBC Distribution Width CV 15.1 % (11.6-14.6); RBC Distribution Width SD 53.1 fl (35.1-43.9); Red Blood Count 3.73 M/mm3 (4.2-5.4); White Blood Count 5.7 K/mm3 (4.4-11.0)
== END 2021-11-16 03:12 | disposition home or self-care (01) ==
LOC: LAB 09:06
PROVIDERS: Family Provider Family Medicine Geriatric Medicine; PCP Family Medicine Geriatric Medicine; Referring Provider Psychiatry & Neurology Psychiatry; Visit Provider Psychiatry & Neurology Psychiatry
DX: Z79.899 Other long term (current) drug therapy (principal)
CPT/HCPCS: 36415; 85025

== ENCOUNTER 2021-11-21 10:35 | Outpatient (RCR) | payer MEDICARE, MEDICAID, SELFPAY ==
[2021-11-21 11:17] LABS: Absolute Lymphocyte Count 2.99 X10^3/uL (0.83-4.51); Absolute Neutrophil Count 3.6 X10^3/uL (2.0-7.7); Basophil# 0.03 X10^3/uL; Basophil% 0.4 % (0-1); Eosinophil# 0.25 X10^3/uL; Eosinophils% 3.2 % (0-5); Hematocrit 36.6 % (37-47); Hemoglobin 12.1 g/dL (12.0-15.0); Lymphocyte # 2.99 X10^3/ul (0.83-4.51); Lymphocyte % 37.9 % (19-41); Mean Corp Hgb Conc 33.1 g/dL (32-36); Mean Corpuscular Hgb 31.8 pg (27.0-32.0); Mean Corpuscular Volume 96.1 fL (81-99); Mean Platelet Vol. 10.4 fl (6.2-12.0); Monocyte# 0.95 X10^3/uL; Monocyte% 12.1 % (0-10); NRBC Flagged by Analyzer 0 % (0-5); Neutrophil % 45.6 % (47-70); Platelet Count 215 K/mm3 (150-450); RBC Distribution Width CV 14.8 % (11.6-14.6); RBC Distribution Width SD 51.5 fl (35.1-43.9); Red Blood Count 3.81 M/mm3 (4.2-5.4); White Blood Count 7.9 K/mm3 (4.4-11.0)
== END 2021-11-21 18:00 | disposition home or self-care (01) ==
LOC: LAB 10:35
PROVIDERS: Family Provider Family Medicine Geriatric Medicine; PCP Family Medicine Geriatric Medicine; Referring Provider Psychiatry & Neurology Psychiatry; Visit Provider Psychiatry & Neurology Psychiatry
DX: Z79.899 Other long term (current) drug therapy (principal)
CPT/HCPCS: 36415; 85025

== ENCOUNTER 2021-12-24 14:50 | Outpatient (RCR) | payer MEDICARE, MEDICAID, SELFPAY ==
[2021-12-24 15:16] LABS: Absolute Lymphocyte Count 2.71 X10^3/uL (0.83-4.51); Absolute Neutrophil Count 3.2 X10^3/uL (2.0-7.7); Basophil# 0.02 X10^3/uL; Basophil% 0.3 % (0-1); Eosinophil# 0.19 X10^3/uL; Eosinophils% 2.7 % (0-5); Hematocrit 37.2 % (37-47); Hemoglobin 12.4 g/dL (12.0-15.0); Lymphocyte # 2.71 X10^3/ul (0.83-4.51); Lymphocyte % 38.7 % (19-41); Mean Corp Hgb Conc 33.3 g/dL (32-36); Mean Corpuscular Volume 96.1 fL (81-99); Mean Platelet Vol. 9.8 fl (6.2-12.0); Monocyte# 0.83 X10^3/uL; Monocyte% 11.9 % (0-10); NRBC Flagged by Analyzer 0 % (0-5); Neutrophil # 3.22 X10^3/uL (2.7-7.7); Platelet Count 263 K/mm3 (150-450); RBC Distribution Width CV 14.9 % (11.6-14.6); RBC Distribution Width SD 52.9 fl (35.1-43.9); Red Blood Count 3.87 M/mm3 (4.2-5.4)
== END 2021-12-24 18:00 | disposition home or self-care (01) ==
LOC: LAB 14:50
PROVIDERS: Family Provider Family Medicine Geriatric Medicine; PCP Family Medicine Geriatric Medicine; Referring Provider Psychiatry & Neurology Psychiatry; Visit Provider Psychiatry & Neurology Psychiatry
DX: Z79.899 Other long term (current) drug therapy (principal)
CPT/HCPCS: 36415; 85025

== ENCOUNTER 2022-01-27 07:54 | Outpatient (RCR) | payer MEDICARE, MEDICAID, SELFPAY ==
[2022-01-27 08:19] LABS: Absolute Lymphocyte Count 2.33 X10^3/uL (0.83-4.51); Absolute Neutrophil Count 3.5 X10^3/uL (2.0-7.7); Basophil# 0.02 X10^3/uL; Basophil% 0.3 % (0-1); Hematocrit 35.7 % (37-47); Hemoglobin 11.8 g/dL (12.0-15.0); Lymphocyte # 2.33 X10^3/ul (0.83-4.51); Lymphocyte % 35.2 % (19-41); Mean Corp Hgb Conc 33.1 g/dL (32-36); Mean Corpuscular Volume 96.7 fL (81-99); Mean Platelet Vol. 9.8 fl (6.2-12.0); Monocyte# 0.53 X10^3/uL; NRBC Flagged by Analyzer 0.3 % (0-5); Neutrophil # 3.46 X10^3/uL (2.7-7.7); Neutrophil % 52.4 % (47-70); Platelet Count 249 K/mm3 (150-450); RBC Distribution Width CV 14.8 % (11.6-14.6); RBC Distribution Width SD 52.4 fl (35.1-43.9); Red Blood Count 3.69 M/mm3 (4.2-5.4); White Blood Count 6.6 K/mm3 (4.4-11.0)
== END 2022-01-27 18:00 | disposition home or self-care (01) ==
LOC: LAB 07:54
PROVIDERS: Family Provider Family Medicine Geriatric Medicine; PCP Family Medicine Geriatric Medicine; Referring Provider Psychiatry & Neurology Psychiatry; Visit Provider Psychiatry & Neurology Psychiatry
DX: Z79.899 Other long term (current) drug therapy (principal)
CPT/HCPCS: 36415; 85025

== ENCOUNTER → 2022-02-04 | Outpatient (CLI) | payer MEDICARE, MEDICAID, SELFPAY ==
[2022-02-04 13:24] LABS: Absolute Lymphocyte Count 2.48 X10^3/uL (0.83-4.51); Absolute Neutrophil Count 2.8 X10^3/uL (2.0-7.7); Basophil# 0.03 X10^3/uL; Basophil% 0.5 % (0-1); Eosinophil# 0.19 X10^3/uL; Eosinophils% 3.1 % (0-5); Lymphocyte # 2.48 X10^3/ul (0.83-4.51); Lymphocyte % 39.9 % (19-41); Mean Corp Hgb Conc 33.3 g/dL (32-36); Mean Corpuscular Hgb 32.1 pg (27.0-32.0); Mean Corpuscular Volume 96.3 fL (81-99); Mean Platelet Vol. 10.4 fl (6.2-12.0); Monocyte# 0.71 X10^3/uL; Monocyte% 11.4 % (0-10); NRBC Flagged by Analyzer 0 % (0-5); Neutrophil # 2.77 X10^3/uL (2.7-7.7); Neutrophil % 44.6 % (47-70); Platelet Count 242 K/mm3 (150-450); RBC Distribution Width CV 15.2 % (11.6-14.6); Red Blood Count 3.74 M/mm3 (4.2-5.4); White Blood Count 6.2 K/mm3 (4.4-11.0)
[2022-02-04 14:09] LABS: ALB/GLOB Ratio 0.6 RATIO (0.9-2.4); AST(SGOT) 12 U/L (15-37); Alanine Aminotransfer ALT/SGPT 18 U/L (13-56); Alkaline Phosphatase 65 U/L (45-117); Anion Gap 5 (5-15); BUN 17 mg/dL (7-18); BUN/Creat Ratio 15.3 RATIO (10-20); Calcium,Total 9.4 mg/dL (8.5-10.1); Chloride 106 mmol/L (98-107); Creatinine, Serum 1.11 mg/dL (0.55-1.02); EST Glomerular Filtration Rate 55 mL/min (>60); Est Glom Filt Rate - Afr Amer 66 mL/min (>60); Globulin 4.7 g/dL (2.2-4.2); Glucose 161 mg/dL (74-106); Potassium 4.5 mmol/L (3.5-5.1); Protein, Total 7.7 g/dL (6.4-8.2); Sodium Level 136 mmol/L (136-145); Thyroid Stim Hormone (TSH) 2.01 uIU/mL (0.358-3.74)
== END | disposition home or self-care (01) ==
LOC: POLAB3 09:15
PROVIDERS: PCP Family Medicine Geriatric Medicine; Visit Provider Family Medicine Geriatric Medicine
DX: I10 Essential (primary) hypertension (principal); E11.65 Type 2 diabetes mellitus with hyperglycemia
CPT/HCPCS: 36415; 80053; 84443; 85025

== ENCOUNTER 2022-02-19 08:55 | Outpatient (RCR) | payer MEDICARE, MEDICAID, SELFPAY ==
[2022-02-19 09:20] LABS: Absolute Lymphocyte Count 2.26 X10^3/uL (0.83-4.51); Absolute Neutrophil Count 4.1 X10^3/uL (2.0-7.7); Basophil# 0.03 X10^3/uL; Basophil% 0.4 % (0-1); Eosinophil# 0.19 X10^3/uL; Eosinophils% 2.6 % (0-5); Hematocrit 36.9 % (37-47); Hemoglobin 12.2 g/dL (12.0-15.0); Lymphocyte # 2.26 X10^3/ul (0.83-4.51); Lymphocyte % 31.1 % (19-41); Mean Corp Hgb Conc 33.1 g/dL (32-36); Mean Corpuscular Hgb 32.3 pg (27.0-32.0); Mean Corpuscular Volume 97.6 fL (81-99); Mean Platelet Vol. 9.2 fl (6.2-12.0); Monocyte# 0.65 X10^3/uL; Monocyte% 8.9 % (0-10); NRBC Flagged by Analyzer 0 % (0-5); Neutrophil # 4.11 X10^3/uL (2.7-7.7); Neutrophil % 56.6 % (47-70); Platelet Count 259 K/mm3 (150-450); RBC Distribution Width CV 14.6 % (11.6-14.6); RBC Distribution Width SD 53.1 fl (35.1-43.9); Red Blood Count 3.78 M/mm3 (4.2-5.4); White Blood Count 7.3 K/mm3 (4.4-11.0)
[2022-02-19 10:02] LABS: AST(SGOT) 15 U/L (15-37); Alanine Aminotransfer ALT/SGPT 20 U/L (13-56); Sodium Level 136 mmol/L (136-145)
[2022-02-19 10:03] LABS: Valproic Acid (Depakene) Level 101 ug/mL (50-100)
== END 2022-03-18 18:00 | disposition home or self-care (01) ==
LOC: LAB 08:55
PROVIDERS: Family Provider Family Medicine Geriatric Medicine; PCP Family Medicine Geriatric Medicine; Referring Provider Psychiatry & Neurology Psychiatry; Visit Provider Psychiatry & Neurology Psychiatry
DX: Z79.899 Other long term (current) drug therapy (principal)
CPT/HCPCS: 36415; 80164; 82140; 84295; 84450; 84460; 85025

== ENCOUNTER 2022-03-26 07:40 | Outpatient (RCR) | payer MEDICARE, MEDICAID, SELFPAY ==
[2022-03-26 08:05] LABS: Absolute Lymphocyte Count 2.62 X10^3/uL (0.83-4.51); Absolute Neutrophil Count 2.9 X10^3/uL (2.0-7.7); Basophil# 0.03 X10^3/uL; Basophil% 0.5 % (0-1); Eosinophil# 0.05 X10^3/uL; Eosinophils% 0.8 % (0-5); Hematocrit 37.6 % (37-47); Hemoglobin 12.1 g/dL (12.0-15.0); Lymphocyte # 2.62 X10^3/ul (0.83-4.51); Lymphocyte % 41.8 % (19-41); Mean Corp Hgb Conc 32.2 g/dL (32-36); Mean Corpuscular Hgb 31.2 pg (27.0-32.0); Mean Corpuscular Volume 96.9 fL (81-99); Mean Platelet Vol. 9.7 fl (6.2-12.0); Monocyte# 0.59 X10^3/uL; Monocyte% 9.4 % (0-10); NRBC Flagged by Analyzer 0 % (0-5); Neutrophil # 2.89 X10^3/uL (2.7-7.7); Neutrophil % 46.1 % (47-70); Platelet Count 314 K/mm3 (150-450); RBC Distribution Width CV 14.3 % (11.6-14.6); RBC Distribution Width SD 50.8 fl (35.1-43.9); Red Blood Count 3.88 M/mm3 (4.2-5.4); White Blood Count 6.3 K/mm3 (4.4-11.0)
== END 2022-03-26 18:00 | disposition home or self-care (01) ==
LOC: LAB 07:40
PROVIDERS: Family Provider Family Medicine Geriatric Medicine; PCP Family Medicine Geriatric Medicine; Referring Provider Psychiatry & Neurology Psychiatry; Visit Provider Psychiatry & Neurology Psychiatry
DX: Z79.899 Other long term (current) drug therapy (principal)
CPT/HCPCS: 36415; 85025

== ENCOUNTER 2022-04-23 15:07 | Outpatient (RCR) | payer MEDICARE, MEDICAID, SELFPAY ==
[2022-04-23 17:21] LABS: Absolute Lymphocyte Count 2.25 X10^3/uL (0.83-4.51); Absolute Neutrophil Count 3.4 X10^3/uL (2.0-7.7); Basophil# 0.02 X10^3/uL; Basophil% 0.3 % (0-1); Eosinophil# 0.08 X10^3/uL; Eosinophils% 1.2 % (0-5); Hematocrit 37.5 % (37-47); Lymphocyte # 2.25 X10^3/ul (0.83-4.51); Lymphocyte % 34.5 % (19-41); Mean Corpuscular Hgb 30.9 pg (27.0-32.0); Mean Corpuscular Volume 96.6 fL (81-99); Mean Platelet Vol. 9.9 fl (6.2-12.0); Monocyte# 0.68 X10^3/uL; Monocyte% 10.4 % (0-10); NRBC Flagged by Analyzer 0.3 % (0-5); Neutrophil # 3.44 X10^3/uL (2.7-7.7); Neutrophil % 52.7 % (47-70); Platelet Count 271 K/mm3 (150-450); RBC Distribution Width CV 14.6 % (11.6-14.6); RBC Distribution Width SD 51.8 fl (35.1-43.9); Red Blood Count 3.88 M/mm3 (4.2-5.4); White Blood Count 6.5 K/mm3 (4.4-11.0)
== END 2022-04-23 17:00 | disposition home or self-care (01) ==
LOC: LAB 15:07
PROVIDERS: Family Provider Family Medicine Geriatric Medicine; PCP Family Medicine Geriatric Medicine; Referring Provider Psychiatry & Neurology Psychiatry; Visit Provider Psychiatry & Neurology Psychiatry
DX: Z79.899 Other long term (current) drug therapy (principal)
CPT/HCPCS: 36415; 85025

== ENCOUNTER 2022-05-26 10:59 | Outpatient (RCR) | payer MEDICARE, MEDICAID, SELFPAY ==
[2022-05-26 11:21] LABS: Absolute Lymphocyte Count 2.59 X10^3/uL (0.83-4.51); Absolute Neutrophil Count 2.7 X10^3/uL (2.0-7.7); Basophil# 0.02 X10^3/uL; Basophil% 0.3 % (0-1); Eosinophil# 0.06 X10^3/uL; Eosinophils% 0.9 % (0-5); Hematocrit 36.1 % (37-47); Hemoglobin 11.7 g/dL (12.0-15.0); Lymphocyte # 2.59 X10^3/ul (0.83-4.51); Lymphocyte % 40.7 % (19-41); Mean Corp Hgb Conc 32.4 g/dL (32-36); Mean Corpuscular Hgb 31.1 pg (27.0-32.0); Mean Platelet Vol. 9.2 fl (6.2-12.0); Monocyte# 0.94 X10^3/uL; Monocyte% 14.8 % (0-10); NRBC Flagged by Analyzer 0 % (0-5); Neutrophil # 2.71 X10^3/uL (2.7-7.7); Neutrophil % 42.7 % (47-70); Platelet Count 238 K/mm3 (150-450); RBC Distribution Width CV 14.9 % (11.6-14.6); RBC Distribution Width SD 52.3 fl (35.1-43.9); Red Blood Count 3.76 M/mm3 (4.2-5.4); White Blood Count 6.4 K/mm3 (4.4-11.0)
== END 2022-05-26 18:00 | disposition home or self-care (01) ==
LOC: LAB 10:59
PROVIDERS: Family Provider Family Medicine Geriatric Medicine; PCP Family Medicine Geriatric Medicine; Referring Provider Psychiatry & Neurology Psychiatry; Visit Provider Psychiatry & Neurology Psychiatry
DX: Z79.899 Other long term (current) drug therapy (principal)
CPT/HCPCS: 36415; 85025

== ENCOUNTER → 2022-06-04 | Outpatient (CLI) | payer MEDICARE, MEDICAID, SELFPAY ==
[2022-06-04 11:39] LABS: ALB/GLOB Ratio 0.6 RATIO (0.9-2.4); AST(SGOT) 17 U/L (15-37); Alanine Aminotransfer ALT/SGPT 20 U/L (13-56); Alkaline Phosphatase 73 U/L (45-117); Anion Gap 7 (5-15); BUN 13 mg/dL (7-18); BUN/Creat Ratio 11.7 RATIO (10-20); Calcium,Total 8.7 mg/dL (8.5-10.1); Chloride 104 mmol/L (98-107); Creatinine, Serum 1.11 mg/dL (0.55-1.02); EST Glomerular Filtration Rate 54 mL/min (>60); Est Glom Filt Rate - Afr Amer 66 mL/min (>60); Globulin 4.7 g/dL (2.2-4.2); Glucose 127 mg/dL (74-106); Potassium 4.6 mmol/L (3.5-5.1); Protein, Total 7.7 g/dL (6.4-8.2); Sodium Level 136 mmol/L (136-145); Thyroid Stim Hormone (TSH) 2.11 uIU/mL (0.358-3.74)
[2022-06-04 11:48] LABS: Valproic Acid (Depakene) Level 90 ug/mL (50-100)
== END | disposition home or self-care (01) ==
PROVIDERS: PCP Family Medicine Geriatric Medicine; Referring Provider Psychiatry & Neurology Psychiatry; Visit Provider Psychiatry & Neurology Psychiatry
DX: Z79.899 Other long term (current) drug therapy (principal)
CPT/HCPCS: 36415; 80053; 80164; 82140; 83036; 84443

== ENCOUNTER → 2022-06-16 | Outpatient (CLI) | payer MEDICARE, MEDICAID, SELFPAY ==
[2022-06-16 13:23] LABS: Absolute Lymphocyte Count 2.87 X10^3/uL (0.83-4.51); Absolute Neutrophil Count 3.2 X10^3/uL (2.0-7.7); Basophil# 0.04 X10^3/uL; Basophil% 0.6 % (0-1); Eosinophil# 0.01 X10^3/uL; Eosinophils% 0.1 % (0-5); Hemoglobin 12.3 g/dL (12.0-15.0); Lymphocyte # 2.87 X10^3/ul (0.83-4.51); Lymphocyte % 40.5 % (19-41); Mean Corp Hgb Conc 32.4 g/dL (32-36); Mean Corpuscular Hgb 30.6 pg (27.0-32.0); Mean Corpuscular Volume 94.5 fL (81-99); Mean Platelet Vol. 9.6 fl (6.2-12.0); Monocyte# 0.86 X10^3/uL; Monocyte% 12.1 % (0-10); NRBC Flagged by Analyzer 0.3 % (0-5); Neutrophil # 3.16 X10^3/uL (2.7-7.7); Neutrophil % 44.6 % (47-70); Platelet Count 301 K/mm3 (150-450); RBC Distribution Width CV 15.1 % (11.6-14.6); RBC Distribution Width SD 53.2 fl (35.1-43.9); Red Blood Count 4.02 M/mm3 (4.2-5.4); White Blood Count 7.1 K/mm3 (4.4-11.0)
[2022-06-16 13:44] LABS: ALB/GLOB Ratio 0.6 RATIO (0.9-2.4); AST(SGOT) 20 U/L (15-37); Alanine Aminotransfer ALT/SGPT 22 U/L (13-56); Albumin, Serum 3.2 g/dL (3.2-5.0); Alkaline Phosphatase 90 U/L (45-117); Anion Gap 5 (5-15); BUN 21 mg/dL (7-18); BUN/Creat Ratio 11.9 RATIO (10-20); Calcium,Total 9.2 mg/dL (8.5-10.1); Chloride 104 mmol/L (98-107); Creatinine, Serum 1.77 mg/dL (0.55-1.02); EST Glomerular Filtration Rate 32 mL/min (>60); Est Glom Filt Rate - Afr Amer 38 mL/min (>60); Globulin 5.4 g/dL (2.2-4.2); Glucose 90 mg/dL (74-106); Potassium 4.8 mmol/L (3.5-5.1); Protein, Total 8.6 g/dL (6.4-8.2); Sodium Level 136 mmol/L (136-145); Thyroid Stim Hormone (TSH) 1.62 uIU/mL (0.358-3.74)
== END | disposition home or self-care (01) ==
LOC: POLAB3 11:35
PROVIDERS: PCP Family Medicine Geriatric Medicine; Visit Provider Family Medicine Geriatric Medicine
DX: E11.65 Type 2 diabetes mellitus with hyperglycemia (principal); I10 Essential (primary) hypertension
CPT/HCPCS: 36415; 80053; 84443; 85025

== ENCOUNTER 2022-06-22 10:56 | Outpatient (RCR) | payer MEDICARE, MEDICAID, SELFPAY ==
[2022-06-22 11:17] LABS: Absolute Lymphocyte Count 2.28 X10^3/uL (0.83-4.51); Absolute Neutrophil Count 3.6 X10^3/uL (2.0-7.7); Basophil# 0.03 X10^3/uL; Basophil% 0.4 % (0-1); Eosinophil# 0.02 X10^3/uL; Eosinophils% 0.3 % (0-5); Hematocrit 36.8 % (37-47); Hemoglobin 11.8 g/dL (12.0-15.0); Lymphocyte # 2.28 X10^3/ul (0.83-4.51); Lymphocyte % 33.6 % (19-41); Mean Corp Hgb Conc 32.1 g/dL (32-36); Mean Corpuscular Hgb 31.1 pg (27.0-32.0); Mean Corpuscular Volume 97.1 fL (81-99); Mean Platelet Vol. 10.2 fl (6.2-12.0); Monocyte# 0.84 X10^3/uL; Monocyte% 12.4 % (0-10); NRBC Flagged by Analyzer 0 % (0-5); Neutrophil # 3.57 X10^3/uL (2.7-7.7); Neutrophil % 52.7 % (47-70); POSITIVE COUNT YES; RBC Distribution Width CV 15.5 % (11.6-14.6); RBC Distribution Width SD 55.4 fl (35.1-43.9); Red Blood Count 3.79 M/mm3 (4.2-5.4); White Blood Count 6.8 K/mm3 (4.4-11.0)
[2022-06-22 12:32] LABS: Platelet Estimate ADEQUATE (ADEQ)
== END 2022-07-17 21:16 | disposition home or self-care (01) ==
LOC: LAB 10:56
PROVIDERS: Family Provider Family Medicine Geriatric Medicine; PCP Family Medicine Geriatric Medicine; Referring Provider Psychiatry & Neurology Psychiatry; Visit Provider Psychiatry & Neurology Psychiatry
DX: Z79.899 Other long term (current) drug therapy (principal)
CPT/HCPCS: 36415; 85025

== ENCOUNTER → 2022-06-24 | Outpatient (CLI) | payer MEDICARE, MEDICAID, SELFPAY ==
--- NOTE | 2022-06-24 08:05 | US_ITS ---
STUDY: ABDOMINAL ULTRASOUND - RIGHT UPPER QUADRANT REASON FOR VISIT: Female, 52 years old elevated ammonia levels TECHNIQUE: Ultrasound evaluation of the right upper quadrant was performed with real-time and static lou-scale imaging. TECHNICAL QUALITY: Adequate. COMPARISON: None. FINDINGS: Liver: The liver measures 16.2 cm. There is increased echogenicity consistent with fatty infiltration. The bile ducts are within normal limits. There is hepatic color flow. The direction of portal flow is hepatopetal. There is no demonstrated mass lesion. Gallbladder: Normal distended gallbladder. The gallbladder wall measures 1.6 mm. There is a negative sonographic Li''s sign. There is no pericholecystic fluid. There are no gallstones. Sludge is seen within the gallbladder lumen. Common Bile Duct (C.B.D.): The common bile duct measures 2.6 mm. Pancreas: There is nonvisualization of the pancreas due to to overlying bowel gas There is normal echogenicity of the pancreas. There is no demonstrated pancreatic mass or cyst. Right Kidney: Normal size of the right kidney. The right kidney measures 12 cm x 5.9 cm x 6.4 cm. Normal renal cortex. The right cortex measures 2.3 cm. There is no demonstrated renal mass or cyst. There is no right hydronephrosis. US/Abdomen Limited IMPRESSION: Fatty infiltration of the liver. Sludge is seen within the gallbladder lumen. Electronically Signed: Michele Rhodes MD at 17:38 EST ,
== END | disposition home or self-care (01) ==
LOC: US 07:59
PROVIDERS: PCP Family Medicine Geriatric Medicine; Referring Provider Family Medicine Geriatric Medicine; Visit Provider Family Medicine Geriatric Medicine
DX: E72.20 Disorder of urea cycle metabolism, unspecified (principal); R10.11 Right upper quadrant pain
CPT/HCPCS: 76705

== ENCOUNTER 2022-07-22 09:26 | Outpatient (RCR) | payer MEDICARE, MEDICAID, SELFPAY ==
[2022-07-22 09:42] LABS: Absolute Lymphocyte Count 2.11 X10^3/uL (0.83-4.51); Basophil# 0.02 X10^3/uL; Basophil% 0.4 % (0-1); Hematocrit 37.2 % (37-47); Hemoglobin 11.9 g/dL (12.0-15.0); Lymphocyte # 2.11 X10^3/ul (0.83-4.51); Lymphocyte % 37.2 % (19-41); Mean Corpuscular Hgb 30.1 pg (27.0-32.0); Mean Corpuscular Volume 94.2 fL (81-99); Mean Platelet Vol. 9.3 fl (6.2-12.0); Monocyte# 0.54 X10^3/uL; Monocyte% 9.5 % (0-10); NRBC Flagged by Analyzer 0 % (0-5); Neutrophil # 2.98 X10^3/uL (2.7-7.7); Neutrophil % 52.5 % (47-70); Platelet Count 291 K/mm3 (150-450); RBC Distribution Width CV 14.5 % (11.6-14.6); RBC Distribution Width SD 50.6 fl (35.1-43.9); Red Blood Count 3.95 M/mm3 (4.2-5.4); White Blood Count 5.7 K/mm3 (4.4-11.0)
== END 2022-08-16 02:21 | disposition home or self-care (01) ==
LOC: LAB 09:26
PROVIDERS: Family Provider Family Medicine Geriatric Medicine; PCP Family Medicine Geriatric Medicine; Referring Provider Psychiatry & Neurology Psychiatry; Visit Provider Psychiatry & Neurology Psychiatry
DX: Z79.899 Other long term (current) drug therapy (principal)
CPT/HCPCS: 36415; 85025

== ENCOUNTER 2022-08-24 14:05 | Outpatient (RCR) | payer MEDICARE, MEDICAID, SELFPAY ==
[2022-08-24 14:52] LABS: Absolute Lymphocyte Count 2.55 X10^3/uL (0.83-4.51); Absolute Neutrophil Count 5.8 X10^3/uL (2.0-7.7); Basophil# 0.01 X10^3/uL; Basophil% 0.1 % (0-1); Hematocrit 37.4 % (37-47); Hemoglobin 12.1 g/dL (12.0-15.0); Lymphocyte # 2.55 X10^3/ul (0.83-4.51); Lymphocyte % 27.6 % (19-41); Mean Corp Hgb Conc 32.4 g/dL (32-36); Mean Corpuscular Hgb 30.3 pg (27.0-32.0); Mean Corpuscular Volume 93.5 fL (81-99); Mean Platelet Vol. 9.8 fl (6.2-12.0); Monocyte# 0.87 X10^3/uL; Monocyte% 9.4 % (0-10); NRBC Flagged by Analyzer 0 % (0-5); Neutrophil % 62.7 % (47-70); Platelet Count 297 K/mm3 (150-450); RBC Distribution Width CV 13.9 % (11.6-14.6); RBC Distribution Width SD 47.6 fl (35.1-43.9); White Blood Count 9.3 K/mm3 (4.4-11.0)
== END 2022-08-24 15:00 | disposition home or self-care (01) ==
LOC: LAB 14:05
PROVIDERS: Family Provider Family Medicine Geriatric Medicine; PCP Family Medicine Geriatric Medicine; Referring Provider Psychiatry & Neurology Psychiatry; Visit Provider Psychiatry & Neurology Psychiatry
DX: Z79.899 Other long term (current) drug therapy (principal)
CPT/HCPCS: 36415; 85025

== ENCOUNTER 2022-09-21 11:01 | Outpatient (RCR) | payer MEDICARE, MEDICAID, SELFPAY ==
[2022-09-21 12:35] LABS: Absolute Lymphocyte Count 1.93 X10^3/uL (0.83-4.51); Absolute Neutrophil Count 3.2 X10^3/uL (2.0-7.7); Hematocrit 36.5 % (37-47); Hemoglobin 11.5 g/dL (12.0-15.0); Lymphocyte # 1.93 X10^3/ul (0.83-4.51); Lymphocyte % 33.7 % (19-41); Mean Corp Hgb Conc 31.5 g/dL (32-36); Mean Corpuscular Hgb 29.6 pg (27.0-32.0); Mean Corpuscular Volume 93.8 fL (81-99); Mean Platelet Vol. 9.9 fl (6.2-12.0); Monocyte# 0.58 X10^3/uL; Monocyte% 10.1 % (0-10); NRBC Flagged by Analyzer 0 % (0-5); Neutrophil % 55.9 % (47-70); Platelet Count 298 K/mm3 (150-450); RBC Distribution Width CV 14.3 % (11.6-14.6); RBC Distribution Width SD 48.8 fl (35.1-43.9); Red Blood Count 3.89 M/mm3 (4.2-5.4); White Blood Count 5.7 K/mm3 (4.4-11.0)
== END 2022-09-21 18:00 | disposition home or self-care (01) ==
LOC: LAB 11:01
PROVIDERS: Family Provider Family Medicine Geriatric Medicine; PCP Family Medicine Geriatric Medicine; Referring Provider Psychiatry & Neurology Psychiatry; Visit Provider Psychiatry & Neurology Psychiatry
DX: Z79.899 Other long term (current) drug therapy (principal)
CPT/HCPCS: 36415; 85025

== ENCOUNTER → 2022-09-23 | Outpatient (CLI) | payer MEDICARE, MEDICAID, SELFPAY ==
[2022-09-23 16:07] LABS: Absolute Lymphocyte Count 2.19 X10^3/uL (0.83-4.51); Absolute Neutrophil Count 3.6 X10^3/uL (2.0-7.7); Basophil# 0.01 X10^3/uL; Basophil% 0.2 % (0-1); Hematocrit 36.5 % (37-47); Hemoglobin 11.5 g/dL (12.0-15.0); Lymphocyte # 2.19 X10^3/ul (0.83-4.51); Lymphocyte % 33.3 % (19-41); Mean Corp Hgb Conc 31.5 g/dL (32-36); Mean Corpuscular Hgb 29.8 pg (27.0-32.0); Mean Corpuscular Volume 94.6 fL (81-99); Mean Platelet Vol. 9.6 fl (6.2-12.0); Monocyte# 0.72 X10^3/uL; Monocyte% 10.9 % (0-10); NRBC Flagged by Analyzer 0 % (0-5); Neutrophil # 3.64 X10^3/uL (2.7-7.7); Neutrophil % 55.3 % (47-70); Platelet Count 309 K/mm3 (150-450); RBC Distribution Width CV 14.4 % (11.6-14.6); Red Blood Count 3.86 M/mm3 (4.2-5.4); White Blood Count 6.6 K/mm3 (4.4-11.0)
[2022-09-23 16:44] LABS: ALB/GLOB Ratio 0.8 RATIO (0.9-2.4); AST(SGOT) 13 U/L (15-37); Alanine Aminotransfer ALT/SGPT 26 U/L (13-56); Albumin, Serum 3.4 g/dL (3.2-5.0); Alkaline Phosphatase 95 U/L (45-117); Anion Gap 3 (5-15); BUN 15 mg/dL (7-18); BUN/Creat Ratio 13.4 RATIO (10-20); Calcium,Total 8.8 mg/dL (8.5-10.1); Chloride 113 mmol/L (98-107); Cholesterol 135 mg/dL (200); Creatinine, Serum 1.12 mg/dL (0.55-1.02); EST Glomerular Filtration Rate 54 mL/min (>60); Est Glom Filt Rate - Afr Amer 65 mL/min (>60); Globulin 4.3 g/dL (2.2-4.2); Glucose 109 mg/dL (74-106); High Density Lipoprotein 85 mg/dL; Potassium 4.2 mmol/L (3.5-5.1); Protein, Total 7.7 g/dL (6.4-8.2); Sodium Level 140 mmol/L (136-145); Thyroid Stim Hormone (TSH) 0.42 uIU/mL (0.358-3.74); Triglycerides 74 mg/dL; Very Low Density Lipoprotein 15 mg/dL (5-40)
== END | disposition home or self-care (01) ==
LOC: LAB 15:37
PROVIDERS: PCP Family Medicine Geriatric Medicine; Referring Provider Family Medicine Geriatric Medicine; Visit Provider Family Medicine Geriatric Medicine
DX: E11.65 Type 2 diabetes mellitus with hyperglycemia (principal); I10 Essential (primary) hypertension
CPT/HCPCS: 36415; 80053; 80061; 82043; 83036; 84443; 85025

== ENCOUNTER → 2022-10-14 | Outpatient (CLI) | payer MEDICARE, MEDICAID, SELFPAY ==
--- NOTE | 2022-10-14 09:28 | US_ITS ---
STUDY: ABDOMINAL ULTRASOUND - ELASTOGRAPHY REASON FOR VISIT: Female, 52 years old. Fatty infiltration of the liver. TECHNIQUE: Liver stiffness measurements were obtained on a [employer] RS 85 ultrasound machine using a CA 1-7 probe following the SRU guidelines. 3 measurements were obtained using a 2-D-SWE method. TheIQR/M was 22% suggesting a quality data set. TECHNICAL QUALITY: Adequate. COMPARISON: None. FINDINGS: Liver: Fatty infiltration of the liver. Median liver stiffness measured 9.1 kPa. Abdomen: There is no demonstrated mass lesion. US/Elastography Parenchyma/Organ IMPRESSION: Liver stiffness measures 9.1 kPa compatible with F2-F3 (Mild to moderate liver fibrosis) Metavir score. Electronically Signed: Michele Rhodes MD at 11:54 EDT ,
== END | disposition home or self-care (01) ==
LOC: US 09:25
PROVIDERS: PCP Family Medicine Geriatric Medicine; Referring Provider Family Medicine Geriatric Medicine; Visit Provider Family Medicine Geriatric Medicine
DX: K76.0 Fatty (change of) liver, not elsewhere classified (principal)
CPT/HCPCS: 76981

== ENCOUNTER 2022-11-09 14:22 | Outpatient (RCR) | payer MEDICARE, MEDICAID, SELFPAY ==
[2022-11-09 15:06] LABS: Absolute Lymphocyte Count 1.55 X10^3/uL (0.83-4.51); Absolute Neutrophil Count 5.2 X10^3/uL (2.0-7.7); Basophil# 0.01 X10^3/uL; Basophil% 0.1 % (0-1); Hematocrit 35.7 % (37-47); Hemoglobin 11.4 g/dL (12.0-15.0); Lymphocyte # 1.55 X10^3/ul (0.83-4.51); Lymphocyte % 21.3 % (19-41); Mean Corp Hgb Conc 31.9 g/dL (32-36); Mean Corpuscular Hgb 29.6 pg (27.0-32.0); Mean Corpuscular Volume 92.7 fL (81-99); Mean Platelet Vol. 9.8 fl (6.2-12.0); Monocyte# 0.47 X10^3/uL; Monocyte% 6.4 % (0-10); NRBC Flagged by Analyzer 0 % (0-5); Neutrophil # 5.24 X10^3/uL (2.7-7.7); Neutrophil % 71.9 % (47-70); Platelet Count 298 K/mm3 (150-450); RBC Distribution Width CV 14.8 % (11.6-14.6); RBC Distribution Width SD 50.4 fl (35.1-43.9); Red Blood Count 3.85 M/mm3 (4.2-5.4); White Blood Count 7.3 K/mm3 (4.4-11.0)
== END 2022-11-16 18:00 | disposition home or self-care (01) ==
LOC: LAB 14:22
PROVIDERS: Family Provider Family Medicine Geriatric Medicine; PCP Family Medicine Geriatric Medicine; Referring Provider Psychiatry & Neurology Psychiatry; Visit Provider Psychiatry & Neurology Psychiatry
DX: Z79.899 Other long term (current) drug therapy (principal)
CPT/HCPCS: 36415; 85025

== ENCOUNTER 2022-11-24 11:04 | Outpatient (RCR) | payer MEDICARE, MEDICAID, SELFPAY ==
[2022-11-19 13:39] LABS: Mucous, Urine 0 SEEN /hpf (<or=2+); Red Blood Cells-Urine 0 SEEN /hpf (0-5)
[2022-11-19 13:53] LABS: Absolute Lymphocyte Count 1.87 X10^3/uL (0.83-4.51); Absolute Neutrophil Count 5.4 X10^3/uL (2.0-7.7); Basophil# 0.01 X10^3/uL; Basophil% 0.1 % (0-1); Hematocrit 35.3 % (37-47); Lymphocyte # 1.87 X10^3/ul (0.83-4.51); Mean Corp Hgb Conc 31.2 g/dL (32-36); Mean Corpuscular Hgb 29.3 pg (27.0-32.0); Mean Corpuscular Volume 93.9 fL (81-99); Mean Platelet Vol. 9.4 fl (6.2-12.0); Monocyte# 0.48 X10^3/uL; Monocyte% 6.2 % (0-10); NRBC Flagged by Analyzer 0 % (0-5); Neutrophil # 5.41 X10^3/uL (2.7-7.7); Neutrophil % 69.3 % (47-70); Platelet Count 309 K/mm3 (150-450); RBC Distribution Width CV 15.2 % (11.6-14.6); RBC Distribution Width SD 52.5 fl (35.1-43.9); Red Blood Count 3.76 M/mm3 (4.2-5.4); White Blood Count 7.8 K/mm3 (4.4-11.0)
[2022-11-19 14:32] LABS: Thyroid Stim Hormone (TSH) 0.73 uIU/mL (0.358-3.74)
[2022-11-19 16:26] LABS: ALB/GLOB Ratio 0.7 RATIO (0.9-2.4); AST(SGOT) 16 U/L (15-37); Alanine Aminotransfer ALT/SGPT 21 U/L (13-56); Albumin, Serum 3.2 g/dL (3.2-5.0); Alkaline Phosphatase 91 U/L (45-117); Anion Gap 7 (5-15); BUN 6 mg/dL (7-18); BUN/Creat Ratio 5.6 RATIO (10-20); Calcium,Total 8.7 mg/dL (8.5-10.1); Chloride 107 mmol/L (98-107); Creatinine, Serum 1.08 mg/dL (0.55-1.02); EST Glomerular Filtration Rate 56 mL/min (>60); Est Glom Filt Rate - Afr Amer 68 mL/min (>60); Globulin 4.4 g/dL (2.2-4.2); Glucose 153 mg/dL (74-106); Potassium 4.1 mmol/L (3.5-5.1); Protein, Total 7.6 g/dL (6.4-8.2); Sodium Level 136 mmol/L (136-145)
[2022-11-19 17:15] LABS: Color, Urine Yellow (Yellow); Glucose, Dipstick Normal (Normal); Ketone-Dipstick Negative (Negative); Leukocyte Esterase-Dipstick Negative /ul (Negative); Nitrite-Dipstick Negative (Negative); Occult Blood-Urine Negative /ul (Negative); Protein-Dipstick 15 mg/dl (Negative); Urine Bilirubin Dipstick Negative (Negative); Urine Clarity Cloudy (Clear); Urine Urobilinogen Normal (Normal)
[2022-11-19 18:37] LABS: Bacteria 2+ /hpf (None Seen); Squamous Epithelial Cells - UA 10-25 SEEN /hpf (5-10); White Blood Cells 0-5 SEEN /hpf (0-5)
[2022-11-24 11:09] LABS: Bacteria 0 SEEN /hpf (None Seen); Mucous, Urine 0 SEEN /hpf (<or=2+); Red Blood Cells-Urine 0 SEEN /hpf (0-5); Squamous Epithelial Cells - UA 0 SEEN /hpf (5-10); White Blood Cells 0 SEEN /hpf (0-5)
[2022-11-24 11:32] LABS: Color, Urine Yellow (Yellow); Glucose, Dipstick Normal (Normal); Ketone-Dipstick Negative (Negative); Leukocyte Esterase-Dipstick Negative /ul (Negative); Nitrite-Dipstick Negative (Negative); Occult Blood-Urine Negative /ul (Negative); Protein-Dipstick Negative (Negative); Specific Gravity, Urine 1.005 (1.002-1.030); Urine Bilirubin Dipstick Negative (Negative); Urine Clarity Clear (Clear); Urine Urobilinogen Normal (Normal); Urine pH 6.5 (5.0 - 8.0)
== END 2022-11-24 18:00 | disposition home or self-care (01) ==
LOC: LAB 11:04
PROVIDERS: Family Provider Family Medicine Geriatric Medicine; PCP Family Medicine Geriatric Medicine; Referring Provider Psychiatry & Neurology Psychiatry; Visit Provider Psychiatry & Neurology Psychiatry
DX: Z79.899 Other long term (current) drug therapy (principal)
CPT/HCPCS: 36415; 80053; 81001; 82140; 84443; 85025

== ENCOUNTER 2022-11-24 14:09 | Emergency (ER) | payer MEDICARE, MEDICAID, SELFPAY ==
[2022-11-24 14:12] VITALS: BP 141/90; PULSE 96; RESP 18; TEMP 35.9; O2SAT 100; BMI 39.6
--- NOTE | 2022-11-24 15:06 | EDS_ITS ---
HPI History of Present Illness Chief Complaint: Confusion Informant: patient and other ([employer]anger Pebbles) Narrative Narrative: Patient here with molecular genetic pathologist, in from senior care where she stays with 4 other individuals. History of schizophrenia paranoid type. She is on medication followed by Dr. Borjas. Last 3 intermittent paranoid schizophrenia flares. There are concerns of intermittent confusion. Saw PCP, Dr. Fernandez over a week ago, reported blood work urine test reported was normal. Per major case detective follow-up with Dr. Borjas, on Wednesday told was not her schizophrenia there were concerns of her hemoglobin causing symptoms. She denies rectal bleed she is postmenopausal. She denies suicidal homicidal ideations. She is brought in here for medical evaluation. [facility] Medical History (Updated 11/24/22 @ 16:[address] Howard Dodd DO) Cough Expiratory wheezing Hyperlipidemia Hypertension Hyponatremia Hypoxemia Moderate persistent asthma, uncomplicated Paranoid disorder Pulmonary hypertension Schizophrenia Type II diabetes mellitus Wheeze Home Medications aspirin 81 mg chewable tablet 81 mg PO DAILY@0800 06/24/15 [History Last Taken Unknown] clozapine 100 mg tablet 150 mg PO BID 06/24/15 [History Last Taken Unknown] glimepiride 4 mg tablet 4 mg PO DAILY 06/24/15 [History Last Taken Unknown] atorvastatin 40 mg tablet (Lipitor) 40 mg PO QDAY 04/05/17 [History Last Taken Unknown] divalproex 500 mg tablet,extended release 24 hr 500 mg PO .qid 04/05/17 [History Last Taken Unknown] metformin 500 mg tablet 500 mg PO BID 09/19/18 [History Last Taken Unknown] norethindrone (contraceptive) 0.35 mg tablet 0.35 mg PO DAILY #28 tabs 05/15/19 [Rx Last Taken Unknown] levothyroxine 137 mcg tablet 137 mcg PO DAILY 06/13/19 [History Last Taken Unknown] olmesartan 40 mg tablet 40 mg PO DAILY 06/13/19 [History Last Taken Unknown] fluticasone propionate 250 mcg/actuation blister powder for inhalation (Flovent Diskus) 1 inh inhalation BID #60 ea 05/18/22 [Rx Last Taken Unknown] Allergy/AdvReac Type Severity Reaction Status Date / Time No Known Allergies Allergy Verified 11/24/22 14:11 Family History Brother Diabetes Social History Smoking Status: Never smoker alcohol intake: never substance use type: does not use caffeine: Yes what type of physical activity do you participate in: walking seatbelt use: always do you feel safe at home: Yes ROS ROS ED Constitutional Constitutional ED: Denies chills, fever(s) or sweats Eyes Eyes: Denies change in vision ENT ENT ED: Denies dysphagia or sore throat Cardiovascular Cardiovascular: Denies chest pain, leg edema, palpitations or racing heartbeat Respiratory/Chest Respiratory/Chest: Denies cough, dyspnea or dyspnea on exertion Gastrointestinal Gastrointestinal: Denies abdominal pain, diarrhea, nausea or vomiting Genitourinary Genitourinary ED: Denies dysuria, hematuria or urinary frequency Musculoskeletal Musculoskeletal: Denies back pain, extremity pain or neck pain Integumentary Denies rash or wounds Neurologic Neurologic: Denies headache(s), paresthesias or weakness Psychiatric Psychiatric: Denies depression, suicidal ideation or suicidal thoughts EXAM Physical Exam Const Vital Signs: 11/24/22 14:12 11/24/22 16:11 Temperature 96.6 F L Temperature Source Temporal Pulse Rate 96 87 Respiratory Rate 18 18 Blood Pressure 141/90 H 140/85 H Blood Pressure Mean 107 Pulse Ox 100 100 Oxygen Delivery Method Room Air Positive well nourished and well developed General Appearance ED: well developed and NAD HEENT Reports moist mucous membranes normocephalic and atraumatic Eyes PERRL, EOMs intact bilaterally and conjunctivae normal General Eye ED: Yes normal appearance of both eyes Neck no lymphadenopathy and supple General: Negative for tenderness Chest Wall Chest: Negative for tenderness Resp normal respiratory effort and normal air movement Effort and Inspection: symmetric chest movement; Negative for respiratory distress Cardio regular rate, regular rhythm and no murmurs Peripheral Pulses: pulses 2+ throughout GI normal to inspection, nondistended, normoactive bowel sounds and non-tender Palpation: Negative for guarding or rebound tenderness present Back/Spine no CVA tenderness and no thoracic nor lumbar tenderness Extremity normal to inspection General Extremety ED: Negative for edema or tenderness General Extremity: Negative for edema Neuro oriented x3 and no sensory deficits noted Sensorium / Orientation: awake and alert Psych Psych Narrative: Patient cooperative, denies suicidal homicidal ideations. Skin no rashes or lesions noted and no wounds MDM MDM MDM Narrative Medical decision making narrative: Interventions / MDM: Differential diagnosis: Schizophrenia Diagnosis considered but do not suspect: Infection however urine test normal this morning. Electrolyte abnormalities, however labs are stable. My EKG interpretation: N/A Imaging independently reviewed and interpreted by myself: N/A External documents reviewed: N/A Test considered but not ordered:N/A ED course: Patient cooperative nontoxic.. valuation manager concern for medical concerns causing her symptoms. Initial read work-up with concerns of anemia with labs. Her hemoglobin returned at 12 it was 11 5 days ago. Initial order for urine which was canceled due to having a urine test normal this morning. 2 negative urine test with asymptomatic symptoms. Vitals remained stable. She is medically cleared. She is discharged back with case management back to senior care. All questions were answered. Re-evaluation: stable Disposition discussed with patient/family/significant other: Patient and case specialist Pebbles Wilfredo discussed with consulting clinician: N/A This note was generated with [employer] dictation software. It may contain incorrect words, spelling, and punctuation that were not noted in checking the note before signing. Interventions / MDM: Lab Data Labs: Laboratory Results - last 24 hr 11/24/22 15:15 WBC 7.4 RBC 4.03 L Hgb 12.0 Hct 37.5 MCV 93.1 MCH 29.8 MCHC 32.0 RDW Std Deviation 51.6 H RDW Coeff of Beatrice 15.1 H Plt Count 316 MPV 9.3 Immature Gran % (Auto) 0.300 Neut % (Auto) 67.6 Lymph % (Auto) 23.9 Pike % (Auto) 8.1 Eos % (Auto) 0.0 Baso % (Auto) 0.1 Absolute Neuts (auto) 5.0 Absolute Lymphs (auto) 1.77 Nucleated RBC % 0 Sodium 138 Potassium 3.6 Chloride 108 H Carbon Dioxide 27.0 Anion Gap 3 L BUN 11 Creatinine 1.03 H Estim Creat Clear Calc 58.45 Est GFR (MDRD) Af Amer 72 Est GFR (MDRD) Non-Af 59 L BUN/Creatinine Ratio 10.7 Glucose 72 L Calcium 9.2 Discharge Plan Triage Chief Complaint: Confusion Other Complaint: Mental Health ED Provider: Howard Dodd Dx/Rx/DC Orders Clinical Impression: Schizophrenia, Encounter for medical assessment Instructions: ED Schizophrenia, Paranoid Type Prescriptions: No Action atorvastatin [Lipitor] 40 mg tablet 40 mg PO QDAY divalproex 500 mg tablet extended release 24 hr 500 mg PO .qid metformin 500 mg tablet 500 mg PO BID levothyroxine 137 mcg tablet 137 mcg PO DAILY olmesartan 40 mg tablet 40 mg PO DAILY clozapine 100 MG tablet 150 mg PO BID Patient Comments: antipsychotic glimepiride 4 MG tablet 4 mg PO DAILY Patient Comments: diabetes aspirin 81 MG tablet,chewable 81 mg PO DAILY@0800 Patient Comments: heart health norethindrone (contraceptive) 0.35 mg tablet 0.35 mg PO DAILY Qty: 28 1RF Rx Instructions: start day 1 of menstrual cycle Flovent Diskus 250 mcg/actuation blister with device 1 inh INHALATION BID Qty: 60 11RF Primary Care Provider: Marc Fernandez Chi Referrals: Marc Fernandez Chi, MD [Primary Care Provider] - 1-2 Weeks Activity Restrictions/Additional Instructions: Hemoglobin today 12. Creatinine 1, normal electrolytes. Your urine test was normal this morning. Follow-up with your doctors as an outpatient. Return if worsening symptoms. Disposition Disposition: Home, Self Care Discharge Date/Time: 11/24/22 16:19
--- NOTE | 2022-11-24 15:32 | ED.RN ---
PT ASSISTED TO RESTROOM, GIVEN INSTRUCTIONS ON HOW TO PROVIDE URINE SAMPLE. PT RETURNED TO ROOM W/WATER IN SPECI CUP. THIS NURSE ACCOMPAINED PT TO RESTROOM- PT NOT ABLE TO PROVIDE URINE SAMPLE AT THIS TIME. DR BLAIR NOTIFIED
[2022-11-24 15:33] LABS: Absolute Lymphocyte Count 1.77 X10^3/uL (0.83-4.51); Basophil# 0.01 X10^3/uL; Basophil% 0.1 % (0-1); Hematocrit 37.5 % (37-47); Lymphocyte # 1.77 X10^3/ul (0.83-4.51); Lymphocyte % 23.9 % (19-41); Mean Corpuscular Hgb 29.8 pg (27.0-32.0); Mean Corpuscular Volume 93.1 fL (81-99); Mean Platelet Vol. 9.3 fl (6.2-12.0); Monocyte% 8.1 % (0-10); NRBC Flagged by Analyzer 0 % (0-5); Neutrophil % 67.6 % (47-70); Platelet Count 316 K/mm3 (150-450); RBC Distribution Width CV 15.1 % (11.6-14.6); RBC Distribution Width SD 51.6 fl (35.1-43.9); Red Blood Count 4.03 M/mm3 (4.2-5.4); White Blood Count 7.4 K/mm3 (4.4-11.0)
[2022-11-24 16:02] LABS: Anion Gap 3 (5-15); BUN 11 mg/dL (7-18); BUN/Creat Ratio 10.7 RATIO (10-20); Calcium,Total 9.2 mg/dL (8.5-10.1); Chloride 108 mmol/L (98-107); Creatinine, Serum 1.03 mg/dL (0.55-1.02); EST Glomerular Filtration Rate 59 mL/min (>60); Est Glom Filt Rate - Afr Amer 72 mL/min (>60); Estimated Creatinine Clearance 58.45 ml/min; Glucose 72 mg/dL (74-106); Potassium 3.6 mmol/L (3.5-5.1); Sodium Level 138 mmol/L (136-145)
[2022-11-24 16:11] VITALS: BP 140/85; PULSE 87; RESP 18; O2SAT 100
== END 2022-11-24 16:19 | disposition home or self-care (01) ==
PROVIDERS: Emergency Provider Emergency Medicine; PCP Family Medicine Geriatric Medicine; Visit Provider Emergency Medicine
DX: F20.9 Schizophrenia, unspecified (principal); Z79.899 Other long term (current) drug therapy
CPT/HCPCS: 80048; 81001; 85025; 99283

== ENCOUNTER 2022-12-23 08:09 | Outpatient (RCR) | payer MEDICARE, MEDICAID, SELFPAY ==
[2022-12-23 09:09] LABS: Absolute Lymphocyte Count 1.75 X10^3/uL (0.83-4.51); Basophil# 0.02 X10^3/uL; Basophil% 0.3 % (0-1); Hemoglobin 12.4 g/dL (12.0-15.0); Lymphocyte # 1.75 X10^3/ul (0.83-4.51); Lymphocyte % 27.8 % (19-41); Mean Corp Hgb Conc 31.8 g/dL (32-36); Mean Corpuscular Hgb 29.5 pg (27.0-32.0); Mean Corpuscular Volume 92.6 fL (81-99); Mean Platelet Vol. 9.6 fl (6.2-12.0); Monocyte# 0.53 X10^3/uL; Monocyte% 8.4 % (0-10); NRBC Flagged by Analyzer 0 % (0-5); Neutrophil # 3.98 X10^3/uL (2.7-7.7); Neutrophil % 63.2 % (47-70); Platelet Count 356 K/mm3 (150-450); RBC Distribution Width CV 15.2 % (11.6-14.6); Red Blood Count 4.21 M/mm3 (4.2-5.4); White Blood Count 6.3 K/mm3 (4.4-11.0)
== END 2022-12-23 18:00 | disposition home or self-care (01) ==
LOC: LAB 08:09
PROVIDERS: Family Provider Family Medicine Geriatric Medicine; PCP Family Medicine Geriatric Medicine; Referring Provider Psychiatry & Neurology Psychiatry; Visit Provider Psychiatry & Neurology Psychiatry
DX: Z79.899 Other long term (current) drug therapy (principal)
CPT/HCPCS: 36415; 85025

== ENCOUNTER → 2023-01-20 | Outpatient (CLI) | payer MEDICARE, MEDICAID, SELFPAY ==
--- NOTE | 2023-01-20 08:15 | CT_ITS ---
STUDY: CT BRAIN WITHOUT CONTRAST REASON FOR EXAM: Female, 52 years old. ENCEPHALOPATHY --DEMENTIA RADIATION DOSAGE (If Supplied By Facility): CTDIvol = ( 44.99 ) mGy, DLP = ( 779.24 ) mGycm TECHNIQUE: Transaxial CT imaging of the brain was performed without administration of intravenous contrast material. Individualized dose optimization techniques were used for this CT. COMPARISON: No relevant priors. FINDINGS: Normal soft tissue structures. Normal calvarium. There is mild cerebral atrophy with widening of the extra-axial spaces and ventricular dilatation. Normal white matter tracts of the cerebral hemispheres. Tiny lacunar is seen in the insular cortex of both temporal lobes most likely old in nature. Normal brainstem. Normal cerebellum. There is no intracranial hemorrhage. There are no findings of an acute ischemic infarction. Normal visualized paranasal sinuses. CT/Brain/Head without Contrast IMPRESSION: Chronic involutional changes of the brain. Electronically Signed: Michele Rhodes MD at 9:03 EDT ,
== END | disposition home or self-care (01) ==
PROVIDERS: PCP Family Medicine Geriatric Medicine; Referring Provider Family Medicine Geriatric Medicine; Visit Provider Family Medicine Geriatric Medicine
DX: G93.40 Encephalopathy, unspecified (principal)
CPT/HCPCS: 70450

== ENCOUNTER 2023-01-21 08:15 | Outpatient (RCR) | payer MEDICARE, MEDICAID, SELFPAY ==
[2023-01-21 08:42] LABS: Absolute Lymphocyte Count 1.88 X10^3/uL (0.83-4.51); Absolute Neutrophil Count 3.9 X10^3/uL (2.0-7.7); Basophil# 0.02 X10^3/uL; Basophil% 0.3 % (0-1); Hematocrit 36.8 % (37-47); Hemoglobin 11.9 g/dL (12.0-15.0); Lymphocyte # 1.88 X10^3/ul (0.83-4.51); Lymphocyte % 29.7 % (19-41); Mean Corp Hgb Conc 32.3 g/dL (32-36); Mean Corpuscular Hgb 30.1 pg (27.0-32.0); Mean Corpuscular Volume 92.9 fL (81-99); Mean Platelet Vol. 9.2 fl (6.2-12.0); Monocyte# 0.53 X10^3/uL; Monocyte% 8.4 % (0-10); NRBC Flagged by Analyzer 0 % (0-5); Neutrophil % 61.4 % (47-70); Platelet Count 278 K/mm3 (150-450); RBC Distribution Width CV 14.3 % (11.6-14.6); Red Blood Count 3.96 M/mm3 (4.2-5.4); White Blood Count 6.3 K/mm3 (4.4-11.0)
== END 2023-01-21 18:00 | disposition home or self-care (01) ==
LOC: LAB 08:15
PROVIDERS: Family Provider Family Medicine Geriatric Medicine; PCP Family Medicine Geriatric Medicine; Referring Provider Psychiatry & Neurology Psychiatry; Visit Provider Psychiatry & Neurology Psychiatry
DX: Z79.899 Other long term (current) drug therapy (principal)
CPT/HCPCS: 36415; 85025

== ENCOUNTER → 2023-02-10 | Outpatient (CLI) | payer MEDICARE, MEDICAID, SELFPAY ==
[2023-02-10 14:16] LABS: Absolute Lymphocyte Count 1.59 X10^3/uL (0.83-4.51); Absolute Neutrophil Count 3.9 X10^3/uL (2.0-7.7); Basophil# 0.02 X10^3/uL; Basophil% 0.3 % (0-1); Hematocrit 38.7 % (37-47); Hemoglobin 11.8 g/dL (12.0-15.0); Lymphocyte # 1.59 X10^3/ul (0.83-4.51); Lymphocyte % 26.2 % (19-41); Mean Corp Hgb Conc 30.5 g/dL (32-36); Mean Corpuscular Hgb 29.1 pg (27.0-32.0); Mean Corpuscular Volume 95.6 fL (81-99); Mean Platelet Vol. 9.7 fl (6.2-12.0); Monocyte% 8.3 % (0-10); NRBC Flagged by Analyzer 0 % (0-5); Neutrophil # 3.93 X10^3/uL (2.7-7.7); Neutrophil % 64.9 % (47-70); Platelet Count 310 K/mm3 (150-450); RBC Distribution Width CV 14.8 % (11.6-14.6); RBC Distribution Width SD 52.7 fl (35.1-43.9); Red Blood Count 4.05 M/mm3 (4.2-5.4); White Blood Count 6.1 K/mm3 (4.4-11.0)
[2023-02-10 14:31] LABS: Hemoglobin A1c 6.5 % (3.8-5.6)
[2023-02-10 14:32] LABS: ALB/GLOB Ratio 0.8 RATIO (0.9-2.4); AST(SGOT) 9 U/L (15-37); Alanine Aminotransfer ALT/SGPT 24 U/L (13-56); Albumin, Serum 3.3 g/dL (3.2-5.0); Alkaline Phosphatase 95 U/L (45-117); Anion Gap 7 (5-15); BUN 15 mg/dL (7-18); BUN/Creat Ratio 11.9 RATIO (10-20); Calcium,Total 8.6 mg/dL (8.5-10.1); Chloride 110 mmol/L (98-107); Cholesterol 143 mg/dL (200); Creatinine, Serum 1.26 mg/dL (0.55-1.02); EST Glomerular Filtration Rate 47 mL/min (>60); Est Glom Filt Rate - Afr Amer 57 mL/min (>60); Globulin 4.4 g/dL (2.2-4.2); Glucose 142 mg/dL (74-106); High Density Lipoprotein 86 mg/dL; Potassium 4.1 mmol/L (3.5-5.1); Protein, Total 7.7 g/dL (6.4-8.2); Sodium Level 140 mmol/L (136-145); Thyroid Stim Hormone (TSH) 0.98 uIU/mL (0.358-3.74); Triglycerides 134 mg/dL; Very Low Density Lipoprotein 27 mg/dL (5-40)
[2023-02-10 14:33] LABS: Microalbumin,Random Urine < 5.0 mg/L (NO RANGE EST.)
== END | disposition home or self-care (01) ==
LOC: POLAB3 13:05
PROVIDERS: PCP Family Medicine Geriatric Medicine; Visit Provider Family Medicine Geriatric Medicine
DX: E11.65 Type 2 diabetes mellitus with hyperglycemia (principal); I10 Essential (primary) hypertension
CPT/HCPCS: 36415; 80053; 80061; 82043; 83036; 84443; 85025

== ENCOUNTER 2023-02-23 10:29 | Outpatient (RCR) | payer MEDICARE, MEDICAID, SELFPAY ==
[2023-02-23 10:54] LABS: Absolute Lymphocyte Count 2.06 X10^3/uL (0.83-4.51); Basophil# 0.02 X10^3/uL; Basophil% 0.3 % (0-1); Eosinophil# 0.12 X10^3/uL; Eosinophils% 2.1 % (0-5); Hematocrit 39.9 % (37-47); Hemoglobin 12.3 g/dL (12.0-15.0); Lymphocyte # 2.06 X10^3/ul (0.83-4.51); Lymphocyte % 35.9 % (19-41); Mean Corp Hgb Conc 30.8 g/dL (32-36); Mean Corpuscular Hgb 29.2 pg (27.0-32.0); Mean Corpuscular Volume 94.8 fL (81-99); Mean Platelet Vol. 9.5 fl (6.2-12.0); Monocyte# 0.53 X10^3/uL; Monocyte% 9.2 % (0-10); NRBC Flagged by Analyzer 0 % (0-5); Neutrophil % 52.3 % (47-70); Platelet Count 313 K/mm3 (150-450); RBC Distribution Width CV 14.5 % (11.6-14.6); RBC Distribution Width SD 50.4 fl (35.1-43.9); Red Blood Count 4.21 M/mm3 (4.2-5.4); White Blood Count 5.7 K/mm3 (4.4-11.0)
== END 2023-03-18 18:00 | disposition home or self-care (01) ==
LOC: LAB 10:29
PROVIDERS: Family Provider Family Medicine Geriatric Medicine; PCP Family Medicine Geriatric Medicine; Referring Provider Psychiatry & Neurology Psychiatry; Visit Provider Psychiatry & Neurology Psychiatry
DX: Z79.899 Other long term (current) drug therapy (principal)
CPT/HCPCS: 36415; 85025

== ENCOUNTER 2023-03-24 08:54 | Outpatient (RCR) | payer MEDICARE, MEDICAID, SELFPAY ==
[2023-03-24 10:02] LABS: Absolute Lymphocyte Count 1.88 X10^3/uL (0.83-4.51); Basophil# 0.03 X10^3/uL; Basophil% 0.5 % (0-1); Hematocrit 39.7 % (37-47); Hemoglobin 12.9 g/dL (12.0-15.0); Lymphocyte # 1.88 X10^3/ul (0.83-4.51); Mean Corp Hgb Conc 32.5 g/dL (32-36); Mean Corpuscular Hgb 30.4 pg (27.0-32.0); Mean Corpuscular Volume 93.6 fL (81-99); Mean Platelet Vol. 9.5 fl (6.2-12.0); Monocyte# 0.54 X10^3/uL; Monocyte% 8.3 % (0-10); NRBC Flagged by Analyzer 0 % (0-5); Neutrophil # 4.01 X10^3/uL (2.7-7.7); Neutrophil % 61.9 % (47-70); Platelet Count 312 K/mm3 (150-450); RBC Distribution Width SD 47.8 fl (35.1-43.9); Red Blood Count 4.24 M/mm3 (4.2-5.4); White Blood Count 6.5 K/mm3 (4.4-11.0)
== END 2023-04-18 18:00 | disposition home or self-care (01) ==
LOC: LAB 08:54
PROVIDERS: Family Provider Family Medicine Geriatric Medicine; PCP Family Medicine Geriatric Medicine; Referring Provider Psychiatry & Neurology Psychiatry; Visit Provider Psychiatry & Neurology Psychiatry
DX: Z79.899 Other long term (current) drug therapy (principal)
CPT/HCPCS: 36415; 85025